=== PATIENT | female | born 1955 | race Caucasian/White ===

== ENCOUNTER 2020-09-10 13:24 | Emergency (ER) | payer OTHER, SELFPAY ==
[2020-09-10 14:57] VITALS: BP 178/81; PULSE 82; RESP 20; TEMP 36.8; O2SAT 99; BMI 76.0
--- NOTE | 2020-09-10 15:06 | ED.GENADULT ---
HPI - General Adult General Chief complaint: General Medical Stated complaint: Blood in stools Time Seen by Provider: 09/10/20 14:51 Source: patient Mode of arrival: ambulatory Limitations: no limitations History of Present Illness HPI narrative: this is a 64 years old female presented to the emergency department ambulatory complaining of rectal bleeding, denies any nausea, vomiting, fever. Onset (ago): hour(s) (6) Location: lower extremity (rectum) Radiation: non-radiation Severity scale (1-10): 5 Relieving factors: none Exacerbating factors: none Related Data Allergies Allergy/AdvReac Type Severity Reaction Status Date / Time No Known Allergies Allergy Unverified 08/12/20 16:29 Review of Systems Review of Systems: Yes all other systems are reviewed and are negative PMFSH Past Medical History Medical History Anxiety GERD (gastroesophageal reflux disease) Hernia High cholesterol Social History Social History Smoking Status: Never smoker Use of substances other than those prescribed or required for medical reasons: No Advance Directives: No Advance Directives Information Provided: Yes Physical Exam Vital Signs: Vital Signs: Vital Signs Temp Pulse Resp BP Pulse Ox 09/10/20 16:00 76 18 135/84 99 09/10/20 15:07 98.2 F 178/81 H 99 09/10/20 14:57 98.2 F 82 20 178/81 H 99 Body Mass Index 76.0 Const: General: cooperative, healthy appearing and comfortable HENMT: Head: Yes normal to inspection Eyes: General: appearance normal, both eyes and all related structures Neck: Neck: Yes normal visual inspection Chest: Chest palpation & inspection: normal inspection of the chest and normal palpation of entire chest wall Resp: Effort & Inspection: normal respiratory effort and able to speak in complete sentences Cardio: Jugular venous distension: no JVD Palpation: normal PMI Rate: regular rate Rhythm: regular rhythm GI: Palpation (GI): Soft to palpation, nontender, no guarding, not rigid, hepatosplenomegaly present and Other GI palpation findings present ( Rectal exam shows brown stool heme-negative) Auscultation: Hyperactive bowel sounds present Medical Decision Making [facility] Narrative Medical decision making narrative: labs wnl,rectal exam brown stools heme negative,vitals stable she is not tachycardic nor hypotensive,she can be d/c home with f/u with PCP,she is very confortable with the plan Lab Data Result diagrams: 09/10/20 15:43 09/10/20 15:43 Labs: Lab Results 09/10/20 09/10/20 09/10/20 Range/Units 15:12 15:29 15:43 WBC 7.5 (4.8-10.8) X10*3/uL RBC 3.80 L (4.20-5.50) X10*6/uL Hgb 11.5 L (12.0-16.0) g/dl Hct 34.7 L (37-47) % MCV 91.3 (80-98) fL MCH 30.3 (27.0-33.0) pg MCHC 33.1 (31.0-35.0) g/dl RDW 12.4 (11.0-16.0) % Plt Count 291 (160-400) X10*3/uL MPV 8.9 L (9.4-12.3) fL Immature Gran % (Auto) 0.3 (0.0-0.4) % Neut % (Auto) 79.3 H (45-73) % Lymph % (Auto) 14.9 L (20-40) % [place] % (Auto) 4.4 (2-11) % Eos % (Auto) 0.4 (0-4) % Baso % (Auto) 0.7 (0-2) % Lymph # (Auto) 1.1 L (1.2-4.9) X10*3/uL [place] # (Auto) 0.3 (0.1-1.2) X10*3/uL Eos # (Auto) 0.0 (0.0-0.4) X10*3/uL Baso # (Auto) 0.1 (0.0-0.2) X10*3/uL Abs Immat Gran (auto) 0.02 (0.00-0.03) X10*3/uL Absolute Neuts (auto) 6.0 (2.0-8.3) X10*3/uL Absolute Nucleated RBC 0.000 (0.0-0.012) X10*3/uL Nucleated RBC % (auto) 0.0 (0.0-0.2) /100WBC PT (10.8-13.0) SEC INR (0.9-1.1) APTT (24.1-38.0) SEC Sodium (135-145) mmol/L Potassium (3.3-5.1) mmol/l Chloride (96-108) mmol/L Carbon Dioxide (22-29) mmol/L Anion Gap (12-20) BUN (9-16) mg/dL Creatinine (0.5-1.4) mg/dL Estim Creat Clear Calc Estimated GFR Random Glucose (60-115) mg/dL Calcium (8.4-10.2) mg/dL Total Bilirubin (0.0-1.0) mg/dL AST (5-31) U/L ALT (0-31) U/L Alkaline Phosphatase (39-117) U/L Total Protein (6.5-8.0) g/dL Albumin (3.5-5.0) g/dL Urine Color YELLOW Urine Appearance CLEAR Urine pH 6.5 (5.0-8.0) Ur Specific [place] 1.010 (1.005-1.025) Urine Protein 2+ H (NEG-TRACE) MG/DL Urine Glucose (UA) NEG (NEG) MG/DL Urine Ketones NEG (NEG) MG/DL Urine Blood 3+ H (NEG) Urine Nitrite NEG (NEG) Ur Leukocyte Esterase NEG (NEG) Urine RBC 50-75 H (0) /HPF Urine WBC 0 (0-4) /HPF Ur Squamous Epith Cells 1+ /LPF Urine Bacteria NONE /LPF Stool Occult Blood NEG (NEG) 09/10/20 09/10/20 Range/Units 15:43 15:43 WBC (4.8-10.8) X10*3/uL RBC (4.20-5.50) X10*6/uL Hgb (12.0-16.0) g/dl Hct (37-47) % MCV (80-98) fL MCH (27.0-33.0) pg MCHC (31.0-35.0) g/dl RDW (11.0-16.0) % Plt Count (160-400) X10*3/uL MPV (9.4-12.3) fL Immature Gran % (Auto) (0.0-0.4) % Neut % (Auto) (45-73) % Lymph % (Auto) (20-40) % [place] % (Auto) (2-11) % Eos % (Auto) (0-4) % Baso % (Auto) (0-2) % Lymph # (Auto) (1.2-4.9) X10*3/uL [place] # (Auto) (0.1-1.2) X10*3/uL Eos # (Auto) (0.0-0.4) X10*3/uL Baso # (Auto) (0.0-0.2) X10*3/uL Abs Immat Gran (auto) (0.00-0.03) X10*3/uL Absolute Neuts (auto) (2.0-8.3) X10*3/uL Absolute Nucleated RBC (0.0-0.012) X10*3/uL Nucleated RBC % (auto) (0.0-0.2) /100WBC PT 10.5 L (10.8-13.0) SEC INR 0.9 (0.9-1.1) APTT 33.1 (24.1-38.0) SEC Sodium 141 (135-145) mmol/L Potassium 4.3 (3.3-5.1) mmol/l Chloride 107 (96-108) mmol/L Carbon Dioxide 25 (22-29) mmol/L Anion Gap 13 (12-20) BUN 18 H (9-16) mg/dL Creatinine 0.89 (0.5-1.4) mg/dL Estim Creat Clear Calc 92.4 Estimated GFR > 60 Random Glucose 99 (60-115) mg/dL Calcium 9.8 (8.4-10.2) mg/dL Total Bilirubin 0.3 (0.0-1.0) mg/dL AST 25 (5-31) U/L ALT 17 (0-31) U/L Alkaline Phosphatase 62 (39-117) U/L Total Protein 6.9 (6.5-8.0) g/dL Albumin 4.3 (3.5-5.0) g/dL Urine Color Urine Appearance Urine pH (5.0-8.0) Ur Specific [place] (1.005-1.025) Urine Protein (NEG-TRACE) MG/DL Urine Glucose (UA) (NEG) MG/DL Urine Ketones (NEG) MG/DL Urine Blood (NEG) Urine Nitrite (NEG) Ur Leukocyte Esterase (NEG) Urine RBC (0) /HPF Urine WBC (0-4) /HPF Ur Squamous Epith Cells /LPF Urine Bacteria /LPF Stool Occult Blood (NEG) Discharge Plan Discharge Clinical Impression: Rectal bleeding Patient Disposition: Home, Self-Care Instructions: Rectal Bleeding (ED) Additional Instructions: please follow-up with your primary care physician or return if you are worse Referrals: Quitnon Neff MD [Primary Care Provider] - 2 days Interventions: ED Discharge Assessment Last Done: 09/10/20 16:54 Discharge Date/Time: 09/10/20 17:03
[2020-09-10 15:07] VITALS: BP 178/81; TEMP 36.8; O2SAT 99
[2020-09-10 15:23] LABS: OBS Int Ctl Valid YES; OBS1 NEG (NEG)
[2020-09-10] MEDS: LORazepam 0.5 MG TABLET PO (15:24)
[2020-09-10 15:44] LABS: Glucose Urine UA NEG (NEG); Leukocyte Esterase Urine NEG (NEG); Nitrite Urine NEG (NEG); PH 6.5 (5.0-8.0); Urine Blood 3+ (NEG); Urine Ketones NEG (NEG); Urine Protein 2+ MG/DL (NEG-TRACE)
[2020-09-10 15:45] LABS: Appearance Urine CLEAR; Color Urine YELLOW
[2020-09-10 15:51] LABS: MANUAL DIFF FLAG NO
[2020-09-10 15:52] LABS: Basophils Absolute Auto 0.1 X10*3/uL (0.0-0.2); Basophils Percent Auto 0.7 % (0-2); Eosinophils Percent Auto 0.4 % (0-4); Hematocrit 34.7 % (37-47); Hemoglobin 11.5 g/dl (12.0-16.0); Imm Gran Abs Auto 0.02 X10*3/uL (0.00-0.03); Imm Gran Pct Auto 0.3 % (0.0-0.4); Lymphocytes Absolute Auto 1.1 X10*3/uL (1.2-4.9); Lymphocytes Percent Auto 14.9 % (20-40); Mean Corpuscular HGB Conc 33.1 g/dl (31.0-35.0); Mean Corpuscular Hemoglobin 30.3 pg (27.0-33.0); Mean Corpuscular Volume 91.3 fL (80-98); Mean Platelet Volume 8.9 fL (9.4-12.3); Monocytes Absolute Auto 0.3 X10*3/uL (0.1-1.2); Monocytes Percent Auto 4.4 % (2-11); Neutrophils Percent Auto 79.3 % (45-73); Platelet Count 291 X10*3/uL (160-400); Red Cell Distribution Width 12.4 % (11.0-16.0); White Blood Count 7.5 X10*3/uL (4.8-10.8)
[2020-09-10 15:57] LABS: WBC Urine 0 /HPF (0-4)
[2020-09-10 15:58] LABS: RBC Urine 50-75 /HPF (0); Squamous Epithelial Cell Urine 1+ /LPF
[2020-09-10 16:00] VITALS: BP 135/84; PULSE 76; RESP 18; O2SAT 99
--- NOTE | 2020-09-10 16:00 | PC.NURSE ---
pt resting in the stretcher, reports feeling a little better after the ativan, vs stable at this time
[2020-09-10 16:27] LABS: Alanine Aminotransferase 17 U/L (0-31); Albumin Level 4.3 g/dL (3.5-5.0); Alkaline Phosphatase 62 U/L (39-117); Anion Gap 13 (12-20); Aspartate Amino Transferase 25 U/L (5-31); Bilirubin Total 0.3 mg/dL (0.0-1.0); Blood Urea Nitrogen 18 mg/dL (9-16); Calcium 9.8 mg/dL (8.4-10.2); Carbon Dioxide 25 mmol/L (22-29); Chloride 107 mmol/L (96-108); Creatinine Clr Calc Pharmacy 92.4; Estimated Glomerular Filt Rate > 60; Glucose Random 99 mg/dL (60-115); Potassium 4.3 mmol/l (3.3-5.1); Sodium 141 mmol/L (135-145); Total Protein 6.9 g/dL (6.5-8.0)
[2020-09-10 16:31] LABS: INTERNATIONAL NORM RATIO 0.9 (0.9-1.1); Prothrombin Time 10.5 SEC (10.8-13.0)
[2020-09-10 16:33] LABS: Partial Thromboplastin Time 33.1 SEC (24.1-38.0)
== END 2020-09-10 17:03 | disposition home or self-care (01) ==
PROVIDERS: Emergency Provider Emergency Medicine; PCP Internal Medicine
DX: K62.5 Hemorrhage of anus and rectum (principal); Z79.899 Other long term (current) drug therapy
CPT/HCPCS: 36415; 80053; 81001; 82272; 85025; 85610; 85730; 96374; 99284

== ENCOUNTER 2020-11-24 09:49 | Outpatient (REF) | payer OTHER, SELFPAY ==
[2020-11-24 11:08] LABS: MANUAL DIFF FLAG NO
[2020-11-24 11:19] LABS: Basophils Absolute Auto 0.1 X10*3/uL (0.0-0.2); Basophils Percent Auto 1.1 % (0-2); Eosinophils Absolute Auto 0.3 X10*3/uL (0.0-0.4); Eosinophils Percent Auto 4.9 % (0-4); Hematocrit 36.3 % (37-47); Hemoglobin 11.6 g/dl (12.0-16.0); Imm Gran Abs Auto 0.01 X10*3/uL (0.00-0.03); Imm Gran Pct Auto 0.2 % (0.0-0.4); Lymphocytes Absolute Auto 2.4 X10*3/uL (1.2-4.9); Lymphocytes Percent Auto 38.7 % (20-40); Mean Corpuscular Volume 93.8 fL (80-98); Mean Platelet Volume 9.3 fL (9.4-12.3); Monocytes Absolute Auto 0.5 X10*3/uL (0.1-1.2); Monocytes Percent Auto 8.6 % (2-11); Neutrophils Absolute Auto 2.9 X10*3/uL (2.0-8.3); Neutrophils Percent Auto 46.5 % (45-73); Platelet Count 316 X10*3/uL (160-400); Red Blood Count 3.87 X10*6/uL (4.20-5.50); Red Cell Distribution Width 12.4 % (11.0-16.0); White Blood Count 6.2 X10*3/uL (4.8-10.8)
[2020-11-24 11:52] LABS: Alanine Aminotransferase 15 U/L (0-31); Albumin Level 4.2 g/dL (3.5-5.0); Alkaline Phosphatase 60 U/L (39-117); Anion Gap 10 (12-20); Aspartate Amino Transferase 20 U/L (5-31); Bilirubin Total 0.3 mg/dL (0.0-1.0); Blood Urea Nitrogen 20 mg/dL (9-16); Calcium 9.2 mg/dL (8.4-10.2); Carbon Dioxide 29 mmol/L (22-29); Chloride 106 mmol/L (96-108); Cholesterol 222 mg/dL; Estimated Glomerular Filt Rate 55; Glucose Random 89 mg/dL (60-115); HDL Cholesterol 58 mg/dL; LDL Cholesterol Calculated 123 mg/dl; Potassium 4.1 mmol/l (3.3-5.1); Sodium 141 mmol/L (135-145); Total Protein 6.7 g/dL (6.5-8.0); Triglycerides 206 mg/dL
[2020-11-24 11:54] LABS: Free T4 (Free Thyroxine) 1.01 ng/dL (0.71-1.85); Thyroid Stimulating Hormone 4.04 uIU/mL (0.32-4.0); Vitamin D 25-OH Total 37.2 ng/mL (>30)
[2020-11-24 12:36] LABS: Folate > 20.0 ng/mL (> or = 4.0); Vitamin B12 583 pg/mL (200-900)
== END 2020-11-24 09:50 | disposition home or self-care (01) ==
LOC: HO.LAB 09:49
PROVIDERS: Visit Provider Internal Medicine
DX: E78.00 Pure hypercholesterolemia, unspecified (principal)
CPT/HCPCS: 36415; 80053; 80061; 82306; 82607; 82746; 84439; 84443; 85025

== ENCOUNTER 2021-07-20 12:28 | Outpatient (REF) | payer OTHER, SELFPAY ==
[2021-07-20 13:24] LABS: Retic HGB Equivalent 35.5 pg (30.0-35.0); Reticulocyte Percent 1.4 % (0.5-1.8); Reticulocytes Absolute 0.054 X10*6/uL (0.026-0.095)
[2021-07-20 14:50] LABS: Iron 72 mcg/dL (30-160); Percent Iron Saturation 21 % (15-50); Total Iron Binding Capacity 335 mcg/dL (228-428); Unsaturated Iron Binding 263 ug/dL
[2021-07-20 15:13] LABS: Ferritin 40 ng/mL (10-250); Free T4 (Free Thyroxine) 1.09 ng/dL (0.71-1.85); Thyroid Stimulating Hormone 2.81 uIU/mL (0.32-4.0)
== END 2021-07-20 12:29 | disposition home or self-care (01) ==
LOC: HO.LAB 12:28
PROVIDERS: PCP Internal Medicine; Visit Provider Internal Medicine
DX: D64.9 Anemia, unspecified (principal); R79.89 Other specified abnormal findings of blood chemistry
CPT/HCPCS: 36415; 82728; 83540; 84439; 84443; 85045

== ENCOUNTER 2021-08-19 14:34 | Outpatient (REF) | payer OTHER, SELFPAY ==
--- NOTE | ~2021-08-19 | MM_ITS ---
EXAMINATION: MM SCREENING DIGITAL BREAST TOMOSYNTHESIS, BILATERAL CLINICAL INFORMATION: Screening. Asymptomatic. The lifetime risk of breast cancer based on the Tyrer-Cuzick Model is 17%. COMPARISON: Mammography: 08/04/2020, 07/30/2019, 07/22/2018 TECHNIQUE: Digital breast tomosynthesis is performed in both the craniocaudal and mediolateral oblique views along with computer-aided detection (CAD). Synthesized 2D images are generated from the tomosynthesis. FINDINGS: The breasts are heterogeneously dense, which may obscure small masses (ACR BI-RADS breast composition Category c). There are no significant masses, abnormal calcifications, or other abnormalities. There are scattered predominantly vascular calcifications and some punctate round calcifications. The axilla and skin contours are unremarkable. MM/MM tomosynthesis screening BI IMPRESSION: No mammographic evidence of malignancy. ASSESSMENT: BI-RADS 2: Benign RECOMMENDATION: Routine annual mammography screening. This patient's information was entered into a reminder system with a target due date for their next mammogram.
== END 2021-08-19 14:35 | disposition home or self-care (01) ==
LOC: HO.MAMMO 14:34
PROVIDERS: Visit Provider Internal Medicine
DX: Z12.31 Encounter for screening mammogram for malignant neoplasm of breast (principal)
CPT/HCPCS: 77063; 77067

== ENCOUNTER 2021-11-04 10:44 | Outpatient (REF) | payer MEDICARE, OTHER, SELFPAY ==
[2021-11-04 10:59] LABS: MANUAL DIFF FLAG NO
[2021-11-04 11:48] LABS: Basophils Absolute Auto 0.1 X10*3/uL (0.0-0.2); Eosinophils Absolute Auto 0.3 X10*3/uL (0.0-0.4); Eosinophils Percent Auto 4.4 % (0-4); Hematocrit 35.3 % (37.0-47.0); Hemoglobin 11.4 g/dl (12.0-16.0); Imm Gran Abs Auto 0.01 X10*3/uL (0.00-0.03); Imm Gran Pct Auto 0.2 % (0.0-0.4); Lymphocytes Absolute Auto 1.8 X10*3/uL (1.2-4.9); Lymphocytes Percent Auto 30.5 % (20-40); Mean Corpuscular HGB Conc 32.3 g/dl (31.0-35.0); Mean Corpuscular Hemoglobin 30.1 pg (27.0-33.0); Mean Corpuscular Volume 93.1 fL (80.0-98.0); Monocytes Absolute Auto 0.5 X10*3/uL (0.1-1.2); Monocytes Percent Auto 8.2 % (2-11); Neutrophils Absolute Auto 3.3 x10*3/uL (2.0-8.3); Neutrophils Percent Auto 55.7 % (45-73); Platelet Count 312 X10*3/uL (160-400); Red Blood Count 3.79 X10*6/uL (4.20-5.50); Red Cell Distribution Width 12.4 % (11.0-16.0)
[2021-11-04 12:17] LABS: Alanine Aminotransferase 16 U/L (0-31); Albumin Level 4.2 g/dL (3.5-5.0); Alkaline Phosphatase 66 U/L (39-117); Anion Gap 13 (12-20); Aspartate Amino Transferase 22 U/L (5-31); Bilirubin Total 0.5 mg/dL (0.0-1.0); Blood Urea Nitrogen 21 mg/dL (9-16); Calcium 9.5 mg/dL (8.4-10.2); Carbon Dioxide 26 mmol/L (22-29); Chloride 107 mmol/L (96-108); Cholesterol 237 mg/dL; Estimated Glomerular Filt Rate 53; Glucose Random 92 mg/dL (60-115); HDL Cholesterol 55 mg/dL; LDL Cholesterol Calculated 140 mg/dl; Potassium 4.3 mmol/L (3.3-5.1); Sodium 142 mmol/L (135-145); Total Protein 6.9 g/dL (6.5-8.0); Triglycerides 210 mg/dL
[2021-11-04 12:24] LABS: Thyroid Stimulating Hormone 3.59 uIU/mL (0.32-4.0)
[2021-11-04 13:10] LABS: Folate > 20.0 ng/mL (> or = 4.0); Vitamin B12 576 pg/mL (200-900)
== END 2021-11-04 10:45 | disposition home or self-care (01) ==
LOC: HO.LAB 10:44
PROVIDERS: PCP Internal Medicine; Visit Provider Internal Medicine
DX: E78.00 Pure hypercholesterolemia, unspecified (principal)
CPT/HCPCS: 36415; 80053; 80061; 82607; 82746; 84439; 84443; 85025

== ENCOUNTER 2021-12-13 15:04 | Outpatient (REF) | payer MEDICARE, SELFPAY ==
--- NOTE | ~2021-12-13 | MM_ITS ---
EXAMINATION: BONE DENSITOMETRY CLINICAL INDICATION: Other specified disorders of bone density and structure. COMPARISON: Previous BD dated 12/14/2017 and baseline BD dated 11/12/2015. TECHNIQUE: Using a [employer]o DXA System (software version: 13.1) manufactured by [employer], dual-energy x-ray absorptiometry was performed of the lumbar spine and left hip. The images are of good technical quality. Summary results are attached. FINDINGS: AP SPINE L1-L4: Current: BMD 0.879 g/cm2, Z-score -1.3, T-score -2.5, osteoporosis, 4.0% decrease from previous, 4.0% decrease from baseline (<5% change is not significant). Prior: BMD 0.916 g/cm2. Baseline: BMD 0.916 g/cm2. LEFT FEMUR, NECK: Current: BMD 0.759 g/cm2, Z-score -0.8, T-score -2.0, osteopenia. Prior: BMD 0.770 g/cm2. Baseline: BMD 0.784 g/cm2. LEFT FEMUR, TOTAL: Current: BMD 0.843 g/cm2, Z-score -0.4, T-score -1.3, osteopenia, 4.1% decrease from previous, 5.3% decrease from baseline (<5% change is not significant). Prior: BMD 0.879 g/cm2. Baseline: BMD 0.890 g/cm2. IDENTIFIED RISK FACTORS: Early menopause, secondary osteoporosis, low calcium intake. HISTORY OF FRACTURE: None listed. MEDICATIONS: Calcium. MM/XR DEXA axial skeleton IMPRESSION: 1. DIAGNOSIS: Osteoporosis based on the lowest T-score value of -2.5 in the lumbar spine applying World Health Organization criteria. 2. 10-YEAR FRACTURE RISK PREDICTION, FRAX: According to the guidelines, FRAX calculation should only be performed on patients in the osteopenia bone density category. Therefore, FRAX was not performed on this patient. 3. Treatment Recommendations: NOF guidelines recommend consideration for treatment in postmenopausal women and men age 50 and older presenting with the following: -A hip or vertebral (clinical or morphometric) fracture. -T-score less than or equal to -2.5 at the femoral neck or spine after appropriate evaluation to exclude secondary causes. -Low bone mass at the hip or spine and a 10-year fracture probability by FRAX of greater than or equal to 3% for hip fracture or greater than or equal to 20% for major osteoporotic fracture based on the [place] adapted WHO algorithm. 4. Other Recommendations: All treatment decisions require clinical judgment and consideration of individual patient factors, including patient preferences, comorbidities, previous drug use, risk factors not captured in the FRAX model (e.g. frailty, falls, vitamin D deficiency, increased bone turnover, interval significant decline in bone density) and possible under or overestimation of fracture risk by FRAX. Additional medical evaluation for secondary cause of low bone mineral density may be appropriate. FUTURE SCAN RECOMMENDATION: People with diagnosed cases of osteoporosis or at high risk for fracture should have regular bone mineral density tests. For patients eligible for Medicare, routine testing is allowed once every 2 years. The testing frequency can be increased to one year for patients who have rapidly progressing disease, those who are receiving or discontinuing medical therapy to restore bone mass, or have additional risk factors.
== END 2021-12-13 15:05 | disposition home or self-care (01) ==
LOC: HO.MAMMO 15:04
PROVIDERS: PCP Internal Medicine; Visit Provider Internal Medicine
DX: Z13.820 Encounter for screening for osteoporosis (principal); M85.80 Other specified disorders of bone density and structure, unspecified site; M81.0 Age-related osteoporosis without current pathological fracture; Z78.0 Asymptomatic menopausal state; Z79.899 Other long term (current) drug therapy
CPT/HCPCS: 77080

== ENCOUNTER 2022-03-10 13:30 | Outpatient (REF) | payer MEDICARE, SELFPAY ==
[2022-03-10 13:39] LABS: MANUAL DIFF FLAG NO
[2022-03-10 14:11] LABS: Basophils Absolute Auto 0.1 X10*3/uL (0.0-0.2); Basophils Percent Auto 1.3 % (0-2); Eosinophils Absolute Auto 0.2 X10*3/uL (0.0-0.4); Eosinophils Percent Auto 3.8 % (0-4); Hematocrit 34.7 % (37.0-47.0); Hemoglobin 11.1 g/dl (12.0-16.0); Imm Gran Abs Auto 0.02 X10*3/uL (0.00-0.03); Imm Gran Pct Auto 0.4 % (0.0-0.4); Immature Retic Fraction 8.2 % (3.0-15.9); Lymphocytes Absolute Auto 1.8 X10*3/uL (1.2-4.9); Lymphocytes Percent Auto 33.1 % (20-40); Mean Corpuscular Hemoglobin 29.7 pg (27.0-33.0); Mean Corpuscular Volume 92.8 fL (80.0-98.0); Monocytes Absolute Auto 0.4 X10*3/uL (0.1-1.2); Monocytes Percent Auto 7.9 % (2-11); Neutrophils Absolute Auto 2.9 x10*3/uL (2.0-8.3); Neutrophils Percent Auto 53.5 % (45-73); Platelet Count 284 X10*3/uL (160-400); Red Blood Count 3.74 X10*6/uL (4.20-5.50); Red Cell Distribution Width 12.6 % (11.0-16.0); Retic HGB Equivalent 34.7 pg (30.0-35.0); Reticulocyte Percent 1.3 % (0.5-1.8); Reticulocytes Absolute 0.049 X10*6/uL (0.026-0.095); White Blood Count 5.5 X10*3/uL (4.8-10.8)
[2022-03-10 14:26] LABS: Cholesterol 229 mg/dL; HDL Cholesterol 52 mg/dL; Iron 93 mcg/dL (30-160); LDL Cholesterol Calculated 144 mg/dl; Triglycerides 167 mg/dL
[2022-03-10 14:37] LABS: Percent Iron Saturation 29 % (15-50); Total Iron Binding Capacity 326 mcg/dL (228-428); Unsaturated Iron Binding 233 ug/dL
[2022-03-10 14:42] LABS: Ferritin 57 ng/mL (10-250)
[2022-03-10 15:03] LABS: Folate > 20.0 ng/mL (> or = 4.0); Vitamin B12 734 pg/mL (200-900)
== END 2022-03-10 13:31 | disposition home or self-care (01) ==
LOC: HO.LAB 13:30
PROVIDERS: PCP Internal Medicine; Visit Provider Internal Medicine
DX: K21.9 Gastro-esophageal reflux disease without esophagitis (principal); E78.00 Pure hypercholesterolemia, unspecified
CPT/HCPCS: 36415; 80061; 82607; 82728; 82746; 83540; 85025; 85045

== ENCOUNTER 2022-06-16 14:24 | Outpatient (REF) | payer MEDICARE, SELFPAY ==
[2022-06-16 14:35] LABS: MANUAL DIFF FLAG NO
[2022-06-16 15:13] LABS: Basophils Absolute Auto 0.1 X10*3/uL (0.0-0.2); Basophils Percent Auto 1.2 % (0-2); Eosinophils Absolute Auto 0.3 X10*3/uL (0.0-0.4); Eosinophils Percent Auto 4.2 % (0-4); Hematocrit 34.4 % (37.0-47.0); Hemoglobin 11.2 g/dl (12.0-16.0); Imm Gran Abs Auto 0.01 X10*3/uL (0.00-0.03); Imm Gran Pct Auto 0.2 % (0.0-0.4); Lymphocytes Absolute Auto 1.8 X10*3/uL (1.2-4.9); Lymphocytes Percent Auto 31.1 % (20-40); Mean Corpuscular HGB Conc 32.6 g/dl (31.0-35.0); Mean Corpuscular Hemoglobin 29.8 pg (27.0-33.0); Mean Corpuscular Volume 91.5 fL (80.0-98.0); Mean Platelet Volume 9.1 fL (9.4-12.3); Monocytes Absolute Auto 0.5 X10*3/uL (0.1-1.2); Monocytes Percent Auto 8.1 % (2-11); Neutrophils Absolute Auto 3.3 x10*3/uL (2.0-8.3); Neutrophils Percent Auto 55.2 % (45-73); Platelet Count 280 X10*3/uL (160-400); Red Blood Count 3.76 X10*6/uL (4.20-5.50); Red Cell Distribution Width 12.6 % (11.0-16.0); White Blood Count 5.9 X10*3/uL (4.8-10.8)
[2022-06-16 15:45] LABS: Alanine Aminotransferase 13 U/L (0-31); Albumin Level 4.3 g/dL (3.5-5.0); Alkaline Phosphatase 59 U/L (39-117); Anion Gap 13 (12-20); Aspartate Amino Transferase 18 U/L (5-31); Bilirubin Total 0.3 mg/dL (0.0-1.0); Blood Urea Nitrogen 23 mg/dL (9-16); Calcium 9.3 mg/dL (8.4-10.2); Carbon Dioxide 25 mmol/L (22-29); Chloride 108 mmol/L (96-108); Cholesterol 227 mg/dL; Estimated Glomerular Filt Rate 45; Glucose Random 93 mg/dL (60-115); HDL Cholesterol 52 mg/dL; LDL Cholesterol Calculated 140 mg/dl; Potassium 4.8 mmol/L (3.3-5.1); Sodium 141 mmol/L (135-145); Total Protein 6.8 g/dL (6.5-8.0); Triglycerides 175 mg/dL
== END 2022-06-16 14:25 | disposition home or self-care (01) ==
LOC: HO.LAB 14:24
PROVIDERS: PCP Internal Medicine; Visit Provider Internal Medicine
DX: E78.00 Pure hypercholesterolemia, unspecified (principal)
CPT/HCPCS: 36415; 80053; 80061; 85025

== ENCOUNTER 2022-08-21 15:05 | Outpatient (REF) | payer MEDICARE, SELFPAY ==
--- NOTE | ~2022-08-21 | MM_ITS ---
EXAMINATION: MM SCREENING DIGITAL BREAST TOMOSYNTHESIS, BILATERAL CLINICAL INFORMATION: Screening. Asymptomatic. Family history breast cancer, mother. The lifetime risk of breast cancer based on the Tyrer-Cuzick Model is 6%. COMPARISON: Mammography: 08/19/2021, 08/04/2020, 07/30/2019 TECHNIQUE: Digital breast tomosynthesis is performed in both the craniocaudal and mediolateral oblique views along with computer-aided detection (CAD). Synthesized 2D images are generated from the tomosynthesis. Additional left CC view obtained with dermal marker. FINDINGS: The breasts are heterogeneously dense, which may obscure small masses (ACR BI-RADS breast composition Category c). Parenchymal pattern is similar to prior studies. There is no interval mass or architectural abnormality. There are some scattered round and vascular calcifications again seen. The axilla and skin contours are unremarkable. There are new numerous punctate high attenuation foci overlying the skin posterior inferior left breast. Dermal lesion also noted in this area marked with skin marker. The finding appears to represent artifact from topical ointment/cream, finding related to skin on tomography. Patient called today and confirmed use of Desitin in this area. MM/MM tomosynthesis screening BI IMPRESSION: -No mammographic evidence of malignancy. -Punctate dermal artifact posterior inferior left breast (topical ointment/cream - Desitin). ASSESSMENT: BI-RADS 2: Benign RECOMMENDATION: Routine annual mammography screening. This patient's information was entered into a reminder system with a target due date for their next mammogram.
== END 2022-08-21 15:06 | disposition home or self-care (01) ==
LOC: HO.MAMMO 15:05
PROVIDERS: PCP Internal Medicine; Visit Provider Internal Medicine
DX: Z12.31 Encounter for screening mammogram for malignant neoplasm of breast (principal)
CPT/HCPCS: 77063; 77067

== ENCOUNTER 2022-09-04 13:50 | Outpatient (REF) | payer MEDICARE, SELFPAY ==
[2022-09-04 14:11] LABS: MANUAL DIFF FLAG NO
[2022-09-04 14:23] LABS: Basophils Absolute Auto 0.1 X10*3/uL (0.0-0.2); Basophils Percent Auto 1.2 % (0-2); Eosinophils Absolute Auto 0.2 X10*3/uL (0.0-0.4); Eosinophils Percent Auto 3.1 % (0-4); Hemoglobin 11.4 g/dl (12.0-16.0); Imm Gran Abs Auto 0.01 X10*3/uL (0.00-0.03); Imm Gran Pct Auto 0.2 % (0.0-0.4); Immature Retic Fraction 6.5 % (3.0-15.9); Lymphocytes Absolute Auto 1.8 X10*3/uL (1.2-4.9); Lymphocytes Percent Auto 31.3 % (20-40); Mean Corpuscular HGB Conc 32.6 g/dl (31.0-35.0); Mean Corpuscular Hemoglobin 29.8 pg (27.0-33.0); Mean Corpuscular Volume 91.6 fL (80.0-98.0); Mean Platelet Volume 8.9 fL (9.4-12.3); Monocytes Absolute Auto 0.5 X10*3/uL (0.1-1.2); Monocytes Percent Auto 7.7 % (2-11); Neutrophils Absolute Auto 3.3 x10*3/uL (2.0-8.3); Neutrophils Percent Auto 56.5 % (45-73); Platelet Count 299 X10*3/uL (160-400); Red Blood Count 3.82 X10*6/uL (4.20-5.50); Red Cell Distribution Width 12.8 % (11.0-16.0); Retic HGB Equivalent 35.1 pg (30.0-35.0); Reticulocyte Percent 1.1 % (0.5-1.8); Reticulocytes Absolute 0.042 X10*6/uL (0.026-0.095); White Blood Count 5.8 X10*3/uL (4.8-10.8)
[2022-09-04 14:34] LABS: Alanine Aminotransferase 14 U/L (0-31); Albumin Level 4.1 g/dL (3.5-5.0); Alkaline Phosphatase 62 U/L (39-117); Anion Gap 17 (12-20); Aspartate Amino Transferase 21 U/L (5-31); Bilirubin Total 0.3 mg/dL (0.0-1.0); Blood Urea Nitrogen 27 mg/dL (9-16); Calcium 9.6 mg/dL (8.4-10.2); Carbon Dioxide 23 mmol/L (22-29); Chloride 107 mmol/L (96-108); Cholesterol 295 mg/dL; Estimated Glomerular Filt Rate 47; Glucose Random 102 mg/dL (60-115); HDL Cholesterol 51 mg/dL; Iron 83 mcg/dL (30-160); LDL Cholesterol Calculated 203 mg/dl; Percent Iron Saturation 24 % (15-50); Potassium 4.8 mmol/L (3.3-5.1); Sodium 142 mmol/L (135-145); Total Iron Binding Capacity 340 mcg/dL (228-428); Total Protein 6.8 g/dL (6.5-8.0); Triglycerides 209 mg/dL; Unsaturated Iron Binding 257 ug/dL
[2022-09-04 14:54] LABS: Ferritin 35 ng/mL (10-250); Free T4 (Free Thyroxine) 1.22 ng/dL (0.71-1.85); Thyroid Stimulating Hormone 2.77 uIU/mL (0.32-4.0); Vitamin D 25-OH Total 47.6 ng/mL (>30)
[2022-09-04 15:08] LABS: Folate > 20.0 ng/mL (> or = 4.0); Vitamin B12 531 pg/mL (200-900)
== END 2022-09-04 13:51 | disposition home or self-care (01) ==
LOC: HO.LAB 13:50
PROVIDERS: PCP Internal Medicine; Visit Provider Internal Medicine
DX: I10 Essential (primary) hypertension (principal); E78.00 Pure hypercholesterolemia, unspecified; D64.9 Anemia, unspecified; M81.0 Age-related osteoporosis without current pathological fracture
CPT/HCPCS: 36415; 80053; 80061; 82306; 82607; 82728; 82746; 83540; 84439; 84443; 85025; 85045

== ENCOUNTER 2022-12-06 14:53 | Outpatient (REF) | payer MEDICARE, SELFPAY ==
[2022-12-06 15:55] LABS: Alanine Aminotransferase 11 U/L (0-31); Albumin Level 4.3 g/dL (3.5-5.0); Alkaline Phosphatase 62 U/L (39-117); Anion Gap 12 (12-20); Aspartate Amino Transferase 17 U/L (5-31); Bilirubin Total 0.4 mg/dL (0.0-1.0); Blood Urea Nitrogen 30 mg/dL (9-16); Calcium 9.8 mg/dL (8.4-10.2); Carbon Dioxide 28 mmol/L (22-29); Chloride 105 mmol/L (96-108); Cholesterol 209 mg/dL; Estimated Glomerular Filt Rate 41; Glucose Random 102 mg/dL (60-115); HDL Cholesterol 56 mg/dL; LDL Cholesterol Calculated 123 mg/dl; Potassium 4.3 mmol/L (3.3-5.1); Sodium 141 mmol/L (135-145); Total Protein 6.9 g/dL (6.5-8.0); Triglycerides 154 mg/dL
== END 2022-12-06 14:54 | disposition home or self-care (01) ==
LOC: HO.LAB 14:53
PROVIDERS: PCP Internal Medicine; Visit Provider Internal Medicine
DX: E78.00 Pure hypercholesterolemia, unspecified (principal)
CPT/HCPCS: 36415; 80053; 80061

== ENCOUNTER 2022-12-28 15:11 | Outpatient (REF) | payer MEDICARE, SELFPAY ==
[2022-12-28 15:51] LABS: Appearance Urine Clear; Color Urine Yellow; Glucose Urine UA Negative (Negative); Leukocyte Esterase Urine Small (1+) (Negative); Nitrite Urine Negative (Negative); PH 6.5 (5.0-9.0); UMIC TRIGGER UACC YES; Urine Blood Small (1+) (Negative); Urine Ketones Negative (Negative); Urine Protein Negative (Neg-Trace)
[2022-12-28 15:53] LABS: Alanine Aminotransferase 12 U/L (0-31); Albumin Level 4.1 g/dL (3.5-5.0); Alkaline Phosphatase 60 U/L (39-117); Anion Gap 12 (12-20); Aspartate Amino Transferase 17 U/L (5-31); Bilirubin Total 0.3 mg/dL (0.0-1.0); Blood Urea Nitrogen 37 mg/dL (9-16); Calcium 9.1 mg/dL (8.4-10.2); Carbon Dioxide 26 mmol/L (22-29); Chloride 106 mmol/L (96-108); Estimated Glomerular Filt Rate 37; Glucose Random 100 mg/dL (60-115); Potassium 4.6 mmol/L (3.3-5.1); Sodium 139 mmol/L (135-145); Total Protein 6.5 g/dL (6.5-8.0)
[2022-12-28 16:04] LABS: Bacteria Urine None Seen (None Seen); Hyaline Casts Urine 0-2 /LPF (0-2); Squamous Epithelial Cell Urine 0-2 /HPF (0-2); UACC Culture Trigger YES; WBC Urine 0-5 /HPF (0-5)
== END 2022-12-28 15:12 | disposition home or self-care (01) ==
LOC: HO.LAB 15:11
PROVIDERS: PCP Internal Medicine; Visit Provider Internal Medicine
DX: I10 Essential (primary) hypertension (principal)
CPT/HCPCS: 36415; 80053; 81001; 87086

== ENCOUNTER 2023-01-04 15:29 | Outpatient (REF) | payer MEDICARE, SELFPAY ==
[2023-01-04 17:40] LABS: Appearance Urine Clear; Color Urine Yellow; Glucose Urine UA Negative (Negative); Leukocyte Esterase Urine Trace (Negative); Nitrite Urine Negative (Negative); PH 5.5 (5.0-9.0); Specific Gravity - Urine 1.015 (1.005-1.025); UMIC TRIGGER UACC YES; Urine Blood Moderate (2+) (Negative); Urine Ketones Negative (Negative); Urine Protein Trace mg/dL (Neg-Trace)
[2023-01-04 17:46] LABS: Bacteria Urine None Seen (None Seen); Hyaline Casts Urine 0-2 /LPF (0-2); Squamous Epithelial Cell Urine 0-2 /HPF (0-2); WBC Urine 0-5 /HPF (0-5)
[2023-01-04 18:08] LABS: Anion Gap 16 (12-20); Blood Urea Nitrogen 23 mg/dL (9-16); Calcium 9.4 mg/dL (8.4-10.2); Carbon Dioxide 21 mmol/L (22-29); Chloride 109 mmol/L (96-108); Estimated Glomerular Filt Rate 50; Glucose Random 93 mg/dL (60-115); Potassium 4.6 mmol/L (3.3-5.1); Sodium 141 mmol/L (135-145)
== END 2023-01-04 15:30 | disposition home or self-care (01) ==
LOC: HO.LAB 15:29
PROVIDERS: PCP Internal Medicine; Visit Provider Internal Medicine
DX: R30.0 Dysuria (principal); I10 Essential (primary) hypertension
CPT/HCPCS: 36415; 80048; 81001

== ENCOUNTER 2023-02-16 15:37 | Emergency (ER) | payer MEDICARE, SELFPAY ==
--- NOTE | 2023-02-16 16:19 | ED.ANIMALBIT ---
HPI - Animal Bite General Chief Complaint: Animal Bite Stated Complaint: Seen at , needs to start rabies shot, an bite Time Seen by Provider: 02/16/23 18:39 Source: patient Mode of arrival: ambulatory History of Present Illness HPI narrative: 67-year-old female with past medical history of hypertension, GERD, HLD, obesity, presenting to ED sent in from Urgent Care for Rabies vaccine/immune globulin. Patient states she was scratched and potentially bit by neighborhood cat to right upper extremity [employer]. Unknown if cat is vaccinated. Patient received a Tdap at Urgent Care [employer], Augmentin was also sent to pharmacy. Denies injury to other area, numbness/tingling fever MD complaint: animal bite Onset (ago): hour(s) Related Data Home Medications Medication Instructions Recorded Confirmed cranberry 400 mg capsule 400 mg PO DAILY 11/25/20 09/04/22 multivitamin 1 tab PO DAILY 11/25/20 09/04/22 omega-3 fatty acids 1,000 mg 1,000 mg PO DAILY 11/25/20 09/04/22 capsule (Fish Oil Concentrate) Previous Rx's Medication Instructions Recorded cholecalciferol (vitamin D3) 50 50 mcg PO DAILY 90 days #90 caps 06/19/22 mcg (2,000 unit) capsule antiarthritic combination no.2 900 900 mg PO .QD 90 days #90 tabs 12/11/22 mg tablet (glucosamine-chondroitin) lorazepam 0.5 mg tablet (Ativan) 0.5 mg PO BID PRN anxiety 90 days 12/11/22 #90 tabs omeprazole 20 mg capsule,delayed 20 mg PO DAILY 90 days #90 caps 12/11/22 release simvastatin 10 mg tablet 10 mg PO BEDTIME 90 days #90 tabs 12/11/22 amlodipine 5 mg tablet 5 mg PO DAILY #30 tabs 12/28/22 amoxicillin 875 mg-potassium 1 tab PO BID 10 days #20 tabs 02/16/23 clavulanate 125 mg tablet Allergies Allergy/AdvReac Type Severity Reaction Status Date / Time No Known Allergies Allergy Verified 02/16/23 14:37 Review of Systems Review of Systems: Constitutional: No Fever, No Chills ENT/Mouth: No Ear Pain, No Nasal Congestion, No sore throat, No Rhinorrhea, No Swallowing Difficulty Cardiovascular: No Chest Pain, No SOB Respiratory: No Cough, No Sputum, No Wheezing Gastrointestinal: No Nausea, No Vomiting, No Diarrhea, No Constipation, No Abdominal pain Musculoskeletal: No joint pain, No Myalgias, No Joint Swelling Skin: +Skin Lesions, No rash Neuro: No Weakness, No Numbness, No Paresthesias Yes all other systems are reviewed and are negative Constitutional: Constitutional: Reports as per [facility] Past Medical History Attestation statement: The following information was validated with the patient. Medical History Abnormal blood pressure Blood pressure elevated without history of HTN Cholelithiasis GERD (gastroesophageal reflux disease) Hernia High cholesterol Obesity (BMI 30-39.9) Vitamin D deficiency Surgical History No pertinent past surgical history Family History Family History Father CVD (cardiovascular disease) Stroke Hypertension Mother Breast cancer Social History Social History Housing: Apartment Patient Tobacco Use Status: Never used Tobacco e-Cigarette/Vaping Use: Never Used Second Hand Smoke Exposure: No service: No Current occupational status: employed Cognitive needs: No Hearing needs: No Vision needs: Yes Physical Exam ED Vital Signs: Vital Signs - 24 hr 02/16/23 16:21 02/16/23 18:31 Temperature 97.5 F 98.5 F Pulse Rate 80 95 Respiratory Rate 16 14 Blood Pressure 148/65 H 181/83 H Pulse Oximetry 96 100 Oxygen Delivery Method Room Air Room Air BMI result Body Mass Index 29.0 Const General: cooperative, healthy appearing and no acute distress Orientation/consciousness: patient oriented x3 Limitations: no limitations HENMT Head: Yes normal to inspection and Yes atraumatic Ears: hearing grossly normal bilaterally General nose exam: Normal external nose present Face and sinus: Yes normal facial exam Eyes General: appearance normal, both eyes and all related structures EOM: EOMs intact bilaterally Neck Neck: Yes normal visual inspection and Yes no meningeal signs Resp Effort & Inspection: normal respiratory effort and no respiratory distress Cardio Rate: regular rate Heart sounds: S1 normal heart sound present and S2 normal heart sound present Skin Other: + multiple abrasions and puncture wounds noted to right upper extremity with some ecchymosis. No active bleeding. Neurovascularly intact distally. Full range of motion intact. No crepitus/erythema/warmth or cellulitis Rashes: no rashes Neuro General: patient oriented x3, tone normal and no meningeal signs Gait exam (Neuro): Normal gait present Extrem General: Yes normal to inspection Course Course Course Narrative: RME--67yo F with a past medical history of GERD, HLD, obesity, HTN c/o cat bites and scratches to right arm [employer] from neighborhood cat. Unknown if cat is vaccinations. Was seen at [employer] received TDap and Augmentin sent to pharmacy Multiple scratches/punctures to right arm with ecchymosis Patient will need rabies vaccine/immune globulin Medications Administered Discontinued Medications Generic Name Dose Route Start Last Admin Trade Name Freq PRN Reason Stop Dose Admin Rabies Immune Globulin 1,632.94 unit 02/16/23 16:26 02/16/23 18:34 Rabies Immune Globulin/Pf 900 Unit/3 Ml Vial 20 unit/kg (1632.94 unit) 02/16/23 16:27 1,632.94 unit IM Administration ONCE ONE Rabies Vaccine 1 ml 02/16/23 16:25 02/16/23 18:33 Rabies Vaccine (Pcec)/Pf 1 Ml Vial IM 02/16/23 16:26 1 ml .ONCE ONE Administration Medical Decision Making Medical Decision Making [facility] Narrative: 67-year-old female with past medical history of hypertension, GERD, HLD, obesity, presenting to ED sent in from Urgent Care for Rabies vaccine/immune globulin. Patient states she was scratched and potentially bit by neighborhood cat to right upper extremity [employer]. On exam vital signs stable, NAD, nontoxic appearing, physical exam as noted above. Patient received Tdap [employer] as well as prescription for Augmentin, needs rabies immunoglobulin and vaccine Please refer to course for remaining clinical decision making, interpretation of labs/imaging results, and discussions with consultants and/or family members. Differential Diagnosis Differential Diagnoses: The differential diagnosis associated with the presentation includes As above Lab Data MDM Lab Attestation statement: I reviewed the patient's lab results. Radiology Impression Discussion of test interpretation with radiology: I have reviewed the radiologist's reading. External Record Review External record reviewed: Inpatient record, Office record, Outpatient record, Prior outpatient labs, Prior outpatient radiology, Primary care record and Outside ED record Discharge Plan Discharge Clinical Impression: Cat scratch, Cat bite Patient Disposition: Home, Self-Care Instructions: Animal Bite (ED), Rabies (ED) Additional Instructions: Your received the rabies vaccine and immunoglobulin today. You need to return to short-stay surgery for the remaining doses of your vaccine on February 19, February 23, & March 02 Please roll picker prescription that was sent earlier today. Keep wounds clean Animal bites have high likelihood of getting infected, watch closely, if they develop increasing redness, drainage, fever return to the ED Prescriptions: No Action amlodipine 5 mg tablet 5 mg PO DAILY Qty: 30 2RF omega-3 fatty acids [Fish Oil Concentrate] 1,000 mg capsule 1,000 mg PO DAILY multivitamin Tablet 1 tab PO DAILY cranberry 400 mg capsule 400 mg PO DAILY Rx Instructions: administer with a meal amoxicillin-pot clavulanate 875-125 mg tablet 1 tab PO BID 10 Days Qty: 20 0RF cholecalciferol (vitamin D3) 50 mcg (2,000 unit) capsule 50 mcg PO DAILY 90 Days Qty: 90 3RF lorazepam [Ativan] 0.5 mg tablet 0.5 mg PO BID PRN (Reason: anxiety) 90 Days Qty: 90 2RF simvastatin 10 mg tablet 10 mg PO BEDTIME 90 Days Qty: 90 3RF glucosamine-chondroitin 900 mg tablet 900 mg PO .QD 90 Days Qty: 90 3RF omeprazole 20 mg capsule,delayed release(DR/EC) 20 mg PO DAILY 90 Days Qty: 90 2RF Referrals: Taawnda,Quinton Bragg MD [Primary Care Provider] - Interventions: ED Discharge Assessment Last Done: 02/16/23 19:27 Discharge Date/Time: 02/16/23 19:28
[2023-02-16 16:21] VITALS: BP 148/65; PULSE 80; RESP 16; TEMP 36.4; O2SAT 96; BMI 29.0
[2023-02-16 18:31] VITALS: BP 181/83; PULSE 95; RESP 14; TEMP 36.9; O2SAT 100
[2023-02-16] MEDS: Rabies Vaccine (PCEC)/PF 1 ML VIAL IM (18:33)
[2023-02-16] MEDS: Rabies Immune Globulin/PF 900 UNIT/3 ML VIAL 1632.94 UNIT IM (18:34)
== END 2023-02-16 19:28 | disposition home or self-care (01) ==
PROVIDERS: Emergency Provider Student in an Organized Health Care Education/Training Program; PCP Internal Medicine
DX: S41.151A Open bite of right upper arm, initial encounter (principal); S41.131A Puncture wound without foreign body of right upper arm, initial encounter; S40.021A Contusion of right upper arm, initial encounter; S40.811A Abrasion of right upper arm, initial encounter; W55.01XA Bitten by cat, initial encounter; I10 Essential (primary) hypertension; Y93.9 Activity, unspecified; Y92.9 Unspecified place or not applicable; Y99.9 Unspecified external cause status; Z79.899 Other long term (current) drug therapy; Z23 Encounter for immunization
CPT/HCPCS: 90375; 90471; 90675; 96372; 99283; 99284

== ENCOUNTER 2023-02-19 10:56 | Outpatient (REF) | payer MEDICARE, SELFPAY | END 2023-02-19 10:57 | disposition home or self-care (01) | LOC: HO.MDS 10:56 | PROVIDERS: Visit Provider Physician Assistant | DX: Z29.14 Encounter for prophylactic rabies immune globulin (principal); S41.151D Open bite of right upper arm, subsequent encounter; W55.01XD Bitten by cat, subsequent encounter; W55.03XD Scratched by cat, subsequent encounter; Z20.3 Contact with and (suspected) exposure to rabies | CPT/HCPCS: 90471; 90675 ==

== ENCOUNTER 2023-02-23 10:57 | Outpatient (REF) | payer MEDICARE, SELFPAY | END 2023-02-23 10:58 | disposition home or self-care (01) | LOC: HO.MDS 10:57 | PROVIDERS: Visit Provider Physician Assistant | DX: Z29.14 Encounter for prophylactic rabies immune globulin (principal); T14.8XXD Other injury of unspecified body region, subsequent encounter; W55.01XD Bitten by cat, subsequent encounter; W55.03XD Scratched by cat, subsequent encounter; Z20.3 Contact with and (suspected) exposure to rabies | CPT/HCPCS: 90471; 90675 ==

== ENCOUNTER 2023-03-02 11:28 | Outpatient (REF) | payer MEDICARE, SELFPAY | END 2023-03-02 11:29 | disposition home or self-care (01) | LOC: HO.MDS 11:28 | PROVIDERS: Visit Provider Physician Assistant | DX: Z20.3 Contact with and (suspected) exposure to rabies (principal); W55.01XD Bitten by cat, subsequent encounter; S30.870D Other superficial bite of lower back and pelvis, subsequent encounter | CPT/HCPCS: 90471; 90675 ==

== ENCOUNTER 2023-03-19 12:50 | Outpatient (REF) | payer MEDICARE, SELFPAY ==
[2023-03-19 13:14] LABS: MANUAL DIFF FLAG NO
[2023-03-19 14:29] LABS: Basophils Absolute Auto 0.1 X10*3/uL (0.0-0.2); Basophils Percent Auto 1.3 % (0-2); Eosinophils Absolute Auto 0.2 X10*3/uL (0.0-0.4); Eosinophils Percent Auto 4.5 % (0-4); Hematocrit 34.4 % (37.0-47.0); Hemoglobin 11.3 g/dl (12.0-16.0); Imm Gran Abs Auto 0.01 X10*3/uL (0.00-0.03); Imm Gran Pct Auto 0.2 % (0.0-0.4); Immature Retic Fraction 10.4 % (3.0-15.9); Lymphocytes Absolute Auto 1.8 X10*3/uL (1.2-4.9); Lymphocytes Percent Auto 32.6 % (20-40); Mean Corpuscular HGB Conc 32.8 g/dl (31.0-35.0); Mean Corpuscular Hemoglobin 30.4 pg (27.0-33.0); Mean Corpuscular Volume 92.5 fL (80.0-98.0); Mean Platelet Volume 9.7 fL (9.4-12.3); Monocytes Absolute Auto 0.4 X10*3/uL (0.1-1.2); Monocytes Percent Auto 7.1 % (2-11); Neutrophils Absolute Auto 2.9 x10*3/uL (2.0-8.3); Neutrophils Percent Auto 54.3 % (45-73); Platelet Count 288 X10*3/uL (160-400); Red Blood Count 3.72 X10*6/uL (4.20-5.50); Red Cell Distribution Width 12.7 % (11.0-16.0); Retic HGB Equivalent 34.1 pg (30.0-35.0); Reticulocyte Percent 1.1 % (0.5-1.8); White Blood Count 5.4 X10*3/uL (4.8-10.8)
[2023-03-19 14:40] LABS: Alanine Aminotransferase 13 U/L (0-31); Alkaline Phosphatase 64 U/L (39-117); Anion Gap 13 (12-20); Aspartate Amino Transferase 17 U/L (5-31); Bilirubin Total 0.4 mg/dL (0.0-1.0); Blood Urea Nitrogen 21 mg/dL (9-16); Calcium 9.6 mg/dL (8.4-10.2); Carbon Dioxide 28 mmol/L (22-29); Chloride 107 mmol/L (96-108); Cholesterol 226 mg/dL; Estimated Glomerular Filt Rate 42; Glucose Random 99 mg/dL (60-115); HDL Cholesterol 56 mg/dL; Iron 92 mcg/dL (30-160); LDL Cholesterol Calculated 139 mg/dl; Percent Iron Saturation 31 % (15-50); Potassium 4.7 mmol/L (3.3-5.1); Sodium 143 mmol/L (135-145); Total Iron Binding Capacity 297 mcg/dL (228-428); Total Protein 6.4 g/dL (6.5-8.0); Triglycerides 159 mg/dL; Unsaturated Iron Binding 205 ug/dL
[2023-03-19 15:09] LABS: Ferritin 39 ng/mL (10-250); Folate 17.5 ng/mL (> or = 4.0); Free T4 (Free Thyroxine) 0.93 ng/dL (0.71-1.85); Thyroid Stimulating Hormone 3.43 uIU/mL (0.32-4.0); Vitamin B12 677 pg/mL (200-900); Vitamin D 25-OH Total 53.4 ng/mL (>30)
== END 2023-03-19 12:51 | disposition home or self-care (01) ==
LOC: HO.LAB 12:50
PROVIDERS: PCP Internal Medicine; Visit Provider Internal Medicine
DX: I10 Essential (primary) hypertension (principal); E78.00 Pure hypercholesterolemia, unspecified; D64.9 Anemia, unspecified; E55.9 Vitamin D deficiency, unspecified; M81.0 Age-related osteoporosis without current pathological fracture
CPT/HCPCS: 36415; 80053; 80061; 82306; 82607; 82728; 82746; 83540; 84439; 84443; 85025; 85045

== ENCOUNTER 2023-03-23 13:36 | Outpatient (REF) | payer MEDICARE, SELFPAY ==
--- NOTE | ~2023-03-23 | XR_ITS ---
EXAMINATION: XR KNEE, RIGHT CLINICAL INFORMATION: Pain right knee COMPARISON: None available. TECHNIQUE: Four views of the right knee. FINDINGS: There is mild loss of medial and lateral compartment joint space without periarticular spurring or loose bodies. No bony erosive changes or joint effusion seen. The soft tissues are normal. XR/XR knee RT 2V IMPRESSION: Mild degenerative changes medial and lateral compartment. No visible acute fracture or dislocation seen.
== END 2023-03-23 13:37 | disposition home or self-care (01) ==
LOC: HO.XRAY 13:36
PROVIDERS: PCP Internal Medicine; Visit Provider Internal Medicine
DX: M25.561 Pain in right knee (principal)
CPT/HCPCS: 73560

== ENCOUNTER 2023-06-29 12:40 | Outpatient (REF) | payer MEDICARE, SELFPAY ==
[2023-06-29 14:52] LABS: Alanine Aminotransferase 16 U/L (0-31); Albumin Level 4.2 g/dL (3.5-5.0); Alkaline Phosphatase 66 U/L (39-117); Anion Gap 17 (12-20); Aspartate Amino Transferase 20 U/L (5-31); Bilirubin Total 0.3 mg/dL (0.0-1.0); Blood Urea Nitrogen 23 mg/dL (9-16); Calcium 9.9 mg/dL (8.4-10.2); Carbon Dioxide 23 mmol/L (22-29); Chloride 108 mmol/L (96-108); Cholesterol 194 mg/dL; Estimated Glomerular Filt Rate 41; Glucose Random 105 mg/dL (60-115); HDL Cholesterol 50 mg/dL; LDL Cholesterol Calculated 108 mg/dl; Potassium 4.5 mmol/L (3.3-5.1); Sodium 143 mmol/L (135-145); Total Protein 7.1 g/dL (6.5-8.0); Triglycerides 183 mg/dL
== END 2023-06-29 12:41 | disposition home or self-care (01) ==
LOC: HO.LAB 12:40
PROVIDERS: PCP Internal Medicine; Visit Provider Internal Medicine
DX: E78.00 Pure hypercholesterolemia, unspecified (principal)
CPT/HCPCS: 36415; 80053; 80061

== ENCOUNTER 2023-07-02 17:14 | Outpatient (AMB) | payer MEDICARE, SELFPAY ==
[2023-07-02 17:21] VITALS: BP 138/72; PULSE 77; O2SAT 99; BMI 32.2
--- NOTE | 2023-07-02 17:21 | MHC.PC.OV ---
Vital Signs 07/02/23 17:21 Height 4 ft 10 in Weight 154 lb BMI 32.2 BP 138/72 Blood Pressure Location Lt brachial Position Sitting Pulse 77 Pulse Source Pulse Oximeter Pulse Oximetry (%) 99 Oxygen Delivery Method Room Air Intake Visit Reasons: cholesterol, HTN Allergies No Known Allergies Allergy (Verified 07/02/23 17:22) Medication List - Last Reconciled 07/02/23 by Quinton Neff MD amlodipine 5 mg PO DAILY antiarthritic combination no.2 (glucosamine-chondroitin) 900 mg PO .QD 90 days cholecalciferol (vitamin D3) 50 mcg PO DAILY 90 days cranberry 400 mg PO DAILY lorazepam (Ativan) 0.5 mg PO BID PRN 90 days multivitamin 1 tab PO DAILY omega-3 fatty acids (Fish Oil Concentrate) 1,000 mg PO DAILY omeprazole 20 mg PO DAILY 90 days simvastatin 10 mg PO BEDTIME 90 days Tobacco use date assessed: 03/19/23 Fall risk assessment: No Falls in past year Last assessed Fall Risk: 07/02/23 Dental Screening Dental Screen Date: 07/02/23 Did you have a dental visit in the last 12 months?: Yes Did you have a dental problem in the last 6 months where you did not have access to dental care?: No Was dental information given to patient?: Patient has dentist HPI cholesterol, HTN HPI Details 67-year-old female with GERD hypercholesterolemia anemia chronic Rebecca anxiety disorder hypertension last seen in February 2023. Patient had knee pain and x-ray was requested patient is here for follow-up bone density is up-to-date has osteoporosis mammogram up-to-date colonoscopy is due this year. Knee x-ray showing degenerative changes. Patient is anxious due to stray cat- and now with 2 chilo . Told of a lot of other stories that has made her anxious. FORMERLY [facility] Medical History (Updated 07/02/23 @ 17:23 by Quinton Neff MD) Abnormal blood pressure Blood pressure elevated without history of HTN Cholelithiasis GERD (gastroesophageal reflux disease) Hernia High cholesterol Knee pain, right Obesity (BMI 30-39.9) Vitamin D deficiency Surgical History No pertinent past surgical history Family History Father CVD (cardiovascular disease) Stroke Hypertension Mother Breast cancer Social History Housing: Apartment Patient Tobacco Use Status: Never used Tobacco e-Cigarette/Vaping Use: Never Used Second Hand Smoke Exposure: No service: No Current occupational status: employed Cognitive needs: No Hearing needs: No Vision needs: Yes Questionnaire PHQ-9 Over the last 2 weeks, how often have you been bothered by any of the following problems? 1. Little interest or pleasure in doing things: more than half the days 2. Feeling down, depressed, or hopeless: nearly every day 3. Trouble falling or staying asleep, or sleeping too much: not at all 4. Feeling tired or having little energy: not at all 5. Poor appetite or overeating: not at all 6. Feeling bad about yourself - or that you are a failure or have let yourself or your family down: not at all 7. Trouble concentrating on things, such as reading the newspaper or watching television: not at all 8. Moving or speaking so slowly that other people could have noticed. Or the opposite - being so fidgety or restless that you have been moving around a lot more than usual: not at all 9. Thoughts that you would be better off or of hurting yourself in some way: not at all Total score: 5 Depression Screening Interpretation: Positive Source: Developed by Drs. Juliocesar Hennessy, Shelli Stevens, Russell López and colleagues, with an educational leslie from [employer]. Thrive Questionnaire Date Thrive assessed: 12/11/22 AUDIT C Alcohol Use Questionnaire (AUDIT-C) 1. How often do you have a drink containing alcohol?: Monthly or less 2. How many drinks containing alcohol do you have on a typical day when you are drinking?: 1 or 2 3. How often do you have six or more drinks on one occasion?: Never Total Score: 1 TYESHA-7 AMB Questionnaire TYESHA-7 Date TYESHA - 7 assessed: 12/11/22 Source: Developed by Drs. Juliocesar Hennessy, Shelli Stevens, Russell López and colleagues, with an educational leslie from [employer]. Physical exam (Primary Care) Vital Signs: Last Vital Signs Pulse 77 07/02/23 17:21 BP 138/72 07/02/23 17:21 Pulse Ox 99 07/02/23 17:21 Oxygen Delivery Method Room Air 07/02/23 17:21 BMI result Body Mass Index 32.2 Tobacco/Smoking Status: Tobacco use Status Tobacco use date assessed 03/19/23 07/02/23 17:24 Patient Tobacco Use Status Never used Tobacco 07/02/23 17:24 e-Cigarette/Vaping Use Never Used 07/02/23 17:24 PHQ-9: PHQ-9 Score PHQ-9: Total score 5 07/02/23 17:24 Depression Screening Interpretation: Positive Thrive Assessment: Date of Thrive Assessment Date Thrive assessed 12/11/22 07/02/23 17:24 Const General: alert; No acute distress Eyes Conjunctivae: conjunctivae normal Resp Auscultation: clear to auscultation bilaterally Cardio Rate: regular rate Rhythm: regular rhythm GI Inspection: Yes normal to inspection Extrem General: Yes normal to inspection and No edema Assessment and Plan Assessment & Plan (1) Osteoarthritis of right knee: Code(s): M17.11 - Unilateral primary osteoarthritis, right knee Plan: Keep active and lose the weight (2) Colon cancer screening: Code(s): Z12.11 - Encounter for screening for malignant neoplasm of colon Plan: Reminded about colonoscopy for this year (3) Hypertension: Code(s): I10 - Essential (primary) hypertension Plan: Continue with blood pressure medication. Decrease salt intake and exercise patient takes amlodipine 5 mg once a day (4) Generalized anxiety disorder: Comment: Decline any referral for counseling Code(s): F41.1 - Generalized anxiety disorder Plan: Continue with lorazepam as needed (5) Anemia: Code(s): D64.9 - Anemia, unspecified Plan: Chronic and stable (6) Obesity (BMI 30-39.9): Code(s): E66.9 - Obesity, unspecified Plan: Diet and exercise (7) High cholesterol: Code(s): E78.00 - Pure hypercholesterolemia, unspecified Plan: Avoid fried foods, chicken skin, eggs, butter margarine, pastries and meat. Be it pork or beef they have a lot of cholesterol LDL goal of less than 130 and triglyceride of less than 150 continue with simvastatin 10 mg once a day (8) GERD (gastroesophageal reflux disease): Code(s): K21.9 - Gastro-esophageal reflux disease without esophagitis Qualifiers: Esophagitis presence: without esophagitis Qualified Code(s): K21.9 - Gastro-esophageal reflux disease without esophagitis Plan: Avoid the foods that causes that usually spicy foods, tomato products, juices, coffee, soda and foods that your sensitive to. After eating do not lie down, allow 3-4 hours before in lie down. And keep the head of bed above 30 degrees to avoid the acid from going up. Orders: Referrals Gastroenterology Referral Z12.11 - Encounter for screening for malignant neoplasm of colon Coding Level of Care Code Est Pt Level 4 (94833) Diagnoses Osteoarthritis of right knee M17.11 Colon cancer screening Z12.11 Hypertension I10 Generalized anxiety disorder F41.1 Anemia D64.9 Obesity (BMI 30-39.9) E66.9 High cholesterol E78.00 GERD (gastroesophageal reflux disease) K21.9 Esophagitis presence: without esophagitis
== END 2023-07-02 17:59 | disposition home or self-care (01) ==
PROVIDERS: Visit Provider Internal Medicine
DX: I10 Essential (primary) hypertension (principal); K21.9 Gastro-esophageal reflux disease without esophagitis; M17.11 Unilateral primary osteoarthritis, right knee; F41.1 Generalized anxiety disorder; D64.9 Anemia, unspecified; E66.9 Obesity, unspecified; E78.00 Pure hypercholesterolemia, unspecified
CPT/HCPCS: 99214

== ENCOUNTER 2023-08-09 14:40 | Emergency (ER) | payer MEDICARE, SELFPAY ==
--- NOTE | ~2023-08-09 | CT_ITS ---
EXAMINATION: CT ABDOMEN AND PELVIS WITHOUT CONTRAST CLINICAL INFORMATION: Epigastric pain. COMPARISON: 02/03/2012 CT scan. TECHNIQUE: Multidetector volumetric imaging was performed from the superior aspect of the liver through the pubic symphysis without contrast per request. Sagittal and coronal reformatted images were obtained on the technologist workstation. This CT examination was performed using dose optimization techniques as appropriate, variously including the following: *Automated exposure control *Adjustment of mA and/or kV according to patient size (this includes techniques or standardized protocols for targeted exams where dose is matched to indication/reason for exam; i.e. extremities or head) *Use of iterative reconstruction technique DLP: 544 mGy-cm. FINDINGS: LUNG BASES: The visualized lung bases are unremarkable. Small hiatal hernia LIVER, GALLBLADDER, BILIARY TREE: Although this is a noncontrast study, there are several low-attenuation lesions seen throughout the liver parenchyma difficult to define further on this noncontrast study. The largest lesion in segment 2 of the liver measures up to 2.4 cm in maximal diameter. I do not appreciate any ductal dilatation. The gallbladder is unremarkable with no evidence of radiopaque gallstones, gallbladder wall thickening, or obvious pericholecystic inflammatory changes. PANCREAS: Unfortunately there is a ill-defined mass lesion in the region the pancreatic head measuring approximately 3.5 cm in maximal diameter. There is relative atrophy of the pancreatic body and tail. This is not able to be defined further on this noncontrast study. No peripancreatic inflammatory change or fluid. SPLEEN: Unremarkable. ADRENAL GLANDS: Unremarkable. KIDNEYS AND URETERS: The kidneys are normal in size, shape, and attenuation. There are several low-attenuation probable cysts within the kidneys bilaterally difficult to define further on this noncontrast study No hydronephrosis, hydroureter, or calculi seen. No perinephric stranding. BLADDER: Unremarkable. GASTROINTESTINAL TRACT: Scattered colonic diverticulosis more so in the sigmoid colon. There is no colonic wall thickening or pericolonic inflammatory change. Normal-appearing appendix in the right lower quadrant. Visualized small bowel unremarkable ABDOMINAL WALL: No significant hernia is appreciated. LYMPHOVASCULAR STRUCTURES: Vascular calcification within the aorta iliac system. No bulky adenopathy. PELVIC VISCERA: Unremarkable. OSSEUS STRUCTURES: Unremarkable. CT/CT abdomen pelvis wo IV con IMPRESSION: Unfortunately there is a ill-defined mass lesion in the region of the pancreatic head measuring up to 3.5 cm in maximal diameter. This is difficult to define further however on this noncontrast CT scan. There is associated atrophy of the pancreatic body and tail. Pancreatic adenocarcinoma cannot be excluded with this appearance and further evaluation of this will be needed. There are multiple low-attenuation lesions seen throughout the liver parenchyma difficult to define further on this noncontrast study. Metastatic disease to the liver is suspected but again difficult to define on this noncontrast study. I do not appreciate any biliary ductal dilatation.
[2023-08-09 15:51] VITALS: BP 164/89; PULSE 78; RESP 20; TEMP 36.4; O2SAT 97; BMI 32.1
--- NOTE | 2023-08-09 15:51 | ED.ABDPAIN ---
HPI - Abdominal Pain General Chief Complaint: Abdominal Pain Stated Complaint: discomfort in L side Time Seen by Provider: 08/09/23 17:50 Source: patient Mode of arrival: ambulatory Limitations: no limitations History of Present Illness HPI narrative: Patient with history of hiatal hernia , last endoscopy was about 10 years ago , complaining of pain starts in the epigastric area radiates to the back for last 4 month, get worse on eating food no nausea no vomiting no diarrhea no history of any gallstones in the past no fever or chills no back pain no weight loss no fever no chills Related Data Home Medications Medication Instructions Recorded Confirmed cranberry 400 mg capsule 400 mg PO DAILY 11/25/20 07/02/23 multivitamin 1 tab PO DAILY 11/25/20 07/02/23 omega-3 fatty acids 1,000 mg 1,000 mg PO DAILY 11/25/20 07/02/23 capsule (Fish Oil Concentrate) Previous Rx's Medication Instructions Recorded cholecalciferol (vitamin D3) 50 50 mcg PO DAILY 90 days #90 caps 06/19/22 mcg (2,000 unit) capsule antiarthritic combination no.2 900 900 mg PO .QD 90 days #90 tabs 12/11/22 mg tablet (glucosamine-chondroitin) omeprazole 20 mg capsule,delayed 20 mg PO DAILY 90 days #90 caps 12/11/22 release simvastatin 10 mg tablet 10 mg PO BEDTIME 90 days #90 tabs 12/11/22 amlodipine 5 mg tablet 5 mg PO DAILY #90 tabs 03/19/23 lorazepam 1 mg tablet 0.5 mg (1/2 x 1 mg) PO BID PRN 07/03/23 anxiety 90 days #90 tabs Allergies Allergy/AdvReac Type Severity Reaction Status Date / Time No Known Allergies Allergy Verified 08/09/23 16:00 Review of Systems Review of Systems Yes all other systems are reviewed and are negative [facility] Past Medical History Medical History Knee pain, right Blood pressure elevated without history of HTN Abnormal blood pressure Cholelithiasis Vitamin D deficiency Obesity (BMI 30-39.9) High cholesterol Hernia GERD (gastroesophageal reflux disease) Surgical History No pertinent past surgical history Family History Family History Father CVD (cardiovascular disease) Stroke Hypertension Mother Breast cancer Social History Social History Housing: Apartment Alcohol intake: current Alcohol intake frequency: a few times a month Alcohol type: wine Patient Tobacco Use Status: Never used Tobacco Smoked in Last 30 Days: No e-Cigarette/Vaping Use: Never Used Second Hand Smoke Exposure: No Use of substances other than those prescribed or required for medical reasons: No Advance Directives: No Advance Directives Information Provided: No service: No Current occupational status: employed Cognitive needs: No Hearing needs: No Vision needs: Yes Physical Exam ED Vital Signs: Vital Signs - 24 hr 08/09/23 15:51 08/09/23 18:55 Temperature 97.6 F Pulse Rate 78 78 Respiratory Rate 20 18 Blood Pressure 164/89 H 159/75 H Pulse Oximetry 97 99 Oxygen Delivery Method Room Air Room Air BMI result Body Mass Index 32.1 Appearance: Alert. Oriented X3. No acute distress. Eyes: PERRLA, No Nystagmus ENT: Pharynx normal. Oral Mucosa moist Neck: Normal inspection. Neck supple. CVS: Normal heart rate and rhythm. Pulses normal. Respiratory: No respiratory distress. Equal air entry bilateral, no wheezing/rales/rhonchi Abdomen: Soft , tender epigastric area no rebound tenderness or guarding, Bowel sounds are present, no mass palpable, no CVA tenderness Skin: Skin warm and dry. Normal skin color. Normal skin turgor. Extremities: No lower extremity edema. No calf tenderness Neuro: Oriented X 3. Course Course Course Narrative: This is an RME: Additional HPI, ROS, PE not included below will be deferred to primary provider. This is a [id number], with a hx of hiatal hernia, GERD, hypercholesterolemia anemia, cholithiasis anxiety disorder, and hypertension presenting to the emergency department with a complaint of chronic abdominal pain x months. Pt has a known hiatal hernia which causes her to have a band like pain around her abdomen. She states that the pain did not worsen significantly over the last several days, but states that she is just tired of being in pain. No fevers, chills, nausea, vomiting. Endorses loose stool, no bloody or black stool. Denies chest pain or shortness of breath. Plan: Labs, UA Medical Decision Making Medical Decision Making [facility] Narrative: Patient with chronic epigastric pain workup showed pancreatic head mass with possible Mets in liver patient advised to follow-up with gastroenterology/PCP Differential Diagnosis Differential Diagnoses: The differential diagnosis associated with the presentation includes Pancreatitis/pancreatic cancer/gastritis/hiatal hernia/gallstones/cholecystitis Admission/Observation Consideration of admission/observation: Escalation of care including admission/observation considered Lab Data [facility] Lab Attestation statement: I reviewed the patient's lab results. 08/09/23 16:22 08/09/23 16:22 Labs: Lab Results 08/09/23 08/09/23 Range/Units 16:22 16:28 WBC 8.0 (4.8-10.8) X10*3/uL RBC 3.78 L (4.20-5.50) X10*6/uL Hgb 11.1 L (12.0-16.0) g/dl Hct 33.5 L (37.0-47.0) % MCV 88.6 (80.0-98.0) fL MCH 29.4 (27.0-33.0) pg MCHC 33.1 (31.0-35.0) g/dl RDW 12.5 (11.0-16.0) % Plt Count 305 (160-400) X10*3/uL MPV 9.0 L (9.4-12.3) fL Immature Gran % (Auto) 0.4 (0.0-0.4) % Neut % (Auto) 67.4 (45-73) % Lymph % (Auto) 21.4 (20-40) % [place] % (Auto) 6.9 (2-11) % Eos % (Auto) 2.8 (0-4) % Baso % (Auto) 1.1 (0-2) % Lymph # (Auto) 1.7 (1.2-4.9) X10*3/uL [place] # (Auto) 0.6 (0.1-1.2) X10*3/uL Eos # (Auto) 0.2 (0.0-0.4) X10*3/uL Baso # (Auto) 0.1 (0.0-0.2) X10*3/uL Abs Immat Gran (auto) 0.03 (0.00-0.03) X10*3/uL Absolute Neuts (auto) 5.4 (2.0-8.3) x10*3/uL Absolute Nucleated RBC 0.000 (0.0-0.012) X10*3/uL Nucleated RBC % (auto) 0.0 (0.0-0.2) /100WBC Sodium 143 (135-145) mmol/L Potassium 3.9 (3.3-5.1) mmol/L Chloride 111 H (96-108) mmol/L Carbon Dioxide 25 (22-29) mmol/L Anion Gap 11 L (12-20) BUN 20 H (9-16) mg/dL Creatinine 1.14 (0.5-1.4) mg/dL Estim Creat Clear Calc 40.1 Estimated GFR 48 Random Glucose 104 (60-115) mg/dL Calcium 9.9 (8.4-10.2) mg/dL Magnesium 2.4 (1.6-2.6) mg/dL Total Bilirubin 0.2 (0.0-1.0) mg/dL Direct Bilirubin < 0.2 (0.0-0.5) mg/dL AST 22 (5-31) U/L ALT 16 (0-31) U/L Alkaline Phosphatase 84 (39-117) U/L Total Protein 7.4 (6.5-8.0) g/dL Albumin 4.2 (3.5-5.0) g/dL Lipase 15 (8-78) U/L Urine Color Yellow Urine Appearance Clear Urine pH 6.0 (5.0-9.0) Ur Specific [place] 1.015 (1.005-1.025) Urine Protein 300 (3+) H (Neg-Trace) mg/dL Urine Glucose (UA) Negative (Negative) mg/dL Urine Ketones Negative (Negative) mg/dL Urine Blood Large (3+) H (Negative) Urine Nitrite Negative (Negative) Ur Leukocyte Esterase Trace H (Negative) Urine RBC >20 H (0-2) /HPF Urine WBC 0-5 (0-5) /HPF Ur Squamous Epith Cells 0-2 (0-2) /HPF Urine Bacteria None Seen (None Seen) Hyaline Casts 0-2 (0-2) /LPF Radiology Impression Discussion of test interpretation with radiology: I have reviewed the radiologist's reading. Radiologist Impression: CT/CT abdomen pelvis wo IV con IMPRESSION: Unfortunately there is a ill-defined mass lesion in the region of the pancreatic head measuring up to 3.5 cm in maximal diameter. This is difficult to define further however on this noncontrast CT scan. There is associated atrophy of the pancreatic body and tail. Pancreatic adenocarcinoma cannot be excluded with this appearance and further evaluation of this will be needed. There are multiple low-attenuation lesions seen throughout the liver parenchyma difficult to define further on this noncontrast study. Metastatic disease to the liver is suspected but again difficult to define on this noncontrast study. I do not appreciate any biliary ductal dilatatio Discharge Plan Discharge Clinical Impression: Mass of head of pancreas Patient Disposition: Home, Self-Care Instructions: Pancreatic Cancer (DC) Additional Instructions: CT scan showed a mass in the head of the pancreas etiology not very clear you need further evaluation including MRI and GI follow-up Prescriptions: No Action lorazepam 1 mg tablet 0.5 mg PO BID PRN (Reason: anxiety) 90 Days Qty: 90 0RF omega-3 fatty acids [Fish Oil Concentrate] 1,000 mg capsule 1,000 mg PO DAILY multivitamin Tablet 1 tab PO DAILY cranberry 400 mg capsule 400 mg PO DAILY Rx Instructions: administer with a meal amlodipine 5 mg tablet 5 mg PO DAILY Qty: 90 2RF cholecalciferol (vitamin D3) 50 mcg (2,000 unit) capsule 50 mcg PO DAILY 90 Days Qty: 90 3RF simvastatin 10 mg tablet 10 mg PO BEDTIME 90 Days Qty: 90 3RF glucosamine-chondroitin 900 mg tablet 900 mg PO .QD 90 Days Qty: 90 3RF omeprazole 20 mg capsule,delayed release(DR/EC) 20 mg PO DAILY 90 Days Qty: 90 2RF Referrals: Torie Quesada MD [Physician] - 1 week Discharge Date/Time: 08/09/23 20:00
[2023-08-09 16:33] LABS: MANUAL DIFF FLAG NO
[2023-08-09 16:35] LABS: Basophils Absolute Auto 0.1 X10*3/uL (0.0-0.2); Basophils Percent Auto 1.1 % (0-2); Eosinophils Absolute Auto 0.2 X10*3/uL (0.0-0.4); Eosinophils Percent Auto 2.8 % (0-4); Hematocrit 33.5 % (37.0-47.0); Hemoglobin 11.1 g/dl (12.0-16.0); Imm Gran Abs Auto 0.03 X10*3/uL (0.00-0.03); Imm Gran Pct Auto 0.4 % (0.0-0.4); Lymphocytes Absolute Auto 1.7 X10*3/uL (1.2-4.9); Lymphocytes Percent Auto 21.4 % (20-40); Mean Corpuscular HGB Conc 33.1 g/dl (31.0-35.0); Mean Corpuscular Hemoglobin 29.4 pg (27.0-33.0); Mean Corpuscular Volume 88.6 fL (80.0-98.0); Monocytes Absolute Auto 0.6 X10*3/uL (0.1-1.2); Monocytes Percent Auto 6.9 % (2-11); Neutrophils Absolute Auto 5.4 x10*3/uL (2.0-8.3); Neutrophils Percent Auto 67.4 % (45-73); Platelet Count 305 X10*3/uL (160-400); Red Blood Count 3.78 X10*6/uL (4.20-5.50); Red Cell Distribution Width 12.5 % (11.0-16.0)
[2023-08-09 16:38] LABS: Appearance Urine Clear; Color Urine Yellow; Glucose Urine UA Negative (Negative); Leukocyte Esterase Urine Trace (Negative); Nitrite Urine Negative (Negative); Specific Gravity - Urine 1.015 (1.005-1.025); UMIC TRIGGER UACC YES; Urine Blood Large (3+) (Negative); Urine Ketones Negative (Negative); Urine Protein 300 (3+) mg/dL (Neg-Trace)
[2023-08-09 16:49] LABS: Alanine Aminotransferase 16 U/L (0-31); Albumin Level 4.2 g/dL (3.5-5.0); Alkaline Phosphatase 84 U/L (39-117); Anion Gap 11 (12-20); Aspartate Amino Transferase 22 U/L (5-31); Bilirubin Direct < 0.2 mg/dL (0.0-0.5); Bilirubin Total 0.2 mg/dL (0.0-1.0); Blood Urea Nitrogen 20 mg/dL (9-16); Calcium 9.9 mg/dL (8.4-10.2); Carbon Dioxide 25 mmol/L (22-29); Chloride 111 mmol/L (96-108); Creatinine Clr Calc Pharmacy 40.1; Estimated Glomerular Filt Rate 48; Glucose Random 104 mg/dL (60-115); Lipase 15 U/L (8-78); Magnesium 2.4 mg/dL (1.6-2.6); Potassium 3.9 mmol/L (3.3-5.1); Sodium 143 mmol/L (135-145); Total Protein 7.4 g/dL (6.5-8.0)
[2023-08-09 16:56] LABS: Bacteria Urine None Seen (None Seen); Hyaline Casts Urine 0-2 /LPF (0-2); RBC Urine >20 /HPF (0-2); Squamous Epithelial Cell Urine 0-2 /HPF (0-2); WBC Urine 0-5 /HPF (0-5)
[2023-08-09 18:55] VITALS: BP 159/75; PULSE 78; RESP 18; O2SAT 99
--- NOTE | 2023-08-09 20:50 | PC.NURSE ---
Pt left prior to discharge. MD states pt given verbal instructions. Pt instructed to stay for paperwork but chose to leave. Pt was distraught about new poissible dx of pancreatic cancer.
== END 2023-08-09 20:00 | disposition home or self-care (01) ==
PROVIDERS: Physician Assistant Medical; Emergency Provider Internal Medicine; PCP Internal Medicine
DX: C25.0 Malignant neoplasm of head of pancreas (principal); I10 Essential (primary) hypertension; E78.00 Pure hypercholesterolemia, unspecified; K21.9 Gastro-esophageal reflux disease without esophagitis; D64.9 Anemia, unspecified
CPT/HCPCS: 36415; 74176; 80048; 80076; 81001; 83690; 83735; 85025; 99284

== ENCOUNTER 2023-08-15 12:21 | Outpatient (AMB) | payer MEDICARE, SELFPAY ==
[2023-08-15 12:33] VITALS: BP 134/74; PULSE 75; O2SAT 99; BMI 31.6
--- NOTE | 2023-08-15 12:33 | MHC.PC.OV ---
Vital Signs 08/15/23 12:33 Height 4 ft 10 in Weight 151 lb BMI 31.6 BP 134/74 Blood Pressure Location Lt brachial Position Sitting Pulse 75 Pulse Source Pulse Oximeter Pulse Oximetry (%) 99 Oxygen Delivery Method Room Air Intake Visit Reasons[place] [facility] [place] Discomfort On Left Side Allergies No Known Allergies Allergy (Verified 08/15/23 12:34) Medication List - Last Reconciled 08/15/23 by Quinton Neff MD amlodipine 5 mg PO DAILY antiarthritic combination no.2 (glucosamine-chondroitin) 900 mg PO .QD 90 days cholecalciferol (vitamin D3) 50 mcg PO DAILY 90 days cranberry 400 mg PO DAILY lorazepam 0.5 mg (1/2 x 1 mg) PO BID PRN 90 days multivitamin 1 tab PO DAILY omega-3 fatty acids (Fish Oil Concentrate) 1,000 mg PO DAILY omeprazole 20 mg PO DAILY 90 days simvastatin 10 mg PO BEDTIME 90 days Tobacco use date assessed: 03/19/23 Fall risk assessment: No Falls in past year Last assessed Fall Risk: 08/15/23 Dental Screening Dental Screen Date: 08/15/23 Did you have a dental visit in the last 12 months?: Yes Did you have a dental problem in the last 6 months where you did not have access to dental care?: No Was dental information given to patient?: Patient has dentist HPI [facility] [place] Discomfort On Left Side HPI Details 67-year-old obese female with generalized anxiety disorder hypertension chronic stable anemia hypercholesterolemia GERD and right knee osteoarthritis last seen in June 2023 patient is here for follow-up. Review of the notes was in the emergency room August 09 complaining of abdominal pain CT scan done revealing a mass lesion in the region of the pancreatic head 3.5 cm concern about metastatic disease of the liver peer [facility] Medical History Knee pain, right Blood pressure elevated without history of HTN Abnormal blood pressure Cholelithiasis Vitamin D deficiency Obesity (BMI 30-39.9) High cholesterol Hernia GERD (gastroesophageal reflux disease) Surgical History No pertinent past surgical history Family History (Updated 08/15/23 @ 12:34 by Juli Graham CMA) Father CVD (cardiovascular disease) Stroke Hypertension Mother Breast cancer Social History Housing: Apartment Alcohol intake: current Alcohol intake frequency: a few times a month Alcohol type: wine Patient Tobacco Use Status: Never used Tobacco e-Cigarette/Vaping Use: Never Used Second Hand Smoke Exposure: No service: No Current occupational status: employed Cognitive needs: No Hearing needs: No Vision needs: Yes Questionnaire PHQ-9 Over the last 2 weeks, how often have you been bothered by any of the following problems? 1. Little interest or pleasure in doing things: more than half the days 2. Feeling down, depressed, or hopeless: nearly every day 3. Trouble falling or staying asleep, or sleeping too much: not at all 4. Feeling tired or having little energy: not at all 5. Poor appetite or overeating: not at all 6. Feeling bad about yourself - or that you are a failure or have let yourself or your family down: not at all 7. Trouble concentrating on things, such as reading the newspaper or watching television: not at all 8. Moving or speaking so slowly that other people could have noticed. Or the opposite - being so fidgety or restless that you have been moving around a lot more than usual: not at all 9. Thoughts that you would be better off or of hurting yourself in some way: not at all Total score: 5 Depression Screening Interpretation: Positive Source: Developed by Drs. Juliocesar Hennessy, Russell Simeon and colleagues, with an educational leslie from [employer]. Thrive Questionnaire Date Thrive assessed: 12/11/22 AUDIT C Alcohol Use Questionnaire (AUDIT-C) 1. How often do you have a drink containing alcohol?: Monthly or less 2. How many drinks containing alcohol do you have on a typical day when you are drinking?: 1 or 2 3. How often do you have six or more drinks on one occasion?: Never Total Score: 1 TYESHA-7 AMB Questionnaire TYESHA-7 Date TYESHA - 7 assessed: 12/11/22 Source: Developed by Drs. Juliocesar Hennessy, Shelli Stevens, Russell López and colleagues, with an educational leslie from [employer]. Physical exam (Primary Care) Vital Signs: Last Vital Signs Pulse 75 08/15/23 12:33 BP 134/74 08/15/23 12:33 Pulse Ox 99 08/15/23 12:33 Oxygen Delivery Method Room Air 08/15/23 12:33 BMI result Body Mass Index 31.6 Tobacco/Smoking Status: Tobacco use Status Tobacco use date assessed 03/19/23 08/15/23 12:38 Patient Tobacco Use Status Never used Tobacco 08/15/23 12:38 e-Cigarette/Vaping Use Never Used 08/15/23 12:38 PHQ-9: PHQ-9 Score PHQ-9: Total score 5 08/15/23 13:02 Depression Screening Interpretation: Positive Thrive Assessment: Date of Thrive Assessment Date Thrive assessed 12/11/22 08/15/23 12:38 Const General: alert; No acute distress Eyes Conjunctivae: conjunctivae normal Resp Auscultation: clear to auscultation bilaterally Cardio Rate: regular rate Rhythm: regular rhythm GI Inspection: Yes normal to inspection Extrem General: Yes normal to inspection and No edema Assessment and Plan Assessment & Plan (1) Pancreatic mass: Comment: 07/2023 Code(s): K86.89 - Other specified diseases of pancreas (2) Hypertension: Code(s): I10 - Essential (primary) hypertension (3) Generalized anxiety disorder: Comment: Decline any referral for counseling Code(s): F41.1 - Generalized anxiety disorder (4) Obesity (BMI 30-39.9): Code(s): E66.9 - Obesity, unspecified (5) GERD (gastroesophageal reflux disease): Code(s): K21.9 - Gastro-esophageal reflux disease without esophagitis Qualifiers: Esophagitis presence: without esophagitis Qualified Code(s): K21.9 - Gastro-esophageal reflux disease without esophagitis Orders: Orders Blood Urea Nitrogen Today K86.89 - Other specified diseases of pancreas Creatinine Today K86.89 - Other specified diseases of pancreas MR abdomen wo/w con Today K86.89 - Other specified diseases of pancreas Referrals Gastroenterology Referral K86.89 - Other specified diseases of pancreas Medications: Changed From lorazepam 0.5 mg (1/2 x 1 mg) PO BID 90 days PRN 90 tabs 0RF anxiety F41.9 - Anxiety disorder, unspecified To lorazepam 0.5 mg PO BID 90 days PRN 180 tabs 0RF anxiety F41.9 - Anxiety disorder, unspecified From omeprazole 20 mg PO DAILY 90 days 90 caps 2RF K21.9 - Gastro-esophageal reflux disease without esophagitis To omeprazole 40 mg PO DAILY 90 days 90 caps 2RF K21.9 - Gastro-esophageal reflux disease without esophagitis Refilled omeprazole 40 mg PO DAILY 90 days 90 caps 2RF K21.9 - Gastro-esophageal reflux disease without esophagitis Coding Level of Care Code Est Pt Level 4 (75596) Diagnoses Pancreatic mass K86.89 Hypertension I10 Generalized anxiety disorder F41.1 Obesity (BMI 30-39.9) E66.9 Gastroesophageal reflux disease without esophagitis K21.9 Esophagitis presence: without esophagitis
== END 2023-08-15 14:50 | disposition home or self-care (01) ==
PROVIDERS: PCP Internal Medicine; Visit Provider Internal Medicine
DX: I10 Essential (primary) hypertension (principal); E66.9 Obesity, unspecified; Z68.31 Body mass index [BMI] 31.0-31.9, adult; K21.9 Gastro-esophageal reflux disease without esophagitis; F41.1 Generalized anxiety disorder; K86.89 Other specified diseases of pancreas
CPT/HCPCS: 99214

== ENCOUNTER → 2023-08-21 15:16 | Outpatient (BNV) | payer MEDICARE, SELFPAY | PROVIDERS: PCP Internal Medicine; Visit Provider Internal Medicine | DX: C25.9 Malignant neoplasm of pancreas, unspecified (principal); C78.7 Secondary malignant neoplasm of liver and intrahepatic bile duct | CPT/HCPCS: 99204; 99212; 99213; 99214 ==

== ENCOUNTER 2023-08-22 15:20 | Outpatient (REF) | payer MEDICARE, SELFPAY ==
--- NOTE | ~2023-08-22 | MM_ITS ---
EXAMINATION: MM SCREENING DIGITAL BREAST TOMOSYNTHESIS, BILATERAL CLINICAL INFORMATION: Screening. Asymptomatic. COMPARISON: Mammography: This study is compared with prior exams dating back to 2019. TECHNIQUE: Digital breast tomosynthesis is performed in both the craniocaudal and mediolateral oblique views along with computer-aided detection (CAD). Synthesized 2D images are generated from the tomosynthesis. FINDINGS: The breasts are heterogeneously dense, which may obscure small masses (ACR BI-RADS breast composition Category c). There are no significant masses, abnormal calcifications, or other abnormalities. There is benign calcification in the medial the located left dermal lesion. This was present on prior examinations. MM/MM tomosynthesis screening BI IMPRESSION: No mammographic evidence of malignancy. ASSESSMENT: BI-RADS BI-RADS 2 - Benign Findings RECOMMENDATION: Routine annual mammography screening. 1 year F/U This examination should not preclude the clinical evaluation of a suspicious palpable abnormality. This patient's information was entered into a reminder system with a target due date for their next mammogram.
== END 2023-08-22 15:21 | disposition home or self-care (01) ==
LOC: HO.MAMMO 15:20
PROVIDERS: PCP Internal Medicine; Visit Provider Internal Medicine
DX: Z12.31 Encounter for screening mammogram for malignant neoplasm of breast (principal)
CPT/HCPCS: 77063; 77067

== ENCOUNTER → 2023-08-22 15:30 | Outpatient (BNV) | payer MEDICARE, SELFPAY | PROVIDERS: PCP Internal Medicine; Visit Provider Radiology Diagnostic Radiology | DX: Z12.31 Encounter for screening mammogram for malignant neoplasm of breast (principal) | CPT/HCPCS: 77063; 77067 ==

== ENCOUNTER 2023-08-27 09:07 | Day surgery (SDC) | payer MEDICARE, SELFPAY ==
[2023-08-27] VITALS (7 sets, daily range): BP systolic 132–156; BP diastolic 61–81; PULSE 71–86; RESP 16–18; TEMP 36.4–37; O2SAT 96–98
--- NOTE | ~2023-08-27 | US_ITS ---
EXAMINATION: Ultrasound-guided liver biopsy CLINICAL INFORMATION: Pancreatic mass in liver lesions COMPARISON: Previous CT of the abdomen and pelvis 08/09/2023 and abdominal ultrasound from the same day TECHNIQUE: Procedure and risks and benefits including bleeding and infection were discussed with the patient and informed consent was obtained. The upper midline abdomen was prepped and draped in the usual sterile fashion. The skin and soft tissues were anesthetized with 1% lidocaine plain. Using ultrasound guidance and a coaxial system, access to a 1.2 cm lesion in the left lobe of the liver was obtained. 4 20-gauge core biopsies were obtained. Conscious sedation was provided by registered nurse under my direct supervision with continuous hemodynamic monitoring. Patient received Versed 1.5 mg and fentanyl 75 mcg intravenously during the procedure. Total [id number] patient contact time was 15 minutes. FINDINGS: There are multiple hypoechoic liver lesions. A 1.2 cm lesion in the left lobe of the liver was targeted for biopsy. US/US biopsy liver IMPRESSION: Ultrasound-guided liver biopsy.
--- NOTE | ~2023-08-27 | US_ITS ---
EXAMINATION: US ABDOMEN COMPLETE CLINICAL INFORMATION: Lesion of liver. COMPARISON: CT abdomen and pelvis without contrast 08/09/2023. TECHNIQUE: Real-time imaging of the abdominal viscera. FINDINGS: PANCREAS: There is a 3.4 x 2.4 x 4 cm hypoechoic mass in the head of the pancreas. The body and tail the pancreas is not well visualized due to bowel gas. ABDOMINAL AORTA: The proximal abdominal aorta is normal in caliber. The mid and distal abdominal aorta are not well visualized due to bowel gas. INFERIOR VENA CAVA: Visualized portions are normal. LIVER: The liver is normal in size. The liver contour is normal. Parenchymal echogenicity is normal. There are multiple hypoechoic liver lesions, largest measuring 2.8 x 2.2 x 2.6 cm in the left lobe of the liver. There is no intrahepatic biliary duct dilatation seen. GALLBLADDER: Normal. The gallbladder is physiologically distended without evidence of stones, sludge, polyps, wall thickening or pericholecystic fluid. COMMON BILE DUCT: Normal in caliber measuring 0.5 cm in diameter. RIGHT KIDNEY: There is a 1.6 x 2.1 x 1.5 cm simple cyst in the upper pole. There is a 1.9 x 1.8 x 1.8 cm complex cyst in the lower pole with several septations. No imaging follow-up recommended. No hydronephrosis or renal calculi. The kidney measures 9.3 cm in maximum dimension. LEFT KIDNEY: Not well visualized. There is a 1.8 x 1.4 x 1.5 cm cyst in the lower pole. No hydronephrosis. The kidney measures 9.1 cm in maximum dimension. SPLEEN: Normal. The spleen measures 8.6 cm in maximum dimension. FREE FLUID: None. US/US abdomen complete IMPRESSION: 3.4 x 2.4 x 4 cm hypoechoic mass in the head of the pancreas. Multiple hypoechoic liver lesions. Appearance is concerning for neoplasm.
[2023-08-27] MEDS: Lidocaine HCl 1 % MPF 5 ML VIAL SUBCUT (12:00)
== END 2023-08-27 13:53 | disposition home or self-care (01) ==
PROVIDERS: Radiology Vascular & Interventional Radiology; PCP Internal Medicine; Visit Provider Internal Medicine
DX: C22.7 Other specified carcinomas of liver (principal); K86.89 Other specified diseases of pancreas; Z80.3 Family history of malignant neoplasm of breast; R03.0 Elevated blood-pressure reading, without diagnosis of hypertension; K21.9 Gastro-esophageal reflux disease without esophagitis; K80.20 Calculus of gallbladder without cholecystitis without obstruction; E78.00 Pure hypercholesterolemia, unspecified; E55.9 Vitamin D deficiency, unspecified; Z79.899 Other long term (current) drug therapy
CPT/HCPCS: 47000; 76700; 76942; 88307; 88313; 88341; 88342; 99152; J2250; J3010

== ENCOUNTER → 2023-08-27 10:03 | Outpatient (BNV) | payer MEDICARE, SELFPAY | PROVIDERS: PCP Internal Medicine; Visit Provider Radiology Diagnostic Radiology | DX: C22.0 Liver cell carcinoma (principal) | CPT/HCPCS: 47000; 76942 ==

== ENCOUNTER 2023-08-29 13:45 | Outpatient (REF) | payer MEDICARE, SELFPAY ==
--- NOTE | ~2023-08-29 | MR_ITS ---
EXAMINATION: MR ABDOMEN WITHOUT AND WITH CONTRAST CLINICAL INFORMATION: Prior abnormal imaging. COMPARISON: Abdominal ultrasound 08/27/2023 TECHNIQUE: MR abdomen was performed without and with use of 7 mL intravenous Gadavist gadolinium contrast. Postcontrast images are performed in multiphase dynamic sequences. Imaging was performed in 3 planes. FINDINGS: LUNG BASES: No pleural or pericardial effusion. LIVER, GALLBLADDER, AND BILIARY TREE: Hepatic steatosis. The liver is normal in size and contour. There are numerous ill-defined rim enhancing masses most likely representing hepatic metastatic disease. No biliary ductal dilatation. The gallbladder is unremarkable. PANCREAS: 2.8 x 3.9 x 2.8 cm hypoenhancing mass in the head of the pancreas. There is distal atrophy of the pancreas and dilatation and tortuosity of the main pancreatic duct up to 5 mm. SPLEEN: Not enlarged. ADRENAL GLANDS: No adrenal mass. KIDNEYS AND URETERS: The kidneys are normal in size, shape, and enhance symmetrically. Bilateral renal cysts. No further imaging follow-up No hydronephrosis. No perinephric stranding. GASTROINTESTINAL TRACT: No bowel obstruction. No abdominal ascites or fluid collection. LYMPH NODES: No bulky abdominal lymphadenopathy. VASCULAR: Normal caliber abdominal aorta. 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 MR/MR abdomen wo/w con IMPRESSION: 2.8 x 3.9 x 2.8 cm mass in the head of the pancreas most likely representing neoplasm. There are numerous ill-defined rim-enhancing hepatic masses most likely representing metastatic disease. 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
[2023-08-29] MEDS: gadobutroL 7.5 ML VIAL IVPUSH (14:40)
== END 2023-08-29 13:46 | disposition home or self-care (01) ==
LOC: HO.MRI 13:45
PROVIDERS: PCP Internal Medicine; Visit Provider Internal Medicine
DX: K86.89 Other specified diseases of pancreas (principal)
CPT/HCPCS: 74183; A9585

== ENCOUNTER 2023-09-09 19:40 | Emergency (ER) | payer MEDICARE, SELFPAY ==
[2023-09-09 19:44] VITALS: BP 156/70; BP 182/98; PULSE 102; PULSE 94; RESP 16; TEMP 37.3; O2SAT 100; O2SAT 98; BMI 31.0
--- NOTE | 2023-09-09 20:01 | ECG_ITS ---
Test Reason : WEAKNESS Blood Pressure : / mmHG Vent. Rate : 083 BPM Atrial Rate : 083 BPM P-R Int : 134 ms QRS Dur : 080 ms QT Int : 378 ms P-R-T Axes : 065 049 032 degrees QTc Int : 444 ms Normal sinus rhythm Normal ECG When compared with ECG of 03-FEB-2012 16:35, No significant change was found Referred By: Kina Sumner Electronically Signed By:MIKE FOX MD
--- NOTE | 2023-09-09 20:14 | ED_ITS ---
HPI - Nausea/Vomiting/Diarrhea General Chief complaint: General Medical Stated complaint: feeling unwell,diagnosed liver & pancreatic cancer Time Seen by Provider: 09/09/23 19:48 Source: patient and old records reviewed Mode of arrival: EMS Limitations: no limitations History of Present Illness HPI Narrative: 67 yo female with PMH of GERD, anxiety, HLD, HTN recent dx of pancreatic mass and adenocarcinoma under the care of Dr. Harris - also on eliquis for SMV thrombosis - has liver mets. She recently had L vision changes and has a number of tests coming up this week including PET scan and port placement. She has nausea medications and pain medications as home. She is overwhelmed and scared and alone. She cannot eat she is so nervous at this time and feels so tired and weak. MD elicited complaint: nausea and abdominal pain Pertinent past history: other Onset (ago): week(s) (on and off for several) Associated nausea: Yes Associated abdominal pain: Yes Location of pain: epigastric Pain consistency: intermittent Severity: mild Quality: aching Exacerbating factors: eating Relieving factors: none Context: other (recent dx of cancer) Associated symptoms: loss of appetite, malaise and nausea/vomiting Treatment prior to arrival: other Related Data Home Medications Medication Instructions Recorded Confirmed cranberry 400 mg capsule 400 mg PO DAILY 11/25/20 09/04/23 multivitamin 1 tab PO DAILY 11/25/20 09/04/23 omega-3 fatty acids 1,000 mg 1,000 mg PO DAILY 11/25/20 09/04/23 capsule (Fish Oil Concentrate) Previous Rx's Medication Instructions Recorded cholecalciferol (vitamin D3) 50 50 mcg PO DAILY 90 days #90 caps 06/19/22 mcg (2,000 unit) capsule antiarthritic combination no.2 900 900 mg PO .QD 90 days #90 tabs 12/11/22 mg tablet (glucosamine-chondroitin) simvastatin 10 mg tablet 10 mg PO BEDTIME 90 days #90 tabs 12/11/22 amlodipine 5 mg tablet 5 mg PO DAILY #90 tabs 03/19/23 lorazepam 0.5 mg tablet 0.5 mg PO BID PRN anxiety 90 days 08/15/23 #180 tabs omeprazole 40 mg capsule,delayed 40 mg PO DAILY 90 days #90 caps 08/15/23 release ondansetron 8 mg disintegrating 8 mg PO Q8H nausea #30 tabs 08/21/23 tablet tramadol 50 mg tablet 50 mg PO Q8H PRN Pain (Scale Score 08/21/23 4-6) #30 tabs apixaban 5 mg tablet (Eliquis) 5 mg PO BID #60 tabs 09/04/23 oxycodone 5 mg capsule 5 mg PO Q6H PRN Pain (Scale Score 09/04/23 4-6) #30 caps lorazepam 0.5 mg tablet (Ativan) 0.5 mg PO BID PRN anxiety #10 tabs 09/09/23 metoclopramide HCl 5 mg tablet 5 mg PO BID PRN nausea and 09/09/23 (Reglan) vomiting #14 tabs Allergies Allergy/AdvReac Type Severity Reaction Status Date / Time No Known Allergies Allergy Verified 08/15/23 12:34 Review of Systems 2 Review of Systems: Constitutional : No Weight loss, No Fever, No Chills, pos fatigue, pos malaise ENT/Mouth : No sore throat, No Rhinorrhea Eyes: No Swelling, No Redness Cardiovascular : No Chest Pain, No SOB, NoEdema Respiratory : No Cough, No Sputum, No Wheezing Gastrointestinal : Positive Nausea, no Vomiting, no Diarrhea, positive abdominal Pain, No Hematochezia, No Melena Genitourinary : No Dysuria, No Urinary Frequency, No Hematuria, No Urgency Musculoskeletal : No joint pain, No Myalgias, No Joint Swelling Skin : No Skin Lesions, No rash Neuro : No Weakness, No Numbness, No Dizziness, No Headache Psych : No Anxiety/Panic, No Depression All other systems reviewed and are negative. Gastrointestinal: Gastrointestinal: Reports nausea PMFSH Past Medical History Attestation statement: The following information was validated with the patient. Source: old records reviewed Medical History Knee pain, right Blood pressure elevated without history of HTN Abnormal blood pressure Cholelithiasis Vitamin D deficiency Obesity (BMI 30-39.9) High cholesterol Hernia GERD (gastroesophageal reflux disease) Surgical History No pertinent past surgical history Family History Family History Father CVD (cardiovascular disease) Stroke Hypertension Mother Breast cancer Social History Social History Household Members: None Housing: House Alcohol intake: current Alcohol intake frequency: a few times a month Alcohol type: wine Patient Tobacco Use Status: Never used Tobacco Smoked in Last 30 Days: No e-Cigarette/Vaping Use: Never Used Second Hand Smoke Exposure: No Use of substances other than those prescribed or required for medical reasons: No Advance Directives: No Advance Directives Information Provided: Yes service: No Current occupational status: employed Cognitive needs: No Hearing needs: No Vision needs: Yes Physical Exam 2 Vital Signs: Vital Signs: Last Vital Signs Temp 99.1 F 09/09/23 19:44 Pulse 94 09/09/23 19:44 Resp 16 09/09/23 19:44 BP 156/70 H 09/09/23 19:44 Pulse Ox 100 09/09/23 19:44 O2 Del Method Room Air 09/09/23 19:44 BMI result Body Mass Index 31.0 Appearance: Alert. Oriented X3. No acute distress. Eyes: Pupils equal, round and reactive to light. ENT: Pharynx normal. Neck: Normal inspection. Neck supple. CVS: Normal heart rate and rhythm. Pulses normal. Respiratory: No respiratory distress. Breath sounds normal. Abdomen: Soft and not distended, mild epigastric ttp Skin: Skin warm and dry. Normal skin color. Normal skin turgor. Extremities: No lower extremity edema. No calf ttp Neuro: Oriented X 3. No motor deficit. No sensory deficit. Course Course Course Narrative: signed out to Dr. Lopez pending urine and further workup Medications Administered Discontinued Medications Generic Name Dose Route Start Last Admin Trade Name Conrad PRN Reason Stop Dose Admin Sodium Chloride 1,000 mls @ 999 mls/hr 09/09/23 20:15 09/09/23 20:30 Ns IVCONT 09/09/23 21:15 999 mls/hr .Q1H1M JIAN Administration Lorazepam 0.5 mg 09/09/23 20:08 09/09/23 20:30 Lorazepam 2 Mg/Ml Vial IVPUSH 09/09/23 20:09 0.5 mg STAT STA Administration Ondansetron HCl 4 mg 09/09/23 20:01 09/09/23 20:30 Ondansetron Hcl 4 Mg/2 Ml Vial IVPUSH 09/09/23 20:02 4 mg ONCE ONE Administration Medical Decision Making Medical Decision Making MDM Narrative: 67 yo female hx of GERD, HLD, anxiety, recent pancreatic adenocarcinoma with liver mets and SMV thrombosis on eliquis who is very anxious and nauseated feels weak - abdomen is benign doubt obstructive pathology or infection. She states she is so anxious she cannot eat or sleep. She did run out of her xanax 0.5mg at home last night. At this time will obtain labs, hydrate, given zofran and IV ativan - reassess. Differential Diagnosis Differential Diagnoses: The differential diagnosis associated with the presentation includes mass, dehydration, anxiety Admission/Observation Consideration of admission/observation: Escalation of care including admission/observation considered Lab Data MDM Lab Attestation statement: I reviewed the patient's lab results. 09/09/23 20:26 09/09/23 20:26 Labs: Lab Results 09/09/23 09/09/23 Range/Units 20:19 20:26 WBC 11.8 H (4.8-10.8) X10*3/uL RBC 3.50 L (4.20-5.50) X10*6/uL Hgb 10.2 L (12.0-16.0) g/dl Hct 30.9 L (37.0-47.0) % MCV 88.3 (80.0-98.0) fL MCH 29.1 (27.0-33.0) pg MCHC 33.0 (31.0-35.0) g/dl RDW 12.5 (11.0-16.0) % Plt Count 361 (160-400) X10*3/uL MPV 8.6 L (9.4-12.3) fL Immature Gran % (Auto) 0.4 (0.0-0.4) % Neut % (Auto) 83.4 H (45-73) % Lymph % (Auto) 7.8 L (20-40) % [place] % (Auto) 6.7 (2-11) % Eos % (Auto) 1.2 (0-4) % Baso % (Auto) 0.5 (0-2) % Lymph # (Auto) 0.9 L (1.2-4.9) X10*3/uL [place] # (Auto) 0.8 (0.1-1.2) X10*3/uL Eos # (Auto) 0.1 (0.0-0.4) X10*3/uL Baso # (Auto) 0.1 (0.0-0.2) X10*3/uL Abs Immat Gran (auto) 0.05 H (0.00-0.03) X10*3/uL Absolute Neuts (auto) 9.8 H (2.0-8.3) x10*3/uL Absolute Nucleated RBC 0.000 (0.0-0.012) X10*3/uL Nucleated RBC % (auto) 0.0 (0.0-0.2) /100WBC Sodium 140 (135-145) mmol/L Potassium 3.9 (3.3-5.1) mmol/L Chloride 105 (96-108) mmol/L Carbon Dioxide 22 (22-29) mmol/L Anion Gap 17 (12-20) BUN 18 H (9-16) mg/dL Creatinine 1.25 (0.5-1.4) mg/dL Estim Creat Clear Calc 36.0 Estimated GFR 43 Random Glucose 113 (60-115) mg/dL Calcium 9.6 (8.4-10.2) mg/dL Magnesium 2.2 (1.6-2.6) mg/dL Total Bilirubin 0.4 (0.0-1.0) mg/dL Direct Bilirubin 0.2 (0.0-0.5) mg/dL AST 68 H (5-31) U/L ALT 54 H (0-31) U/L Alkaline Phosphatase 381 H (39-117) U/L Total Protein 7.4 (6.5-8.0) g/dL Albumin 4.0 (3.5-5.0) g/dL Lipase 9 (8-78) U/L COVID-19 ([facility]) Negative (Negative) COVID-19 Clin Com See Note External Record Review External record reviewed: Inpatient record, Prior outpatient labs and Prior outpatient radiology Prescription Management I considered prescription management with: Other Social Determinants Patient?s care significantly limited by Social Determinants of Health including: Problems related to primary support group Discharge Plan Discharge Clinical Impression: Nausea Patient Disposition: Home, Self-Care Instructions: Acute Nausea and Vomiting (ED) Additional Instructions: return for worsening symptoms such as nausea and vomiting, fevers, inability to eat or drink or any other concerns. i have ordered additional nausea medications but they will make you sleepy. I have also ordered you some additional anxiety medications please follow up with your primary care doctor and Dr. Harris Prescriptions: New metoclopramide HCl [Reglan] 5 mg tablet 5 mg PO BID PRN (Reason: nausea and vomiting) Qty: 14 0RF lorazepam [Ativan] 0.5 mg tablet 0.5 mg PO BID PRN (Reason: anxiety) Qty: 10 0RF No Action tramadol 50 mg Tablet 50 mg PO Q8H PRN (Reason: Pain (Scale Score 4-6)) Qty: 30 3RF ondansetron 8 mg Tablet,Disintegrating 8 mg PO Q8H Qty: 30 3RF Eliquis 5 mg Tablet 5 mg PO BID Qty: 60 3RF Rx Instructions: Take 10 mg b.i.d. for 1 week followed by 5 mg b.i.d. oxycodone 5 mg Capsule 5 mg PO Q6H PRN (Reason: Pain (Scale Score 4-6)) Qty: 30 0RF Rx Instructions: Partial Fill upon patient request. omega-3 fatty acids [Fish Oil Concentrate] 1,000 mg capsule 1,000 mg PO DAILY multivitamin Tablet 1 tab PO DAILY cranberry 400 mg capsule 400 mg PO DAILY Rx Instructions: administer with a meal amlodipine 5 mg tablet 5 mg PO DAILY Qty: 90 2RF cholecalciferol (vitamin D3) 50 mcg (2,000 unit) capsule 50 mcg PO DAILY 90 Days Qty: 90 3RF simvastatin 10 mg tablet 10 mg PO BEDTIME 90 Days Qty: 90 3RF glucosamine-chondroitin 900 mg tablet 900 mg PO .QD 90 Days Qty: 90 3RF lorazepam 0.5 mg tablet 0.5 mg PO BID PRN (Reason: anxiety) 90 Days Qty: 180 0RF omeprazole 40 mg capsule,delayed release(DR/EC) 40 mg PO DAILY 90 Days Qty: 90 2RF
[2023-09-09] MEDS: ondansetron HCL 4 MG/2 ML VIAL IVPUSH (20:30)
[2023-09-09] MEDS: LORazepam 2 MG/ML VIAL 0.5 MG IVPUSH (20:30)
[2023-09-09] MEDS: 0.9 % Sodium Chloride 1,000 ML 999 ML IVCONT (20:30)
[2023-09-09 20:31] LABS: MANUAL DIFF FLAG NO
[2023-09-09 20:33] LABS: Basophils Absolute Auto 0.1 X10*3/uL (0.0-0.2); Basophils Percent Auto 0.5 % (0-2); Eosinophils Absolute Auto 0.1 X10*3/uL (0.0-0.4); Eosinophils Percent Auto 1.2 % (0-4); Hematocrit 30.9 % (37.0-47.0); Hemoglobin 10.2 g/dl (12.0-16.0); Imm Gran Abs Auto 0.05 X10*3/uL (0.00-0.03); Imm Gran Pct Auto 0.4 % (0.0-0.4); Lymphocytes Absolute Auto 0.9 X10*3/uL (1.2-4.9); Lymphocytes Percent Auto 7.8 % (20-40); Mean Corpuscular Hemoglobin 29.1 pg (27.0-33.0); Mean Corpuscular Volume 88.3 fL (80.0-98.0); Mean Platelet Volume 8.6 fL (9.4-12.3); Monocytes Absolute Auto 0.8 X10*3/uL (0.1-1.2); Monocytes Percent Auto 6.7 % (2-11); Neutrophils Absolute Auto 9.8 x10*3/uL (2.0-8.3); Neutrophils Percent Auto 83.4 % (45-73); Platelet Count 361 X10*3/uL (160-400); Red Cell Distribution Width 12.5 % (11.0-16.0); White Blood Count 11.8 X10*3/uL (4.8-10.8)
[2023-09-09 20:46] LABS: Alanine Aminotransferase 54 U/L (0-31); Alkaline Phosphatase 381 U/L (39-117); Anion Gap 17 (12-20); Aspartate Amino Transferase 68 U/L (5-31); Bilirubin Direct 0.2 mg/dL (0.0-0.5); Bilirubin Total 0.4 mg/dL (0.0-1.0); Blood Urea Nitrogen 18 mg/dL (9-16); Calcium 9.6 mg/dL (8.4-10.2); Carbon Dioxide 22 mmol/L (22-29); Chloride 105 mmol/L (96-108); Estimated Glomerular Filt Rate 43; Glucose Random 113 mg/dL (60-115); Lipase 9 U/L (8-78); Magnesium 2.2 mg/dL (1.6-2.6); Potassium 3.9 mmol/L (3.3-5.1); Sodium 140 mmol/L (135-145); Total Protein 7.4 g/dL (6.5-8.0)
[2023-09-09 20:51] LABS: COVID-19 Test Negative (Negative); IDNOW Serial# 6674DD1D
[2023-09-09 21:56] VITALS: BP 152/66; PULSE 83; RESP 16; O2SAT 100
[2023-09-09] MEDS: HYDROmorphone HCl 1 MG/ML SYRINGE IVPUSH (23:26)
[2023-09-09 23:28] LABS: Appearance Urine Clear; Color Urine Yellow; Glucose Urine UA Negative (Negative); Leukocyte Esterase Urine Small (1+) (Negative); Nitrite Urine Negative (Negative); UMIC TRIGGER UACC YES; Urine Blood Large (3+) (Negative); Urine Ketones Negative (Negative); Urine Protein 300 (3+) mg/dL (Neg-Trace)
[2023-09-09 23:33] LABS: Bacteria Urine None Seen (None Seen); Hyaline Casts Urine 0-2 /LPF (0-2); RBC Urine >20 /HPF (0-2); Squamous Epithelial Cell Urine 0-2 /HPF (0-2); UACC Culture Trigger YES
--- NOTE | 2023-09-09 23:39 | PC.NURSE ---
fentanyl patch not available in any pyxis. 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
[2023-09-10 00:11] VITALS: BP 157/67; PULSE 87; RESP 14; TEMP 37.1; O2SAT 97
== END 2023-09-10 00:21 | disposition home or self-care (01) ==
PROVIDERS: Emergency Medicine; Emergency Provider Internal Medicine; PCP Internal Medicine
DX: R11.2 Nausea with vomiting, unspecified (principal); R19.7 Diarrhea, unspecified; R10.13 Epigastric pain; R53.1 Weakness; I10 Essential (primary) hypertension; Z11.52 Encounter for screening for COVID-19; Z20.822 Contact with and (suspected) exposure to COVID-19; Z79.899 Other long term (current) drug therapy
CPT/HCPCS: 36415; 80048; 80076; 81001; 83690; 83735; 85025; 87086; 87635; 93005; 96361; 96374; 96375; 99284; J1170; J2060; J2405

== ENCOUNTER 2023-09-11 10:01 | Outpatient (REF) | payer MEDICARE, SELFPAY ==
--- NOTE | ~2023-09-11 | PE_ITS ---
EXAMINATION: Fluorine-18 FDG PET/CT Scan CLINICAL INDICATION: Initial treatment management. Malignant neoplasm of pancreas. PROCEDURE: 70 minutes following the intravenous administration of 15.7 mCi of fluorine 18 FDG, images from the base of the skull to the mid thighs were obtained using a combined PET/CT scanner with CT scan based attenuation correction. No intravenous contrast was administered. Transverse, coronal, sagittal, and volume reconstruction projections were obtained. The patient's blood glucose as determined by a finger stick, was 95 mg/dl immediately prior to injection. The radiotracer was injected intravenously through the left antecubital superficial vein, without any complications. Total CT exam dose-length product 585.82 mGy-cm * These CT images were obtained using dose optimization techniques as appropriate, variously including the following: Automated exposure control * Adjustment of mA and/or kV according to patient size (this includes techniques or standardized protocols for targeted exams where dose is matched to indication/reason for exam; i.e. extremities or head) * Use of iterative reconstruction technique COMPARISON: MRI of the abdomen done on 08/29/2023, ultrasound-guided liver biopsy done on 08/27/2023, abdominal ultrasound done on 08/27/[address] of the abdomen and pelvis done on 08/09/2023. FINDINGS: SUV max REFERENCE: Blood: 2.8 (70/223). Liver: 4.7 (132/223). NECK AND VISUALIZED HEAD: Asymmetric increased tracer avidity is noted in the region of the left-sided palatine tonsil with SUV max of 5.5 (25/223), may represent physiologic changes. Mild asymmetric increased radiotracer activity is also noted within the left-sided vocal cord with SUV max of 5.3 (38/223), for which direct visualization is usually recommended. There are no tracer avid, pathologically enlarged, morphologically abnormal cervical lymphadenopathy on either side. THORAX: Somewhat linear pleuroparenchymal opacities noted at right lung base at the level of the mid posterior costophrenic sulcus without any tracer avidity, may represent pleural parenchymal scar and/or atelectasis. Otherwise, the remainder of the lung moe appear clear. Specifically no tracer avid lung nodule or mass or mediastinal or hilar or axillary or internal mammary lymphadenopathy or pleural effusion. Trace pericardial effusion/thickening is noted within the base without any radiotracer avidity. ABDOMEN AND PELVIS: Concordant with prior studies, there are numerous ill-defined heterogeneous hypodense tracer avid disease identified within both lobes of the liver, the largest within the left lobe measures approximately 6.4 cm at the subdiaphragmatic surface with SUV max of 14.8 (98/223). Confluent dominant right lobe of the liver lesion measures approximately 5.7 cm at its maximum dimension with SUV max of 15.2 (100/223). The findings are consistent with biopsy proved hepatic metastases. No evidence of any intrahepatic or extremity biliary ductal dilatation seen. The gallbladder appears unremarkable. Hypodense irregular ill-defined pancreatic mass in the region of the head of the pancreas shows central photopenia, consistent with necrosis, measures approximately 4.1 x 2.1 cm with SUV max of 13.1 (118/223), consistent with primary pancreatic malignancy, presumed pancreatic adenocarcinoma. The remainder of the pancreas appears relatively atrophic. There are no definite peripancreatic tracer avid lymphadenopathy present. Both adrenals, the spleen and both kidneys appear unremarkable without evidence of any tracer avid suspicious lesion. Incidental note is made of focal photopenic defect at the inferior pole of the right kidney, consistent with cyst. Focal intense tracer avidity is noted in the region of the cecum and proximal large bowel with SUV max of 11.1 (155/223), for which colonoscopy/direct visualization is usually recommended. Focal tracer avidity is also noted within the distal part of the body, pylorus of the stomach with SUV max of 6.9 (130/223), for which direct visualization/endoscopy is usually recommended. There are no tracer avid retroperitoneal, mesenteric, pelvic and/or groin lymphadenopathy or tracer avid omental or peritoneal disease or free air or free fluid. MUSCULOSKELETAL: Asymmetric intense tracer avidity is noted at the right iliac crest without any underlying CT detectable osseous abnormality with SUV max of 6.2 (169/223). Heterogeneous tracer avidity is noted within the thoracic spine and mid to lower cervical spine without any CT correlate, possibility of disease involvement is suspected. Follow-up MRI of the spine with and without intravenous contrast however may be considered for further clarification. VASCULAR: Calcific atherosclerotic disease of the aorta and coronary arteries. No evidence of aneurysm. THE SITE(S) OF MOST INTENSE FDG AVIDITY AND SUV MAX: Foci of confluent presumed metastatic disease along the subdiaphragmatic surface of left and right lobe of the liver with SUV max of 15.2 on the right, and 14.8 on the left PET/PET CT fusion skull to thigh IMPRESSION: 1. The site of the presumed primary involving the head of the pancreas shows intense tracer avidity with SUV max of 13.1, shows internal photopenia, consistent with areas of central necrosis. 2. There are multifocal tracer avid disease seen involving both lobes of the liver, consistent with metastatic disease. 3. Incidental note is made of focal tracer avidity involving the stomach and the cecum and adjacent part of the proximal ascending colon, for which direct visualization/endoscopy is usually recommended, if not recently performed for further clarification. 4. Heterogeneous bone marrow especially in the region of the lower cervical and the thoracic spine and also at the right anterior iliac crest without any CT correlate. Possibility of osseous involvement is not excluded. Alternative imaging modality such as MRI of the spine and/or pelvis may be considered for further clarification. 5. Mild asymmetric tracer avidity involving the left-sided vocal cord with SUV max of 5.3, for which direct visualization is usually recommended. 6. Asymmetric increased tracer avidity involving the left palatine tonsil, likely physiologic.
== END 2023-09-11 10:02 | disposition home or self-care (01) ==
LOC: HO.PET 10:01
PROVIDERS: PCP Internal Medicine; Visit Provider Internal Medicine
DX: Z13.89 Encounter for screening for other disorder (principal)

== ENCOUNTER 2023-09-12 14:55 | Outpatient (REF) | payer MEDICARE, SELFPAY ==
--- NOTE | ~2023-09-12 | MR_ITS ---
EXAMINATION: MR BRAIN WITHOUT AND WITH CONTRAST CLINICAL INFORMATION: Intermittent left-sided vision loss. COMPARISON: FDG PET/CT scan 09/11/2023. TECHNIQUE: Multiplanar MR imaging of the brain was performed without contrast. A total of 6.5 mL Gadavist was utilized FINDINGS: There are multiple foci of residual effusion involving both cerebral hemispheres and the cerebellum. There is also a tiny focus of restricted diffusion located within the right hippocampus which can be seen in the setting of transient global amnesia. These findings are superimposed upon scattered foci of T2 FLAIR signal hyperintensity within the periventricular white matter.. There is no pathological magnetic susceptibility artifact. Intracranial vascular flow voids are grossly maintained. There are a few punctate foci of enhancement involving the cortical dhaliwal matter of the right frontal lobe for instance best visualized on axial image 19 of 24 series 9. There is no intracranial mass effect or midline shift. No abnormal extra-axial collection. Lateral and third ventricles are normal. No hydrocephalus. Midline structures including the cervicomedullary junction are normal. No acute bone marrow signal changes. There is a trace left mastoid tip effusion. No active paranasal sinus disease. MR/MR head/brain wo/w con IMPRESSION: There are multiple tiny acute infarcts involving both cerebral hemispheres and the cerebellum. There is also a tiny focus of restricted diffusion located within the right hippocampus which can be seen in the setting of transient global amnesia. In addition to these findings there are a few punctate foci of enhancement involving the cortical dhaliwal matter of the right frontal lobe, the etiology of which is uncertain on the basis of this examination. These findings may represent intracranial metastases given the clinical history of pancreatic carcinoma or perhaps tiny subacute enhancing infarcts.
[2023-09-12] MEDS: gadobutroL 7.5 ML VIAL IVPUSH (16:04)
== END 2023-09-12 14:56 | disposition home or self-care (01) ==
LOC: HO.MRI 14:55
PROVIDERS: PCP Internal Medicine; Visit Provider Internal Medicine
DX: C25.9 Malignant neoplasm of pancreas, unspecified (principal); H53.9 Unspecified visual disturbance
CPT/HCPCS: 70553; A9585

== ENCOUNTER 2023-09-13 10:36 | Inpatient (IN) | payer MEDICARE, SELFPAY ==
[2023-09-13] VITALS (8 sets, daily range): BP systolic 133–152; BP diastolic 50–79; PULSE 83–96; RESP 14–20; TEMP 37.2–38.6; O2SAT 95–100; BMI 34.5; BMI 30.5
--- NOTE | ~2023-09-13 | IR_ITS ---
CLINICAL HISTORY: Pancreatic cancer. The patient presents to interventional radiology for placement of a port for chemotherapy. PROCEDURES: 1. Real-time ultrasound-guided access into the right internal jugular vein after documentation of selected vessel patency, and permanent image storing in the patient records. 2. Placement of a 6.6 Malian single-lumen power port. CLINICIAN: Luis Alfredo Orellana PA-C MEDICATIONS: - Versed 1.5 mg, Fentanyl 75 mcg, Lidocaine 1% 10 mL SQ -Antibiotics: Ancef 2g -For additional details, please see nursing flowsheet. Complications: None. Estimated blood loss: <5 ml Specimens: None. Contrast: None. Fluoroscopy time: 0.9 min MODERATE SEDATION TIME: 33 min PROCEDURE NOTE: The procedure, risks, benefits, and alternatives were carefully explained to the patient and written informed consent was obtained. The patient was placed supine on the fluoroscopy table. A timeout was performed. The right neck and chest was prepped and draped in usual sterile fashion. Maximum barrier technique was utilized. Local anesthesia was administered to the access site with 1% lidocaine. Under ultrasound guidance, the right internal jugular vein was accessed with a 5 fr micropuncture set. A 0.035 in wire was advanced into the IVC. A peel-away sheath was advanced over the wire and into the SVC, and the wire was removed. Next, subcutaneous lidocaine was administered to the chest. The port pocket was created after the skin incision, utilizing blunt dissection. Using blunt dissection, a subcutaneous tunnel was created that connects from the port pocket to the venotomy site. Through the peel-away sheath, the 6.6 Malian port catheter was placed. The catheter position was verified with fluoroscopy to be at the superior vena cava/right atrial junction. The port was connected to the catheter and was placed in the pocket. The venotomy site was closed with a 3-0 Vicryl subcutaneous suture. The port incision site was closed with interrupted 3-0 Vicryl subcutaneous sutures and surgical glue. Prior to closing the skin, 1 g of Ancef solution was placed in the pocket. The port was tested, flushed, and packed with heparin per routine protocol. The patient tolerated the procedure well. The patient was stable after the procedure and was transferred to the PACU. The procedure was performed under moderate sedation and with a dedicated nurse with continuous monitoring of vital signs. A permanent image of the ultrasound the neck and fluoroscopic image of the chest was saved and sent to PACS. FINDINGS: 1. Patent right internal jugular vein 2. Placement of a 6.6 Malian single lumen power port. 3. Port flushes and aspirates very well with a 10 mL syringe. No pneumothorax. IR/IR cvc insert tunnel w prt/machine welder IMPRESSION: Placement of a 6.6 Malian single-lumen power port. PLAN: - Port may be used immediately. This procedure was performed by Luis Alfredo Orellana PA-C, and directly supervised by Dr. Bah
--- NOTE | ~2023-09-13 | US_ITS ---
EXAMINATION: US EXTRACRANIAL CAROTID DUPLEX, BILATERAL CLINICAL INFORMATION: Acute CVA COMPARISON: None available. TECHNIQUE: Real-time ultrasound and Doppler techniques (integrating B-mode 2-D vascular images, Doppler spectral analysis and color-flow Doppler imaging) were utilized to interrogate the extracranial carotid arteries, the vertebral arteries and proximal subclavian arteries bilaterally. The degree of stenosis is determined by criteria similar to NASCET. FINDINGS: Right Side: 1. There is no significant atherosclerotic plaque seen in the bifurcation/proximal ICA region. 2. The common carotid artery PSV proximally is 110 cm/s and distally 98 cm/s. 3. The proximal internal carotid artery velocities are 86 cm/s systolic and 24 cm/s diastolic. 4. The proximal external carotid artery PSV is 94 cm/s. 5. The vertebral artery shows antegrade flow. 6. The subclavian artery waveforms are normal. Left Side: 1. There is mild atherosclerotic plaque seen in the bifurcation/proximal ICA region. 2. The common carotid artery PSV proximally is 152 cm/s and distally 101 cm/s. 3. The proximal internal carotid artery velocities are 83 cm/s systolic and 27 cm/s diastolic. 4. The proximal external carotid artery PSV is 92 cm/s. 5. The vertebral artery shows antegrade flow. 6. The subclavian artery waveforms are normal. US/US carotid duplex BI IMPRESSION: 1. RIGHT: Normal right internal carotid artery without atherosclerotic plaque or hemodynamically significant stenosis. 2. LEFT: Minimal, non-hemodynamically significant stenosis of the proximal left internal carotid artery corresponding to a 0-49% stenosis by velocity criteria.
--- NOTE | ~2023-09-13 | CT_ITS ---
EXAMINATION: CT ABDOMEN AND PELVIS WITHOUT CONTRAST CLINICAL INFORMATION: Abdominal pain COMPARISON: 08/29/2023 MRI TECHNIQUE: Multidetector volumetric imaging was performed from the superior aspect of the liver through the pubic symphysis. Sagittal and coronal reformatted images were obtained on the technologist's workstation. This CT examination was performed using dose optimization techniques as appropriate, variously including the following: *Automated exposure control *Adjustment of mA and/or kV according to patient size (this includes techniques or standardized protocols for targeted exams where dose is matched to indication/reason for exam; i.e. extremities or head) *Use of iterative reconstruction technique DLP: 906 mGy-cm FINDINGS: LUNG BASES: Bibasilar left greater than right parenchymal and minor pleural disease noted. Trace pericardial fluid. LIVER, GALLBLADDER, AND BILIARY TREE: Numerous hepatic masses noted consistent metastatic disease. No gross biliary ductal dilatation. The gallbladder is unremarkable with no evidence of radiopaque gallstones, gallbladder wall thickening, or obvious pericholecystic inflammatory changes. PANCREAS: Known pancreatic head mass again noted with peripancreatic lymphadenopathy and pancreatic duct dilatation. Characteristic pancreatic parenchymal tissue loss upstream. SPLEEN: Unremarkable. ADRENAL GLANDS: Unremarkable. KIDNEYS AND URETERS: The kidneys are normal in size, shape, and attenuation. No hydronephrosis, hydroureter, or calculi seen. No perinephric stranding. BLADDER: Unremarkable. GASTROINTESTINAL TRACT: The small and large bowel are notable for severe diverticulosis without definite acute inflammatory changes. No mesenteric or serosal abnormality and no evidence of any obstruction.. ABDOMINAL WALL: No significant hernia is appreciated. LYMPH NODES: Normal. VASCULAR: Unremarkable. PELVIC VISCERA: Unremarkable. OSSEOUS STRUCTURES: Unremarkable. CT/CT abdomen pelvis wo IV con IMPRESSION: Known pancreatic head mass with hepatic metastatic disease. Bibasilar airspace disease as above. Severe diverticulosis without acute inflammatory changes. Fleischner guidelines were followed.
--- NOTE | 2023-09-13 11:26 | ED_ITS ---
HPI - Neuro Symptoms/Deficit General Chief Complaint: Abdominal Pain Stated Complaint: pt st blood clot sent in by md Time Seen by Provider: 09/13/23 10:52 Source: patient Mode of arrival: ambulatory Limitations: no limitations History of Present Illness HPI Narrative: 67-year-old female with a history of Cholelithiasis, GERD, high cholesterol, metastatic pancreatic cancer diagnosed July 2023 who was referred to the emergency department by her Heme/ Onc providers Dr. Harris and Dr. Dumont for evaluation of abnormal MRI. 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 Dr. Harris started the patient on Eliquis at that time. patient was also experiencing intermittent change in her vision and an MRI of the brain was done on 09/12/2023 which revealed multiple tiny acute infarcts involving both cerebral hemispheres and cerebellum. There is also a few punctate foci of an hands min involving the cortical dhaliwal matter of the right frontal lobe the etiology of which was unclear -the finding might represent intracranial metastases verses tiny subacute enhancing infarcts. The patient's Eliquis was stopped for a Port-A-Cath that was supposed to be done today. given the recent abnormal MRI, Dr. Harris felt that the patient needed to be admitted for further evaluation for possible source of brain emboli. The patient told me that she has been having significant abdominal pain and currently her abdominal pain is 8/10. She did take an oxycodone prior to coming to the emergency depart without any relief of her pain. The patient is NPO since she was scheduled to have a Port-A-Cath done this afternoon. Related Data Home Medications Medication Instructions Recorded Confirmed cranberry 400 mg capsule 400 mg PO DAILY 11/25/20 09/13/23 multivitamin 1 tab PO DAILY 11/25/20 09/13/23 omeprazole 20 mg capsule,delayed 20 mg PO DAILY 09/13/23 09/13/23 release Previous Rx's Medication Instructions Recorded amlodipine 5 mg tablet 5 mg PO DAILY #90 tabs 03/19/23 lorazepam 0.5 mg tablet 0.5 mg PO BID PRN anxiety 90 days 08/15/23 #180 tabs oxycodone 5 mg capsule 5 mg PO Q6H PRN Pain (Scale Score 09/04/23 4-6) #30 caps enoxaparin 80 mg/0.8 mL 70 mg (0.7 mL) subcut Q12H #6 mL 09/18/23 subcutaneous syringe polyethylene glycol 3350 17 gram 17 g PO DAILY #30 ea 09/18/23 oral powder packet enoxaparin 80 mg/0.8 mL 70 mg (0.7 mL) subcut Q12H #60 mL 09/20/23 subcutaneous syringe (Lovenox) metoclopramide HCl 5 mg tablet 5 mg PO BID-TID PRN Nausea #30 tabs 09/21/23 ondansetron HCl 8 mg tablet 8 mg PO Q8H PRN Nausea And 09/21/23 Vomiting #30 tabs Allergies Allergy/AdvReac Type Severity Reaction Status Date / Time No Known Allergies Allergy Verified 08/15/23 12:34 Review of Systems 2 Review of Systems: Yes all other systems are reviewed and are negative [facility] Past Medical History Medical History Knee pain, right Blood pressure elevated without history of HTN Abnormal blood pressure Cholelithiasis Vitamin D deficiency Obesity (BMI 30-39.9) High cholesterol Hernia GERD (gastroesophageal reflux disease) Surgical History No pertinent past surgical history Family History Family History Father CVD (cardiovascular disease) Stroke Hypertension Mother Breast cancer Social History Social History Household Members: None Housing: House Alcohol intake: current Alcohol intake frequency: a few times a month Alcohol type: wine Patient Tobacco Use Status: Never used Tobacco e-Cigarette/Vaping Use: Never Used Second Hand Smoke Exposure: No Use of substances other than those prescribed or required for medical reasons: No Have you been hit, kicked, punched, or otherwise hurt by someone within the past year? If so, by whom?: No Do you feel safe in your current relationship?: No Current Relationship Do you have thoughts of harming others: None Do you have a plan to hurt others: No Plan Do you have the means to hurt others: No Recently lost weight without trying: No service: No Current occupational status: employed Cognitive needs: No Hearing needs: No Vision needs: Yes Physical Exam 2 Vital Signs: Vital Signs: Last Vital Signs Temp 97.6 F 09/18/23 11:53 Pulse 81 09/18/23 13:02 Resp 20 09/18/23 11:53 BP 154/74 H 09/18/23 13:02 Pulse Ox 95 09/18/23 13:02 O2 Del Method Room Air 09/18/23 11:53 BMI result Body Mass Index 34.5 vital signs were normal exam: General: Awake, alert in no distress . Patient is anxious and frustrated secondary to her recent MRI of the brain Head: Normocephalic, atraumatic EENT: PERRL, Lids normal, sclera normal, conjunctiva normal, nose normal , ears normal, throat without erythema or exudates Neck: Supple, no adenopathy, trachea midline and nontender Lung: breath sounds symmetric, no wheezing, rales or rhonchi Chest: symmetric movement, nontender Heart: regular rate and rhythm, normal S1, S2 no murmurs or rubs Abdomen: soft, moderate diffuse tenderness, nondistended, normal bowel sounds Back: no vertebral tenderness, no CVAT Extremities: no deformities, moves all extremities symmetrically Skin: no rashes, no lesion, normal color and warmth Neuro: Awake, alert, oriented, normal speech, cranial nerves intact, moves all extremities symmetrically Psych: Pleasant, anxious but otherwise in no distress Medications Administered Discontinued Medications Generic Name Dose Route Start Last Admin Trade Name Freq PRN Reason Stop Dose Admin Acetaminophen 650 mg 09/13/23 13:45 09/14/23 01:13 Acetaminophen 325 Mg Tablet PO 650 mg Q6H PRN Administration Pain, Mild (Pain Scale 1-3) Acetaminophen 650 mg 09/14/23 01:25 09/18/23 10:43 Acetaminophen 325 Mg Tablet PO 650 mg Q4H PRN Administration Fever >100.4 Amlodipine Besylate 5 mg 09/14/23 09:00 09/18/23 10:44 Amlodipine Besylate 5 Mg Tablet PO 5 mg DAILY JIAN Administration Protocol Apixaban 5 mg 09/13/23 21:00 09/14/23 09:28 Apixaban 5 Mg Tablet PO Not Given BID [facility] Docusate Sodium 100 mg 09/13/23 13:45 09/15/23 19:57 Docusate Sodium 100 Mg Capsule PO 100 mg DAILY PRN Administration Constipation Docusate Sodium 100 mg 09/17/23 09:00 09/18/23 10:44 Docusate Sodium 100 Mg Capsule PO 100 mg DAILY JIAN Administration Enoxaparin Sodium 70 mg 09/15/23 13:30 09/18/23 14:26 Enoxaparin Sodium 80 Mg/0.8 Ml Syringe 1 mg/kg (70 mg) 70 mg SUBCUT Administration Q12H JIAN Sodium Chloride 1,000 mls @ 125 mls/hr 09/13/23 11:43 09/13/23 20:33 Ns IV 09/13/23 19:42 Infused .Q8H STA Infusion Vancomycin HCl 1,000 mg/ 270 mls @ 270 mls/hr 09/13/23 23:43 09/13/23 23:55 Sodium Chloride IV 09/14/23 00:42 Not Given ONCE ONE Sodium Chloride 500 mls @ 500 mls/hr 09/13/23 23:44 09/14/23 01:08 Ns IV 09/14/23 00:43 Infused .Q1H ONE Infusion Vancomycin HCl 1,000 mg/ 535 mls @ 267.5 mls/hr 09/13/23 23:45 09/14/23 02:58 Vancomycin HCl 750 mg/ Sodium IV 09/14/23 01:44 Infused Chloride ONCE ONE Infusion Acetaminophen 1,000 mg in 100 mls @ 400 mls/hr 09/14/23 01:25 09/14/23 05:04 Ofirmev IV 09/14/23 01:39 Infused ONCE ONE Infusion Vancomycin HCl 1,250 mg/ 250 mls @ 166.667 mls/hr 09/14/23 23:00 09/15/23 00:14 Sodium Chloride IV Infused Q24H JIAN Infusion Heparin Sodium/Sodium Chloride 25,000 unit in 250 mls @ 0 mls/hr 09/14/23 09:15 09/15/23 13:48 Heparin Sodium,Porcine/1/2ns IVCONT Infused .Q0M JIAN Titration Protocol Per Protocol Vancomycin HCl 1,000 mg/ 270 mls @ 270 mls/hr 09/15/23 23:00 09/16/23 03:12 Sodium Chloride IV Infused Q24H JIAN Infusion Sodium Chloride 100 mls @ 100 mls/hr 09/17/23 08:12 09/17/23 11:22 Ns IV 09/17/23 09:11 Infused ONCE ONE Infusion Sodium Chloride 100 mls @ 100 mls/hr 09/17/23 08:12 09/17/23 15:23 Ns IV 09/17/23 09:11 Infused ONCE ONE Infusion Lorazepam 0.5 mg 09/13/23 13:56 09/13/23 20:58 Lorazepam 2 Mg/Ml Vial IM 0.5 mg Q6H PRN Administration Anxiety Lorazepam 0.5 mg 09/13/23 21:27 09/14/23 16:42 Lorazepam 2 Mg/Ml Vial IVPUSH 0.5 mg Q6H PRN Administration Anxiety Lorazepam 0.5 mg 09/16/23 10:19 09/18/23 11:18 Lorazepam 0.5 Mg Tablet PO 0.5 mg Q8H PRN Administration Anxiety Melatonin 6 mg 09/13/23 13:45 09/14/23 22:31 Melatonin 3 Mg Tablet PO 6 mg BEDTIME PRN Administration Insomnia Morphine Sulfate 4 mg 09/13/23 11:43 09/13/23 12:14 Morphine Sulfate 4 Mg/Ml Cartridge IVPUSH 09/13/23 11:44 4 mg ONCE STA Administration Protocol Morphine Sulfate 4 mg 09/13/23 13:45 09/17/23 03:31 Morphine Sulfate 4 Mg/Ml Cartridge IVPUSH 4 mg Q4H PRN Administration Pain, Severe (Pain Scale 7-10) Protocol Morphine Sulfate 3 mg 09/17/23 18:22 09/18/23 10:42 Morphine Sulfate 4 Mg/Ml Cartridge IVPUSH 3 mg Q4H PRN Administration Pain, Severe (Pain Scale 7-10) Protocol Multivitamins/Vitamin C 1 tab 09/14/23 09:00 09/18/23 10:44 Multivitamin Tablet PO 1 tab DAILY JIAN Administration Omeprazole 20 mg 09/14/23 06:30 09/18/23 05:45 Omeprazole 20 Mg Capsule.Dr PO 20 mg DAILY@0630 JIAN Administration Ondansetron HCl 4 mg 09/13/23 11:43 09/13/23 12:14 Ondansetron Hcl 4 Mg/2 Ml Vial IVPUSH 09/13/23 11:44 4 mg ONCE ONE Administration Oxycodone HCl 5 mg 09/17/23 08:07 09/18/23 14:25 Oxycodone Hcl Immed Release 5 Mg Tablet PO 5 mg Q6H PRN Administration Pain, Moderate(Pain Scale 4-6) Polyethylene Glycol 17 gm 09/17/23 09:00 09/18/23 10:43 Polyethylene Glycol 3350 17 Gm Powd.Pack PO 17 gm DAILY JIAN Administration Senna 15 ml 09/16/23 06:25 09/16/23 11:12 Senna Petros Extract Oral Syrup 15 Ml Syrup PO 09/16/23 06:26 15 ml ONCE ONE Administration Sodium Chloride 3 ml 09/13/23 16:00 09/18/23 10:43 0.9 % Sodium Chloride Flush 3 Ml Syringe IVFLUSH 3 ml QSHIFT JIAN Administration Sodium Chloride 1 spray 09/16/23 06:25 09/16/23 11:12 Sodium Chloride 0.65 % Nasal 44 Ml Sprbtl NOSTRIL-B 09/16/23 06:26 1 spray ONCE ONE Administration Medical Decision Making Medical Decision Making MDM Narrative: 67-year-old female with a history of Cholelithiasis, GERD, high cholesterol, metastatic pancreatic cancer diagnosed July 2023 who was referred to the emergency department by her Heme/ Onc providers Dr. Harris and Dr. Dumont for evaluation of abnormal MRI. 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 Dr. Harris started the patient on Eliquis at that time. patient was also experiencing intermittent change in her vision and an MRI of the brain was done on 09/12/2023 which revealed multiple tiny acute infarcts involving both cerebral hemispheres and cerebellum. There is also a few punctate foci of an hands min involving the cortical dhaliwal matter of the right frontal lobe the etiology of which was unclear -the finding might represent intracranial metastases verses tiny subacute enhancing infarcts. The patient's Eliquis was stopped for a Port-A-Cath that was supposed to be done today. given the recent abnormal MRI, Dr. Harris felt that the patient needed to be admitted for further evaluation for possible source of brain emboli. 13:24 patient's laboratory evaluation was unremarkable. I did discuss Port-A-Cath placement with the interventional radiologist, Dr. Chapito Cárdenas and he felt that there was no contraindication to proceed with Port-A-Cath today, therefore the patient will be kept NPO for the Port-A-Cath procedure at 14:00 hours. I did discuss patient's presentation with the covering hospitalist over tiger text and the patient will be admitted for further evaluation of her cerebral emboli. Differential Diagnosis Differential Diagnoses: The differential diagnosis associated with the presentation includes Differential diagnosis includes was not limited to venous emboli, arterial emboli, right to left shunt, septic emboli, metastatic disease Admission/Observation Consideration of admission/observation: Escalation of care including admission/observation considered Consult Healthcare Provider Management of the patient was discussed with: Hospitalist ( Dr. Goncalves) and Cushion Former ( Dr. Dumont and Dr. Harris) Lab Data MDM Lab Attestation statement: I reviewed the patient's lab results. my interpretation patient's laboratory evaluation as follows: WBC was normal 10,000. normocytic anemia with an H&H of 9.2 and 27.9- most likely related to her pancreatic cancer.. Elevated AST, ALT and alk-phos 248, 122 and 512 that secondary to pancreatic cancer . Lipase was normal. Urinalysis was negative. 09/18/23 05:54 09/17/23 07:28 Labs: Lab Results 09/13/23 09/13/23 Range/Units 12:03 12:07 WBC 10.0 (4.8-10.8) X10*3/uL RBC 3.26 L (4.20-5.50) X10*6/uL Hgb 9.2 L (12.0-16.0) g/dl Hct 27.9 L (37.0-47.0) % MCV 85.6 (80.0-98.0) fL MCH 28.2 (27.0-33.0) pg MCHC 33.0 (31.0-35.0) g/dl RDW 12.4 (11.0-16.0) % Plt Count 263 D (160-400) X10*3/uL MPV 8.9 L (9.4-12.3) fL Immature Gran % (Auto) 0.6 H (0.0-0.4) % Neut % (Auto) 77.8 H (45-73) % Lymph % (Auto) 8.9 L (20-40) % [place] % (Auto) 10.1 (2-11) % Eos % (Auto) 1.8 (0-4) % Baso % (Auto) 0.8 (0-2) % Lymph # (Auto) 0.9 L (1.2-4.9) X10*3/uL [place] # (Auto) 1.0 (0.1-1.2) X10*3/uL Eos # (Auto) 0.2 (0.0-0.4) X10*3/uL Baso # (Auto) 0.1 (0.0-0.2) X10*3/uL Abs Immat Gran (auto) 0.06 H (0.00-0.03) X10*3/uL Absolute Neuts (auto) 7.8 (2.0-8.3) x10*3/uL Absolute Nucleated RBC 0.000 (0.0-0.012) X10*3/uL Nucleated RBC % (auto) 0.0 (0.0-0.2) /100WBC PT 14.3 H D (11.1-13.3) SEC INR 1.2 H (0.9-1.1) APTT 28.9 (26.0-36.4) SEC Sodium 136 (135-145) mmol/L Potassium 4.0 (3.3-5.1) mmol/L Chloride 101 (96-108) mmol/L Carbon Dioxide 22 (22-29) mmol/L Anion Gap 17 (12-20) BUN 19 H (9-16) mg/dL Creatinine 1.27 (0.5-1.4) mg/dL Estim Creat Clear Calc 37.4 Estimated GFR 42 Random Glucose 100 (60-115) mg/dL Lactic Acid 1.0 (0.5-2.0) mmol/L Calcium 9.5 (8.4-10.2) mg/dL Total Bilirubin 0.5 (0.0-1.0) mg/dL AST 248 H (5-31) U/L ALT 122 H (0-31) U/L Alkaline Phosphatase 512 H (39-117) U/L Total Protein 7.0 (6.5-8.0) g/dL Albumin 3.5 (3.5-5.0) g/dL Lipase 6 L (8-78) U/L COVID-19 ([facility]) Negative (Negative) COVID-19 Clin Com See Note Influenza Type A ([facility]) Negative (Negative) Influenza Type B ([facility]) Negative (Negative) Influenza A & B Note See Note Independent Interpretation I performed an independent interpretation of an: EKG Interpretation: My independent interpretation patient's 12 EKG is as follows: Normal sinus rhythm rate of 82, normal MT interval, QRS duration QTC interval, no ST segment elevation, no ST segment depression, Q-wave in lead 3, no significant T-wave abnormalities, no PACs, no PVCs. This is a normal EKG. Chronic Conditions Patient?s care impacted by: Other ( pancreatic cancer) Discharge Plan Discharge Clinical Impression: Mass of pancreas Patient Disposition: Admitted As Inpatient Interventions: Admission Worksheet (ED) Last Done: 09/13/23 18:35 Discharge Date/Time: 09/13/23 18:37
--- NOTE | 2023-09-13 11:43 | ECG_ITS ---
Test Reason : ABD PAIN Blood Pressure : / mmHG Vent. Rate : 082 BPM Atrial Rate : 082 BPM P-R Int : 142 ms QRS Dur : 074 ms QT Int : 360 ms P-R-T Axes : 022 039 021 degrees QTc Int : 420 ms Normal sinus rhythm Normal ECG When compared with ECG of 09-SEP-2023 20:18, No significant change was found Referred By: Chon Avendano Electronically Signed By:MIKE FOX MD
[2023-09-13 12:14] LABS: MANUAL DIFF FLAG NO
[2023-09-13] MEDS: Morphine Sulfate 4 MG/ML CARTRIDGE IVPUSH ×2 (12:14→20:42)
[2023-09-13] MEDS: ondansetron HCL 4 MG/2 ML VIAL IVPUSH (12:14)
[2023-09-13 12:17] LABS: Basophils Absolute Auto 0.1 X10*3/uL (0.0-0.2); Basophils Percent Auto 0.8 % (0-2); Eosinophils Absolute Auto 0.2 X10*3/uL (0.0-0.4); Eosinophils Percent Auto 1.8 % (0-4); Hematocrit 27.9 % (37.0-47.0); Hemoglobin 9.2 g/dl (12.0-16.0); Imm Gran Abs Auto 0.06 X10*3/uL (0.00-0.03); Imm Gran Pct Auto 0.6 % (0.0-0.4); Lymphocytes Absolute Auto 0.9 X10*3/uL (1.2-4.9); Lymphocytes Percent Auto 8.9 % (20-40); Mean Corpuscular Hemoglobin 28.2 pg (27.0-33.0); Mean Corpuscular Volume 85.6 fL (80.0-98.0); Mean Platelet Volume 8.9 fL (9.4-12.3); Monocytes Percent Auto 10.1 % (2-11); Neutrophils Absolute Auto 7.8 x10*3/uL (2.0-8.3); Neutrophils Percent Auto 77.8 % (45-73); Platelet Count 263 X10*3/uL (160-400); Red Blood Count 3.26 X10*6/uL (4.20-5.50); Red Cell Distribution Width 12.4 % (11.0-16.0)
[2023-09-13] MEDS: 0.9 % Sodium Chloride 1,000 ML 125 ML IV (12:23)
[2023-09-13 12:30] LABS: Alanine Aminotransferase 122 U/L (0-31); Albumin Level 3.5 g/dL (3.5-5.0); Alkaline Phosphatase 512 U/L (39-117); Anion Gap 17 (12-20); Aspartate Amino Transferase 248 U/L (5-31); Bilirubin Total 0.5 mg/dL (0.0-1.0); Blood Urea Nitrogen 19 mg/dL (9-16); Calcium 9.5 mg/dL (8.4-10.2); Carbon Dioxide 22 mmol/L (22-29); Chloride 101 mmol/L (96-108); Creatinine Clr Calc Pharmacy 37.4; Estimated Glomerular Filt Rate 42; Glucose Random 100 mg/dL (60-115); Lipase 6 U/L (8-78); Sodium 136 mmol/L (135-145)
[2023-09-13 12:33] LABS: INTERNATIONAL NORM RATIO 1.2 (0.9-1.1); Prothrombin Time 14.3 SEC (11.1-13.3)
--- NOTE | 2023-09-13 12:34 | P.HPHOSP_ITS ---
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 Patient initially denied to the ED on 08/09/2023 for evaluation of epigastric discomfort with weight loss for the past few months. CT of abdomen and pelvis found suspicious 3.4 cm mass in the head of the pancreas with indeterminate liver lesions suspicious for metastasis. Ultrasound-guided needle biopsy of liver mass was performed on 08/27/2023 which revealed adenocarcinoma likely with pancreatic origin. 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 Patient was started on Eliquis for anticoagulation. Patient began experiencing acute vision changes where her vision would become ?dhaliwal?, usually while watching TV. Often occurred in left eye, but occasionally in right. Pt underwent an MRI of the brain yesterday on 09/12/2023 which found multiple tiny acute infarcts involving both cerebral hemispheres and the cerebrum. Also found a tiny focus of restricted diffusion located within the right hippocampus which can be seen in the setting of transient global amnesia. Also found a few punctate foci of enhancement involving the cortical dhaliwal matter of the right frontal lobe of unclear etiology, intracranial metastasis cannot be ruled out. Source of brain emboli uncertain, and patient was sent to the ED by Oncology for further workup for possible [id number] shunt or other cardiogenic source. Patient will also have a Port-A-Cath placed while at the hospital today, has had her Eliquis stopped and has been NPO since midnight. Patient currently complains of central abdominal pain that wraps around to her, no well controlled with morphine. Patient also experienced some nausea, but no vomiting. Denies headache, no acute vision changes either today or yesterday. Denies chest pain/pressure, palpitations. Patient is anxious, unsettled, feels overwhelmed. In the ED with left patient a temperature 99 degrees, pulse 94, slightly soft BP of 135/50, satting at 100% on RA. Labs were significant for H&H 9.2/27.9, AST 248, ALT 122, alk-phos 512. Pt was treated with morphine, ondansetron, and IVF. Pt will be admitted to the hospital for further workup and treatment of acute cerebral and cerebellar infarcts. Review of Systems 2 Review of Systems: Central abdominal pain wrapping around to the back Nausea, no vomiting Increased anxiety Denies current headache, acute vision changes No chest pain/pressure, palpitations Denies shortness of breath PMFSH Medical History Knee pain, right Blood pressure elevated without history of HTN Abnormal blood pressure Cholelithiasis Vitamin D deficiency Obesity (BMI 30-39.9) High cholesterol Hernia GERD (gastroesophageal reflux disease) Family History Father CVD (cardiovascular disease) Stroke Hypertension Mother Breast cancer Surgical History No pertinent past surgical history Social History Household Members: None Housing: House Alcohol intake: current Alcohol intake frequency: a few times a month Alcohol type: wine Patient Tobacco Use Status: Never used Tobacco Smoked in Last 30 Days: No e-Cigarette/Vaping Use: Never Used Second Hand Smoke Exposure: No Use of substances other than those prescribed or required for medical reasons: No Advance Directives: No Advance Directives Information Provided: Yes service: No Current occupational status: employed Cognitive needs: No Hearing needs: No Vision needs: Yes Meds Allergies Allergy/AdvReac Type Severity Reaction Status Date / Time No Known Allergies Allergy Verified 08/15/23 12:34 Active Medications: Current Medications Sodium Chloride (Ns) 1,000 mls @ 125 mls/hr IV .Q8H STA Stop: 09/13/23 19:42 Last Admin: 09/13/23 12:23 Dose: 125 mls/hr Home Medications Medication Instructions Recorded Confirmed Last Taken Type cranberry 400 mg capsule 400 mg PO DAILY 11/25/20 09/04/23 Unknown History multivitamin 1 tab PO DAILY 11/25/20 09/04/23 Unknown History omega-3 fatty acids 1,000 mg 1,000 mg PO DAILY 11/25/20 09/04/23 Unknown History capsule (Fish Oil Concentrate) Physical Exam 2 Vital Signs and Narrative: Vital Signs: Last Vital Signs Temp 99 F 09/13/23 11:00 Pulse 94 09/13/23 11:00 Resp 16 09/13/23 11:00 BP 135/50 L 09/13/23 11:00 Pulse Ox 100 09/13/23 11:00 O2 Del Method Room Air 09/13/23 11:00 BMI result Body Mass Index 34.5 General: AOx3, anxious, in no acute distress Resp: CTA bilaterally CVS: S1, S2, RRR GI: +BS, no distention, with epigastric and left-sided tenderness Skin: No rash Neuro: Cranial nerves II-XII grossly intact bilaterally. Motor grossly intact bilaterally Extremities: No edema Psych: Pt anxious, crying, feeling overwhelmed Results Labs 09/13/23 12:07 09/13/23 12:07 Labs: Laboratory Results - last 24 hr 09/13/23 09/13/23 12:03 12:07 MCV 85.6 MCH 28.2 MCHC 33.0 RDW 12.4 Plt Count 263 D MPV 8.9 L Immature Gran % (Auto) 0.6 H Neut % (Auto) 77.8 H Lymph % (Auto) 8.9 L Trimble % (Auto) 10.1 Eos % (Auto) 1.8 Baso % (Auto) 0.8 Lymph # (Auto) 0.9 L Trimble # (Auto) 1.0 Eos # (Auto) 0.2 Baso # (Auto) 0.1 Abs Immat Gran (auto) 0.06 H Absolute Neuts (auto) 7.8 Absolute Nucleated RBC 0.000 Nucleated RBC % (auto) 0.0 Anion Gap 17 Estim Creat Clear Calc 37.4 Estimated GFR 42 Random Glucose 100 Lactic Acid 1.0 Calcium 9.5 Total Bilirubin 0.5 AST 248 H ALT 122 H Alkaline Phosphatase 512 H Total Protein 7.0 Albumin 3.5 Lipase 6 L Assessment and Plan (1) Pancreatic adenocarcinoma: Status: Acute (2) Cerebral infarct: Status: Acute Plan Pt is a 67-year-old female with a PMH significant for?HTN, HLD, GERD, pancreatic adenocarcinoma diagnosed in July 2023 with known metastasis to liver, and 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 Pt will be admitted to the hospital for further workup and treatment of acute cerebral and cerebellar infarcts. Acute cerebral and cerebellar infarcts Patient with acute transient vision loss, MRI showing multiple acute infarcts Patient was already on Eliquis Embolic source unclear: Mesenteric and splenic thrombosis unlikely unless [id number] shunt Will get echocardiogram with bubble study Cardiology consult Neurology consult Port-A-Cath placement By IR will place Port-A-Cath later today Patient has been NPO since midnight, Eliquis has been stopped Resume diet and anticoagulation as warranted after procedure Pancreatic adenocarcinoma Patient diagnosed with pancreatic adenocarcinoma with metastasis to liver on 08/27/2023 Analgesics for pain management Oncology consult Mesenteric and splenic thrombosis Eliquis on hold for Port-A-Cath placement Resume anticoagulation as warranted after procedure Transaminitis Likely secondary to metastisis to liver Anemia Patient's H&H 9.2 or 27.9, down from 10 0.2/30.9 on 09/09/2023 Likely secondary to metastatic pancreatic cancer Patient denies any active bleeding: No hemoptysis, hematemesis, melena, hematochezia Follow CBC Anxiety Ativan p.r.n. GERD Continue omeprazole HTN Continue amlodipine HLD Continue statin Full Code Attending:?Dr. Palacio DVT Prophylaxis: Pneumatic boots d/t planned Port-A-Cath placement Pt will require a hospitalization of at least two nights for treatment of acute cerebral and cerebellar infarcts in the setting of metastatic pancreatic cancer.. Time Spent With Patient Time: Total time managing care of this patient today ____ minutes. Quality Stroke Does the patient have a stroke diagnosis?: Yes Reason for No Anti-thrombotic by Day Two: Contraindicated (Pt already on Eliquis, and outside of tPA therapeutic window) VTE Prior VTE?: No VTE Risk Level:: Medical - moderate - high VTE Device Contraindication: N/A - Device Ordered VTE Drug Contraindication: Treatment Not Tolerated
[2023-09-13 12:35] LABS: Partial Thromboplastin Time 28.9 SEC (26.0-36.4)
--- NOTE | 2023-09-13 12:39 | PC.NURSE ---
spoke wtih Kay from [facility] ([id number]) r/t insertion of pts aleksandra-cath today, will discuss with MD Avendano and report back
[2023-09-13 12:58] LABS: COVID-19 Test Negative (Negative); IDNOW Serial# BCCEAD1C
[2023-09-13 13:14] LABS: IDNOW Serial# BCCEAD1C
[2023-09-13 13:15] LABS: Influenza A Negative (Negative); Influenza B2 Negative (Negative)
--- NOTE | 2023-09-13 16:09 | PC.NURSE ---
pt brought back from IR. VS HR 87, 16RR, O2 99%, BP 136/72
--- NOTE | 2023-09-13 16:24 | PHA.MEDREC ---
Pharmacy Consult ? Medication Reconciliation Pharmacy has completed the medication reconciliation. Patient confirmed medications. Reports Eliquis will be stopped and she last took it sunday. Report simvastatin was recently stopped. Faustina Hogue, PharmD
[2023-09-13] MEDS: Apixaban 5 MG TABLET PO (20:42)
[2023-09-13] MEDS: Acetaminophen 325 MG TABLET 650 MG PO (20:42)
[2023-09-13] MEDS: LORazepam 2 MG/ML VIAL 0.5 MG IM (20:58)
[2023-09-13] MEDS: 0.9 % Sodium Chloride Flush 3 ML SYRINGE IVFLUSH (21:00)
--- NOTE | 2023-09-13 23:42 | PM.EVENT ---
Event Note Date of Service: 09/13/23 Event Note: Nurse reported that patient was febrile. Meets sepsis criteria with fever and HR>90. Will obtain lactic acid. Blood cultures obtained. Empiric IV antibiotics. Also resuscitating with IV crystalloids. Patient with generalized pain and fatigue Time Spent With Patient Time: Total time managing care of this patient today ____ minutes.
[2023-09-14] VITALS (10 sets, daily range): BP systolic 123–178; BP diastolic 63–81; PULSE 80–98; RESP 18–20; TEMP 36.2–38.4; O2SAT 93–96
[2023-09-14] MEDS: 0.9 % Sodium Chloride 500 ML IV (00:04)
[2023-09-14 00:13] LABS: Lactic Acid 0.6 mmol/L (0.5-2.0)
[2023-09-14] MEDS: vancomycin HCL 1,000 MG, vancomycin HCL 750 MG in 0.9 % Sodium Chloride 500 ML 267.5 MG IV (00:47)
[2023-09-14] MEDS: Acetaminophen 325 MG TABLET 650 MG PO (01:13)
[2023-09-14] MEDS: Morphine Sulfate 4 MG/ML CARTRIDGE IVPUSH ×5 (02:20→22:30)
--- NOTE | 2023-09-14 02:23 | PC.NURSE ---
Pt noted to have TMax 101.4. HR >90. MD Rivas notified. Blood cultures and Lactic Acid ordered. 500mls NS and IV Vanco ordered and given. Fever continues despite oral tylenol. 1X dose IV Tylenol ordered. Post NS bolus, HR down to the 80s. IV Morphine given PRN generalized pain.
[2023-09-14] MEDS: Acetaminophen 1,000 MG/100 ML PIGGYBACK 400 MG IV (04:37)
[2023-09-14 05:45] LABS: Hematocrit 24.1 % (37.0-47.0); Hemoglobin 7.8 g/dl (12.0-16.0); Mean Corpuscular HGB Conc 32.4 g/dl (31.0-35.0); Mean Corpuscular Hemoglobin 28.8 pg (27.0-33.0); Mean Corpuscular Volume 88.9 fL (80.0-98.0); Mean Platelet Volume 9.5 fL (9.4-12.3); Platelet Count 219 X10*3/uL (160-400); Red Blood Count 2.71 X10*6/uL (4.20-5.50); Red Cell Distribution Width 12.6 % (11.0-16.0); White Blood Count 11.9 X10*3/uL (4.8-10.8)
[2023-09-14 06:12] LABS: Anion Gap 16 (12-20); Blood Urea Nitrogen 14 mg/dL (9-16); Calcium 8.3 mg/dL (8.4-10.2); Carbon Dioxide 16 mmol/L (22-29); Chloride 107 mmol/L (96-108); Estimated Glomerular Filt Rate 56; Glucose Random 97 mg/dL (60-115); Potassium 4.1 mmol/L (3.3-5.1); Sodium 135 mmol/L (135-145)
[2023-09-14] MEDS: Omeprazole 20 MG CAPSULE.DR PO (06:12)
[2023-09-14 06:30] LABS: Alanine Aminotransferase 78 U/L (0-31); Albumin Level 2.7 g/dL (3.5-5.0); Alkaline Phosphatase 392 U/L (39-117); Aspartate Amino Transferase 152 U/L (5-31); Bilirubin Direct 0.2 mg/dL (0.0-0.5); Bilirubin Total 0.4 mg/dL (0.0-1.0); Lactate Dehydrogenase 445 U/L (122-220); Total Protein 5.6 g/dL (6.5-8.0)
--- NOTE | 2023-09-14 07:00 | CA_ITS ---
Transthoracic Echocardiogram Patient (Last, First, Middle): Alee Rowan, Gender: Female Date of : 1955 Age: 67 Procedure Date: 09/14/2023 Procedure Type: Transthoracic Echocardiogram [place] [facility] [place] Height: 147.32 cm Weight: 65.77 kg BSA: 1.59 m2 Heart Rate: bpm BP: 137 / 63 mmHg Veterinary Technician Instructor: Referring MD: Daryl WILHELM Symptoms: stroke ?Right to left shunt, done w bubble Study Quality: Good ECG Rhythm: Sinus Conclusions: - The left ventricular systolic function is normal. The calculated ejection fraction is 67% by biplane method. - There is no evidence of interatrial shunt by agitated saline. - There is mild mitral valve regurgitation. Findings Left Ventricle Normal left ventricular cavity size. There is mildly increased left ventricular wall thickness. The left ventricular systolic function is normal. The calculated ejection fraction is 67% by biplane method. There is no evidence of regional wall motion abnormalities. Diastolic function is normal for age. Right Ventricle Normal right ventricular cavity size and systolic function. Atria Both atria are normal in size. There is no evidence of interatrial shunt by agitated saline. Aortic Valve There is a normal trileaflet aortic valve. There is no aortic valve stenosis. There is no aortic valve regurgitation. Mitral Valve The mitral valve appears normal. There is mild mitral valve regurgitation. There is no mitral valve stenosis. Pulmonic Valve The pulmonic valve is likely normal. Tricuspid Valve Normal tricuspid valve structure. There is mild tricuspid valve regurgitation. Mild pulmonary hypertension is present. Great Vessels The asc aorta is normal in size. Venous The inferior vena cava is normal in size and collapses greater than 50% with inspiration. Pericardium/Pleural There is no evidence of pericardial effusion. Prior Study Comparison No prior study available for comparison. Measurements 2D Linear Measurements IVSd: 1.11 0.6-0.9/0.6-1.0 cm LVIDd: 3.72 3.9-5.3/4.2-5.9 cm LVIDd Index: 2.34 2.4-3.2/2.2-3.1 cm/m2 LVIDs: 2.02 2.0-3.6 cm LVPWd: 1.14 0.7-1.1 cm Ao Root: 2.70 2.1-3.5 cm LA Diam: 3.40 2.7-3.8/3.0-4.0 cm LAIDs Index: 2.14 1.5-2.3 cm/m2 LV Mass: 167.75 67-162/88-224 g LV Mass Index: 105.50 43-95/49-115 g/m2 LVOT Diam: 1.90 3.0+(-)1.3 cm 2D Systolic Function EF 4C: 67.30 >55% EF 2C: 63.30 >55% EF BiP: 66.50 >55% Mitral Valve MV Pk E: 1.09 MV PK A: 1.20 MV Decel Time: 226.00 E/A: 0.90 E'Lateral: 8.59 E'Medial: 5.33 E/E' Med: 20.50 E/E' Lat: 12.70 PHT: 66.00 MVA PHT: 3.33 Decel Woods: 4.81 Aortic Valve AoV Pk Lalo: 1.75 AoV Mn Lalo: 1.18 AoV VTI: 0.33 AoV Pk Grad: 12.00 Aov Mn Grad: 7.00 CHARY Cont.VTI: 2.07 LVOT LVOT Pk Lalo: 1.25 LVOT Mn Lalo: 0.74 LVOT VTI: 0.24 LVOT Pk Grad: 6.00 LVOT Mn Grad: 3.00 LVOT Diam: 1.90 LVOT Area: 2.84 Diastolic Function MV Pk E: 1.09 MV Pk A: 1.20 E/A: 0.90 E'Medial: 5.33 E/E' Med: 20.50 E' Laterial: 8.59 E/E' Lat: 12.70 Right Ventricle TAPSE (mm): 28.00 TVS' Lalo: 15.00 Tricuspid Valve TR Pk Lalo: 3.00 TR Pk Grad: 36.00 RA Press: 3.00 RVSP: 39.00 Great Vessels Aorta Ao Root-2D: 2.70 2.0-3.7 cm Ao Asc: 2.80 2.1-3.4 cm Pulmonary Valve PV Pk Lalo: 0.95 Peak PV Grad: 4.00 Updated in Other Vendor System with Status of Final Ashwin Jerez MD electronically signed on 09/14/2023 3:22:13 PM with status of Final
--- NOTE | 2023-09-14 08:10 | PHA.PROG ---
Admission Date/Time: September 13, 2023 13:46 Indication: Weight in k.1 kg Adjusted body weight in Kg: Leon body weight in Kg: Obesity Dosing Indication % IBW: Serum Creatinine - Last 168 Hours 09/13/23 09/14/23 12:07 05:33 Creatinine 1.27 0.99 Estimated CrCl and GFR - Last 168 Hours 09/13/23 09/14/23 12:07 05:33 Estim Creat Clear Calc 37.4 45.0 Estimated GFR 42 56 Vancomycin Loading Dose: 1750mg Current Vancomycin Dosing Regimen: 1250mg q24h Vancomycin Monitoring using AUC goal of 400 - 600 range with trough as surrogate marker: 493, trough 14.2 Date and Time for next Vancomycin Level to be drawn: 09/15/23@2100 Pharmacist Comments on Vancomycin Plan: Base on serum creatinine and indication of empiric treatment of sepsis, patient is started on 1250mg q24h. Labs were ordered (creatinine QD and random @2100 on 09/15/23). Vancomycin dosing will take advantage of [employer] as a clinical decision support tool that uses Bayesian modeling to calculate individual patient's pharmacokinetic parameters and forecast the patient's drug concentration time course with the target goal AUC 24 range of 400 - 600 mg/L/hr.
--- NOTE | 2023-09-14 08:21 | MHC.CM.PN ---
CM met with Patient at bedside and addressed IMM with her, providing Patient with the original and placing a copy on the chart. Patient lives alone in a house but she is presently staying next door with her Aunt.Patient has a new port r/t Pancreatic CA;she does not want VNA. Home/self care is the goal and CM has initiated and will follow for dc planning. PCP is Dr. Quinton POTTER.
--- NOTE | 2023-09-14 08:33 | PM.HEMONCCN ---
Subjective - Subjective Chief complaint: Left upper quadrant pain Patient: known to practice within the last 3 years Consult date: 09/14/23 Primary Care Provider: Quinton Neff MD Medical Summary: Diagnosis: Metastatic pancreatic adenocarcinoma July 2023 She presented with a few months of epigastric discomfort and weight loss which she attributed to stress at work and hiatal hernia/GERD symptoms. She was asked to increase dose of PPI but presented to emergency department on 08/09/2023 with worsening symptoms. A CT abdomen/pelvis without contrast was performed which revealed a suspicious 3.4 cm mass in head of pancreas as well as few indeterminate liver lesions suspicious for metastasis. Ultrasound-guided core needle biopsy of liver mass in left lobe performed 08/27/2023 revealed adenocarcinoma, moderate to poorly differentiated favor pancreatic or biliary origin. MRI abdomen with contrast revealed 2.8 x 3.9 x 2.8 cm hypoenhancing mass in the head of pancreas. Distal atrophy of pancreas and dilatation and tortuosity of the main pancreatic duct up to 5 mm. Hepatic steatosis and numerous ill-defined rim enhancing lesions representing hepatic metastatic disease. No biliary ductal dilatation. Bulky abdominal lymphadenopathy. 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 CA 19 9 elevated, 519 U/mL. LDH elevated, 308 U/L, LFTs normal. HPI - Consult Narrative Reason for consult: Metastatic pancreatic cancer, multiple brain infarcts Narrative: Alee Rowan is a 67 year old female who was diagnosed with metastatic pancreatic cancer in August 2023. She underwent brain MRI because of symptoms of blurry vision as well as transient vision loss in the left eye. A brain MRI revealed multiple brain infarcts, she was therefore called and advised to come to the emergency department. 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 Since coming to the hospital patient reports fevers and abdominal pain. She was able to eat today. She says he has not had a bowel movement in several days. She has had right Port-A-Cath inserted yesterday. She has been started on empiric antibiotics, blood cultures are negative thus far. Review of Systems - Constitutional Reports as per HPI, Reports fatigue, Reports malaise, Reports poor appetite, Reports weight loss PMFSH Medical History: Medical History (Last Reviewed 09/14/23 @ 00:55 by Kb De Paz RN) Abnormal blood pressure Blood pressure elevated without history of HTN Cholelithiasis GERD (gastroesophageal reflux disease) Hernia High cholesterol Knee pain, right Obesity (BMI 30-39.9) Vitamin D deficiency Family History: Family History (Last Reviewed 09/14/23 @ 00:55 by Kb De Paz RN) Father CVD (cardiovascular disease) Stroke Hypertension Mother Breast cancer Surgical History: Surgical History (Last Reviewed 09/13/23 @ 14:27 by CHOCO Conrad) No pertinent past surgical history Social History: Social History (Last Reviewed 09/14/23 @ 00:55 by Kb De Paz RN) Living Situation History: Household Members: None Housing: House Tobacco History: Patient Tobacco Use Status: Never used Tobacco e-Cigarette/Vaping Use: Never Used Second Hand Smoke Exposure: No Occupation Assessmet: service: No Current occupational status: employed Home Medications and Allergies Current Medications: Current Medications Acetaminophen (Acetaminophen 325 Mg Tablet) 650 mg PO Q4H PRN PRN Reason: Fever >100.4 Amlodipine Besylate (Amlodipine Besylate 5 Mg Tablet) 5 mg PO DAILY [facility]; Protocol Apixaban (Apixaban 5 Mg Tablet) 5 mg PO BID [facility] Last Admin: 09/13/23 20:42 Dose: 5 mg Benzonatate (Benzonatate 100 Mg Capsule) 100 mg PO TID PRN PRN Reason: Cough Docusate Sodium (Docusate Sodium 100 Mg Capsule) 100 mg PO DAILY PRN PRN Reason: Constipation Vancomycin HCl 1,250 mg/ (Sodium Chloride) 250 mls @ 166.667 mls/hr IV Q24H [facility] Lorazepam (Lorazepam 2 Mg/Ml Vial) 0.5 mg IVPUSH Q6H PRN PRN Reason: Anxiety Melatonin (Melatonin 3 Mg Tablet) 6 mg PO BEDTIME PRN PRN Reason: Insomnia Morphine Sulfate (Morphine Sulfate 4 Mg/Ml Cartridge) 4 mg IVPUSH Q4H PRN; Protocol PRN Reason: Pain, Severe (Pain Scale 7-10) Last Admin: 09/14/23 02:20 Dose: 4 mg Multivitamins/Vitamin C (Multivitamin Tablet) 1 tab PO DAILY [facility] Omeprazole (Omeprazole 20 Mg Capsule.Dr) 20 mg PO DAILY@0630 [facility] Last Admin: 09/14/23 06:12 Dose: 20 mg Ondansetron HCl (Ondansetron Hcl 4 Mg/2 Ml Vial) 4 mg IVPUSH Q8H PRN PRN Reason: Nausea and Vomiting Pharmacy Consult (Consult Rx Vancomycin Dosing) 1 each MISCELLANE DAILY PRN PRN Reason: Consult order Sodium Chloride (0.9 % Sodium Chloride Flush 3 Ml Syringe) 3 ml IVFLUSH QSHIFT [facility] Last Admin: 09/13/23 21:00 Dose: 3 ml Home Medications Medication Instructions Recorded Confirmed Type cranberry 400 mg capsule 400 mg PO DAILY 11/25/20 09/13/23 History multivitamin 1 tab PO DAILY 11/25/20 09/13/23 History omeprazole 20 mg capsule,delayed 20 mg PO DAILY 09/13/23 09/13/23 History release Allergies Allergy/AdvReac Type Severity Reaction Status Date / Time No Known Allergies Allergy Verified 08/15/23 12:34 Physical Exam Vital signs: Vital Signs Temp 98.0 F 09/14/23 07:57 Pulse 80 09/14/23 07:57 Resp 18 09/14/23 07:57 BP 123/68 09/14/23 07:57 Pulse Ox 94 09/14/23 07:57 O2 Del Method Room Air 09/14/23 07:57 Intake & Output 09/13/23 09/14/23 09/14/23 18:59 06:59 18:59 Intake Total 2134 / 2134 Balance 2134 / 2134 Intake: Intake, IV Amount 2134 / 2134 0.9 % Sodium Chloride 1,000 ml 1000 / 1000 @ 125 mls/hr IV .Q8H ST[facility] Rx#: [id number] 0.9 % Sodium Chloride 500 ml @ 500 / 500 500 mls/hr IV .Q1H ONE Rx#: [id number] Acetaminophen 1,000 mg In 100 100 / 100 ml @ 400 mls/hr IV ONCE ONE Rx# :[id number] vancomycin HCL 1,000 mg 535 / 535 vancomycin HCL 750 mg In 0.9 % Sodium Chloride 500 ml @ 267.5 mls/hr IV ONCE ONE Rx#: [id number] Other: Number of Unmeasured Voids 2 Urine Bedside Commode Weight 66.1 kg [place] Weight in Grams 84544 Weight 66.1 kg - Constitutional Present: mild distress, chronically ill appearing - Routine HEENT Exam Eye: Present: conjunctivae pale, PERRL - Routine Neck Exam Present: supple. Absent: lymphadenopathy - Routine Respiratory Exam Present: CTAB. Absent: accessory muscle use - Routine Cardiovascular Exam Cardiovascular: Present: S1, S2 - Routine Abdominal Exam Present: tenderness. Absent: rebound Hem/Onc Consult Result - Labs CBC & Chem 7: 09/14/23 09:57 09/14/23 05:33 Labs: Short CBC 09/13/23 09/14/23 Range/Units 12:07 05:33 WBC 10.0 11.9 H (4.8-10.8) X10*3/uL Hgb 9.2 L 7.8 L (12.0-16.0) g/dl Hct 27.9 L 24.1 L (37.0-47.0) % Plt Count 263 D 219 (160-400) X10*3/uL BMP 09/13/23 09/14/23 12:07 05:33 Sodium 136 135 Potassium 4.0 4.1 Chloride 101 107 Carbon Dioxide 22 16 L BUN 19 H 14 Creatinine 1.27 0.99 Calcium 9.5 8.3 L D Liver Function 09/13/23 09/14/23 Range/Units 12:07 05:33 Total Bilirubin 0.5 0.4 (0.0-1.0) mg/dL Direct Bilirubin 0.2 (0.0-0.5) mg/dL AST 248 H 152 H (5-31) U/L ALT 122 H 78 H (0-31) U/L Alkaline Phosphatase 512 H 392 H (39-117) U/L Albumin 3.5 2.7 L (3.5-5.0) g/dL Assessment and Plan Patient Active problem list reviewed?: Yes (1) Pancreatic adenocarcinoma Status: Acute Assessment and plan: 1. This is a 67-year-old woman who has been diagnosed with metastatic pancreatic adenocarcinoma in August 2023. Ultrasound-guided core needle biopsy of liver mass in left lobe performed 08/27/2023 revealed adenocarcinoma, moderate to poorly differentiated favor pancreatic or biliary origin. MRI abdomen with contrast revealed 2.8 x 3.9 x 2.8 cm hypoenhancing mass in the head of pancreas. Distal atrophy of pancreas and dilatation and tortuosity of the main pancreatic duct up to 5 mm. Hepatic steatosis and numerous ill-defined rim enhancing lesions representing hepatic metastatic disease. No biliary ductal dilatation. Bulky abdominal lymphadenopathy. 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 She is not in atrial fibrillation. Echocardiogram with bubble study is negative for interatrial shunt. 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 She has been switched to intravenous unfractionated heparin today. Cerebral ischemic event could be related to underlying hypercoagulopathy secondary to pancreatic cancer. She has developed new onset left upper quadrant pain as well as fevers. Her liver enzymes have risen significantly, unclear if it is from rapidly progressing metastasis or worsening thrombosis. Recommend repeat imaging of the abdomen CT abdomen/pelvis with contrast. She is on broad-spectrum antibiotics, blood cultures so far negative. Overall prognosis is very poor given all of the above findings. She has not yet started palliative chemotherapy for stage IV pancreatic cancer. Monitor with daily CBC, CMP, LDH, coagulation tests. Thank you for the consult. - Time Spent With Patient Time Spent with Patient (in minutes): 25
[2023-09-14] MEDS: Multivitamin TABLET 1 TAB PO (08:39)
[2023-09-14] MEDS: amLODIPine Besylate 5 MG TABLET PO (08:39)
[2023-09-14] MEDS: LORazepam 2 MG/ML VIAL 0.5 MG IVPUSH ×2 (08:42→16:42)
[2023-09-14] MEDS: 0.9 % Sodium Chloride Flush 3 ML SYRINGE IVFLUSH ×3 (08:50→22:30)
--- NOTE | 2023-09-14 09:26 | PM.CNCAR ---
History of Present Illness History of Present Illness Date of Service: 09/14/23 Chief complaint: Multiple acute cerebral infarcts Narrative: This is a cardiology consultation regarding question of cardiac source of emboli. Patient has pancreatic adenocarcinoma with known Mets to liver. 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 This week, she started experiencing vision changes where she thought her vision would become agreeable watching television. Over the left eye but sometimes the right eye. Then she had an MRI yesterday that showed multiple tiny acute infarcts. Following this, she has been admitted for further care. She denies any prior history of cardiac issues including coronary disease, myocardial infarction or cardiomyopathy or any other cardiac concerns. At this time, no specific cardiac symptoms to. Vague sensation of left-sided weakness. Review of Systems Review of Systems: Yes all other systems are reviewed and are negative Constitutional: Constitutional: Reports as per HPI and Reports no additional constitutional complaints Eyes: Eyes: Reports as per HPI and Denies no additional eye complaints ENT: Denies system reviewed and no additional complaints, except as documented and Reports as per HPI Cardiovascular: Cardiovascular: Reports as per HPI, Reports no additional cardiovascular complaints, Denies acrocyanosis, Denies cool extremities, Denies chest pain, Denies leg edema, Denies lightheadedness, Denies palpitations and Denies dyspnea Respiratory: Respiratory: Reports as per HPI, Denies no additional respiratory complaints and Denies dyspnea Gastrointestinal: Gastrointestinal: Reports as per HPI and Denies no additional gastrointestinal complaints Genitourinary: Genitourinary: Reports as per HPI Musculoskeletal: Musculoskeletal: Reports no additional musculoskeletal complaints and Reports as per HPI Integumentary/Breasts: Skin/Breast: Reports system reviewed and no additional complaints, except as docu Neurologic: Reports system reviewed and no additional complaints, except as documented and Reports as per HPI Psychiatric: Psychiatric: Reports no additional psychiatric complaints and Reports as per HPI Endocrine: Endocrine: Reports no additional endocrine complaints, Reports as per HPI and Denies palpitations Hematologic/Lymphatic: Hematologic/Lymphatic: Reports no additional hematologic/lymphatic complaints and Reports as per HPI Allergic/Immunologic: Allergic/Immunologic: Reports no additional allergic/immunologic complaints and Reports as per HPI [facility] Past Medical History Medical History Knee pain, right Blood pressure elevated without history of HTN Abnormal blood pressure Cholelithiasis Vitamin D deficiency Obesity (BMI 30-39.9) High cholesterol Hernia GERD (gastroesophageal reflux disease) Family History Family History Father CVD (cardiovascular disease) Stroke Hypertension Mother Breast cancer Surgical History Surgical History No pertinent past surgical history Social History Social History Household Members: None Housing: House Alcohol intake: current Alcohol intake frequency: a few times a month Alcohol type: wine Patient Tobacco Use Status: Never used Tobacco e-Cigarette/Vaping Use: Never Used Second Hand Smoke Exposure: No service: No Current occupational status: employed Cognitive needs: No Hearing needs: No Vision needs: Yes Meds Allergies Allergy/AdvReac Type Severity Reaction Status Date / Time No Known Allergies Allergy Verified 08/15/23 12:34 Active Medications: Current Medications Acetaminophen (Acetaminophen 325 Mg Tablet) 650 mg PO Q4H PRN PRN Reason: Fever >100.4 Amlodipine Besylate (Amlodipine Besylate 5 Mg Tablet) 5 mg PO DAILY [facility]; Protocol Last Admin: 09/14/23 08:39 Dose: 5 mg Benzonatate (Benzonatate 100 Mg Capsule) 100 mg PO TID PRN PRN Reason: Cough Docusate Sodium (Docusate Sodium 100 Mg Capsule) 100 mg PO DAILY PRN PRN Reason: Constipation Heparin Sodium (Porcine) (Heparin Sodium,Porcine 5,000 Unit/Ml Vial) 2,600 unit 40 unit/kg (2600 unit) IVPUSH PROTOCOL BOLUS PRN; Protocol PRN Reason: 40 unit/kg - Heparin Protocol Heparin Sodium (Porcine) (Heparin Sodium,Porcine 5,000 Unit/Ml Vial) 5,300 unit 80 unit/kg (5300 unit) IVPUSH PROTOCOL BOLUS PRN; Protocol PRN Reason: 80 unit/kg - Heparin Protocol Vancomycin HCl 1,250 mg/ (Sodium Chloride) 250 mls @ 166.667 mls/hr IV Q24H [facility] Heparin Sodium/Sodium Chloride (Heparin Sodium,Porcine/1/2ns) 25,000 unit in 250 mls @ 0 mls/hr IVCONT .Q0M [facility]; Protocol Lorazepam (Lorazepam 2 Mg/Ml Vial) 0.5 mg IVPUSH Q6H PRN PRN Reason: Anxiety Last Admin: 09/14/23 08:42 Dose: 0.5 mg Melatonin (Melatonin 3 Mg Tablet) 6 mg PO BEDTIME PRN PRN Reason: Insomnia Morphine Sulfate (Morphine Sulfate 4 Mg/Ml Cartridge) 4 mg IVPUSH Q4H PRN; Protocol PRN Reason: Pain, Severe (Pain Scale 7-10) Last Admin: 09/14/23 08:40 Dose: 4 mg Multivitamins/Vitamin C (Multivitamin Tablet) 1 tab PO DAILY [facility] Last Admin: 09/14/23 08:39 Dose: 1 tab Omeprazole (Omeprazole 20 Mg Capsule.Dr) 20 mg PO DAILY@0630 [facility] Last Admin: 09/14/23 06:12 Dose: 20 mg Ondansetron HCl (Ondansetron Hcl 4 Mg/2 Ml Vial) 4 mg IVPUSH Q8H PRN PRN Reason: Nausea and Vomiting Pharmacy Consult (Consult Rx Vancomycin Dosing) 1 each MISCELLANE DAILY PRN PRN Reason: Consult order Sodium Chloride (0.9 % Sodium Chloride Flush 3 Ml Syringe) 3 ml IVFLUSH QSHIFT [facility] Last Admin: 09/14/23 08:50 Dose: 3 ml Home Medications Medication Instructions Recorded Confirmed Last Taken Type cranberry 400 mg capsule 400 mg PO DAILY 11/25/20 09/13/23 Unknown History multivitamin 1 tab PO DAILY 11/25/20 09/13/23 Unknown History omeprazole 20 mg capsule,delayed 20 mg PO DAILY 09/13/23 09/13/23 09/13/23 History release Physical Exam Vital Signs: Vital Signs: Last Vital Signs Temp 98.0 F 09/14/23 07:57 Pulse 80 09/14/23 07:57 Resp 18 09/14/23 07:57 BP 123/68 09/14/23 07:57 Pulse Ox 94 09/14/23 07:57 O2 Del Method Room Air 09/14/23 07:57 BMI result Body Mass Index 30.5 Const: General: comfortable and no acute distress Orientation/consciousness: patient oriented x3 HEENT: Other: Unremarkable Head: Yes normal to inspection Neck: Neck: Yes normal visual inspection Chest: Chest palpation & inspection: normal inspection of the chest Resp: Auscultation: clear to auscultation bilaterally Cardio: Palpation: normal PMI Heart sounds: S1 normal heart sound present, S2 normal heart sound present, no gallops, no murmurs and no rubs GI: Palpation (GI): Soft to palpation Back/Spine/Pelvis: Other: unremarkable Skin: General skin exam: no rashes or lesions noted Neuro: General: patient oriented x3 Extrem: General: Yes normal to inspection Psych: Mental Status: mental status grossly normal Objective Labs and Meds 09/14/23 05:33 09/14/23 05:33 Lab results: Laboratory Results - last 24 hr 09/13/23 09/13/23 09/13/23 12:03 12:07 23:51 WBC 10.0 RBC 3.26 L Hgb 9.2 L Hct 27.9 L MCV 85.6 MCH 28.2 MCHC 33.0 RDW 12.4 Plt Count 263 D MPV 8.9 L Immature Gran % (Auto) 0.6 H Neut % (Auto) 77.8 H Lymph % (Auto) 8.9 L Granite % (Auto) 10.1 Eos % (Auto) 1.8 Baso % (Auto) 0.8 Lymph # (Auto) 0.9 L [place]ite # (Auto) 1.0 Eos # (Auto) 0.2 Baso # (Auto) 0.1 Abs Immat Gran (auto) 0.06 H Absolute Neuts (auto) 7.8 Absolute Nucleated RBC 0.000 Nucleated RBC % (auto) 0.0 PT 14.3 H D INR 1.2 H APTT 28.9 Sodium 136 Potassium 4.0 Chloride 101 Carbon Dioxide 22 Anion Gap 17 BUN 19 H Creatinine 1.27 Estim Creat Clear Calc 37.4 Estimated GFR 42 Random Glucose 100 Lactic Acid 1.0 0.6 Calcium 9.5 Total Bilirubin 0.5 Direct Bilirubin AST 248 H ALT 122 H Alkaline Phosphatase 512 H Lactate Dehydrogenase Total Protein 7.0 Albumin 3.5 Lipase 6 L COVID-19 ([facility]) Negative COVID-19 Clin Com See Note Influenza Type A ([facility]) Negative Influenza Type B ([facility]) Negative Influenza A & B Note See Note 09/14/23 05:33 WBC 11.9 H RBC 2.71 L Hgb 7.8 L Hct 24.1 L MCV 88.9 MCH 28.8 MCHC 32.4 RDW 12.6 Plt Count 219 MPV 9.5 Immature Gran % (Auto) Neut % (Auto) Lymph % (Auto) Granite % (Auto) Eos % (Auto) Baso % (Auto) Lymph # (Auto) Granite # (Auto) Eos # (Auto) Baso # (Auto) Abs Immat Gran (auto) Absolute Neuts (auto) Absolute Nucleated RBC 0.000 Nucleated RBC % (auto) 0.0 PT INR APTT Sodium 135 Potassium 4.1 Chloride 107 Carbon Dioxide 16 L Anion Gap 16 BUN 14 Creatinine 0.99 Estim Creat Clear Calc 45.0 Estimated GFR 56 Random Glucose 97 Lactic Acid Calcium 8.3 L D Total Bilirubin 0.4 Direct Bilirubin 0.2 AST 152 H ALT 78 H Alkaline Phosphatase 392 H Lactate Dehydrogenase 445 H Total Protein 5.6 L Albumin 2.7 L Lipase COVID-19 ([facility]) COVID-19 Clin Com Influenza Type A ([facility]) Influenza Type B ([facility]) Influenza A & B Note ECG Interpretation: EKG shows sinus rhythm at 82/Min; no significant ST-T changes and otherwise unremarkable. Normal MN and corrected QT. Assessment and Plan (1) Cerebral infarct: Status: Acute (2) Pancreatic adenocarcinoma: Status: Acute Plan Brain MRI reported to have multiple tiny acute infarcts involving both cerebral hemispheres/cerebellum. Additional punctate foci of enhancement right frontal lobe. Possible intracranial metastasis versus subacute infarcts. Echocardiogram is pending at this time. Overall, low likelihood of this being cardiac source of emboli. Even if atrial fibrillation were to be detected, still management just be Eliquis and it seems she is already on the same. Intracardiac shunting is again not a common mechanism for embolic strokes at her age but possible. However, even if it were detected management would still be anticoagulation. Either way, we will check an echocardiogram and also include a bubble study to assess for shunting. Discussed with Dr. Palacio. Time Spent With Patient Time: Total time managing care of this patient today ____ minutes. Procedures Date of Service Date of Service: 09/14/23
[2023-09-14] MEDS: Heparin Sodium,Porcine/1/2NS 25,000 UNIT/250 ML IV.SOLN 9.25 UNIT IVCONT (09:37)
[2023-09-14 10:14] LABS: Hematocrit 25.6 % (37.0-47.0); Hemoglobin 8.4 g/dl (12.0-16.0); Mean Corpuscular HGB Conc 32.8 g/dl (31.0-35.0); Mean Corpuscular Hemoglobin 28.9 pg (27.0-33.0); Mean Platelet Volume 9.1 fL (9.4-12.3); Platelet Count 244 X10*3/uL (160-400); Red Blood Count 2.91 X10*6/uL (4.20-5.50); Red Cell Distribution Width 12.5 % (11.0-16.0)
[2023-09-14 10:20] LABS: INTERNATIONAL NORM RATIO 1.5 (0.9-1.1); Prothrombin Time 18.3 SEC (11.1-13.3)
[2023-09-14 10:22] LABS: PTT Heparin Drip 33.5 SEC (53-77.9)
--- NOTE | 2023-09-14 10:33 | MHC.CM.PN ---
CM provided Patient with a blank HCP form but she declined completing a HCP today, stating that she wants it done through her [employer]. CM left blank HCP form in case Patient changes her mind. CM will follow.
--- NOTE | 2023-09-14 13:05 | HO.PM.IMPN ---
Subjective Subjective Date of Service: 09/14/23 Interval History: Events of overnight noted. Cultures taken and pending. Speech slow but distinct. No focal neuro deficits Review of Systems Denies chest pain Denies shortness of breath Denies nausea vomiting diarrhea Denies fever chills Physical Exam Vital Signs: Vital Signs: Last Vital Signs Temp 97.2 F 09/14/23 11:40 Pulse 85 09/14/23 11:40 Resp 18 09/14/23 11:40 BP 139/69 09/14/23 11:40 Pulse Ox 96 09/14/23 11:40 O2 Del Method Room Air 09/14/23 11:40 BMI result Body Mass Index 30.5 Const: Other: Awake alert oriented x3 Resp: Other: Clear to auscultation bilaterally no rales rhonchi or wheezes Cardio: Other: No S4; positive S1-S2; OS 3 murmurs rubs or gallops GI: Other: Soft minimal tender across the epigastrium no rebound Neuro: Other: Cranial nerves 2-12 grossly intact as tested. Motor is 5/5 all extremities. Sensory is intact Extrem: Other: No edema bilaterally Objective Data Active Medications Acetaminophen (Acetaminophen 325 Mg Tablet) 650 mg PO Q4H PRN PRN Reason: Fever >100.4 Amlodipine Besylate (Amlodipine Besylate 5 Mg Tablet) 5 mg PO DAILY [facility]; Protocol Last Admin: 09/14/23 08:39 Dose: 5 mg Documented By: ENRIQUE Benzonatate (Benzonatate 100 Mg Capsule) 100 mg PO TID PRN PRN Reason: Cough Docusate Sodium (Docusate Sodium 100 Mg Capsule) 100 mg PO DAILY PRN PRN Reason: Constipation Heparin Sodium (Porcine) (Heparin Sodium,Porcine 5,000 Unit/Ml Vial) 2,600 unit 40 unit/kg (2600 unit) IVPUSH PROTOCOL BOLUS PRN; Protocol PRN Reason: 40 unit/kg - Heparin Protocol Heparin Sodium (Porcine) (Heparin Sodium,Porcine 5,000 Unit/Ml Vial) 5,300 unit 80 unit/kg (5300 unit) IVPUSH PROTOCOL BOLUS PRN; Protocol PRN Reason: 80 unit/kg - Heparin Protocol Vancomycin HCl 1,250 mg/ (Sodium Chloride) 250 mls @ 166.667 mls/hr IV Q24H [facility] Heparin Sodium/Sodium Chloride (Heparin Sodium,Porcine/1/2ns) 25,000 unit in 250 mls @ 0 mls/hr IVCONT .Q0M [facility]; Protocol Last Admin: 09/14/23 09:37 Dose: 14 units/kg/hr, 9.25 mls/hr Documented By: ENRIQUE Co-signed By: SAMM Lorazepam (Lorazepam 2 Mg/Ml Vial) 0.5 mg IVPUSH Q6H PRN PRN Reason: Anxiety Last Admin: 09/14/23 08:42 Dose: 0.5 mg Documented By: ENRIQUE Melatonin (Melatonin 3 Mg Tablet) 6 mg PO BEDTIME PRN PRN Reason: Insomnia Morphine Sulfate (Morphine Sulfate 4 Mg/Ml Cartridge) 4 mg IVPUSH Q4H PRN; Protocol PRN Reason: Pain, Severe (Pain Scale 7-10) Last Admin: 09/14/23 12:59 Dose: 4 mg Documented By: ENRIQUE Multivitamins/Vitamin C (Multivitamin Tablet) 1 tab PO DAILY [facility] Last Admin: 09/14/23 08:39 Dose: 1 tab Documented By: ENRIQUE Omeprazole (Omeprazole 20 Mg Capsule.Dr) 20 mg PO DAILY@0630 [facility] Last Admin: 09/14/23 06:12 Dose: 20 mg Documented By: ELAINE Ondansetron HCl (Ondansetron Hcl 4 Mg/2 Ml Vial) 4 mg IVPUSH Q8H PRN PRN Reason: Nausea and Vomiting Pharmacy Consult (Consult Rx Vancomycin Dosing) 1 each MISCELLANE DAILY PRN PRN Reason: Consult order Sodium Chloride (0.9 % Sodium Chloride Flush 3 Ml Syringe) [facility] Last Admin: 09/14/23 08:50 Dose: 3 ml Documented By: ENRIQUE Labs 09/14/23 09:57 09/14/23 05:33 Labs: Laboratory Results - last 24 hr 09/13/23 09/13/23 09/14/23 12:07 23:51 05:33 MCV 88.9 MCH 28.8 MCHC 32.4 RDW 12.6 Plt Count 219 MPV 9.5 Absolute Nucleated RBC 0.000 Nucleated RBC % (auto) 0.0 PT INR aPTT Heparin Protocol Anion Gap 16 Estim Creat Clear Calc 45.0 Estimated GFR 56 Random Glucose 97 Lactic Acid 0.6 Calcium 8.3 L D Total Bilirubin 0.4 Direct Bilirubin 0.2 AST 152 H ALT 78 H Alkaline Phosphatase 392 H Lactate Dehydrogenase 445 H Total Protein 5.6 L Albumin 2.7 L Influenza Type A (EUGENE) Negative Influenza Type B (EUGENE) Negative Influenza A & B Note See Note 09/14/23 09:57 MCV 88.0 MCH 28.9 MCHC 32.8 RDW 12.5 Plt Count 244 MPV 9.1 L Absolute Nucleated RBC 0.000 Nucleated RBC % (auto) 0.0 PT 18.3 H D INR 1.5 H aPTT Heparin Protocol 33.5 L Anion Gap Estim Creat Clear Calc Estimated GFR Random Glucose Lactic Acid Calcium Total Bilirubin Direct Bilirubin AST ALT Alkaline Phosphatase Lactate Dehydrogenase Total Protein Albumin Influenza Type A (EUGENE) Influenza Type B (EUGENE) Influenza A & B Note Assessment and Plan (1) Cerebral infarct: Status: Acute (2) Pancreatic adenocarcinoma: Status: Acute (3) Hypertension: Status: Acute Plan Pt is a 67-year-old female with a PMH significant for?HTN, HLD, GERD, pancreatic adenocarcinoma diagnosed in July 2023 with known metastasis to liver, and 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 Pt will be admitted to the hospital for further workup and treatment of acute cerebral and cerebellar infarcts. 1.Acute cerebral and cerebellar infarcts -started on heparin drip without a front loading bolus -echocardiogram pending to rule out right to left shunt -Neuro input pending 2.Pancreatic adenocarcinoma -pain control adequate -further plans as per Oncology 3.Mesenteric and splenic thrombosis -heparin drip 4.Anemia -hemoglobin stable -follow clinically 5.Anxiety -Ativan p.r.n. 6.HTN -acceptable control on therapies -adjust as indicated HLD Continue statin Full Code Heparin drip Requires ongoing hospitalization for evaluation of extensive clot burden and IV heparin Time Spent With Patient Time: Total time managing care of this patient today ____ minutes. Quality Stroke Does the patient have a stroke diagnosis?: Yes Reason for No Anti-thrombotic by Day Two: Contraindicated (Pt already on Eliquis, and outside of tPA therapeutic window) VTE Prior VTE?: No VTE Risk Level:: Medical - moderate - high VTE Device Contraindication: N/A - Device Ordered VTE Drug Contraindication: Treatment Not Tolerated
[2023-09-14] MEDS: vancomycin HCL 1,250 MG in 0.9 % Sodium Chloride 250 ML 166.67 MG IV (22:29)
[2023-09-14] MEDS: Melatonin 3 MG TABLET 6 MG PO (22:31)
[2023-09-15] VITALS (7 sets, daily range): BP systolic 138–168; BP diastolic 61–79; PULSE 85–104; RESP 17–18; TEMP 36.7–37; O2SAT 91–98
[2023-09-15] MEDS: Morphine Sulfate 4 MG/ML CARTRIDGE IVPUSH ×4 (02:53→19:45)
[2023-09-15 04:30] LABS: MANUAL DIFF FLAG NO
[2023-09-15 04:31] LABS: PTT Heparin Drip 109.1 SEC (53-77.9)
[2023-09-15 04:38] LABS: Basophils Absolute Auto 0.1 X10*3/uL (0.0-0.2); Basophils Percent Auto 0.7 % (0-2); Eosinophils Absolute Auto 0.4 X10*3/uL (0.0-0.4); Eosinophils Percent Auto 3.4 % (0-4); Hematocrit 25.4 % (37.0-47.0); Hemoglobin 8.2 g/dl (12.0-16.0); Imm Gran Abs Auto 0.06 X10*3/uL (0.00-0.03); Imm Gran Pct Auto 0.6 % (0.0-0.4); Lymphocytes Absolute Auto 1.3 X10*3/uL (1.2-4.9); Lymphocytes Percent Auto 12.2 % (20-40); Mean Corpuscular HGB Conc 32.3 g/dl (31.0-35.0); Mean Corpuscular Hemoglobin 28.3 pg (27.0-33.0); Mean Corpuscular Volume 87.6 fL (80.0-98.0); Mean Platelet Volume 8.9 fL (9.4-12.3); Monocytes Absolute Auto 1.1 X10*3/uL (0.1-1.2); Monocytes Percent Auto 10.1 % (2-11); Neutrophils Absolute Auto 7.9 x10*3/uL (2.0-8.3); Platelet Count 246 X10*3/uL (160-400); Red Cell Distribution Width 12.6 % (11.0-16.0); White Blood Count 10.7 X10*3/uL (4.8-10.8)
[2023-09-15 04:46] LABS: INTERNATIONAL NORM RATIO 1.7 (0.9-1.1); Prothrombin Time 20.7 SEC (11.1-13.3)
[2023-09-15 04:51] LABS: Alanine Aminotransferase 75 U/L (0-31); Albumin Level 2.9 g/dL (3.5-5.0); Alkaline Phosphatase 445 U/L (39-117); Anion Gap 17 (12-20); Aspartate Amino Transferase 138 U/L (5-31); Bilirubin Total 0.3 mg/dL (0.0-1.0); Blood Urea Nitrogen 16 mg/dL (9-16); Calcium 8.7 mg/dL (8.4-10.2); Carbon Dioxide 18 mmol/L (22-29); Chloride 105 mmol/L (96-108); Creatinine Clr Calc Pharmacy 42.4; Estimated Glomerular Filt Rate 52; Glucose Random 105 mg/dL (60-115); Potassium 4.1 mmol/L (3.3-5.1); Sodium 136 mmol/L (135-145)
[2023-09-15 06:44] LABS: PTT Heparin Drip 49.4 SEC (53-77.9)
[2023-09-15] MEDS: Omeprazole 20 MG CAPSULE.DR PO (06:47)
[2023-09-15] MEDS: Multivitamin TABLET 1 TAB PO (08:43)
[2023-09-15] MEDS: amLODIPine Besylate 5 MG TABLET PO (08:43)
[2023-09-15] MEDS: 0.9 % Sodium Chloride Flush 3 ML SYRINGE IVFLUSH ×3 (08:46→19:51)
[2023-09-15 13:32] LABS: PTT Heparin Drip 59.2 SEC (53-77.9)
--- NOTE | 2023-09-15 13:35 | HO.PM.IMPN ---
Subjective Subjective Date of Service: 09/16/23 Interval History: Very anxious complaining of persistent difficulty in speech, denies headache, no dizziness, no upper extremity or lower extremity weakness, no numbness, no nausea ,no vomiting ,tolerating diet, no other acute issues overnight. Review of Systems No urinary symptoms of urgency or frequency No cough, no sputum production No chest pain, no palpitation Physical Exam Vital Signs: Vital Signs: Last Vital Signs Temp 98.1 F 09/15/23 11:38 Pulse 89 09/15/23 11:38 Resp 18 09/15/23 11:38 BP 146/69 H 09/15/23 11:38 Pulse Ox 94 09/15/23 11:38 O2 Del Method Room Air 09/15/23 11:38 BMI result Body Mass Index 30.5 Const: Other: General awake alert x3, in no acute distress. Neck no JVD. CVS regular rate rhythm, Respiratory lungs clear to auscultation, no respiratory distress, no wheeze, no rhonchi. Gastrointestinal abdomen soft, non tender, bowel sounds audible, no guarding , no rigidity. Extremities no edema. Neuro mild left facial droop ,speech clear . Skin no rash Objective Data Active Medications Acetaminophen (Acetaminophen 325 Mg Tablet) 650 mg PO Q4H PRN PRN Reason: Fever >100.4 Amlodipine Besylate (Amlodipine Besylate 5 Mg Tablet) 5 mg PO DAILY [facility]; Protocol Last Admin: 09/15/23 08:43 Dose: 5 mg Documented By: ADIEL Benzonatate (Benzonatate 100 Mg Capsule) 100 mg PO TID PRN PRN Reason: Cough Docusate Sodium (Docusate Sodium 100 Mg Capsule) 100 mg PO DAILY PRN PRN Reason: Constipation Enoxaparin Sodium (Enoxaparin Sodium 80 Mg/0.8 Ml Syringe) 70 mg 1 mg/kg (70 mg) SUBCUT Q12H [facility] Vancomycin HCl 1,250 mg/ (Sodium Chloride) 250 mls @ 166.667 mls/hr IV Q24H [facility] Last Infusion: 09/15/23 00:14 Dose: Infused Documented By: JAMIN Lorazepam (Lorazepam 2 Mg/Ml Vial) 0.5 mg IVPUSH Q6H PRN PRN Reason: Anxiety Last Admin: 09/14/23 16:42 Dose: 0.5 mg Documented By: ENRIQUE Melatonin (Melatonin 3 Mg Tablet) 6 mg PO BEDTIME PRN PRN Reason: Insomnia Last Admin: 09/14/23 22:31 Dose: 6 mg Documented By: JAMIN Morphine Sulfate (Morphine Sulfate 4 Mg/Ml Cartridge) 4 mg IVPUSH Q4H PRN; Protocol PRN Reason: Pain, Severe (Pain Scale 7-10) Last Admin: 09/15/23 11:55 Dose: 4 mg Documented By: ADIEL Multivitamins/Vitamin C (Multivitamin Tablet) 1 tab PO DAILY [facility] Last Admin: 09/15/23 08:43 Dose: 1 tab Documented By: ADIEL Omeprazole (Omeprazole 20 Mg Capsule.Dr) 20 mg PO DAILY@0630 [facility] Last Admin: 09/15/23 06:47 Dose: 20 mg Documented By: JAMIN Ondansetron HCl (Ondansetron Hcl 4 Mg/2 Ml Vial) 4 mg IVPUSH Q8H PRN PRN Reason: Nausea and Vomiting Pharmacy Consult (Consult Rx Vancomycin Dosing) 1 each MISCELLANE DAILY PRN PRN Reason: Consult order Sodium Chloride (0.9 % Sodium Chloride Flush 3 Ml Syringe) 3 ml IVFLUSH QSHIFT [facility] Last Admin: 09/15/23 08:46 Dose: 3 ml Documented By: ADIEL Labs 09/16/23 05:46 09/16/23 05:46 Labs: Laboratory Results - last 24 hr 09/14/23 09/15/23 09/15/23 21:12 03:43 04:24 MCV 87.6 MCH 28.3 MCHC 32.3 RDW 12.6 Plt Count 246 MPV 8.9 L Immature Gran % (Auto) 0.6 H Neut % (Auto) 73.0 Lymph % (Auto) 12.2 L [place] % (Auto) 10.1 Eos % (Auto) 3.4 Baso % (Auto) 0.7 Lymph # (Auto) 1.3 [place] # (Auto) 1.1 Eos # (Auto) 0.4 Baso # (Auto) 0.1 Abs Immat Gran (auto) 0.06 H Absolute Neuts (auto) 7.9 Absolute Nucleated RBC 0.000 Nucleated RBC % (auto) 0.0 Hold Purple Top PT 20.7 H INR 1.7 H aPTT Heparin Protocol 65.0 D 109.1 H* D Cancelled Anion Gap 17 Estim Creat Clear Calc 42.4 Estimated GFR 52 Random Glucose 105 Calcium 8.7 Total Bilirubin 0.3 AST 138 H ALT 75 H Alkaline Phosphatase 445 H Total Protein 6.0 L Albumin 2.9 L 09/15/23 09/15/23 06:09 12:54 MCV MCH MCHC RDW Plt Count MPV Immature Gran % (Auto) Neut % (Auto) Lymph % (Auto) [place] % (Auto) Eos % (Auto) Baso % (Auto) Lymph # (Auto) [place] # (Auto) Eos # (Auto) Baso # (Auto) Abs Immat Gran (auto) Absolute Neuts (auto) Absolute Nucleated RBC Nucleated RBC % (auto) Hold Purple Top SEE NOTE PT INR aPTT Heparin Protocol 49.4 L D 59.2 Anion Gap Estim Creat Clear Calc Estimated GFR Random Glucose Calcium Total Bilirubin AST ALT Alkaline Phosphatase Total Protein Albumin Microbiology Microbiology Results: Microbiology 09/13/23 23:57 Blood Culture - Preliminary Blood - Venous Prelim: GPC Gram Stain only 09/13/23 23:51 Blood Culture - Preliminary Blood - Venous No growth after 24 hours. 09/13/23 12:07 Blood Culture - Preliminary Blood - Venous No growth after 24 hours. 09/13/23 12:03 Blood Culture - Preliminary Blood - Venous No growth after 24 hours. 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 Pt will be admitted to the hospital for further workup and treatment of acute cerebral and cerebellar infarcts. 1.Acute cerebral and cerebellar infarcts -on iv heparin drip day 2 , no change in neuro status since admission complaining of persistent speech impairment (feels funny while conversing likely due to weakness with left facial droop) -echocardiogram showed no shunt, EF 67%, normal diastolic function, no wall motion abnormality Will transition to subQ Lovenox, check carotid ultrasound, check lipid profile -Neuro input pending. 2.Pancreatic adenocarcinoma -pain control adequate, CT abdomen and pelvis showed pancreatic mass with liver Mets, stable LFTs., question brain Mets. -further plans as per Oncology. 3.Mesenteric and splenic vein thrombosis -on Lovenox subq 4.Anemia -hemoglobin stable -follow clinically 5.Anxiety -Ativan p.r.n. 6.HTN -acceptable control on amlodipine, few high blood pressure readings likely due to anxiety will follow. 7. HLD Continue statin 8.SIRS Fever/tachycardia on IV vancomycin day 2 blood cultures 1/2 positive for Gram-positive cocci will follow final sensitivities, continue iv vanco, WBC normalized CT abdomen and pelvis showed no acute infection no respiratory or urinary symptoms. Full Code Requires ongoing hospitalization for evaluation of extensive clot burden and neuro evaluation. Time Spent With Patient Time: Total time managing care of this patient today ____ minutes. Quality Stroke Does the patient have a stroke diagnosis?: Yes Reason for No Anti-thrombotic by Day Two: Contraindicated (Pt already on Eliquis, and outside of tPA therapeutic window) VTE Prior VTE?: No VTE Risk Level:: Medical - moderate - high VTE Device Contraindication: N/A - Device Ordered VTE Drug Contraindication: Treatment Not Tolerated
[2023-09-15] MEDS: Enoxaparin Sodium 80 MG/0.8 ML SYRINGE 70 MG SUBCUT (14:29)
[2023-09-15] MEDS: Docusate Sodium 100 MG CAPSULE PO (19:57)
[2023-09-15 21:42] LABS: Vancomycin Random 16.2 mcg/mL (15-20)
[2023-09-16] MEDS: Enoxaparin Sodium 80 MG/0.8 ML SYRINGE 70 MG SUBCUT ×2 (00:29→13:16)
[2023-09-16] MEDS: Morphine Sulfate 4 MG/ML CARTRIDGE IVPUSH ×5 (00:30→19:44)
[2023-09-16] MEDS: vancomycin HCL 1,000 MG in 0.9 % Sodium Chloride 250 ML 270 MG IV (00:30)
[2023-09-16 03:36] VITALS: BP 155/73; PULSE 92; RESP 18; TEMP 36.7; O2SAT 93
[2023-09-16] MEDS: Omeprazole 20 MG CAPSULE.DR PO (06:00)
[2023-09-16 06:34] LABS: Hematocrit 25.1 % (37.0-47.0); Mean Corpuscular HGB Conc 31.9 g/dl (31.0-35.0); Mean Corpuscular Hemoglobin 28.1 pg (27.0-33.0); Mean Corpuscular Volume 88.1 fL (80.0-98.0); Mean Platelet Volume 9.6 fL (9.4-12.3); Platelet Count 323 X10*3/uL (160-400); Red Blood Count 2.85 X10*6/uL (4.20-5.50); Red Cell Distribution Width 12.5 % (11.0-16.0)
[2023-09-16 06:49] LABS: Cholesterol 146 mg/dL (<200); Creatinine Clr Calc Pharmacy 42.4; Estimated Glomerular Filt Rate 52; HDL Cholesterol 30 mg/dL (>40); LDL Cholesterol Calculated 91 mg/dL (<100); Triglycerides 126 mg/dL (<150)
[2023-09-16 07:19] VITALS: BP 151/72; PULSE 88; RESP 20; TEMP 36.6; O2SAT 95
[2023-09-16] MEDS: amLODIPine Besylate 5 MG TABLET PO (08:38)
[2023-09-16] MEDS: Multivitamin TABLET 1 TAB PO (08:38)
[2023-09-16] MEDS: 0.9 % Sodium Chloride Flush 3 ML SYRINGE IVFLUSH ×2 (08:40→15:29)
--- NOTE | 2023-09-16 10:22 | HO.PM.IMPN ---
Subjective Subjective Date of Service: 09/16/23 Interval History: Feels funny when she is talking, less anxious, complaining of gas pain no bowel movement since admission, took Colace , denies nausea, no vomiting tolerating diet, no headache no dizziness, no leg pain, no shortness of breath. Review of Systems For preop or all other system reviewed and negative Physical Exam Vital Signs: Vital Signs: Last Vital Signs Temp 97.8 F 09/16/23 07:19 Pulse 88 09/16/23 07:19 Resp 20 09/16/23 07:19 BP 151/72 H 09/16/23 07:19 Pulse Ox 95 09/16/23 07:19 O2 Del Method Room Air 09/16/23 07:19 BMI result Body Mass Index 30.5 Const: Other: General awake alert x3, in no acute distress. Neck no JVD. CVS regular rate rhythm, Respiratory lungs clear to auscultation, no respiratory distress, no wheeze, no rhonchi. Gastrointestinal abdomen soft, non tender, bowel sounds audible, no guarding , no rigidity. Extremities no edema. Neuro mild left facial droop ,speech clear . Skin no rash Objective Data Active Medications Acetaminophen (Acetaminophen 325 Mg Tablet) 650 mg PO Q4H PRN PRN Reason: Fever >100.4 Amlodipine Besylate (Amlodipine Besylate 5 Mg Tablet) 5 mg PO DAILY [facility]; Protocol Last Admin: 09/16/23 08:38 Dose: 5 mg Documented By: MOISE Benzonatate (Benzonatate 100 Mg Capsule) 100 mg PO TID PRN PRN Reason: Cough Docusate Sodium (Docusate Sodium 100 Mg Capsule) 100 mg PO DAILY PRN PRN Reason: Constipation Last Admin: 09/15/23 19:57 Dose: 100 mg Documented By: JAMIN Enoxaparin Sodium (Enoxaparin Sodium 80 Mg/0.8 Ml Syringe) 70 mg 1 mg/kg (70 mg) SUBCUT Q12H [facility] Last Admin: 09/16/23 00:29 Dose: 70 mg Documented By: JAMIN Lorazepam (Lorazepam 0.5 Mg Tablet) 0.5 mg PO Q8H PRN PRN Reason: Anxiety Melatonin (Melatonin 3 Mg Tablet) 6 mg PO BEDTIME PRN PRN Reason: Insomnia Last Admin: 09/14/23 22:31 Dose: 6 mg Morphine Sulfate (Morphine Sulfate 4 Mg/Ml Cartridge) 4 mg IVPUSH Q4H PRN; Protocol PRN Reason: Pain, Severe (Pain Scale 7-10) Last Admin: 09/16/23 05:26 Dose: 4 mg Documented By: JAMIN Multivitamins/Vitamin C (Multivitamin Tablet) 1 tab PO DAILY [facility] Last Admin: 09/16/23 08:38 Dose: 1 tab Documented By: MOISE Omeprazole (Omeprazole 20 Mg Capsule.Dr) 20 mg PO DAILY@0630 [facility] Last Admin: 09/16/23 06:00 Dose: 20 mg Documented By: JAMIN Ondansetron HCl (Ondansetron Hcl 4 Mg/2 Ml Vial) 4 mg IVPUSH Q8H PRN PRN Reason: Nausea and Vomiting Pharmacy Consult (Consult Rx Vancomycin Dosing) 1 each MISCELLANE DAILY PRN PRN Reason: Consult order Sodium Chloride (0.9 % Sodium Chloride Flush 3 Ml Syringe) 3 ml IVFLUSH QSHIFT [facility] Last Admin: 09/16/23 08:40 Dose: 3 ml Documented By: MOISE Labs 09/16/23 05:46 09/16/23 05:46 Labs: Laboratory Results - last 24 hr 09/15/23 09/15/23 09/16/23 12:54 20:59 05:46 MCV 88.1 MCH 28.1 MCHC 31.9 RDW 12.5 Plt Count 323 D MPV 9.6 Absolute Nucleated RBC 0.000 Nucleated RBC % (auto) 0.0 aPTT Heparin Protocol 59.2 Estim Creat Clear Calc 42.4 Estimated GFR 52 Triglycerides 126 Cholesterol 146 LDL Cholesterol, Calc 91 HDL Cholesterol 30 L Random Vancomycin 16.2 Microbiology Microbiology Results: Microbiology 09/13/23 23:57 Blood Culture - Preliminary Blood - Venous Coag negative Staphylococcus 09/13/23 23:51 Blood Culture - Preliminary Blood - Venous No growth after 48 hours. 09/13/23 12:07 Blood Culture - Preliminary Blood - Venous No growth after 48 hours. 09/13/23 12:03 Blood Culture - Preliminary Blood - Venous No growth after 48 hours. 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 Pt will be admitted to the hospital for further workup and treatment of acute cerebral and cerebellar infarcts. 1.Acute cerebral and cerebellar infarcts -s/p iv heparin drip x 48h,now on lovenox, persistent speech impairment (feels funny while conversing likely due to weakness with left facial droop) -echocardiogram showed no shunt, EF 67%, normal diastolic function, no wall motion abnormality, LDL 91, total cholesterol 146 rule give Diflucan attending Check carotid ultrasound, -Neuro input pending. -will obtain speech therapy and PT eval, will provide teaching to patient and family for Lovenox administration 2.Pancreatic adenocarcinoma -pain control adequate, CT abdomen and pelvis showed pancreatic mass with liver Mets, stable LFTs., question brain Mets. -further plans as per Oncology. 3.Mesenteric and splenic vein thrombosis -on Lovenox subq 4. Chronic normocytic Anemia -hemoglobin stable 5.Anxiety -Ativan p.r.n. 6.HTN -acceptable control on amlodipine, few high blood pressure readings likely due to anxiety will follow. 7. HLD Continue statin 8.SIRS Fever/tachycardia on IV vancomycin day 3 blood cultures 1/2 positive for coagulase negative Staph, will DC IV vancomycin , WBC normalized CT abdomen and pelvis showed no acute infection no respiratory or urinary symptoms.fever likely due to cva/splenic thrombosis/cancer Full Code Requires ongoing hospitalization for evaluation of extensive clot burden and neuro evaluation. Time Spent With Patient Time: Total time managing care of this patient today ____ minutes. Quality Stroke Does the patient have a stroke diagnosis?: Yes Reason for No Anti-thrombotic by Day Two: Contraindicated (Pt already on Eliquis, and outside of tPA therapeutic window) VTE Prior VTE?: No VTE Risk Level:: Medical - moderate - high VTE Device Contraindication: N/A - Device Ordered VTE Drug Contraindication: Treatment Not Tolerated
--- NOTE | 2023-09-16 10:58 | PM.NEUROCN ---
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 He said that she did not have any headache and at some point she had some left-sided blurred vision. There was no nausea or vomiting or seizure-like episode. Review of Systems Review of Systems: No recent cold or flu-like illness. [facility] Past Medical History Medical History Knee pain, right Blood pressure elevated without history of HTN Abnormal blood pressure Cholelithiasis Vitamin D deficiency Obesity (BMI 30-39.9) High cholesterol Hernia GERD (gastroesophageal reflux disease) Family History Family History Father CVD (cardiovascular disease) Stroke Hypertension Mother Breast cancer Surgical History Surgical History No pertinent past surgical history Social History Social History Household Members: None Housing: House Alcohol intake: current Alcohol intake frequency: a few times a month Alcohol type: wine Patient Tobacco Use Status: Never used Tobacco e-Cigarette/Vaping Use: Never Used Second Hand Smoke Exposure: No service: No Current occupational status: employed Cognitive needs: No Hearing needs: No Vision needs: Yes Meds Allergies Allergy/AdvReac Type Severity Reaction Status Date / Time No Known Allergies Allergy Verified 08/15/23 12:34 Active Medications: Current Medications Acetaminophen (Acetaminophen 325 Mg Tablet) 650 mg PO Q4H PRN PRN Reason: Fever >100.4 Amlodipine Besylate (Amlodipine Besylate 5 Mg Tablet) 5 mg PO DAILY [facility]; Protocol Last Admin: 09/16/23 08:38 Dose: 5 mg Benzonatate (Benzonatate 100 Mg Capsule) 100 mg PO TID PRN PRN Reason: Cough Docusate Sodium (Docusate Sodium 100 Mg Capsule) 100 mg PO DAILY PRN PRN Reason: Constipation Last Admin: 09/15/23 19:57 Dose: 100 mg Enoxaparin Sodium (Enoxaparin Sodium 80 Mg/0.8 Ml Syringe) 70 mg 1 mg/kg (70 mg) SUBCUT Q12H [facility] Last Admin: 09/16/23 00:29 Dose: 70 mg Lorazepam (Lorazepam 0.5 Mg Tablet) 0.5 mg PO Q8H PRN PRN Reason: Anxiety Melatonin (Melatonin 3 Mg Tablet) 6 mg PO BEDTIME PRN PRN Reason: Insomnia Last Admin: 09/14/23 22:31 Dose: 6 mg Morphine Sulfate (Morphine Sulfate 4 Mg/Ml Cartridge) 4 mg IVPUSH Q4H PRN; Protocol PRN Reason: Pain, Severe (Pain Scale 7-10) Last Admin: 09/16/23 05:26 Dose: 4 mg Multivitamins/Vitamin C (Multivitamin Tablet) 1 tab PO DAILY [facility] Last Admin: 09/16/23 08:38 Dose: 1 tab Omeprazole (Omeprazole 20 Mg Capsule.Dr) 20 mg PO DAILY@0630 [facility] Last Admin: 09/16/23 06:00 Dose: 20 mg Ondansetron HCl (Ondansetron Hcl 4 Mg/2 Ml Vial) 4 mg IVPUSH Q8H PRN PRN Reason: Nausea and Vomiting Pharmacy Consult (Consult Rx Vancomycin Dosing) 1 each MISCELLANE DAILY PRN PRN Reason: Consult order Sodium Chloride (0.9 % Sodium Chloride Flush 3 Ml Syringe) 3 ml IVFLUSH QSHIFT [facility] Last Admin: 09/16/23 08:40 Dose: 3 ml Home Medications Medication Instructions Recorded Confirmed Last Taken Type cranberry 400 mg capsule 400 mg PO DAILY 11/25/20 09/13/23 Unknown History multivitamin 1 tab PO DAILY 11/25/20 09/13/23 Unknown History omeprazole 20 mg capsule,delayed 20 mg PO DAILY 09/13/23 09/13/23 09/13/23 History release Physical Exam Vital Signs: Vital Signs: Last Vital Signs Temp 97.8 F 09/16/23 07:19 Pulse 88 09/16/23 07:19 Resp 20 09/16/23 07:19 BP 151/72 H 09/16/23 07:19 Pulse Ox 95 09/16/23 07:19 O2 Del Method Room Air 09/16/23 07:19 BMI result Body Mass Index 30.5 Neuro: Other: She is alert and awake with normal spontaneity of speech fluency comprehension and affect. Visual moe are full. Face is symmetrical. There is no obvious arm or leg weakness. Plantars are flexor. Speech is normal. Results Labs 09/16/23 05:46 09/16/23 05:46 Labs: Short CBC 09/16/23 Range/Units 05:46 WBC 10.0 (4.8-10.8) X10*3/uL Hgb 8.0 L (12.0-16.0) g/dl Hct 25.1 L (37.0-47.0) % Plt Count 323 D (160-400) X10*3/uL BMP 09/16/23 05:46 Creatinine 1.05 MRI of brain revealed multiple punctate area of restricted diffusion bilaterally in both anterior posterior circulation with few tiny areas of enhancement and right frontal lobe. Microbiology Microbiology Results: Microbiology 09/13/23 23:57 Blood - Venous Blood Culture - Preliminary Coag negative Staphylococcus 09/13/23 23:51 Blood - Venous Blood Culture - Preliminary No growth after 48 hours. 09/13/23 12:07 Blood - Venous Blood Culture - Preliminary No growth after 48 hours. 09/13/23 12:03 Blood - Venous Blood Culture - Preliminary No growth after 48 hours. Assessment and Plan (1) Cerebral infarct: Status: Acute 67 years old woman with metastatic pancreatic cancer has multiple bilateral small lesions in brain MRI with little bit of enhancement. Overall clinical picture is more suggestive of cerebral infarcts, either from cardiac source of embolism or hyperviscosity related to cancer. Carcinomatosis meningitis and encephalitis is another possibility, but her overall clinical exam is not that abnormal. If any treatment decision needed to be made, lumbar puncture can be perform to analyze spinal fluid. Otherwise, I recommend continuing anticoagulation and appropriate hydration. These lesions are relatively small and would likely not result in significant disability. Time Spent With Patient Time: Total time managing care of this patient today ____ minutes. Procedures Date of Service Date of Service: 09/16/23
[2023-09-16] MEDS: Sodium Chloride 0.65 % Nasal 44 ML SPRBTL 1 SPRAY NOSTRIL-B (11:12)
[2023-09-16] MEDS: LORazepam 0.5 MG TABLET PO (11:12)
[2023-09-16 12:00] VITALS: BP 121/58; PULSE 79; RESP 20; TEMP 36.7; O2SAT 94
[2023-09-16 15:18] VITALS: BP 140/78; PULSE 81; RESP 12; TEMP 36.8; O2SAT 95
[2023-09-16 19:11] VITALS: BP 148/75; PULSE 85; RESP 20; TEMP 36.3; O2SAT 94
[2023-09-16 21:08] LABS: Vancomycin Random 17.3 mcg/mL (15-20)
[2023-09-17] VITALS (14 sets, daily range): BP systolic 129–156; BP diastolic 60–87; PULSE 75–91; RESP 15–20; TEMP 36.2–37.3; O2SAT 93–96
[2023-09-17] MEDS: Enoxaparin Sodium 80 MG/0.8 ML SYRINGE 70 MG SUBCUT ×2 (00:35→13:19)
[2023-09-17] MEDS: 0.9 % Sodium Chloride Flush 3 ML SYRINGE IVFLUSH ×3 (00:36→23:20)
[2023-09-17] MEDS: Morphine Sulfate 4 MG/ML CARTRIDGE IVPUSH (03:31)
[2023-09-17] MEDS: Omeprazole 20 MG CAPSULE.DR PO (06:30)
[2023-09-17] MEDS: amLODIPine Besylate 5 MG TABLET PO (08:14)
[2023-09-17] MEDS: oxyCODONE HCl Immed Release 5 MG TABLET PO (08:14)
[2023-09-17] MEDS: Multivitamin TABLET 1 TAB PO (08:14)
--- NOTE | 2023-09-17 08:18 | PM.HEMONCPN ---
Medical Summary - Medical Summary Date of Service: 09/17/23 Chief complaint: Abdominal discomfort Primary Care Provider: Quinton Neff MD Medical Summary: Diagnosis: Metastatic pancreatic adenocarcinoma July 2023 She presented with a few months of epigastric discomfort and weight loss which she attributed to stress at work and hiatal hernia/GERD symptoms. She was asked to increase dose of PPI but presented to emergency department on 08/09/2023 with worsening symptoms. A CT abdomen/pelvis without contrast was performed which revealed a suspicious 3.4 cm mass in head of pancreas as well as few indeterminate liver lesions suspicious for metastasis. Ultrasound-guided core needle biopsy of liver mass in left lobe performed 08/27/2023 revealed adenocarcinoma, moderate to poorly differentiated favor pancreatic or biliary origin. MRI abdomen with contrast revealed 2.8 x 3.9 x 2.8 cm hypoenhancing mass in the head of pancreas. Distal atrophy of pancreas and dilatation and tortuosity of the main pancreatic duct up to 5 mm. Hepatic steatosis and numerous ill-defined rim enhancing lesions representing hepatic metastatic disease. No biliary ductal dilatation. Bulky abdominal lymphadenopathy. 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 CA 19 9 elevated, 519 U/mL. LDH elevated, 308 U/L, LFTs normal. Interval History Interval history: She feels about the same. Continues to have intermittent abdominal pain. She says she has not had a bowel movement yet. She wants to go, she has refused meeting with community mental health social worker and she does not want palliative services. I discuss meeting with a counselor as she seems rather overwhelmed with her diagnosis. She has refused this as well. She feels very tired and weak. Review of Systems - Constitutional Reports as per HPI, Reports lack of energy, Reports malaise - Neurologic Reports no additional neurologic complaints, Reports as per HPI [facility] Medical History: Medical History (Last Reviewed 09/14/23 @ 00:55 by Kb De Paz RN) Abnormal blood pressure Blood pressure elevated without history of HTN Cholelithiasis GERD (gastroesophageal reflux disease) Hernia High cholesterol Knee pain, right Obesity (BMI 30-39.9) Vitamin D deficiency Family History: Family History (Last Reviewed 09/14/23 @ 00:55 by Kb De Paz RN) Father CVD (cardiovascular disease) Stroke Hypertension Mother Breast cancer Surgical History: Surgical History (Last Reviewed 09/13/23 @ 14:27 by CHOCO Conrad) No pertinent past surgical history Social History: Social History (Last Reviewed 09/14/23 @ 00:55 by Kb De Paz RN) Living Situation History: Household Members: None Housing: House Tobacco History: Patient Tobacco Use Status: Never used Tobacco e-Cigarette/Vaping Use: Never Used Second Hand Smoke Exposure: No Occupation Assessmet: service: No Current occupational status: employed Home Medications and Allergies Current Medications: Current Medications Acetaminophen (Acetaminophen 325 Mg Tablet) 650 mg PO Q4H PRN PRN Reason: Fever >100.4 Amlodipine Besylate (Amlodipine Besylate 5 Mg Tablet) 5 mg PO DAILY [facility]; Protocol Last Admin: 09/17/23 08:14 Dose: 5 mg Benzonatate (Benzonatate 100 Mg Capsule) 100 mg PO TID PRN PRN Reason: Cough Docusate Sodium (Docusate Sodium 100 Mg Capsule) 100 mg PO DAILY [facility] Enoxaparin Sodium (Enoxaparin Sodium 80 Mg/0.8 Ml Syringe) 70 mg 1 mg/kg (70 mg) SUBCUT Q12H [facility] Last Admin: 09/17/23 00:35 Dose: 70 mg Sodium Chloride (Ns) 100 mls @ 100 mls/hr IV ONCE ONE Stop: 09/17/23 09:11 Sodium Chloride (Ns) 100 mls @ 100 mls/hr IV ONCE ONE Stop: 09/17/23 09:11 Lorazepam (Lorazepam 0.5 Mg Tablet) 0.5 mg PO Q8H PRN PRN Reason: Anxiety Last Admin: 09/16/23 11:12 Dose: 0.5 mg Melatonin (Melatonin 3 Mg Tablet) 6 mg PO BEDTIME PRN PRN Reason: Insomnia Last Admin: 09/14/23 22:31 Dose: 6 mg Morphine Sulfate (Morphine Sulfate 4 Mg/Ml Cartridge) 4 mg IVPUSH Q4H PRN; Protocol PRN Reason: Pain, Severe (Pain Scale 7-10) Last Admin: 09/17/23 03:31 Dose: 4 mg Multivitamins/Vitamin C (Multivitamin Tablet) 1 tab PO DAILY [facility] Last Admin: 09/17/23 08:14 Dose: 1 tab Omeprazole (Omeprazole 20 Mg Capsule.Dr) 20 mg PO DAILY@0630 [facility] Last Admin: 09/17/23 06:30 Dose: 20 mg Ondansetron HCl (Ondansetron Hcl 4 Mg/2 Ml Vial) 4 mg IVPUSH Q8H PRN PRN Reason: Nausea and Vomiting Oxycodone HCl (Oxycodone Hcl Immed Release 5 Mg Tablet) 5 mg PO Q6H PRN PRN Reason: Pain, Moderate(Pain Scale 4-6) Last Admin: 09/17/23 08:14 Dose: 5 mg Polyethylene Glycol (Polyethylene Glycol 3350 17 Gm Powd.Pack) 17 gm PO DAILY [facility] Sodium Chloride (0.9 % Sodium Chloride Flush 3 Ml Syringe) 3 ml IVFLUSH QSHIFT [facility] Last Admin: 09/17/23 08:14 Dose: 3 ml Home Medications Medication Instructions Recorded Confirmed Type cranberry 400 mg capsule 400 mg PO DAILY 11/25/20 09/13/23 History multivitamin 1 tab PO DAILY 11/25/20 09/13/23 History omeprazole 20 mg capsule,delayed 20 mg PO DAILY 09/13/23 09/13/23 History release Allergies Allergy/AdvReac Type Severity Reaction Status Date / Time No Known Allergies Allergy Verified 08/15/23 12:34 Exam Vital signs: Vital Signs Temp 98.1 F 09/17/23 07:42 Pulse 83 09/17/23 07:42 Resp 20 09/17/23 07:42 BP 143/68 H 09/17/23 07:42 Pulse Ox 95 09/17/23 07:42 O2 Del Method Room Air 09/17/23 07:42 Intake & Output 09/16/23 09/17/23 09/17/23 18:59 06:59 18:59 Intake Total 360 / 1570 1210 / 1570 Output Total 1050 / 1050 Balance 360 / 520 160 / 520 Urine Output (Average ml/kg/hr) 1.32 1.32 Intake: Intake, Oral Amount 360 / 1570 1210 / 1570 Output: Output, Urine Amount 1050 / 1050 Other: Meal Refused No NPO No Breakfast % Eaten 75% Lunch % Eaten 75% Dinner % Eaten 100% Number of Unmeasured Voids 3 1 Number of Bowel Movements 0 Urine Bedside Commode Bedside Commode Urine Color Yellow Yellow Last Bowel Movement 09/13/23 Weight 66.1 kg BMI result Body Mass Index 30.5 - Constitutional Present: mild distress, chronically ill appearing - Routine Respiratory Exam Present: CTAB. Absent: accessory muscle use - Routine Cardiovascular Exam Cardiovascular: Present: S1, S2 - Routine Abdominal Exam Present: tenderness. Absent: rebound Data - Labs CBC & Chem 7: 09/16/23 05:46 09/17/23 07:28 Labs: 09/13/23 11:43 ECG 12 lead EKG Stat EKG Documentation DIRECTED 0.9 % Sodium Chloride [Ns] 1,000 ml IV 125 mls/hr Morphine Sulfate 4 mg IVPUSH ONCE STA ondansetron HCL [Zofran] 4 mg IVPUSH ONCE ONE 09/13/23 11:44 IV insert/maintain .Now Pulse Oximetry CONT 09/13/23 12:03 Lactic Acid Stat Partial Thromboplastin Time Stat Prothrombin Time INR Stat 09/13/23 12:07 COVID-19 ID NOW ([facility]) Stat Complete Blood Count Auto Diff Stat Comprehensive Met. Panel Stat Influenza A B2 ID NOW ([facility]) Stat Lipase Stat 09/13/23 13:45 Acetaminophen [Tylenol] 650 mg PO Q6H PRN Docusate Sodium [Colace] 100 mg PO DAILY PRN 09/13/23 13:46 Admission Assessment - Modified NOW 09/13/23 13:48 NPO Diet 09/13/23 13:56 LORazepam [Ativan] 0.5 mg IM Q6H PRN 09/13/23 14:28 ceFAZolin Sodium [Ancef] 1 gm .ROUTE .STK-MED ONE 09/13/23 14:29 Heparin Sodium (Porcine)/NS/PF 1,000 unit in 500 ml IV As directed Heparin Sodium,Porcine Flush 500 unit IVFLUSH .STK-MED ONE Lidocaine HCl 1 % MPF [Xylocaine 1 % MPF] 30 ml .ROUTE .STK-MED ONE Lidocaine HCl 1%/Epi 1:100,000 [Xylocaine 1 %-EPI 1:100,000] 10 ml .ROUTE .STK-MED ONE Midazolam HCl/PF [Versed] 2 mg .ROUTE .STK-MED ONE Naloxone HCl [Narcan] 0.4 mg .ROUTE .STK-MED ONE ceFAZolin Sodium/Dextrose,Iso [Ancef] 2 gm in 50 ml .ROUTE As directed fentaNYL citrate/PF [Sublimaze] 100 mcg .ROUTE .STK-MED ONE flumazeniL [Romazicon] 0.5 mg .ROUTE .STK-MED ONE 09/13/23 21:00 Apixaban [Eliquis] 5 mg PO BID 09/13/23 21:27 LORazepam [Ativan] 0.5 mg IVPUSH Q6H PRN 09/13/23 23:43 Vancomycin Consult Rx Dosing [Consult Rx Vancomycin Dosing] 1 each MISCELLANE DAILY PRN vancomycin HCL 1,000 mg 0.9 % Sodium Chloride [Ns] 250 ml IV ONCE 09/13/23 23:44 0.9 % Sodium Chloride [Ns] 500 ml IV 500 mls/hr 09/13/23 23:45 vancomycin HCL 1,000 mg vancomycin HCL 750 mg 0.9 % Sodium Chloride [Ns] 500 ml IV ONCE 09/13/23 23:51 Lactic Acid Stat 09/14/23 CT abdomen pelvis wo IV con Stat 09/14/23 00:28 vancomycin HCL 1,000 mg .ROUTE .STK-MED ONE vancomycin HCL 750 mg IV .STK-MED ONE 09/14/23 01:25 Acetaminophen [Ofirmev] 1,000 mg in 100 ml IV ONCE 09/14/23 05:33 Basic Metabolic Panel DAILY@0600 Complete Blood Count no Diff DAILY@0600 Lactate Dehydrogenase Routine Liver Panel Routine 09/14/23 06:13 Add Laboratory Test Urgent 09/14/23 07:00 CA echo transthoracic complete Routine 09/14/23 09:04 Communication Order Q4H 09/14/23 09:15 Heparin Sodium,Porcine/1/2NS 25,000 unit in 250 ml IVCONT Per Protocol units/kg/hr 09/14/23 09:57 Complete Blood Count no Diff Stat PTT Heparin Drip Stat Prothrombin Time INR Stat 09/14/23 21:12 PTT Heparin Drip Stat 09/14/23 22:21 vancomycin HCL 1,250 mg IV .STK-MED ONE 09/14/23 23:00 vancomycin HCL 1,250 mg 0.9 % Sodium Chloride [Ns] 250 ml IV Q24H 09/15/23 03:43 PTT Heparin Drip Stat 09/15/23 04:24 CBC W/AUTO DIFF [Complete Blood Count Auto Diff] DAILY@0600 Comprehensive Met. Panel DAILY@0600 Prothrombin Time INR Routine 09/15/23 06:09 Hold Green Gel Stat Hold Lav - Possible Hematology Stat PTT Heparin Drip Stat 09/15/23 12:54 PTT Heparin Drip Stat 09/15/23 20:59 Vancomycin Random Stat 09/15/23 23:00 vancomycin HCL 1,000 mg 0.9 % Sodium Chloride [Ns] 250 ml IV Q24H 09/16/23 US carotid duplex BI Routine 09/16/23 00:24 vancomycin HCL 1,000 mg .ROUTE .STK-MED ONE 09/16/23 05:46 Complete Blood Count no Diff Routine Creatinine DAILY@0600 Lipid Panel Routine 09/16/23 06:25 Senna [place] Extract Oral Syrup [Senokot Oral Syrup] 15 ml PO ONCE ONE Sodium Chloride 0.65 % Nasal [[place] 0.65% Nasal] 1 spray NOSTRIL-B ONCE ONE 09/16/23 20:44 Vancomycin Random Stat 09/17/23 07:53 Hold Lav - Possible Hematology Routine Laboratory Last Values WBC 10.0 X10*3/uL (4.8-10.8) 09/16/23 05:46 RBC 2.85 X10*6/uL (4.20-5.50) L 09/16/23 05:46 Hgb 8.0 g/dl (12.0-16.0) L 09/16/23 05:46 Hct 25.1 % (37.0-47.0) L 09/16/23 05:46 MCV 88.1 fL (80.0-98.0) 09/16/23 05:46 MCH 28.1 pg (27.0-33.0) 09/16/23 05:46 MCHC 31.9 g/dl (31.0-35.0) 09/16/23 05:46 RDW 12.5 % (11.0-16.0) 09/16/23 05:46 Plt Count 323 X10*3/uL (160-400) D 09/16/23 05:46 MPV 9.6 fL (9.4-12.3) 09/16/23 05:46 Immature Gran % (Auto) 0.6 % (0.0-0.4) H 09/15/23 04:24 Neut % (Auto) 73.0 % (45-73) 09/15/23 04:24 Lymph % (Auto) 12.2 % (20-40) L 09/15/23 04:24 [place] % (Auto) 10.1 % (2-11) 09/15/23 04:24 Eos % (Auto) 3.4 % (0-4) 09/15/23 04:24 Baso % (Auto) 0.7 % (0-2) 09/15/23 04:24 Lymph # (Auto) 1.3 X10*3/uL (1.2-4.9) 09/15/23 04:24 [place] # (Auto) 1.1 X10*3/uL (0.1-1.2) 09/15/23 04:24 Eos # (Auto) 0.4 X10*3/uL (0.0-0.4) 09/15/23 04:24 Baso # (Auto) 0.1 X10*3/uL (0.0-0.2) 09/15/23 04:24 Abs Immat Gran (auto) 0.06 X10*3/uL (0.00-0.03) H 09/15/23 04:24 Absolute Neuts (auto) 7.9 x10*3/uL (2.0-8.3) 09/15/23 04:24 Absolute Nucleated RBC 0.000 X10*3/uL (0.0-0.012) 09/16/23 05:46 Nucleated RBC % (auto) 0.0 /100WBC (0.0-0.2) 09/16/23 05:46 Hold Purple Top SEE NOTE 09/17/23 07:53 PT 20.7 SEC (11.1-13.3) H 09/15/23 04:24 INR 1.7 (0.9-1.1) H 09/15/23 04:24 APTT 28.9 SEC (26.0-36.4) 09/13/23 12:03 aPTT Heparin Protocol 59.2 SEC (53-77.9) 09/15/23 12:54 Sodium 136 mmol/L (135-145) 09/15/23 04:24 Potassium 4.1 mmol/L (3.3-5.1) 09/15/23 04:24 Chloride 105 mmol/L (96-108) 09/15/23 04:24 Carbon Dioxide 18 mmol/L (22-29) L 09/15/23 04:24 Anion Gap 17 (12-20) 09/15/23 04:24 BUN 16 mg/dL (9-16) 09/15/23 04:24 Creatinine 1.05 mg/dL (0.5-1.4) 09/16/23 05:46 Estim Creat Clear Calc 42.4 09/16/23 05:46 Estimated GFR 52 09/16/23 05:46 Random Glucose 105 mg/dL (60-115) 09/15/23 04:24 Lactic Acid 0.6 mmol/L (0.5-2.0) 09/13/23 23:51 Calcium 8.7 mg/dL (8.4-10.2) 09/15/23 04:24 Total Bilirubin 0.3 mg/dL (0.0-1.0) 09/15/23 04:24 Direct Bilirubin 0.2 mg/dL (0.0-0.5) 09/14/23 05:33 AST 138 U/L (5-31) H 09/15/23 04:24 ALT 75 U/L (0-31) H 09/15/23 04:24 Alkaline Phosphatase 445 U/L (39-117) H 09/15/23 04:24 Lactate Dehydrogenase 445 U/L (122-220) H 09/14/23 05:33 Total Protein 6.0 g/dL (6.5-8.0) L 09/15/23 04:24 Albumin 2.9 g/dL (3.5-5.0) L 09/15/23 04:24 Triglycerides 126 mg/dL (<150) 09/16/23 05:46 Cholesterol 146 mg/dL (<200) 09/16/23 05:46 LDL Cholesterol, Calc 91 mg/dL (<100) 09/16/23 05:46 HDL Cholesterol 30 mg/dL (>40) L 09/16/23 05:46 Lipase 6 U/L (8-78) L 09/13/23 12:07 Random Vancomycin 17.3 mcg/mL (15-20) 09/16/23 20:44 COVID-19 ([facility]) Negative (Negative) 09/13/23 12:07 COVID-19 Clin Com See Note 09/13/23 12:07 Influenza Type A ([facility]) Negative (Negative) 09/13/23 12:07 Influenza Type B ([facility]) Negative (Negative) 09/13/23 12:07 Influenza A & B Note See Note 09/13/23 12:07 - Imaging Radiologist's impression: ITS Impressions Abdomen/Pelvis CT 09/14/23 16:58 IMPRESSION: Known pancreatic head mass with hepatic metastatic disease. Bibasilar airspace disease as above. Severe diverticulosis without acute inflammatory changes. Fleischner guidelines were followed. Carotid Doppler Study 09/16/23 11:35 IMPRESSION: 1. RIGHT: Normal right internal carotid artery without atherosclerotic plaque or hemodynamically significant stenosis. 2. LEFT: Minimal, non-hemodynamically significant stenosis of the proximal left internal carotid artery corresponding to a 0-49% stenosis by velocity criteria. Assessment and Plan Patient Active problem list reviewed?: Yes (1) Pancreatic adenocarcinoma Status: Acute Assessment and plan: 1. This is a 67-year-old woman who has been diagnosed with metastatic pancreatic adenocarcinoma in August 2023. Ultrasound-guided core needle biopsy of liver mass in left lobe performed 08/27/2023 revealed adenocarcinoma, moderate to poorly differentiated favor pancreatic or biliary origin. MRI abdomen with contrast revealed 2.8 x 3.9 x 2.8 cm hypoenhancing mass in the head of pancreas. Distal atrophy of pancreas and dilatation and tortuosity of the main pancreatic duct up to 5 mm. Hepatic steatosis and numerous ill-defined rim enhancing lesions representing hepatic metastatic disease. No biliary ductal dilatation. Bulky abdominal lymphadenopathy. 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 She is not in atrial fibrillation. Echocardiogram with bubble study is negative for interatrial shunt. 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 Cerebral ischemic event could be related to underlying hypercoagulopathy secondary to pancreatic cancer. Appreciate cardiology and neurology input. She is now on Lovenox 1 mg/kg b.i.d.. She will be continued on this. Her fevers have resolved, probably tumor fever. She has had MediPort inserted. Blood cultures are negative, She has worsening normocytic anemia related to underlying malignancy. She is scheduled to start chemotherapy this week. Transfuse 2 units PRBC She has refused palliative care services. She can be discharged either today or tomorrow. Thank you. - Time Spent With Patient Time Spent with Patient (in minutes): 15
[2023-09-17] MEDS: Docusate Sodium 100 MG CAPSULE PO (08:21)
[2023-09-17 08:31] LABS: Creatinine Clr Calc Pharmacy 45.4; Estimated Glomerular Filt Rate 57
[2023-09-17] MEDS: LORazepam 0.5 MG TABLET PO ×2 (09:26→22:48)
[2023-09-17] MEDS: polyethylene glycoL 3350 17 GM POWD.PACK PO (09:26)
--- NOTE | 2023-09-17 10:49 | MHC.STROKE ---
Addendum entered by Marlena Clark RN 09/18/23 14:54: STATIN CONTRAINDICATED DUE TO LIVER METS. Addendum entered by Marlena Clark RN 09/17/23 12:22: I DISCUSSED HER CASE WITH THE ONCOLOGIST DR. ESTRADA AND ONCOLOGY NURSE NAVIGATOR [place] THIS MORNING PRIOR TO SEEING THE PATIENT. I THEN MET WITH THE PATIENT TO GAIN HER TRUST AND PROVIDE SUPPORT. SHE LIVES ALONE WITH HER 6 CATS IN THE HOUSE HER FATHER BUILT. HER AUNT LIVES IN THE HOUSE NEXT DOOR. THEY ARE TOGETHER DAILY. 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 SHE IS VEGAN AND SHARED SEVERAL RECIPES WITH ME. A YOUNG ADULT SHE TRAVELED AND WON [employer] IN [place]. I'VE DONE ENOUGH TRAVEL AND NOW I LOVE TO STAY HOME'. WE DISCUSSED SEVERAL THINGS WE HAVE IN COMMON INCLUDING OUR YEAR AND MONTH. SHE HAS A NEIGHBOR WHO IS A TELEVISION SCRIPT WRITER AND THE NEIGHBOR HAS A FRIEND THAT IS A NURSE. SHE SAID SHE HAS SEVERAL PEOPLE SHE CAN CALL UPON FOR HELP. SHE IS CONSIDERING GOING TO [facility] FOR A SECOND OPINION. HER FRIENDS ARE HELPING HER WITH THAT. SHE IS RELUCTANT TO HAVE HELP IN THE HOME AT THIS TIME DUE TO HER CATS BUT SHE IS WELL AWARE THAT IF SHE NEEDS OUTSIDE HELP SHE CAN ASK. WE REVIEWED HER STROKE DIAGNOSIS, I PROVIDED AND REVIEWED THE STROKE EDUCATION BOOKLET AND HER MRI SCAN IDENTIFYING THE LOCATION OF THE EMBOLIC STROKES. I ANSWERED HER QUESTIONS. SHE IS WILLING TO GIVE HERSELF THE LOVENOX INJECTIONS WITH HELP OF HER AUNT, NEIGHBOR (BAKING ASSISTANT) AND NEIGHBORS FRIEND A NURSE. SHE WANTS TO GET HOME BY TOMORROW AND SHE HOW SHE DOES. SHE IS WELL AWARE OF HER DIAGNOSIS AND PROGNOSIS AND SHE IS TRYING TO PROCESS EVERYTHING. SHE VERY MUCH APPRECIATED OUR CONVERSATION AND THE INFORMATION I PROVIDED HER. I DID PROVIDE HER WITH MY OFFICE NUMBER IN CASE SHE HAS ADDITIONAL QUESTIONS. I WILL CONTINUE TO FOLLOW. Original Note: LATE ENTRY FOR 09/14/2023 0630 CONFIRMED THAT PATIENT PASSED SWALLOW SCREEN PRIOR TO PO MEDICATION. UNKNOWN ONSET, DISCOVERY 09/12/23 1545, ON ELIQUIS, NEW CANCER DX.
--- NOTE | 2023-09-17 12:02 | MHC.CM.PN ---
Per ROUNDS discussion, Patient is receiving 2 units of blood and is not yet medically cleared for dc. Home is the goal and CM will follow.
--- NOTE | 2023-09-17 14:08 | MHC.SL.SWA ---
Speech Pathologist Impression: Risk of aspiration d/t acute stroke Risk of Aspiration Due to: Medically Fragile Neurological Condition Dysphasia Diet Status: No changes at this time Liquid Consistency and Strategies for Safe Swallow: Liquid Intake Recommendation: Thin Liquid Intake Strategies: Small Sips Solid Food Consistency: Dietary Recommendations: Regular Additional Modifications to Solid Foods: Pt w/ mildly prolonged and slowed chewing, otherwise all other aspects of swallow WFL. Pt recommended to continue with REGULAR texture diet and THIN liquids, pills WHOLE in LIQUID. Recommend intermittent supervision to ensure tolerance. Pt w/ mildly dysarthric, garbled speech- COURT OF [place] JUDGE to f/u at bedside for tx and further assessment. Oral Medication Intake: Whole with Liquid Please contact the pharmacy regarding appropriate crushable or liquid drug formulations that are available whenever modified delivery is recommended. Compensatory Strategies and Precautions to be Taken for Safe Swallow: Sitting Upright (90 deg) Small Bites and Sips Alternate Liquids/Solids Rate of Ingestion Change Supervision While Eating and Drinking for Safe Swallow: Intermittent Supervision Recommendation for Speech: Inpatient Speech Therapy Comment: COURT OF APPEALS JUDGE to F/U for tx and further eval of mild dysarthria, garbled speech. Frequency/Duration: M-F PRN Date Range for Service Req: Timeline to reassess: Team Driver Clinican/Clinical Fellow: No Supervisory Statement: I have reviewed and agree with the student/clinical fellow's documentation: N/A Speech Language Pathologist: Bethany White M.A., [facility]
--- NOTE | 2023-09-17 16:20 | P.PNIM_ITS ---
Subjective Subjective Date of Service: 09/17/23 Interval History: Feels very frustrated regarding her medical conditions, no bowel movement in last several days, tolerating diet, no nausea, no vomiting, no headache, complaining of abdominal pain, noted to have drop in hematocrit, no active bleeding noted, no urinary symptoms. Review of Systems All other system reviewed and negative. Physical Exam 2 Vital Signs: Vital Signs: Last Vital Signs Temp 98 F 09/17/23 15: Pulse 81 09/17/23 15:23 Resp 17 09/17/23 15:23 BP 149/72 H 09/17/23 15:23 Pulse Ox 96 09/17/23 15:23 O2 Del Method Room Air 09/17/23 15:23 BMI result Body Mass Index 30.5 Const: Other: General awake alert x3, in no acute distress. Neck no JVD. CVS regular rate rhythm, Respiratory lungs clear to auscultation, no respiratory distress, no wheeze, no rhonchi. Gastrointestinal abdomen soft, non tender, bowel sounds audible, no guarding , no rigidity. Extremities no edema. Neuro mild left facial droop ,speech clear . Skin no rash Objective Data Active Medications Acetaminophen (Acetaminophen 325 Mg Tablet) 650 mg PO Q4H PRN PRN Reason: Fever >100.4 Amlodipine Besylate (Amlodipine Besylate 5 Mg Tablet) 5 mg PO DAILY [facility]; Protocol Last Admin: 09/17/23 08:14 Dose: 5 mg Documented By: PAT Benzonatate (Benzonatate 100 Mg Capsule) 100 mg PO TID PRN PRN Reason: Cough Docusate Sodium (Docusate Sodium 100 Mg Capsule) 100 mg PO DAILY [facility] Last Admin: 09/17/23 08:21 Dose: 100 mg Documented By: PAT Enoxaparin Sodium (Enoxaparin Sodium 80 Mg/0.8 Ml Syringe) 70 mg 1 mg/kg (70 mg) SUBCUT Q12H [facility] Last Admin: 09/17/23 13:19 Dose: 70 mg Documented By: PAT Lorazepam (Lorazepam 0.5 Mg Tablet) 0.5 mg PO Q8H PRN PRN Reason: Anxiety Last Admin: 09/17/23 09:26 Dose: 0.5 mg Documented By: PAT Melatonin (Melatonin 3 Mg Tablet) 6 mg PO BEDTIME PRN PRN Reason: Insomnia Last Admin: 09/14/23 22:31 Dose: 6 mg Multivitamins/Vitamin C (Multivitamin Tablet) 1 tab PO DAILY [facility] Last Admin: 09/17/23 08:14 Dose: 1 tab Documented By: PAT Omeprazole (Omeprazole 20 Mg Capsule.) 20 mg PO DAILY@0630 [facility] Last Admin: 09/17/23 06:30 Dose: 20 mg Documented By: WISAM Ondansetron HCl (Ondansetron Hcl 4 Mg/2 Ml Vial) 4 mg IVPUSH Q8H PRN PRN Reason: Nausea and Vomiting Oxycodone HCl (Oxycodone Hcl Immed Release 5 Mg Tablet) 5 mg PO Q6H PRN PRN Reason: Pain, Moderate(Pain Scale 4-6) Last Admin: 09/17/23 08:14 Dose: 5 mg Documented By: PAT Polyethylene Glycol (Polyethylene Glycol 3350 17 Gm Powd.Pack) 17 gm PO DAILY [facility] Last Admin: 09/17/23 09:26 Dose: 17 gm Documented By: PAT Sodium Chloride (0.9 % Sodium Chloride Flush 3 Ml Syringe) 3 ml IVFLUSH QSHIFT [facility] Last Admin: 09/17/23 14:11 Dose: Not Given Documented By: PAT Non-Admin Reason: IV Running Labs 09/16/23 05:46 09/17/23 07:28 Labs: Laboratory Results - last 24 hr 09/16/23 09/17/23 09/17/23 20:44 07:28 07:53 Hold Purple Top SEE NOTE Estim Creat Clear Calc 45.4 Estimated GFR 57 Random Vancomycin 17.3 Blood Type Antibody Screen Crossmatch 09/17/23 08:27 Hold Purple Top Estim Creat Clear Calc Estimated GFR Random Vancomycin Blood Type A Positive Antibody Screen NEGATIVE Crossmatch See Detail Microbiology Microbiology Results: Microbiology 09/13/23 23:57 Blood Culture - Final Blood - Venous Coag negative Staphylococcus Assessment and Plan (1) Cerebral infarct: Status: Acute (2) Pancreatic adenocarcinoma: Status: Acute (3) Hypertension: Status: Acute Plan 67-year-old female with a PMH significant for?HTN, HLD, GERD, pancreatic adenocarcinoma diagnosed in July 2023 with known metastasis to liver, and 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 Pt will be admitted to the hospital for further workup and treatment of acute cerebral and cerebellar infarcts. 1.Acute cerebral and cerebellar infarcts -s/p iv heparin drip x 48h,now on lovenox, persistent speech impairment (feels funny while conversing likely due to weakness with left facial droop) -echocardiogram showed no shunt, EF 67%, normal diastolic function, no wall motion abnormality, LDL 91, total cholesterol 146 rule give Diflucan attending carotid ultrasound, showed no significant stenosis -Neuro agrees that clinical picture most suggestive of cerebral infarction, he recommend to continue anticoagulation -speech therapy recommend regular diet and thin liquids, speech will follow-up for mild dysarthric and garbled speech and PT recommend home with family support 2.Pancreatic adenocarcinoma -pain control adequate, CT abdomen and pelvis showed pancreatic mass with liver Mets, stable LFTs., question brain Mets. -seen by Dr. Harris she recommend outpatient chemotherapy. 3.Mesenteric and splenic vein thrombosis -on Lovenox subq, will provide teaching stool administer Lovenox patient declines VNA services 4. Chronic normocytic Anemia -hemoglobin dropped due to cancer no acute blood loss will transfuse 2 units of packed RBC 5.Anxiety -Ativan p.r.n. 6.HTN -acceptable control on amlodipine, few high blood pressure readings likely due to anxiety will follow. 7. HLD Continue statin 8.SIRS Fever/tachycardia on IV vancomycin day 3 blood cultures 1/2 positive for coagulase negative Staph, IV vancomycin discontinued, WBC normalized CT abdomen and pelvis showed no acute infection no respiratory or urinary symptoms.fever likely due to cva/splenic thrombosis/cancer Full Code Requires ongoing hospitalization for evaluation of extensive clot burden and a nemia requiring blood transfusion.. Time Spent With Patient Time: Total time managing care of this patient today ____ minutes. Quality Stroke Does the patient have a stroke diagnosis?: Yes Reason for No Anti-thrombotic by Day Two: Contraindicated (Pt already on Eliquis, and outside of tPA therapeutic window) VTE Prior VTE?: No VTE Risk Level:: Medical - moderate - high VTE Device Contraindication: N/A - Device Ordered VTE Drug Contraindication: Treatment Not Tolerated
[2023-09-17] MEDS: Morphine Sulfate 4 MG/ML CARTRIDGE 3 MG IVPUSH ×2 (18:29→23:19)
[2023-09-18] MEDS: Enoxaparin Sodium 80 MG/0.8 ML SYRINGE 70 MG SUBCUT ×2 (00:04→14:26)
[2023-09-18 03:18] VITALS: BP 178/79; PULSE 80; RESP 20; TEMP 36.1; O2SAT 94
[2023-09-18] MEDS: Omeprazole 20 MG CAPSULE.DR PO (05:45)
[2023-09-18] MEDS: Morphine Sulfate 4 MG/ML CARTRIDGE 3 MG IVPUSH ×2 (05:45→10:42)
[2023-09-18 06:45] LABS: Hemoglobin 10.9 g/dl (12.0-16.0); Mean Corpuscular Hemoglobin 29.2 pg (27.0-33.0); Mean Corpuscular Volume 88.5 fL (80.0-98.0); Mean Platelet Volume 9.3 fL (9.4-12.3); Platelet Count 331 X10*3/uL (160-400); Red Blood Count 3.73 X10*6/uL (4.20-5.50); Red Cell Distribution Width 13.6 % (11.0-16.0); White Blood Count 9.6 X10*3/uL (4.8-10.8)
[2023-09-18 07:52] VITALS: BP 159/72; PULSE 81; RESP 20; TEMP 36.8; O2SAT 94
--- NOTE | 2023-09-18 10:17 | MHC.CM.PN ---
Per ROUNDS discussion, Patient will be dc to home today, self care at 2PM. CM met with Patient at bedside and addressed IMM with her, providing Patient with the original and a copy has been placed on the chart.
[2023-09-18] MEDS: Acetaminophen 325 MG TABLET 650 MG PO (10:43)
[2023-09-18] MEDS: polyethylene glycoL 3350 17 GM POWD.PACK PO (10:43)
[2023-09-18] MEDS: 0.9 % Sodium Chloride Flush 3 ML SYRINGE IVFLUSH (10:43)
[2023-09-18] MEDS: Multivitamin TABLET 1 TAB PO (10:44)
[2023-09-18] MEDS: Docusate Sodium 100 MG CAPSULE PO (10:44)
[2023-09-18] MEDS: amLODIPine Besylate 5 MG TABLET PO (10:44)
--- NOTE | 2023-09-18 10:59 | PM.DS ---
DS: Providers Provider Date of Service: 09/18/23 Date of admission: 09/13/23 13:46 Primary care physician: Quinton Neff MD Consults: 09/13/23 13:51 Consult to Cardiology Routine Consulting Provider: [facility] [place] [facility] Reason for consultation: Multiple brain infarcts, mesenteric/splenic vein thrombosis Consult to Neurology Routine Consulting Provider: [facility] Reason for consultation: MRI with multiple infarcts in brain 09/13/23 14:01 Consult to Hematology / Oncology Routine Consulting Provider: Laura Harris Reason for consultation: Pt w/metastatic pancreatic cancer DS: Diagnosis Discharge Diagnosis (1) Cerebral infarct: Status: Acute (2) Pancreatic adenocarcinoma: Status: Acute (3) Hypertension: Status: Acute DS: Summary Hospital Course Hospital Course: History of presenting illness: Date of Service: 09/13/23 Attending physician on admission: Mike Palacio Chief Complaint: Multiple brain infarcts on MRI Pt is a 67-year-old female with a PMH significant for?HTN, HLD, GERD, pancreatic adenocarcinoma diagnosed in July 2023 with known metastasis to liver, and 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 Patient initially denied to the ED on 08/09/2023 for evaluation of epigastric discomfort with weight loss for the past few months. CT of abdomen and pelvis found suspicious 3.4 cm mass in the head of the pancreas with indeterminate liver lesions suspicious for metastasis. Ultrasound-guided needle biopsy of liver mass was performed on 08/27/2023 which revealed adenocarcinoma likely with pancreatic origin. 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 Patient was started on Eliquis for anticoagulation. Patient began experiencing acute vision changes where her vision would become ?dhaliwal?, usually while watching TV. Often occurred in left eye, but occasionally in right. Pt underwent an MRI of the brain yesterday on 09/12/2023 which found multiple tiny acute infarcts involving both cerebral hemispheres and the cerebrum. Also found a tiny focus of restricted diffusion located within the right hippocampus which can be seen in the setting of transient global amnesia. Also found a few punctate foci of enhancement involving the cortical dhaliwal matter of the right frontal lobe of unclear etiology, intracranial metastasis cannot be ruled out. Source of brain emboli uncertain, and patient was sent to the ED by Oncology for further workup for possible [id number] shunt or other cardiogenic source. Patient will also have a Port-A-Cath placed while at the hospital today, has had her Eliquis stopped and has been NPO since midnight. Patient currently complains of central abdominal pain that wraps around to her, no well controlled with morphine. Patient also experienced some nausea, but no vomiting. Denies headache, no acute vision changes either today or yesterday. Denies chest pain/pressure, palpitations. Patient is anxious, unsettled, feels overwhelmed. In the ED with left patient a temperature 99 degrees, pulse 94, slightly soft BP of 135/50, satting at 100% on RA. Labs were significant for H&H 9.2/27.9, AST 248, ALT 122, alk-phos 512. Pt was treated with morphine, ondansetron, and IVF. Pt will be admitted to the hospital for further workup and treatment of acute cerebral and cerebellar infarcts. 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 1.Acute cerebral and cerebellar infarcts noted on MRI of brain patient treated with IV heparin x 48 hours and subsequently transition to Lovenox, patient noted to have mild speech impairment and left facial droop, otherwise no acute weakness, an echocardiogram showed no shunt EF 67%, normal diastolic function no wall motion abnormality LDL 91 with a total cholesterol of 146, carotid ultrasound showed no significant stenosis, patient seen by Neurology they agree that clinical picture most suggestive of cerebral infarction likely related to hyperviscosity from cancer patient seen by speech therapy and physical therapy no further therapy recommended. 2. In regard to Pancreatic adenocarcinoma patient seen by Dr. Harris she recommend outpatient chemotherapy, CT abdomen and pelvis showed pancreatic mass with liver Mets, stable LFTs. 3.Mesenteric and splenic vein thrombosis -on Lovenox subq, patient has received teaching to administer subQ Lovenox she declined VNA services. 4. Acute on Chronic normocytic Anemia due to underlying cancer received 2 units of packed RBC hematocrit improved 5.Anxiety recommend to continue Ativan p.r.n. 6.HTN acceptable control on amlodipine, few high blood pressure readings likely due to anxiety. 7. Patient met SIRS criteria with Fever/tachycardia initially treated with vancomycin blood culture grew coagulase-negative Staph therefore antibiotic discontinued there was no source of infection found. Time Spent with Patient Time attestation: Total time managing care of this patient today ____ minutes. Discharge coordination time: Greater than 30 minutes Quality: Safe Use of Opioids Does Pt have an Active Cancer Diagnosis on the Problem List?: No Quality: Stroke Does the patient have a stroke diagnosis?: No Physical Exam Vital Signs: Vital Signs: Last Vital Signs Temp 98.3 F 09/18/23 07:52 Pulse 81 09/18/23 07:52 Resp 20 09/18/23 07:52 BP 159/72 H 09/18/23 07:52 Pulse Ox 94 09/18/23 07:52 O2 Del Method Room Air 09/18/23 07:52 BMI result Body Mass Index 30.5 Const: Other: General awake alert x3, in no acute distress. Neck no JVD. CVS regular rate rhythm, Respiratory lungs clear to auscultation, no respiratory distress, no wheeze, no rhonchi. Gastrointestinal abdomen soft, mild mid abdominal tenderness, bowel sounds audible, no guarding , no rigidity. Extremities no edema. Neuro mild left facial droop ,speech clear . Skin no rash DS: Data Data Completed and Pending Labs on day of discharge: Laboratory Results - last 24 hr 09/17/23 09/18/23 08:27 05:54 WBC 9.6 RBC 3.73 L D Hgb 10.9 L D Hct 33.0 L D MCV 88.5 MCH 29.2 MCHC 33.0 RDW 13.6 Plt Count 331 MPV 9.3 L Absolute Nucleated RBC 0.000 Nucleated RBC % (auto) 0.0 Blood Type A Positive Antibody Screen NEGATIVE Crossmatch See Detail Preliminary micro results at discharge 09/13/23 23:51 Blood Culture - Preliminary Blood - Venous No growth after 48 hours. 09/13/23 12:07 Blood Culture - Preliminary Blood - Venous No growth after 48 hours. 09/13/23 12:03 Blood Culture - Preliminary Blood - Venous No growth after 48 hours. Discharge Plan Discharge Anticipated Discharge Date/Time: 09/18/23 10:55 Patient Disposition: Home, Self-Care Discharge Diagnosis: Acute cerebral and cerebellar infarction Mesenteric and splenic vein thrombosis Acute on chronic normocytic anemia Referrals: Po,Quinton Bragg MD [Primary Care Provider] - 1 Week Discharge Medications: New polyethylene glycol 3350 17 gram Powder In Packet 17 g PO DAILY Qty: 30 0RF enoxaparin 80 mg/0.8 mL Syringe 70 mg subcut Q12H Qty: 6 0RF Continued omeprazole 20 mg capsule,delayed release(DR/EC) 20 mg PO DAILY oxycodone 5 mg Capsule 5 mg PO Q6H PRN (Reason: Pain (Scale Score 4-6)) Qty: 30 0RF Rx Instructions: Partial Fill upon patient request. multivitamin Tablet 1 tab PO DAILY cranberry 400 mg capsule 400 mg PO DAILY Rx Instructions: administer with a meal amlodipine 5 mg tablet 5 mg PO DAILY Qty: 90 2RF lorazepam 0.5 mg tablet 0.5 mg PO BID PRN (Reason: anxiety) 90 Days Qty: 180 0RF Discontinued Eliquis 5 mg Tablet 5 mg PO BID Qty: 60 3RF Rx Instructions: Take 10 mg b.i.d. for 1 week followed by 5 mg b.i.d. Discharge Orders: Discharge Order (Routine); Ordered 09/18/23 Ordered By: Erik Gonzalez Diet: Advance to usual diet Activity on Discharge: As tolerated Stand Alone Forms: Patient Portal Discharge page Care Plan Goals: Take Lovenox subQ 70 mg twice daily Take MiraLax daily for constipation Health Concerns: Take all home medications as before Plan of Treatment: Follow-up with Dr. Harris for chemotherapy call for appointment Assessment: As above
[2023-09-18] MEDS: LORazepam 0.5 MG TABLET PO (11:18)
[2023-09-18 11:53] VITALS: BP 154/74; PULSE 81; RESP 20; TEMP 36.4; O2SAT 95
[2023-09-18 13:02] VITALS: BP 154/74; PULSE 81; O2SAT 95
[2023-09-18] MEDS: oxyCODONE HCl Immed Release 5 MG TABLET PO (14:25)
== END 2023-09-18 17:29 | disposition home or self-care (01) | DRG 65 ==
LOC: HO.ED 14:50 → HO.EDOVER 16:59 → HO.IMC 17:03
PROVIDERS: Hospitalist; Internal Medicine; Internal Medicine Cardiovascular Disease; Radiology Vascular & Interventional Radiology; Student in an Organized Health Care Education/Training Program; Admitting Provider Student in an Organized Health Care Education/Training Program; Emergency Provider Emergency Medicine Emergency Medical Services; PCP Internal Medicine; Visit Provider Hospitalist
PROC: 0JH63WZ Insertion of Totally Implantable Vascular Access Device into Chest Subcutaneous Tissue and Fascia, Percutaneous Approach (ICD-10-PCS; principal; 2023-09-13 14:30)
DX: I63.49 Cerebral infarction due to embolism of other cerebral artery (principal); C25.9 Malignant neoplasm of pancreas, unspecified; C78.7 Secondary malignant neoplasm of liver and intrahepatic bile duct; R65.10 Systemic inflammatory response syndrome (SIRS) of non-infectious origin without acute organ dysfunction; H54.7 Unspecified visual loss; D73.5 Infarction of spleen; E78.5 Hyperlipidemia, unspecified; D63.0 Anemia in neoplastic disease; R29.810 Facial weakness; K21.9 Gastro-esophageal reflux disease without esophagitis; F41.9 Anxiety disorder, unspecified; G89.3 Neoplasm related pain (acute) (chronic); I10 Essential (primary) hypertension; E78.00 Pure hypercholesterolemia, unspecified; Z20.822 Contact with and (suspected) exposure to COVID-19; Z79.01 Long term (current) use of anticoagulants; Z79.899 Other long term (current) drug therapy
CPT/HCPCS: 36415; 36561; 74176; 76937; 80048; 80053; 80061; 80076; 80202; 82565; 83605; 83615; 83690; 85025; 85027; 85610; 85730; 86850; 86900; 86901; 86923; 87040; 87147; 87205; 87502; 87635; 92610; 92950; 93005; 93306; 93880; 97116; 97161; 99152; 99153; 99285; C1769; C1788; J0131; J0690; J1642; J1643; J1650; J2060; J2250; J2270; J2405; J3010; J3370; J3371; P9016

== ENCOUNTER → 2023-09-13 12:04 | Outpatient (BNV) | payer MEDICARE, SELFPAY | PROVIDERS: Emergency Provider Emergency Medicine Emergency Medical Services; PCP Internal Medicine; Visit Provider Student in an Organized Health Care Education/Training Program | DX: I63.9 Cerebral infarction, unspecified (principal); C25.9 Malignant neoplasm of pancreas, unspecified; I10 Essential (primary) hypertension | CPT/HCPCS: 99223; 99233; 99239 ==

== ENCOUNTER 2023-09-13 13:46 | Outpatient (BNV) | payer MEDICARE, SELFPAY | END 2023-09-13 14:32 | PROVIDERS: Admitting Provider Student in an Organized Health Care Education/Training Program; Emergency Provider Emergency Medicine Emergency Medical Services; PCP Internal Medicine; Visit Provider Radiology Vascular & Interventional Radiology | DX: C25.9 Malignant neoplasm of pancreas, unspecified (principal) | CPT/HCPCS: 36561; 76937; 77001; 99152 ==

== ENCOUNTER 2023-09-13 13:46 | Outpatient (BNV) | payer MEDICARE, SELFPAY | END 2023-09-14 07:00 | PROVIDERS: Admitting Provider Student in an Organized Health Care Education/Training Program; Emergency Provider Emergency Medicine Emergency Medical Services; PCP Internal Medicine; Visit Provider Internal Medicine | DX: I34.0 Nonrheumatic mitral (valve) insufficiency (principal); I36.1 Nonrheumatic tricuspid (valve) insufficiency | CPT/HCPCS: 93306 ==

== ENCOUNTER → 2023-09-13 13:46 | Outpatient (BNV) | payer MEDICARE, SELFPAY | PROVIDERS: Admitting Provider Student in an Organized Health Care Education/Training Program; Emergency Provider Emergency Medicine Emergency Medical Services; PCP Internal Medicine; Visit Provider Internal Medicine | DX: I63.9 Cerebral infarction, unspecified (principal); C25.9 Malignant neoplasm of pancreas, unspecified | CPT/HCPCS: 99223 ==

== ENCOUNTER → 2023-09-13 13:46 | Outpatient (BNV) | payer MEDICARE, SELFPAY | PROVIDERS: Admitting Provider Student in an Organized Health Care Education/Training Program; Emergency Provider Emergency Medicine Emergency Medical Services; PCP Internal Medicine; Visit Provider Internal Medicine | DX: C25.9 Malignant neoplasm of pancreas, unspecified (principal); I63.9 Cerebral infarction, unspecified | CPT/HCPCS: 99222; 99232 ==

== ENCOUNTER 2023-09-22 09:02 | Emergency (ER) | payer MEDICARE, SELFPAY ==
[2023-09-22 09:13] VITALS: BP 152/64; BP 172/90; PULSE 106; PULSE 94; RESP 18; TEMP 37.3; O2SAT 99; BMI 25.7
--- NOTE | 2023-09-22 09:20 | ECG_ITS ---
Test Reason : MEDICATION Blood Pressure : / mmHG Vent. Rate : 090 BPM Atrial Rate : 090 BPM P-R Int : 134 ms QRS Dur : 062 ms QT Int : 346 ms P-R-T Axes : 041 059 037 degrees QTc Int : 423 ms Normal sinus rhythm Normal ECG When compared with ECG of 13-SEP-2023 12:09, No significant change was found Referred By: Tamika Kearns Electronically Signed By:MIKE FOX MD
--- NOTE | 2023-09-22 09:33 | ED_ITS ---
HPI - Nausea/Vomiting/Diarrhea General Chief complaint: Nausea/Vomiting/Diarrhea Stated complaint: NAUSEA STARTED CHEMO RECENTLY Time Seen by Provider: 09/22/23 09:06 Source: patient Mode of arrival: ambulatory History of Present Illness HPI Narrative: 67-year-old female with history of pancreatic mass/adenocarcinoma and underwent her 1st chemotherapy session on and then began developing nausea and vomiting ever since. Patient is unable to keep any food or water down and has complaints of abdominal pain that is radiating into her back. She denies any fevers or chills. Related Data Home Medications Medication Instructions Recorded Confirmed cranberry 400 mg capsule 400 mg PO DAILY 11/25/20 09/13/23 multivitamin 1 tab PO DAILY 11/25/20 09/13/23 omeprazole 20 mg capsule,delayed 20 mg PO DAILY 09/13/23 09/13/23 release Previous Rx's Medication Instructions Recorded amlodipine 5 mg tablet 5 mg PO DAILY #90 tabs 03/19/23 lorazepam 0.5 mg tablet 0.5 mg PO BID PRN anxiety 90 days 08/15/23 #180 tabs oxycodone 5 mg capsule 5 mg PO Q6H PRN Pain (Scale Score 09/04/23 4-6) #30 caps enoxaparin 80 mg/0.8 mL 70 mg (0.7 mL) subcut Q12H #6 mL 09/18/23 subcutaneous syringe polyethylene glycol 3350 17 gram 17 g PO DAILY #30 ea 09/18/23 oral powder packet enoxaparin 80 mg/0.8 mL 70 mg (0.7 mL) subcut Q12H #60 mL 09/20/23 subcutaneous syringe (Lovenox) metoclopramide HCl 5 mg tablet 5 mg PO BID-TID PRN Nausea #30 tabs 09/21/23 ondansetron HCl 8 mg tablet 8 mg PO Q8H PRN Nausea And 09/21/23 Vomiting #30 tabs Allergies Allergy/AdvReac Type Severity Reaction Status Date / Time No Known Allergies Allergy Verified 08/15/23 12:34 Review of Systems Review of Systems: Pertinent positives and negatives as stated in HPI PMFSH Past Medical History Source: nursing notes reviewed Medical History Pancreatic adenocarcinoma Pancreatic mass Hypertension Knee pain, right Blood pressure elevated without history of HTN Abnormal blood pressure Cholelithiasis Vitamin D deficiency Obesity (BMI 30-39.9) High cholesterol Hernia GERD (gastroesophageal reflux disease) Surgical History No pertinent past surgical history Family History Family History Father CVD (cardiovascular disease) Stroke Hypertension Mother Breast cancer Social History Social History Household Members: None Housing: House Alcohol intake: current Alcohol intake frequency: a few times a month Alcohol type: wine Patient Tobacco Use Status: Never used Tobacco e-Cigarette/Vaping Use: Never Used Second Hand Smoke Exposure: No Advance Directives: Yes Advance Directives Information Provided: No Advance Directives on File: No service: No Current occupational status: employed Cognitive needs: No Hearing needs: No Vision needs: Yes Physical Exam Vital Signs: Vital Signs: Last Vital Signs Temp 99.0 F 09/22/23 11:10 Pulse 87 09/22/23 11:10 Resp 16 09/22/23 11:10 BP 153/72 H 09/22/23 11:10 Pulse Ox 98 09/22/23 11:10 O2 Del Method Room Air 09/22/23 11:10 BMI result Body Mass Index 25.7 VITAL SIGNS: Reviewed. GENERAL: Well developed, well nourished, in no acute distress. HEAD: Normocephalic/atraumatic EYES: PERRLA, EOMI EARS: Ext canals without abnormality NOSE: Nares patent bilateral OROPHARYNX: no oral lesions noted, posterior pharynx clear, dry mucosa NECK: Supple, no adenopathy LUNGS: Normal breath sounds. No adventitious sounds or accessory muscle use. SpO2<99> CARDIOVASCULAR: Regular rate and rhythm without noted murmurs ABDOMEN: Soft, upper abdominal pain primarily over the epigastrium, non- distended with bowel sounds. MUSCULOSKELETAL: No tenderness, deformities, or effusions noted on gross inspection. EXTREMITIES: No cyanosis, clubbing or edema. SKIN: Inspection of the skin reveals no rashes NEUROLOGIC: Alert and oriented x 4. Strength and sensation to light touch were grossly intact x 4. Medications Administered Discontinued Medications Generic Name Dose Route Start Last Admin Trade Name Freq PRN Reason Stop Dose Admin Hydromorphone HCl 0.25 mg 10/28/23 09:20 09/22/23 09:46 Hydromorphone Hcl 0.5 Mg/0.5 Ml Syringe IVPUSH 09/22/23 09:21 0.25 mg ONCE ONE Administration Protocol Sodium Chloride 1,000 mls @ 999 mls/hr 09/22/23 09:30 09/22/23 09:46 Ns IV 09/22/23 10:30 999 mls/hr .Q1H1M JIAN Administration Ondansetron HCl 4 mg 09/22/23 09:20 09/22/23 09:46 Ondansetron Hcl 4 Mg/2 Ml Vial IVPUSH 09/22/23 09:21 4 mg ONCE ONE Administration Medical Decision Making Medical Decision Making MDM Narrative: 67-year-old female with history and clinical presentation consistent with chemotherapy-induced nausea and vomiting and subsequent development of dehydration and inability to take any medications. On re-evaluation patient is feeling much better, she is able to tolerate oral intake and has been reassured that if she takes the antinausea medications that have been prescribed that this will help to alleviate the nausea associated with current chemotherapy. She is otherwise discharged home in stable condition. Differential Diagnosis Differential Diagnoses: The differential diagnosis associated with the presentation includes Please see the discussion above Admission/Observation Consideration of admission/observation: Escalation of care including admission/observation considered Please see the discussion above Independent Interpretation I performed an independent interpretation of an: EKG Interpretation: Normal sinus rhythm, HR-90, no STEMI, ID/QRS/QTC is within normal limits, there is no QT prolongation External Record Review External record reviewed: Office record, Outpatient record, Prior outpatient labs and Prior outpatient radiology Discharge Plan Discharge Clinical Impression: Chemotherapy induced nausea and vomiting, Dehydration Patient Disposition: Home, Self-Care Instructions: Dehydration (ED), Eating During Cancer Treatment (DC), Chemo Induced Nausea and Vomiting (ED) Additional Instructions: 1. Please take the antinausea medication to help control your symptoms as well as remaining well hydrated. 2. Please follow-up with primary care as well as your oncologist on Sunday morning. Return to the ER for any worsening symptoms. Prescriptions: No Action omeprazole 20 mg capsule,delayed release(DR/EC) 20 mg PO DAILY polyethylene glycol 3350 17 gram Powder In Packet 17 g PO DAILY Qty: 30 0RF enoxaparin 80 mg/0.8 mL Syringe 70 mg subcut Q12H Qty: 6 0RF oxycodone 5 mg Capsule 5 mg PO Q6H PRN (Reason: Pain (Scale Score 4-6)) Qty: 30 0RF Rx Instructions: Partial Fill upon patient request. enoxaparin [Lovenox] 80 mg/0.8 mL Syringe 70 mg SUBCUT Q12H Qty: 60 4RF ondansetron HCl 8 mg Tablet 8 mg PO Q8H PRN (Reason: Nausea And Vomiting) Qty: 30 3RF metoclopramide HCl 5 mg Tablet 5 mg PO BID-TID PRN (Reason: Nausea) Qty: 30 3RF multivitamin Tablet 1 tab PO DAILY cranberry 400 mg capsule 400 mg PO DAILY Rx Instructions: administer with a meal amlodipine 5 mg tablet 5 mg PO DAILY Qty: 90 2RF lorazepam 0.5 mg tablet 0.5 mg PO BID PRN (Reason: anxiety) 90 Days Qty: 180 0RF Referrals: Laura Harris MD [Physician] - Po,Quinton Bragg MD [Primary Care Provider] -
[2023-09-22] MEDS: ondansetron HCL 4 MG/2 ML VIAL IVPUSH (09:46)
[2023-09-22] MEDS: 0.9 % Sodium Chloride 1,000 ML 999 ML IV (09:46)
[2023-09-22] MEDS: HYDROmorphone HCl 0.5 MG/0.5 ML SYRINGE 0.25 MG IVPUSH (09:46)
--- NOTE | 2023-09-22 10:04 | PC.NURSE ---
alert and oriented, respirations even and unlabored. s/p first chemo on with nausea/vomiting. IV established, fluids infusing, medicated per the JAN. continues to request ice chips/water patient educated on waiting after sharron for this. call grace within reach
[2023-09-22 11:10] VITALS: BP 153/72; PULSE 87; RESP 16; TEMP 37.2; O2SAT 98
--- NOTE | 2023-09-22 11:11 | PC.NURSE ---
reports improvement in pain and nausea but reporting that I still don't feel myself . patient has not vomited since arrival, provided with ice chips in an attempt to PO challenge.
--- NOTE | 2023-09-22 12:10 | PC.NURSE ---
call placed to aunt Deborah to pick patient up with no answer - message left, patient waiting in room until ride arrives.
[2023-09-22] MEDS: oxyCODONE HCl Immed Release 5 MG TABLET PO (12:40)
--- NOTE | 2023-09-22 12:43 | PC.NURSE ---
aunt at bedside to pharmacy picking tech patient to bring her home. educated both aunt and patient on effects of chemotherapy and what to expect. educated on following up with oncologist as soon as possible. medicated with pain medication per the MAR, educated that nausea and vomiting are to be expected and that is why she has the PRN medications for nausea. times of medication administration written on discharge paperwork and encouraged to take medications when they are able to be taken next.
== END 2023-09-22 12:51 | disposition home or self-care (01) ==
PROVIDERS: Emergency Provider Student in an Organized Health Care Education/Training Program; PCP Internal Medicine
DX: R11.2 Nausea with vomiting, unspecified (principal); E86.0 Dehydration; T45.1X5A Adverse effect of antineoplastic and immunosuppressive drugs, initial encounter; Y92.9 Unspecified place or not applicable; C25.9 Malignant neoplasm of pancreas, unspecified; Z92.21 Personal history of antineoplastic chemotherapy; E78.00 Pure hypercholesterolemia, unspecified; Z79.01 Long term (current) use of anticoagulants; Z79.899 Other long term (current) drug therapy
CPT/HCPCS: 93005; 96361; 96374; 96375; 99284; 99285; J1170; J2405

== ENCOUNTER 2023-09-29 01:31 | Emergency (ER) | payer MEDICARE, SELFPAY ==
--- NOTE | 2023-09-29 | ECG_ITS ---
Test Reason : tachy Blood Pressure : / mmHG Vent. Rate : 104 BPM Atrial Rate : 104 BPM P-R Int : 140 ms QRS Dur : 068 ms QT Int : 318 ms P-R-T Axes : 079 021 019 degrees QTc Int : 418 ms Sinus tachycardia Otherwise normal ECG When compared with ECG of 22-SEP-2023 09:25, No significant change was found Referred By: Generic ED Physician Electronically Signed By:MIKE FOX MD
[2023-09-29 01:39] VITALS: BP 160/80; PULSE 125; O2SAT 98; BMI 21.3
[2023-09-29 01:43] VITALS: BP 129/63; PULSE 109; RESP 18; TEMP 37.7; O2SAT 97
--- NOTE | 2023-09-29 02:16 | ED.NAVMDI ---
HPI - Nausea/Vomiting/Diarrhea General Chief complaint: Nausea/Vomiting/Diarrhea Stated complaint: Nausea Vomming Time Seen by Provider: 09/29/23 02:16 Source: patient Mode of arrival: ambulatory Limitations: no limitations History of Present Illness HPI Narrative: Patient is 67 years old with metastatic pancreatic adenocarcinoma diagnosed in 07/20023 started on chemotherapy gemcitabine and Nab paclitaxel 2nd cycle was given on 09/26 complaining of increased nausea and vomiting and abdominal pain noticed to have a temperature of a 100 degrees on arrival no cough no upper respiratory symptoms no significant shortness of breath Related Data Home Medications Medication Instructions Recorded Confirmed cranberry 400 mg capsule 400 mg PO DAILY 11/25/20 09/13/23 multivitamin 1 tab PO DAILY 11/25/20 09/13/23 omeprazole 20 mg capsule,delayed 20 mg PO DAILY 09/13/23 09/13/23 release Previous Rx's Medication Instructions Recorded amlodipine 5 mg tablet 5 mg PO DAILY #90 tabs 03/19/23 lorazepam 0.5 mg tablet 0.5 mg PO BID PRN anxiety 90 days 08/15/23 #180 tabs oxycodone 5 mg capsule 5 mg PO Q6H PRN Pain (Scale Score 09/04/23 4-6) #30 caps enoxaparin 80 mg/0.8 mL 70 mg (0.7 mL) subcut Q12H #6 mL 09/18/23 subcutaneous syringe polyethylene glycol 3350 17 gram 17 g PO DAILY #30 ea 09/18/23 oral powder packet enoxaparin 80 mg/0.8 mL 70 mg (0.7 mL) subcut Q12H #60 mL 09/20/23 subcutaneous syringe (Lovenox) metoclopramide HCl 5 mg tablet 5 mg PO BID-TID PRN Nausea #30 tabs 09/21/23 ondansetron HCl 8 mg tablet 8 mg PO Q8H PRN Nausea And 09/21/23 Vomiting #30 tabs Magic Mouthwash 10 ml PO QID #240 mL 09/27/23 Diphen/Lido/Antacid 1:1:1 240 mL suspension oxycodone 5 mg tablet 5 mg PO Q6H PRN Breakthrough Pain, 09/27/23 Moderate #60 tabs Magic Mouthwash 10 ml PO QID PRN mouth pain #240 mL 09/29/23 Diphen/Nystat/Antacid 1:1:1 240 mL suspension Allergies Allergy/AdvReac Type Severity Reaction Status Date / Time No Known Allergies Allergy Verified 08/15/23 12:34 Review of Systems Review of Systems: Yes all other systems are reviewed and are negative [facility] Past Medical History Medical History Pancreatic adenocarcinoma Pancreatic mass Hypertension Knee pain, right Blood pressure elevated without history of HTN Abnormal blood pressure Cholelithiasis Vitamin D deficiency Obesity (BMI 30-39.9) High cholesterol Hernia GERD (gastroesophageal reflux disease) Surgical History No pertinent past surgical history Family History Family History Father CVD (cardiovascular disease) Stroke Hypertension Mother Breast cancer Social History Social History Household Members: None Housing: House Alcohol intake: current Alcohol intake frequency: a few times a month Alcohol type: wine Patient Tobacco Use Status: Never used Tobacco Smoked in Last 30 Days: No e-Cigarette/Vaping Use: Never Used Second Hand Smoke Exposure: No Advance Directives: No Advance Directives Information Provided: Yes service: No Current occupational status: employed Cognitive needs: No Hearing needs: No Vision needs: Yes Physical Exam Vital Signs: Vital Signs: Last Vital Signs Temp 98.8 F 09/29/23 06:00 Pulse 87 09/29/23 06:00 Resp 20 09/29/23 06:00 BP 106/44 L 09/29/23 06:00 Pulse Ox 93 09/29/23 03:55 O2 Del Method Room Air 09/29/23 03:55 BMI result Body Mass Index 21.3 Appearance: Alert. Oriented X3. No acute distress. Eyes: PERRLA, No Nystagmus ENT: Pharynx normal. Oral Mucosa moist mucositis+ Neck: Normal inspection. Neck supple. CVS: Normal heart rate and rhythm. Pulses normal. Respiratory: No respiratory distress. Equal air entry bilateral, no wheezing/rales/rhonchi Abdomen: Soft and use of apparent tenderness no rebound tenderness Bowel sounds are present, no mass palpable, no CVA tenderness Skin: Skin warm and dry. Normal skin color. Normal skin turgor. Extremities: No lower extremity edema. No calf tenderness Neuro: Oriented X 3. No motor deficit. No sensory deficit.No cerebellar signs , cranial nerves II-XII intact Medications Administered Discontinued Medications Generic Name Dose Route Start Last Admin Trade Name Conrad PRN Reason Stop Dose Admin Fluconazole 150 mg 09/29/23 05:36 09/29/23 05:44 Fluconazole 150 Mg Tablet PO 09/29/23 05:37 150 mg ONCE ONE Administration Sodium Chloride 1,000 mls @ 999 mls/hr 09/29/23 02:29 09/29/23 03:35 Ns IV 09/29/23 03:29 Infused .Q1H1M ONE Infusion Morphine Sulfate 4 mg 09/29/23 02:29 09/29/23 02:39 Morphine Sulfate 4 Mg/Ml Cartridge IVPUSH 09/29/23 02:30 4 mg ONCE ONE Administration Protocol Ondansetron HCl 4 mg 09/29/23 02:29 09/29/23 02:39 Ondansetron Hcl 4 Mg/2 Ml Vial IVPUSH 09/29/23 02:30 4 mg ONCE ONE Administration Medical Decision Making Medical Decision Making [facility] Narrative: Patient post chemotherapy with mucositis with discharge patient home on magic mouthwash. Differential Diagnosis Differential Diagnoses: The differential diagnosis associated with the presentation includes Mucositis/candidiasis Lab Data [facility] Lab Attestation statement: I reviewed the patient's lab results. 09/29/23 02:15 09/29/23 02:15 Labs: Lab Results 09/29/23 09/29/23 Range/Units 02:15 02:50 WBC 9.3 (4.8-10.8) X10*3/uL RBC 2.99 L (4.20-5.50) X10*6/uL Hgb 8.7 L (12.0-16.0) g/dl Hct 26.2 L (37.0-47.0) % MCV 87.6 (80.0-98.0) fL MCH 29.1 (27.0-33.0) pg MCHC 33.2 (31.0-35.0) g/dl RDW 15.7 (11.0-16.0) % Plt Count TNP MPV 12.1 (9.4-12.3) fL Immature Gran % (Auto) 1.4 H (0.0-0.4) % Neut % (Auto) 95.0 H (45-73) % Lymph % (Auto) 2.4 L (20-40) % Cascade % (Auto) 0.1 L (2-11) % Eos % (Auto) 0.2 (0-4) % Baso % (Auto) 0.9 (0-2) % Lymph # (Auto) 0.2 L (1.2-4.9) X10*3/uL Cascade # (Auto) 0.0 L (0.1-1.2) X10*3/uL Eos # (Auto) 0.0 (0.0-0.4) X10*3/uL Baso # (Auto) 0.1 (0.0-0.2) X10*3/uL Abs Immat Gran (auto) 0.13 H (0.00-0.03) X10*3/uL Absolute Neuts (auto) 8.8 H (2.0-8.3) x10*3/uL Absolute Nucleated RBC 0.000 (0.0-0.012) X10*3/uL Nucleated RBC % (auto) 0.0 (0.0-0.2) /100WBC Smear Tech's Comments VERIFIED Sodium 134 L (135-145) mmol/L Potassium 4.7 D (3.3-5.1) mmol/L Chloride 104 (96-108) mmol/L Carbon Dioxide 18 L (22-29) mmol/L Anion Gap 17 (12-20) BUN 26 H (9-16) mg/dL Creatinine 1.27 (0.5-1.4) mg/dL Estim Creat Clear Calc 46.2 Estimated GFR 42 Random Glucose 115 (60-115) mg/dL Lactic Acid 1.6 (0.5-2.0) mmol/L Calcium 8.2 L D (8.4-10.2) mg/dL Total Bilirubin 2.2 H (0.0-1.0) mg/dL AST 213 H (5-31) U/L ALT 205 H (0-31) U/L Alkaline Phosphatase 522 H (39-117) U/L Total Protein 6.1 L (6.5-8.0) g/dL Albumin 2.7 L (3.5-5.0) g/dL Lipase 5 L (8-78) U/L COVID-19 ([facility]) Negative (Negative) COVID-19 Clin Com See Note Discharge Plan Discharge Clinical Impression: Pancreatic cancer, Acute mucositis Patient Disposition: Home, Self-Care Instructions: Pancreatic Cancer (DC), Oral Mucositis (ED) Additional Instructions: Use magic mouthwash Drink plenty of fluids Follow-up with your oncologist Prescriptions: New Magic Mouthwash Diphen/Nystat/Antacid 1:1:1 240 mL suspension 10 ml PO QID PRN (Reason: mouth pain) Qty: 240 0RF Rx Instructions: nystatin 100,000 unit/mL oral suspension 80 mL; diphenhydramine 12.5 mg/5 mL oral liquid 80 mL; aluminum-mag hydroxide-simethicone 400 mg-400 mg-40 mg/5 mL oral susp 80 mL; Per 240 mL No Action omeprazole 20 mg capsule,delayed release(DR/EC) 20 mg PO DAILY polyethylene glycol 3350 17 gram Powder In Packet 17 g PO DAILY Qty: 30 0RF enoxaparin 80 mg/0.8 mL Syringe 70 mg subcut Q12H Qty: 6 0RF oxycodone 5 mg Capsule 5 mg PO Q6H PRN (Reason: Pain (Scale Score 4-6)) Qty: 30 0RF Rx Instructions: Partial Fill upon patient request. enoxaparin [Lovenox] 80 mg/0.8 mL Syringe 70 mg SUBCUT Q12H Qty: 60 4RF ondansetron HCl 8 mg Tablet 8 mg PO Q8H PRN (Reason: Nausea And Vomiting) Qty: 30 3RF metoclopramide HCl 5 mg Tablet 5 mg PO BID-TID PRN (Reason: Nausea) Qty: 30 3RF Magic Mouthwash Diphen/Lido/Antacid 1:1:1 240 mL Suspension 10 ml PO QID Qty: 240 3RF Rx Instructions: Lidocaine Viscous 2 % 80mL; diphenhydramine 12.5 mg/5 mL 80mL; aluminum-mag hydrox-simeth [id number]/5mL 80mL oxycodone 5 mg Tablet 5 mg PO Q6H PRN (Reason: Breakthrough Pain, Moderate) Qty: 60 0RF Rx Instructions: Partial Fill upon patient request. multivitamin Tablet 1 tab PO DAILY cranberry 400 mg capsule 400 mg PO DAILY Rx Instructions: administer with a meal amlodipine 5 mg tablet 5 mg PO DAILY Qty: 90 2RF lorazepam 0.5 mg tablet 0.5 mg PO BID PRN (Reason: anxiety) 90 Days Qty: 180 0RF Interventions: ED Discharge Assessment Last Done: 09/29/23 05:49
[2023-09-29] MEDS: ondansetron HCL 4 MG/2 ML VIAL IVPUSH (02:39)
[2023-09-29] MEDS: Morphine Sulfate 4 MG/ML CARTRIDGE IVPUSH (02:39)
[2023-09-29] MEDS: 0.9 % Sodium Chloride 1,000 ML 999 ML IV (02:39)
[2023-09-29 02:44] LABS: Basophils Absolute Auto 0.1 X10*3/uL (0.0-0.2); Basophils Percent Auto 0.9 % (0-2); Eosinophils Percent Auto 0.2 % (0-4); Hematocrit 26.2 % (37.0-47.0); Hemoglobin 8.7 g/dl (12.0-16.0); Imm Gran Abs Auto 0.13 X10*3/uL (0.00-0.03); Imm Gran Pct Auto 1.4 % (0.0-0.4); Lymphocytes Absolute Auto 0.2 X10*3/uL (1.2-4.9); Lymphocytes Percent Auto 2.4 % (20-40); MANUAL DIFF FLAG SCAN; Mean Corpuscular HGB Conc 33.2 g/dl (31.0-35.0); Mean Corpuscular Hemoglobin 29.1 pg (27.0-33.0); Mean Corpuscular Volume 87.6 fL (80.0-98.0); Mean Platelet Volume 12.1 fL (9.4-12.3); Monocytes Percent Auto 0.1 % (2-11); Neutrophils Absolute Auto 8.8 x10*3/uL (2.0-8.3); PLT CLUMP 1; Red Blood Count 2.99 X10*6/uL (4.20-5.50); Red Cell Distribution Width 15.7 % (11.0-16.0); SCAN SMEAR FLAG 1
[2023-09-29 02:45] LABS: Alanine Aminotransferase 205 U/L (0-31); Albumin Level 2.7 g/dL (3.5-5.0); Alkaline Phosphatase 522 U/L (39-117); Anion Gap 17 (12-20); Aspartate Amino Transferase 213 U/L (5-31); Bilirubin Total 2.2 mg/dL (0.0-1.0); Blood Urea Nitrogen 26 mg/dL (9-16); Calcium 8.2 mg/dL (8.4-10.2); Carbon Dioxide 18 mmol/L (22-29); Chloride 104 mmol/L (96-108); Creatinine Clr Calc Pharmacy 46.2; Estimated Glomerular Filt Rate 42; Glucose Random 115 mg/dL (60-115); Lipase 5 U/L (8-78); Potassium 4.7 mmol/L (3.3-5.1); Sodium 134 mmol/L (135-145); Total Protein 6.1 g/dL (6.5-8.0)
[2023-09-29 02:51] LABS: Lactic Acid 1.6 mmol/L (0.5-2.0)
[2023-09-29 03:04] LABS: White Blood Count 9.3 X10*3/uL (4.8-10.8)
[2023-09-29 03:06] LABS: SLIDE REVIEW VERIFIED
--- NOTE | 2023-09-29 03:16 | PC.NURSE ---
This RN recommended to access port however pt does not want us to access it stating that whenever a nurse does, it hurts the entire time. . Placed a 20 in the R AC per pt request
[2023-09-29 03:18] LABS: COVID-19 Test Negative (Negative); IDNOW Serial# 6674DD1D
[2023-09-29 03:38] VITALS: BP 121/59; PULSE 97; RESP 21; TEMP 37.9; O2SAT 96
[2023-09-29 03:55] VITALS: BP 127/56; PULSE 97; RESP 21; O2SAT 93
[2023-09-29] MEDS: Fluconazole 150 MG TABLET PO (05:44)
[2023-09-29 06:00] VITALS: BP 106/44; PULSE 87; RESP 20; TEMP 37.1
--- NOTE | 2023-09-29 06:08 | PC.NURSE ---
called aunt, she will greens picker
--- NOTE | 2023-09-29 07:46 | PC.NURSE ---
assumed care of this pt at 0700. pt cleared for discharge and was waiting on her aunt to pick her up. pt brought to waiting room in wheelchair by this tech writer. b/p 130/63, hr 90, 95% r/a
== END 2023-09-29 07:38 | disposition home or self-care (01) ==
PROVIDERS: Emergency Provider Internal Medicine
DX: C25.9 Malignant neoplasm of pancreas, unspecified (principal); K12.30 Oral mucositis (ulcerative), unspecified; Z11.52 Encounter for screening for COVID-19; R11.2 Nausea with vomiting, unspecified; I10 Essential (primary) hypertension; E78.00 Pure hypercholesterolemia, unspecified; D64.9 Anemia, unspecified; Z79.01 Long term (current) use of anticoagulants; Z79.899 Other long term (current) drug therapy; Z92.21 Personal history of antineoplastic chemotherapy
CPT/HCPCS: 36415; 80053; 83605; 83690; 85025; 87040; 87635; 93005; 96361; 96374; 96375; 99284; 99285; J2270; J2405

== ENCOUNTER 2023-10-01 17:05 | Inpatient (IN) | payer MEDICARE, SELFPAY ==
[2023-10-01] VITALS (8 sets, daily range): BP systolic 111–136; BP diastolic 44–60; PULSE 80–96; RESP 12–18; TEMP 36.6–37.3; O2SAT 95–98; BMI 29.0; BMI 29.1
--- NOTE | ~2023-10-01 | CT_ITS ---
EXAMINATION: CT ABDOMEN AND PELVIS WITHOUT CONTRAST CLINICAL INFORMATION: Abdominal pain COMPARISON: Previous CT of the abdomen and pelvis most recent August 2023 TECHNIQUE: Multidetector volumetric imaging was performed from the superior aspect of the liver through the pubic symphysis. Sagittal and coronal reformatted images were obtained on the technologist's workstation. This CT examination was performed using dose optimization techniques as appropriate, variously including the following: *Automated exposure control *Adjustment of mA and/or kV according to patient size (this includes techniques or standardized protocols for targeted exams where dose is matched to indication/reason for exam; i.e. extremities or head) *Use of iterative reconstruction technique DLP: 415 mGy-cm FINDINGS: LUNG BASES: Bibasilar atelectasis or small infiltrates, left greater than right. Small left pleural effusion. LIVER, GALLBLADDER, AND BILIARY TREE: Multiple low-attenuation liver lesions suggestive of metastatic disease. This does not appear appreciably changed from exam August 2023. Fluid fluid level in the gallbladder. Gallbladder is normal in size. There is new mild gallbladder wall thickening. PANCREAS: Mass in the head of the pancreas is unchanged. This measures approximately 1 cm. SPLEEN: Low-attenuation in the spleen measuring 2 cm. Differential would include infarcts and metastasis. New from July 2020 exam. ADRENAL GLANDS: Unremarkable. KIDNEYS AND URETERS: The kidneys are normal in size, shape, and attenuation. No hydronephrosis, hydroureter. Small left renal stone. Bilateral low-attenuation renal lesions probably representing cysts. Subcentimeter high attenuation lesions in the left kidney probably representing hyperdense cysts. No imaging follow-up recommended. No perinephric stranding. BLADDER: Not optimally distended GASTROINTESTINAL TRACT: There is new wall thickening of the colon from the cecum/right colon to the mid left colon and wall edema suggestive of colitis. There is diverticulosis of the distal colon. No evidence of diverticulitis. Increasing small amount of ascites in the abdomen and pelvis. Normal appendix. Small esophageal hernia. ABDOMINAL WALL: No significant hernia is appreciated. LYMPH NODES: Difficult to evaluate without oral or IV contrast. VASCULAR: The abdominal aorta is normal in caliber. PELVIC VISCERA: Unremarkable. OSSEOUS STRUCTURES: Unremarkable. CT/CT abdomen pelvis wo IV con IMPRESSION: Pancreatic mass and numerous low-attenuation liver lesions suggestive of metastatic disease. This is similar to previous August 2023 exam. New Wall thickening and edema of the colon suggestive of colitis. Small amount of ascites Fluid fluid level in the gallbladder. Mild gallbladder wall thickening. No gallstones or biliary duct dilatation better evaluated with ultrasound if clinically indicated. 2 cm low-attenuation splenic lesion. Differential would include splenic infarct and metastasis. This is new from July 2023 exam. Fleischner guidelines were followed. Findings will be communicated by the [place] workflow personnel specialist.
--- NOTE | 2023-10-01 17:34 | ED_ITS ---
HPI - General Adult General Chief complaint: General Medical Stated complaint: low h&h Time Seen by Provider: 10/01/23 17:34 Source: patient Mode of arrival: ambulatory Limitations: no limitations History of Present Illness HPI narrative: Patient with metastatic adenocarcinoma of pancreas diagnosis 08/18 chemotherapy complaining of diffuse abdominal pain with nausea and vomiting with poor oral intake seen by oncologist sent her here as hemoglobin dropped to 7.9 creatinine is increased to 1.6 patient was seen here on 09/26 for same at that time patient has severe mucositis with candidiasis discharge after Diflucan and nystatin mouthwash patient unable to take any p.o. fluids getting weaker and weaker Related Data Home Medications Medication Instructions Recorded Confirmed omeprazole 20 mg capsule,delayed 20 mg PO DAILY 09/13/23 10/01/23 release polyethylene glycol 3350 17 gram 17 g PO DAILY PRN Constipation 10/01/23 10/01/23 oral powder packet Previous Rx's Medication Instructions Recorded amlodipine 5 mg tablet 5 mg PO DAILY #90 tabs 03/19/23 lorazepam 0.5 mg tablet 0.5 mg PO BID PRN anxiety 90 days 08/15/23 #180 tabs enoxaparin 80 mg/0.8 mL 70 mg (0.7 mL) subcut Q12H #60 mL 09/20/23 subcutaneous syringe (Lovenox) metoclopramide HCl 5 mg tablet 5 mg PO BID-TID PRN Nausea #30 tabs 09/21/23 ondansetron HCl 8 mg tablet 8 mg PO Q8H PRN Nausea And 09/21/23 Vomiting #30 tabs Magic Mouthwash 10 ml PO QID #240 mL 09/27/23 Diphen/Lido/Antacid 1:1:1 240 mL suspension oxycodone 5 mg tablet 5 mg PO Q6H PRN Breakthrough Pain, 09/27/23 Moderate #60 tabs Allergies Allergy/AdvReac Type Severity Reaction Status Date / Time adhesive tape Allergy Rash Verified 10/01/23 17:09 latex Allergy Rash Verified 10/01/23 17:07 Review of Systems 2 Review of Systems: Yes all other systems are reviewed and are negative PMFSH Past Medical History Medical History Pancreatic adenocarcinoma Pancreatic mass Hypertension Knee pain, right Blood pressure elevated without history of HTN Abnormal blood pressure Cholelithiasis Vitamin D deficiency Obesity (BMI 30-39.9) High cholesterol Hernia GERD (gastroesophageal reflux disease) Surgical History No pertinent past surgical history Family History Family History Father CVD (cardiovascular disease) Stroke Hypertension Mother Breast cancer Social History Social History Household Members: None Housing: House Do you presently have visiting nurse or other home services: No Alcohol intake: current Alcohol intake frequency: does not drink Alcohol type: wine Patient Tobacco Use Status: Never used Tobacco Smoked in Last 30 Days: No e-Cigarette/Vaping Use: Never Used Second Hand Smoke Exposure: No Use of substances other than those prescribed or required for medical reasons: No Currently Displaying Signs/Symptoms of Drug Intoxication Withdrawal: No Have you been hit, kicked, punched, or otherwise hurt by someone within the past year? If so, by whom?: No Do you feel safe in your current relationship?: Yes Is there a partner from a previous relationship who is making you feel unsafe now?: No Are you made to feel afraid or neglected: No Advance Directives: No Advance Directives Information Provided: No Do you have thoughts of harming others: None Do you have a plan to hurt others: No Plan Recently lost weight without trying: Yes How much weight loss: Unsure Eating poorly because of decreased appetite: Yes Nutrition screen score: 5 Nutrition Risks: Poor intake 0-25% >4 days Patient : No service: No Current occupational status: employed Cognitive needs: No Hearing needs: No Vision needs: Yes Physical Exam ED Vital Signs: Vital Signs - 24 hr 10/01/23 17:10 Temperature 98 F Pulse Rate 91 Respiratory Rate 18 Blood Pressure 122/60 Pulse Oximetry 98 Oxygen Delivery Method Room Air BMI result Body Mass Index 29.0 Appearance: Alert. Oriented X3. No acute distress. Eyes: PERRLA, pallor+ ENT: Oral Mucosa dry, oral thrush with mucositis Neck: Normal inspection. Neck supple. CVS: Normal heart rate and rhythm. Pulses normal. Respiratory: No respiratory distress. Equal air entry bilateral, no wheezing/rales/rhonchi Abdomen: Soft, diffuse abdominal tenderness no rebound tenderness or guarding Bowel sounds are present, no mass palpable, no CVA tenderness Skin: Skin warm and dry. Normal skin color. Normal skin turgor. Extremities: No lower extremity edema. No calf tenderness Neuro: Oriented X 3. No motor deficit. No sensory deficit.No cerebellar signs , cranial nerves II-XII intact Medications Administered Generic Name Dose Route Start Last Admin Trade Name Chivoq PRN Reason Stop Dose Admin Diphenhydramine HCl 12.5 mg 10/02/23 09:49 10/02/23 11:23 Diphenhydramine Hcl 50 Mg/Ml Vial IVPUSH 12.5 mg Q4H PRN Administration Itching Hydromorphone HCl 0.5 mg 10/01/23 18:41 10/02/23 19:38 Hydromorphone Hcl 0.5 Mg/0.5 Ml Syringe IVPUSH 0.5 mg Q4H PRN Administration Pain, Severe (Pain Scale 7-10) Protocol Dextrose/Sodium Chloride 1,000 mls @ 100 mls/hr 10/01/23 18:45 10/02/23 19:33 D51/2ns IVCONT 100 mls/hr .Q10H JIAN Administration Fluconazole 100 mg/ IV 50 mls @ 50 mls/hr 10/02/23 15:00 10/02/23 15:12 Miscellaneous Supplies IV Infused Q24H JIAN Infusion Lidocaine/Diphenhydr/Alum/Mg/Simeth 10 ml 10/02/23 07:07 10/02/23 19:38 Mag&Al/Sim/Diphenhyd/Lidocaine 10 Ml Oral.Susp PO 10 ml Q4H PRN Administration sore mouth Protocol Lorazepam 0.5 mg 10/01/23 18:36 10/02/23 01:00 Lorazepam 2 Mg/Ml Vial IVPUSH 0.5 mg Q6H PRN Administration Anxiety Sodium Chloride 3 ml 10/02/23 00:00 10/02/23 19:33 0.9 % Sodium Chloride Flush 3 Ml Syringe IVFLUSH 3 ml QSHIFT JIAN Administration Discontinued Medications Generic Name Dose Route Start Last Admin Trade Name Freq PRN Reason Stop Dose Admin Famotidine 20 mg 10/01/23 17:39 10/01/23 18:14 Famotidine/Pf 20 Mg/2 Ml Vial IVPUSH 10/01/23 17:40 20 mg ONCE ONE Administration Hydromorphone HCl 1 mg 10/01/23 17:39 10/01/23 18:12 Hydromorphone Hcl 1 Mg/Ml Syringe IVPUSH 10/01/23 17:40 1 mg ONCE ONE Administration Protocol Sodium Chloride 1,000 mls @ 999 mls/hr 10/01/23 17:36 10/01/23 19:15 Ns IV 10/01/23 18:36 Infused .Q1H1M ONE Infusion Fluconazole 400 mg in 200 mls @ 100 mls/hr 10/01/23 17:43 10/01/23 20:34 Diflucan IV 10/01/23 19:42 Infused ONCE ONE Infusion Sodium Chloride 100 mls @ 100 mls/hr 10/01/23 17:48 10/01/23 23:02 Ns IV 10/01/23 18:47 Infused ONCE ONE Infusion Ondansetron HCl 4 mg 10/01/23 17:39 10/01/23 18:13 Ondansetron Hcl 4 Mg/2 Ml Vial IVPUSH 10/01/23 17:40 4 mg ONCE ONE Administration Tbo-Filgrastim 300 mcg 10/01/23 17:38 10/01/23 18:31 Tbo-Filgrastim 300 Mcg/0.5 Ml Syringe SUBCUT 10/01/23 17:39 300 mcg ONCE ONE Administration Tbo-Filgrastim 300 mcg 10/02/23 12:00 10/02/23 14:11 Tbo-Filgrastim 300 Mcg/0.5 Ml Syringe SUBCUT 10/02/23 12:01 300 mcg ONCE ONE Administration Medical Decision Making Medical Decision Making [facility] Narrative: Patient with dehydration with SKINNY will admit patient for IV hydration IV Diflucan for oral thrush/esophagitis also give blood for anemia Differential Diagnosis Differential Diagnoses: The differential diagnosis associated with the presentation includes SKINNY/oral thrush/is esophagitis/failure to thrive Admission/Observation Consideration of admission/observation: Escalation of care including admission/observation considered Consult Healthcare Provider Management of the patient was discussed with: Hospitalist Lab Data [facility] Lab Attestation statement: I reviewed the patient's lab results. 10/02/23 05:25 10/02/23 05:25 Labs: Lab Results 10/01/23 Range/Units 18:08 Blood Type A Positive Antibody Screen NEGATIVE Crossmatch See Detail External Record Review External record reviewed: Inpatient record Discharge Plan Discharge Clinical Impression: Adenocarcinoma of pancreas, Mucositis, SKINNY (acute kidney injury) Patient Disposition: Admitted As Inpatient Interventions: Admission Worksheet (ED) Last Done: 10/01/23 23:03 Discharge Date/Time: 10/01/23 23:05
--- NOTE | 2023-10-01 18:11 | PHA.MEDREC ---
Pharmacy Consult ? Medication Reconciliation Pharmacy has completed the medication reconciliation. Patient reports medications. Report she was told to stop lovenox for now therefore I left medication unconfirmed. Faustina Hogue, MarcellD
[2023-10-01] MEDS: HYDROmorphone HCl 1 MG/ML SYRINGE IVPUSH (18:12)
[2023-10-01] MEDS: ondansetron HCL 4 MG/2 ML VIAL IVPUSH (18:13)
[2023-10-01] MEDS: Famotidine/PF 20 MG/2 ML VIAL IVPUSH (18:14)
[2023-10-01] MEDS: 0.9 % Sodium Chloride 1,000 ML 999 ML IV (18:14)
--- NOTE | 2023-10-01 18:23 | P.HPHOSP_ITS ---
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 She is on Lovenox and chemotherapy. She received her last chemotherapy dose on 09/26 and has since been very weak with poor oral intake and mucositis. She was started on diflucan but cannot take medications by mouth. She had lab work done today and was found to have pancytopenia. Dr. Harris recommends inpatient management for dehydration and renal failure. She advises holding Lovenox until platelets are greater than 70 and giving Neupogen for neutropenia. Review of Systems 2 Review of Systems: Gen: no fever, weak Resp: no sob, no cough CV: no chest, no MONT[place]GRO, no leg edema GI: No n/v, sores in mouth Neuro: No confusion [facility] Medical History Pancreatic adenocarcinoma Pancreatic mass Hypertension Knee pain, right Blood pressure elevated without history of HTN Abnormal blood pressure Cholelithiasis Vitamin D deficiency Obesity (BMI 30-39.9) High cholesterol Hernia GERD (gastroesophageal reflux disease) Family History Father CVD (cardiovascular disease) Stroke Hypertension Mother Breast cancer Surgical History No pertinent past surgical history Social History Household Members: None Housing: House Do you presently have visiting nurse or other home services: No Alcohol intake: current Alcohol intake frequency: does not drink Alcohol type: wine Patient Tobacco Use Status: Never used Tobacco Smoked in Last 30 Days: No e-Cigarette/Vaping Use: Never Used Second Hand Smoke Exposure: No Use of substances other than those prescribed or required for medical reasons: No Currently Displaying Signs/Symptoms of Drug Intoxication Withdrawal: No Have you been hit, kicked, punched, or otherwise hurt by someone within the past year? If so, by whom?: No Do you feel safe in your current relationship?: Yes Is there a partner from a previous relationship who is making you feel unsafe now?: No Are you made to feel afraid or neglected: No Advance Directives: No Advance Directives Information Provided: No Do you have thoughts of harming others: None Do you have a plan to hurt others: No Plan Recently lost weight without trying: Yes How much weight loss: Unsure Eating poorly because of decreased appetite: Yes Nutrition screen score: 5 Nutrition Risks: Poor intake 0-25% >4 days Patient : No service: No Current occupational status: employed Cognitive needs: No Hearing needs: No Vision needs: Yes Meds Allergies Allergy/AdvReac Type Severity Reaction Status Date / Time adhesive tape Allergy Rash Verified 10/01/23 17:09 latex Allergy Rash Verified 10/01/23 17:07 Active Medications: Current Medications Sodium Chloride (Ns) 1,000 mls @ 999 mls/hr IV .Q1H1M ONE Stop: 10/01/23 18:36 Last Admin: 10/01/23 18:14 Dose: 999 mls/hr Fluconazole (Diflucan) 400 mg in 200 mls @ 100 mls/hr IV ONCE ONE Stop: 10/01/23 19:42 Sodium Chloride (Ns) 100 mls @ 100 mls/hr IV ONCE ONE Stop: 10/01/23 18:47 Home Medications Medication Instructions Recorded Confirmed Last Taken Type omeprazole 20 mg capsule,delayed 20 mg PO DAILY 09/13/23 10/01/23 09/13/23 History release polyethylene glycol 3350 17 gram 17 g PO DAILY PRN Constipation 10/01/23 10/01/23 Unknown History oral powder packet Physical Exam 2 Vital Signs and Narrative: Vital Signs: Last Vital Signs Temp 98 F 10/01/23 17:10 Pulse 85 10/01/23 18:15 Resp 17 10/01/23 18:15 BP 134/50 L 10/01/23 18:15 Pulse Ox 98 10/01/23 18:15 O2 Del Method Room Air 10/01/23 17:10 BMI result Body Mass Index 29.0 Const: Other: Constitutional: Alert, in no distress, overweight. Mental Status: Oriented to person, place and time. Eyes: Pupils are equal, round and reactive to light. Ear, Nose and Throat: Oropharynx clear, mucous membranes moist. Ears and nose without eformities. Trachea midline. Respiratory: Clear to auscultation. No wheezing, rales or rhonchi. Cardiovascular: S1 S2 regular. No murmurs, rubs or gallops. Gastrointestinal: Abdomen soft, non-tender, non-distended. Normal bowel sounds.? Neurologic: Cranial nerves II-XII grossly intact. No focal neurological deficits. Moves all extremities spontaneously.? Skin: No rashes or lesions.? Musculoskeletal: No cyanosis or clubbing. Psychiatric: Normal mood and affect? 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 She is on chemotherapay and received last dose on 09/26 here with dehydration, SKINNY, Pancytopenia, failure to thrive. 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
[2023-10-01] MEDS: Tbo-Filgrastim 300 MCG/0.5 ML SYRINGE SUBCUT (18:31)
[2023-10-01] MEDS: Fluconazole in NaCl,Iso-Osm 400 MG/200 ML PIGGYBACK 100 MG IV (18:37)
--- NOTE | 2023-10-01 20:20 | PC.NURSE ---
Pt aox4 resting at the bedside. VSS. NSR on monitor with HR 83. Breaths even regular and unlabored with equal chest rises. One unit of RBC started with no complications. Monitoring ongoing.
[2023-10-01] MEDS: Dextrose 5 % and 0.45 % NaCl 1,000 ML 100 ML IVCONT (23:31)
[2023-10-01] MEDS: HYDROmorphone HCl 0.5 MG/0.5 ML SYRINGE IVPUSH (23:44)
[2023-10-02] MEDS: LORazepam 2 MG/ML VIAL 0.5 MG IVPUSH (01:00)
[2023-10-02 03:03] VITALS: BP 148/65; PULSE 105; RESP 18; TEMP 36.8; O2SAT 97
[2023-10-02] MEDS: HYDROmorphone HCl 0.5 MG/0.5 ML SYRINGE IVPUSH ×3 (05:37→19:38)
[2023-10-02 06:06] LABS: Hematocrit 25.2 % (37.0-47.0); Hemoglobin 8.4 g/dl (12.0-16.0); Mean Corpuscular HGB Conc 33.3 g/dl (31.0-35.0); Mean Corpuscular Hemoglobin 28.8 pg (27.0-33.0); Mean Corpuscular Volume 86.3 fL (80.0-98.0); Mean Platelet Volume 11.9 fL (9.4-12.3); Red Blood Count 2.92 X10*6/uL (4.20-5.50); Red Cell Distribution Width 15.7 % (11.0-16.0)
[2023-10-02 06:07] LABS: Platelet Count 34 X10*3/uL (160-400); White Blood Count 1.1 X10*3/uL (4.8-10.8)
[2023-10-02 06:16] LABS: Anion Gap 14 (12-20); Blood Urea Nitrogen 35 mg/dL (9-16); Carbon Dioxide 21 mmol/L (22-29); Chloride 103 mmol/L (96-108); Estimated Glomerular Filt Rate 43; Glucose Random 123 mg/dL (60-115); Potassium 3.9 mmol/L (3.3-5.1); Sodium 134 mmol/L (135-145)
[2023-10-02 07:10] VITALS: BP 129/60; PULSE 92; RESP 18; TEMP 37.3; O2SAT 95
--- NOTE | 2023-10-02 07:24 | P.PNIM_ITS ---
Subjective Subjective Date of Service: 10/02/23 Interval History: f/u on mouth sore, trouble eating, dedhydration and SKINNY Overall is feeling better today, renal function is better Physical Exam 2 Vital Signs: Vital Signs: Last Vital Signs Temp 99.1 F 10/02/23 07:10 Pulse 92 10/02/23 07:10 Resp 18 10/02/23 07:10 BP 129/60 10/02/23 07:10 Pulse Ox 95 10/02/23 07:10 O2 Del Method Room Air 10/02/23 07:10 BMI result Body Mass Index 29.1 Const: Other: General: AO X 3, no acute distress mouth-sores seems better Resp: CTA bilateral CVS: S1,S2,RRR GI: +BS, NT, no distention Skin: No rash Neuro: motor grossly intact Psych: appropriate affect Objective Data Active Medications Acetaminophen (Acetaminophen 325 Mg Tablet) 650 mg PO Q6H PRN PRN Reason: Pain, Mild (Pain Scale 1-3) Al Hydroxide/Mg Hydroxide (Magnesium Hydrox/Alum Hydrox 30 Ml Oral.Susp) 30 ml PO Q4H PRN PRN Reason: Heartburn/Nausea Hydromorphone HCl (Hydromorphone Hcl 0.5 Mg/0.5 Ml Syringe) 0.5 mg IVPUSH Q4H PRN; Protocol PRN Reason: Pain, Severe (Pain Scale 7-10) Last Admin: 10/02/23 05:37 Dose: 0.5 mg Documented By: CALVIN Dextrose/Sodium Chloride (D51/2ns) 1,000 mls @ 100 mls/hr IVCONT .Q10H JIAN Last Admin: 10/01/23 23:31 Dose: 100 mls/hr Documented By: CALVIN Lidocaine/Diphenhydr/Alum/Mg/Simeth (Mag&Al/Sim/Diphenhyd/Lidocaine 10 Ml Oral.Susp) 10 ml PO Q4H PRN; Protocol PRN Reason: sore mouth Lorazepam (Lorazepam 2 Mg/Ml Vial) 0.5 mg IVPUSH Q6H PRN PRN Reason: Anxiety Last Admin: 10/02/23 01:00 Dose: 0.5 mg Documented By: CALVIN Ondansetron HCl (Ondansetron Hcl 4 Mg/2 Ml Vial) 4 mg IVPUSH Q8H PRN PRN Reason: Nausea and Vomiting Sodium Chloride (0.9 % Sodium Chloride Flush 3 Ml Syringe) 3 ml IVFLUSH QSHIFT JIAN Last Admin: 10/02/23 00:07 Dose: Not Given Documented By: CALVIN Non-Admin Reason: IV Running Labs 10/02/23 05:25 10/02/23 05:25 Labs: Laboratory Results - last 24 hr 10/01/23 10/02/23 18:08 05:25 MCV 86.3 MCH 28.8 MCHC 33.3 RDW 15.7 Plt Count 34 L D MPV 11.9 Absolute Nucleated RBC 0.000 Nucleated RBC % (auto) 0.0 Anion Gap 14 Estim Creat Clear Calc 35.0 Estimated GFR 43 Random Glucose 123 H Calcium 8.0 L Blood Type A Positive Antibody Screen NEGATIVE Crossmatch See Detail Assessment and Plan (1) Mucositis: Status: Acute (2) SKINNY (acute kidney injury): Status: Acute (3) Pancreatic adenocarcinoma: Status: Acute Plan 67-year-old female with a PMH significant for?HTN, HLD, GERD, pancreatic adenocarcinoma diagnosed in July 2023 with known metastasis to liver, and 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 She is on chemotherapay and received last dose on 09/26 here with dehydration, SKINNY, Pancytopenia, failure to thrive. 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
--- NOTE | 2023-10-02 09:18 | MHC.CM.PN ---
pt lives alone had no servies ,pt has own ride home dc plan home no servies
[2023-10-02] MEDS: Mag&Al/Sim/Diphenhyd/Lidocaine 10 ML ORAL.SUSP PO ×2 (11:23→19:38)
[2023-10-02] MEDS: diphenhydrAMINE HCL 50 MG/ML VIAL 12.5 MG IVPUSH (11:23)
--- NOTE | 2023-10-02 13:58 | PM.HEMONCCN ---
Subjective - Subjective Chief complaint: Weakness Patient: known to practice within the last 3 years Consult date: 10/02/23 Primary Care Provider: Unknown Physician Medical Summary: Diagnosis: Metastatic pancreatic adenocarcinoma July 2023 She presented with a few months of epigastric discomfort and weight loss which she attributed to stress at work and hiatal hernia/GERD symptoms. She was asked to increase dose of PPI but presented to emergency department on 08/09/[address] with worsening symptoms. A CT abdomen/pelvis without contrast was performed which revealed a suspicious 3.4 cm mass in head of pancreas as well as few indeterminate liver lesions suspicious for metastasis. Ultrasound-guided core needle biopsy of liver mass in left lobe performed 08/27/2023 revealed adenocarcinoma, moderate to poorly differentiated favor pancreatic or biliary origin. MRI abdomen with contrast revealed 2.8 x 3.9 x 2.8 cm hypoenhancing mass in the head of pancreas. Distal atrophy of pancreas and dilatation and tortuosity of the main pancreatic duct up to 5 mm. Hepatic steatosis and numerous ill-defined rim enhancing lesions representing hepatic metastatic disease. No biliary ductal dilatation. Bulky abdominal lymphadenopathy. 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 CA 19 9 elevated, 519 U/mL. LDH elevated, 308 U/L, LFTs normal. HPI - Consult Narrative Reason for consult: Neutropenia, mucositis Narrative: Alee Rowan is a 67 year old female with recently diagnosed metastatic pancreatic cancer. She received 2nd cycle of chemotherapy a week ago and developed significant mucositis and thrush with dysphagia and mouth pain. Her appetite has been poor, she has had decreased oral intake and was feeling quite unwell overall. She was referred from office to emergency department for admission. She has developed pancytopenia and acute renal insufficiency secondary to dehydration. She has no fever or chills. She denies headache or dizziness. Her visual symptoms have resolved. She has abdominal pain but it is now better controlled. No dysuria, frequency or urgency. She was prescribed Magic mouthwash for thrush and oral mucositis but she was unable to tolerated. It made her nauseous. She has been seen in the emergency department a few times these past weeks. She reports diffuse body rash, she is allergic to adhesives and sheets in the hospital. Review of Systems - Constitutional Reports as per [facility] Oncology Screenings - ECOG Performance Status ECOG Performance Status: 1 PMFSH Medical History: Medical History (Last Reviewed 10/01/23 @ 17:51 by Akash Bey MD) Abnormal blood pressure Blood pressure elevated without history of HTN Cholelithiasis GERD (gastroesophageal reflux disease) Hernia High cholesterol Hypertension Knee pain, right Obesity (BMI 30-39.9) Pancreatic adenocarcinoma Pancreatic mass Vitamin D deficiency Family History: Family History (Last Reviewed 10/01/23 @ 17:51 by Akash Bey MD) Father CVD (cardiovascular disease) Stroke Hypertension Mother Breast cancer Surgical History: Surgical History (Last Reviewed 10/01/23 @ 17:51 by Akash Bey MD) No pertinent past surgical history Social History: Social History (Last Reviewed 10/01/23 @ 17:51 by Akash Bey MD) Living Situation History: Household Members: None Housing: House Do you presently have visiting nurse or other home services: No Alcohol History Details: 1. How often do you have a drink containing alcohol?: a. Never AUDIT-C Alcohol total score: 0 Currently Displaying Signs/Symptoms of Alcohol Withdrawal: No Tobacco History: Patient Tobacco Use Status: Never used Tobacco Smoked in Last 30 Days: No e-Cigarette/Vaping Use: Never Used Second Hand Smoke Exposure: No Substance Use History: Use of substances other than those prescribed or required for medical reasons: No Currently Displaying Signs/Symptoms of Drug Intoxication Withdrawal: No Domestic Abuse History: Have you been hit, kicked, punched, or otherwise hurt by someone within the past year? If so, by whom?: No Do you feel safe in your current relationship?: Yes Is there a partner from a previous relationship who is making you feel unsafe now?: No Are you made to feel afraid or neglected: No Advance Directives: Advance Directives: No Advance Directives Information Provided: No Homicidal Assessment: Do you have thoughts of harming others: None Do you have a plan to hurt others: No Plan Nutrition Assessment: Recently lost weight without trying: Yes How much weight loss: Unsure Eating poorly because of decreased appetite: Yes Nutrition screen score: 5 Nutrition Risks: Poor intake 0-25% >4 days Patient : No Occupation Assessmet: service: No Current occupational status: employed Home Medications and Allergies Current Medications: Current Medications Acetaminophen (Acetaminophen 325 Mg Tablet) 650 mg PO Q6H PRN PRN Reason: Pain, Mild (Pain Scale 1-3) Al Hydroxide/Mg Hydroxide (Magnesium Hydrox/Alum Hydrox 30 Ml Oral.Susp) 30 ml PO Q4H PRN PRN Reason: Heartburn/Nausea Diphenhydramine HCl (Diphenhydramine Hcl 50 Mg/Ml Vial) 12.5 mg IVPUSH Q4H PRN PRN Reason: Itching Last Admin: 10/02/23 11:23 Dose: 12.5 mg Hydromorphone HCl (Hydromorphone Hcl 0.5 Mg/0.5 Ml Syringe) 0.5 mg IVPUSH Q4H PRN; Protocol PRN Reason: Pain, Severe (Pain Scale 7-10) Last Admin: 10/02/23 11:44 Dose: 0.5 mg Dextrose/Sodium Chloride (D51/2ns) 1,000 mls @ 100 mls/hr IVCONT .Q10H [facility] Last Infusion: 10/02/23 09:11 Dose: Infused Fluconazole 100 mg/ IV (Miscellaneous Supplies) 50 mls @ 50 mls/hr IV Q24H [facility] Lidocaine/Diphenhydr/Alum/Mg/Simeth (Mag&Al/Sim/Diphenhyd/Lidocaine 10 Ml Oral.Susp) 10 ml PO Q4H PRN; Protocol PRN Reason: sore mouth Last Admin: 10/02/23 11:23 Dose: 10 ml Lorazepam (Lorazepam 2 Mg/Ml Vial) 0.5 mg IVPUSH Q6H PRN PRN Reason: Anxiety Last Admin: 10/02/23 01:00 Dose: 0.5 mg Ondansetron HCl (Ondansetron Hcl 4 Mg/2 Ml Vial) 4 mg IVPUSH Q8H PRN PRN Reason: Nausea and Vomiting Sodium Chloride (0.9 % Sodium Chloride Flush 3 Ml Syringe) 3 ml IVFLUSH QSHIFT [facility] Last Admin: 10/02/23 07:58 Dose: Not Given Home Medications Medication Instructions Recorded Confirmed Type omeprazole 20 mg capsule,delayed 20 mg PO DAILY 09/13/23 10/01/23 History release polyethylene glycol 3350 17 gram 17 g PO DAILY PRN Constipation 10/01/23 10/01/23 History oral powder packet Allergies Allergy/AdvReac Type Severity Reaction Status Date / Time adhesive tape Allergy Rash Verified 10/01/23 17:09 latex Allergy Rash Verified 10/01/23 17:07 Physical Exam Vital signs: Vital Signs Temp 99.1 F 10/02/23 07:10 Pulse 92 10/02/23 07:10 Resp 18 10/02/23 07:10 BP 129/60 10/02/23 07:10 Pulse Ox 95 10/02/23 07:10 O2 Del Method Room Air 10/02/23 07:10 Intake & Output 10/01/23 10/02/23 10/02/23 18:59 06:59 18:59 Intake Total 1650 / 1650 1999 Output Total 100 / 100 Balance 1550 / 1550 1999 Urine Output (Average ml/kg/hr) 0.13 0.13 Intake: Intake, Oral Amount 1000 / 1000 Intake (Blood Product) Amount 350 / 350 Red Blood Cells (E0382) Unit 350 / 350 [id number] Intake, IV Amount 1300 / 1300 1000 / 1000 0.9 % Sodium Chloride 1,000 ml 1000 / 1000 @ 999 mls/hr IV .Q1H1M ONE Rx#: [id number] 0.9 % Sodium Chloride 100 ml @ 100 / 100 100 mls/hr IV ONCE ONE Rx#: [id number] Fluconazole in NaCl,Iso-Osm 400 200 / 200 mg In 200 ml @ 100 mls/hr IV ONCE ONE Rx#:[id number] Dextrose 5 % and 0.45 % NaCl 1, 1000 / 1000 000 ml @ 100 mls/hr IVCONT . Q10H JIAN Rx#:[id number] Output: Output, Urine Amount 100 / 100 Other: Breakfast % Eaten 50% Lunch % Eaten 75% Number of Unmeasured Voids 2 1 Urine Bathroom Urine Color Nubia Last Bowel Movement 10/01/23 Weight 63 kg 63.2 kg Weight in Grams 09173 Weight 63.2 kg - Constitutional Present: mild distress, chronically ill appearing - Routine HEENT Exam Head: Present: normal inspection Eye: Present: normal appearance, conjunctivae pale, PERRL - Routine Neck Exam Present: supple. Absent: lymphadenopathy - Routine Respiratory Exam Present: CTAB - Routine Cardiovascular Exam Cardiovascular: Present: S1, S2 - Routine Extremities Exam Present: normal inspection - Routine Skin Exam Present: erythema Hem/Onc Consult Result - Labs CBC & Chem 7: 10/02/23 05:25 10/02/23 05:25 Labs: Short CBC 10/02/23 Range/Units 05:25 WBC 1.1 L (4.8-10.8) X10*3/uL Hgb 8.4 L (12.0-16.0) g/dl Hct 25.2 L (37.0-47.0) % Plt Count 34 L D (160-400) X10*3/uL BMP 10/02/23 05:25 Sodium 134 L Potassium 3.9 Chloride 103 Carbon Dioxide 21 L BUN 35 H Creatinine 1.24 Calcium 8.0 L Assessment and Plan Patient Active problem list reviewed?: Yes (1) Pancreatic adenocarcinoma Status: Acute Assessment and plan: 1. This is a 67-year-old woman who has been diagnosed with metastatic pancreatic adenocarcinoma in August 2023. Ultrasound-guided core needle biopsy of liver mass in left lobe performed 08/27/2023 revealed adenocarcinoma, moderate to poorly differentiated favor pancreatic or biliary origin. PET-CT performed 09/11/2023 revealed FDG avidity of primary lesion involving head of pancreas, SUV 13.1, multifocal PET avid disease in both lobes of liver. FDG activity incidentally noted in proximal ascending colon, direct visualization with endoscopy was recommended. Possible involvement of thoracic spine, osseous involvement not excluded. 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 She complained of vision problems which prompted brain MRI. 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 She started 1st cycle of chemotherapy with gemcitabine and Nab paclitaxel on 09/20/2023. She is now admitted for severe thrush/mucositis and acute kidney injury secondary to dehydration as well as pancytopenia. She is receiving IV fluids, IV fluconazole and Magic mouthwash. She is doing slightly better. For her neutropenia she has been started on Neupogen, recommend continue this daily until her WBC count is about 2.5 K. Because of thrombocytopenia, Lovenox is on hold. May be resumed when the platelets are at least above 70,000. Continue current management. Thank you. - Time Spent With Patient Time Spent with Patient (in minutes): 15
[2023-10-02] MEDS: Dextrose 5 % and 0.45 % NaCl 1,000 ML 100 ML IVCONT ×2 (14:10→19:33)
[2023-10-02] MEDS: Fluconazole in NaCl,Iso-Osm 100 MG in Container,Empty 0 ML 50 MG IV (14:11)
[2023-10-02] MEDS: Tbo-Filgrastim 300 MCG/0.5 ML SYRINGE SUBCUT (14:11)
[2023-10-02 16:00] VITALS: BP 122/57; PULSE 90; RESP 18; TEMP 37.9; O2SAT 97
[2023-10-02] MEDS: 0.9 % Sodium Chloride Flush 3 ML SYRINGE IVFLUSH (19:33)
[2023-10-02 19:41] VITALS: BP 150/67; PULSE 106; RESP 19; TEMP 37.7; O2SAT 96
[2023-10-03] VITALS (9 sets, daily range): BP systolic 130–152; BP diastolic 61–75; PULSE 75–95; RESP 14–18; TEMP 36.8–37.4; O2SAT 93–98; BMI 29.1
[2023-10-03] MEDS: HYDROmorphone HCl 0.5 MG/0.5 ML SYRINGE IVPUSH ×2 (01:17→14:35)
[2023-10-03] MEDS: ondansetron HCL 4 MG/2 ML VIAL IVPUSH ×3 (01:17→21:50)
[2023-10-03] MEDS: Mag&Al/Sim/Diphenhyd/Lidocaine 10 ML ORAL.SUSP PO ×2 (03:32→11:46)
[2023-10-03] MEDS: Dextrose 5 % and 0.45 % NaCl 1,000 ML 100 ML IVCONT ×2 (08:01→21:08)
[2023-10-03 08:34] LABS: Anion Gap 13 (12-20); Blood Urea Nitrogen 26 mg/dL (9-16); Carbon Dioxide 20 mmol/L (22-29); Chloride 103 mmol/L (96-108); Estimated Glomerular Filt Rate 43; Glucose Random 117 mg/dL (60-115); Potassium 3.9 mmol/L (3.3-5.1); Sodium 132 mmol/L (135-145)
[2023-10-03 08:47] LABS: Hematocrit 29.3 % (37.0-47.0); Hemoglobin 9.8 g/dl (12.0-16.0); Mean Corpuscular HGB Conc 33.4 g/dl (31.0-35.0); Mean Corpuscular Hemoglobin 29.3 pg (27.0-33.0); Mean Corpuscular Volume 87.7 fL (80.0-98.0); NRBC Pct Auto 13.7 /100WBC (0.0-0.2); Red Blood Count 3.34 X10*6/uL (4.20-5.50); Red Cell Distribution Width 15.9 % (11.0-16.0); White Blood Count 1.2 X10*3/uL (4.8-10.8)
[2023-10-03 08:55] LABS: Platelet Count 15 X10*3/uL (160-400)
--- NOTE | 2023-10-03 10:16 | PM.HEMONCPN ---
Medical Summary - Medical Summary Date of Service: 10/03/23 Chief complaint: Weakness, abdominal pain Primary Care Provider: Quinton Neff MD Medical Summary: Diagnosis: Metastatic pancreatic adenocarcinoma July 2023 She presented with a few months of epigastric discomfort and weight loss which she attributed to stress at work and hiatal hernia/GERD symptoms. She was asked to increase dose of PPI but presented to emergency department on 08/09/2023 with worsening symptoms. A CT abdomen/pelvis without contrast was performed which revealed a suspicious 3.4 cm mass in head of pancreas as well as few indeterminate liver lesions suspicious for metastasis. Ultrasound-guided core needle biopsy of liver mass in left lobe performed 08/27/2023 revealed adenocarcinoma, moderate to poorly differentiated favor pancreatic or biliary origin. MRI abdomen with contrast revealed 2.8 x 3.9 x 2.8 cm hypoenhancing mass in the head of pancreas. Distal atrophy of pancreas and dilatation and tortuosity of the main pancreatic duct up to 5 mm. Hepatic steatosis and numerous ill-defined rim enhancing lesions representing hepatic metastatic disease. No biliary ductal dilatation. Bulky abdominal lymphadenopathy. 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 CA 19 9 elevated, 519 U/mL. LDH elevated, 308 U/L, LFTs normal. Interval History Interval history: Alee continues to feel extremely weak, has intermittent abdominal pain as well as nausea. She had diarrhea last night. She does not feel any better. [facility] Medical History: Medical History (Last Reviewed 10/01/23 @ 17:51 by Akash Bey MD) Abnormal blood pressure Blood pressure elevated without history of HTN Cholelithiasis GERD (gastroesophageal reflux disease) Hernia High cholesterol Hypertension Knee pain, right Obesity (BMI 30-39.9) Pancreatic adenocarcinoma Pancreatic mass Vitamin D deficiency Family History: Family History (Last Reviewed 10/01/23 @ 17:51 by Akash Bey MD) Father CVD (cardiovascular disease) Stroke Hypertension Mother Breast cancer Surgical History: Surgical History (Last Reviewed 10/01/23 @ 17:51 by Akash Bey MD) No pertinent past surgical history Social History: Social History (Last Reviewed 10/01/23 @ 17:51 by Akash Bey MD) Living Situation History: Household Members: None Housing: House Do you presently have visiting nurse or other home services: No Alcohol History Details: 1. How often do you have a drink containing alcohol?: a. Never AUDIT-C Alcohol total score: 0 Currently Displaying Signs/Symptoms of Alcohol Withdrawal: No Tobacco History: Patient Tobacco Use Status: Never used Tobacco Smoked in Last 30 Days: No e-Cigarette/Vaping Use: Never Used Second Hand Smoke Exposure: No Substance Use History: Use of substances other than those prescribed or required for medical reasons: No Currently Displaying Signs/Symptoms of Drug Intoxication Withdrawal: No Domestic Abuse History: Have you been hit, kicked, punched, or otherwise hurt by someone within the past year? If so, by whom?: No Do you feel safe in your current relationship?: Yes Is there a partner from a previous relationship who is making you feel unsafe now?: No Are you made to feel afraid or neglected: No Advance Directives: Advance Directives: No Advance Directives Information Provided: No Homicidal Assessment: Do you have thoughts of harming others: None Do you have a plan to hurt others: No Plan Nutrition Assessment: Recently lost weight without trying: Yes How much weight loss: Unsure Eating poorly because of decreased appetite: Yes Nutrition screen score: 5 Nutrition Risks: Poor intake 0-25% >4 days Patient : No Occupation Assessmet: service: No Current occupational status: employed Home Medications and Allergies Current Medications: Current Medications Acetaminophen (Acetaminophen 325 Mg Tablet) 650 mg PO Q6H PRN PRN Reason: Pain, Mild (Pain Scale 1-3) Al Hydroxide/Mg Hydroxide (Magnesium Hydrox/Alum Hydrox 30 Ml Oral.Susp) 30 ml PO Q4H PRN PRN Reason: Heartburn/Nausea Diphenhydramine HCl (Diphenhydramine Hcl 50 Mg/Ml Vial) 12.5 mg IVPUSH Q4H PRN PRN Reason: Itching Last Admin: 10/02/23 11:23 Dose: 12.5 mg Hydromorphone HCl (Hydromorphone Hcl 0.5 Mg/0.5 Ml Syringe) 0.5 mg IVPUSH Q4H PRN; Protocol PRN Reason: Pain, Severe (Pain Scale 7-10) Last Admin: 10/03/23 01:17 Dose: 0.5 mg Dextrose/Sodium Chloride (D51/2ns) 1,000 mls @ 100 mls/hr IVCONT .Q10H [facility] Last Admin: 10/03/23 08:01 Dose: 100 mls/hr Fluconazole 100 mg/ IV (Miscellaneous Supplies) 50 mls @ 50 mls/hr IV Q24H [facility] Last Infusion: 10/02/23 15:12 Dose: Infused Lidocaine/Diphenhydr/Alum/Mg/Simeth (Mag&Al/Sim/Diphenhyd/Lidocaine 10 Ml Oral.Susp) 10 ml PO Q4H PRN; Protocol PRN Reason: sore mouth Last Admin: 10/03/23 03:32 Dose: 10 ml Lorazepam (Lorazepam 2 Mg/Ml Vial) 0.5 mg IVPUSH Q6H PRN PRN Reason: Anxiety Last Admin: 10/02/23 01:00 Dose: 0.5 mg Ondansetron HCl (Ondansetron Hcl 4 Mg/2 Ml Vial) 4 mg IVPUSH Q8H PRN PRN Reason: Nausea and Vomiting Last Admin: 10/03/23 09:17 Dose: 4 mg Sodium Chloride (0.9 % Sodium Chloride Flush 3 Ml Syringe) [facility] Last Admin: 10/03/23 09:10 Dose: Not Given Home Medications Medication Instructions Recorded Confirmed Type omeprazole 20 mg capsule,delayed 20 mg PO DAILY 09/13/23 10/01/23 History release polyethylene glycol 3350 17 gram 17 g PO DAILY PRN Constipation 10/01/23 10/01/23 History oral powder packet Allergies Allergy/AdvReac Type Severity Reaction Status Date / Time adhesive tape Allergy Rash Verified 10/01/23 17:09 latex Allergy Rash Verified 10/01/23 17:07 Exam Vital signs: Vital Signs Temp 99.1 F 10/03/23 07:14 Pulse 87 10/03/23 07:14 Resp 14 10/03/23 07:14 BP 130/61 10/03/23 07:14 Pulse Ox 96 10/03/23 07:14 O2 Del Method Room Air 10/03/23 07:14 Intake & Output 10/02/23 10/03/23 10/03/23 18:59 06:59 18:59 Intake Total 2049 / 3588.333 1538.333 / 3588.333 Output Total 0 / 0 Balance 0 / 3588.333 1538.333 / 3588.333 Urine Output (Average ml/kg/hr) 0.00 Intake: Intake, Oral Amount 1000 / 1000 Intake, IV Amount 1050 / 2588.333 1538.333 / 2588.333 Fluconazole in NaCl,Iso-Osm 100 50 / 50 mg In Container,Empty 0 ml @ 50 mls/hr IV Q24H [facility] Rx#: [id number] Dextrose 5 % and 0.45 % NaCl 1, 1000 / 2538.333 1538.333 / 2538.333 000 ml @ 100 mls/hr IVCONT . Q10H [facility] Rx#:[id number] Output: Output, Urine Amount 0 / 0 Other: NPO Yes Breakfast % Eaten 50% Lunch % Eaten 75% Number of Unmeasured Voids 1 1 Urine Bathroom Weight 63.2 kg BMI result Body Mass Index 29.1 - Constitutional Present: mild distress, chronically ill appearing - Routine HEENT Exam Head: Present: normal inspection - Routine Respiratory Exam Present: CTAB - Routine Cardiovascular Exam Cardiovascular: Present: S1, S2 - Routine Extremities Exam Present: normal inspection - Routine Skin Exam Present: erythema Data - Labs CBC & Chem 7: 10/03/23 07:54 10/03/23 07:54 Labs: 10/01/23 17:36 0.9 % Sodium Chloride [Ns] 1,000 ml IV 999 mls/hr 10/01/23 17:38 Tbo-Filgrastim [Granix] 300 mcg SUBCUT ONCE ONE 10/01/23 17:39 Famotidine/PF [Pepcid/PF] 20 mg IVPUSH ONCE ONE HYDROmorphone HCl [Dilaudid] 1 mg IVPUSH ONCE ONE ondansetron HCL [Zofran] 4 mg IVPUSH ONCE ONE 10/01/23 17:43 Fluconazole in NaCl,Iso-Osm [Diflucan] 400 mg in 200 ml IV ONCE 10/01/23 17:48 0.9 % Sodium Chloride [Ns] 100 ml IV ONCE 10/01/23 18:08 PRBC [Red Blood Cells] Stat Type and Screen Stat 10/01/23 18:37 Admission Assessment - Modified NOW 10/02/23 05:25 Basic Metabolic Panel DAILY@0600 Complete Blood Count no Diff DAILY@0600 10/02/23 12:00 Tbo-Filgrastim [Granix] 300 mcg SUBCUT ONCE ONE 10/03/23 07:54 Basic Metabolic Panel Routine Laboratory Last Values WBC 1.2 X10*3/uL (4.8-10.8) L 10/03/23 07:54 RBC 3.34 X10*6/uL (4.20-5.50) L 10/03/23 07:54 Hgb 9.8 g/dl (12.0-16.0) L 10/03/23 07:54 Hct 29.3 % (37.0-47.0) L 10/03/23 07:54 MCV 87.7 fL (80.0-98.0) 10/03/23 07:54 MCH 29.3 pg (27.0-33.0) 10/03/23 07:54 MCHC 33.4 g/dl (31.0-35.0) 10/03/23 07:54 RDW 15.9 % (11.0-16.0) 10/03/23 07:54 Plt Count 15 X10*3/uL (160-400) L* D 10/03/23 07:54 MPV Not Reportable 10/03/23 07:54 Absolute Nucleated RBC 0.160 X10*3/uL (0.0-0.012) H 10/03/23 07:54 Nucleated RBC % (auto) 13.7 /100WBC (0.0-0.2) H 10/03/23 07:54 Sodium 132 mmol/L (135-145) L 10/03/23 07:54 Potassium 3.9 mmol/L (3.3-5.1) 10/03/23 07:54 Chloride 103 mmol/L (96-108) 10/03/23 07:54 Carbon Dioxide 20 mmol/L (22-29) L 10/03/23 07:54 Anion Gap 13 (12-20) 10/03/23 07:54 BUN 26 mg/dL (9-16) H 10/03/23 07:54 Creatinine 1.24 mg/dL (0.5-1.4) 10/03/23 07:54 Estim Creat Clear Calc 35.0 10/03/23 07:54 Estimated GFR 43 10/03/23 07:54 Random Glucose 117 mg/dL (60-115) H 10/03/23 07:54 Calcium 8.0 mg/dL (8.4-10.2) L 10/03/23 07:54 Blood Type A Positive 10/01/23 18:08 Antibody Screen NEGATIVE 10/01/23 18:08 Crossmatch See Detail 10/01/23 18:08 Assessment and Plan Patient Active problem list reviewed?: Yes (1) Pancreatic adenocarcinoma Status: Acute Assessment and plan: 1. This is a 67-year-old woman who has been diagnosed with metastatic pancreatic adenocarcinoma in August 2023. Ultrasound-guided core needle biopsy of liver mass in left lobe performed 08/27/2023 revealed adenocarcinoma, moderate to poorly differentiated favor pancreatic or biliary origin. PET-CT performed 09/11/2023 revealed FDG avidity of primary lesion involving head of pancreas, SUV 13.1, multifocal PET avid disease in both lobes of liver. FDG activity incidentally noted in proximal ascending colon, direct visualization with endoscopy was recommended. Possible involvement of thoracic spine, osseous involvement not excluded. 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 She complained of vision problems which prompted brain MRI. 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 She started 1st cycle of chemotherapy with gemcitabine and Nab paclitaxel on 09/20/2023. She is now admitted for severe thrush/mucositis and acute kidney injury secondary to dehydration as well as pancytopenia. She is receiving IV fluids, IV fluconazole and Magic mouthwash. She is doing slightly better. For her neutropenia she has been started on Neupogen, recommend continue this daily until her WBC count is about 2.5 K. Because of thrombocytopenia, Lovenox is on hold. May be resumed when the platelets are at least above 70,000. Has worsening thrombocytopenia. Transfuse 1 unit platelets today. Start Prilosec 40 mg daily. Continue Neupogen daily until ANC above 1000. She has low-grade fever and diarrhea. CT abdomen showing changes of colitis. Start IV antibiotics. Rule out stool for C diff. Thank you. - Time Spent With Patient Time Spent with Patient (in minutes): 15
--- NOTE | 2023-10-03 10:54 | P.PNIM_ITS ---
Subjective Subjective Date of Service: 10/03/23 Interval History: f/u on mouth sore, trouble eating, dedhydration and SKINNY Doesn't feel well, blood count still low, plat down further Review of Systems Gen: no fever, weak Resp: no sob, no cough sores in mouth CV: no chest, no MONTENEGRO, no leg edema GI: No n/v, sores in mouth Neuro: No confusion Physical Exam 2 Vital Signs: Vital Signs: Last Vital Signs Temp 99.1 F 10/03/23 07:14 Pulse 87 10/03/23 07:14 Resp 14 10/03/23 07:14 BP 130/61 10/03/23 07:14 Pulse Ox 96 10/03/23 07:14 O2 Del Method Room Air 10/03/23 07:14 BMI result Body Mass Index 29.1 Const: Other: General: AO X 3, no acute distress mouth-sores seems better Resp: CTA bilateral CVS: S1,S2,RRR GI: +BS, NT, no distention Skin: No rash Neuro: motor grossly intact Psych: appropriate affect Objective Data Active Medications Acetaminophen (Acetaminophen 325 Mg Tablet) 650 mg PO Q6H PRN PRN Reason: Pain, Mild (Pain Scale 1-3) Al Hydroxide/Mg Hydroxide (Magnesium Hydrox/Alum Hydrox 30 Ml Oral.Susp) 30 ml PO Q4H PRN PRN Reason: Heartburn/Nausea Diphenhydramine HCl (Diphenhydramine Hcl 50 Mg/Ml Vial) 12.5 mg IVPUSH Q4H PRN PRN Reason: Itching Last Admin: 10/02/23 11:23 Dose: 12.5 mg Documented By: ADRIANNA Hydromorphone HCl (Hydromorphone Hcl 0.5 Mg/0.5 Ml Syringe) 0.5 mg IVPUSH Q4H PRN; Protocol PRN Reason: Pain, Severe (Pain Scale 7-10) Last Admin: 10/03/23 01:17 Dose: 0.5 mg Documented By: CARLOS Dextrose/Sodium Chloride (D51/2ns) 1,000 mls @ 100 mls/hr IVCONT .Q10H [facility] Last Admin: 10/03/23 08:01 Dose: 100 mls/hr Documented By: AALIYAH Fluconazole 100 mg/ IV (Miscellaneous Supplies) 50 mls @ 50 mls/hr IV Q24H [facility] Last Infusion: 10/02/23 15:12 Dose: Infused Documented By: ADRIANNA Sodium Chloride (Ns) 100 mls @ 100 mls/hr IV ONCE ONE Stop: 10/03/23 11:20 Lidocaine/Diphenhydr/Alum/Mg/Simeth (Mag&Al/Sim/Diphenhyd/Lidocaine 10 Ml Oral.Susp) 10 ml PO Q4H PRN; Protocol PRN Reason: sore mouth Last Admin: 10/03/23 03:32 Dose: 10 ml Documented By: JUANI Lorazepam (Lorazepam 2 Mg/Ml Vial) 0.5 mg IVPUSH Q6H PRN PRN Reason: Anxiety Last Admin: 10/02/23 01:00 Dose: 0.5 mg Documented By: CALVIN Ondansetron HCl (Ondansetron Hcl 4 Mg/2 Ml Vial) 4 mg IVPUSH Q8H PRN PRN Reason: Nausea and Vomiting Last Admin: 10/03/23 09:17 Dose: 4 mg Documented By: AALIYAH Sodium Chloride (0.9 % Sodium Chloride Flush 3 Ml Syringe) 3 ml IVFLUSH QSHIFT [facility] Last Admin: 10/03/23 09:10 Dose: Not Given Documented By: AALIYAH Non-Admin Reason: IV Running Labs 10/03/23 07:54 10/03/23 07:54 Labs: Laboratory Results - last 24 hr 10/03/23 07:54 MCV 87.7 MCH 29.3 MCHC 33.4 RDW 15.9 Plt Count 15 L* D MPV Not Reportable Absolute Nucleated RBC 0.160 H Nucleated RBC % (auto) 13.7 H Anion Gap 13 Estim Creat Clear Calc 35.0 Estimated GFR 43 Random Glucose 117 H Calcium 8.0 L Assessment and Plan (1) Mucositis: Status: Acute (2) SKINNY (acute kidney injury): Status: Acute (3) Pancreatic adenocarcinoma: Status: Acute Plan 67-year-old female with a PMH significant for?HTN, HLD, GERD, pancreatic adenocarcinoma diagnosed in July 2023 with known metastasis to liver, and 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 She is on chemotherapay and received last dose on 09/26 here with dehydration, SKINNY, Pancytopenia, failure to thrive. 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
[2023-10-03 10:55] LABS: Alanine Aminotransferase 113 U/L (0-31); Albumin Level 2.4 g/dL (3.5-5.0); Alkaline Phosphatase 384 U/L (39-117); Aspartate Amino Transferase 228 U/L (5-31); Bilirubin Direct 1.6 mg/dL (0.0-0.5); Bilirubin Total 2.3 mg/dL (0.0-1.0); Total Protein 5.3 g/dL (6.5-8.0)
[2023-10-03] MEDS: Tbo-Filgrastim 300 MCG/0.5 ML SYRINGE SUBCUT (11:37)
--- NOTE | 2023-10-03 13:29 | MHC.CLN ---
NUTRITION CONSULT FOR POOR PO. RECEIVING IV FLUIDS. DIET=CLEAR LIQUIDS. BOOST BREEZE BEING PROVIDED ALTERNATIVE TO ENSURE CLEAR. [employer] TID PROVIDES 750 KCALS, 27 G PROTEIN. STATED THAT DISLIKES BUT WILL TRY IF COLD. 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 ACCEPTED ONLY GISELLE GUS FROM [facility]. COMMUNICATED FOOD PREFERENCES WITH PATIENT AID AND DINING SERVICES. OFFERED INFORMATION FOR NUTRITION DURING CANCER TREATMENT; PATIENT DECLINED. FOLLOW FOR INTAKE AND DIET ADVANCEMENT. PROVIDE FOOD PREFERENCES ABLE.
--- NOTE | 2023-10-03 14:30 | MHC.CM.PN ---
EMR REVIEWED AND PER MD ROUNDS, PT NOT MEDICALLY CLEARED FOR DC (NEUTROPENIC,LOW PLT, SKINNY) CM WILL CONTINUE TO FOLLOW FOR CHANGE IN DC PLAN/NEEDS.
[2023-10-03] MEDS: diphenhydrAMINE HCL 50 MG/ML VIAL 12.5 MG IVPUSH ×2 (15:26→22:16)
[2023-10-03] MEDS: Omeprazole 40 MG CAPSULE.DR PO (16:01)
[2023-10-03] MEDS: Fluconazole in NaCl,Iso-Osm 100 MG in Container,Empty 0 ML 50 MG IV (16:06)
[2023-10-03] MEDS: metroNIDAZOLE/NS 500 MG/100 ML PIGGYBACK 100 MG IV (17:59)
[2023-10-03] MEDS: Piperacillin Sodium/Tazobactam 3.375 GM in 0.9 % Sodium Chloride 50 ML IV ×2 (19:29→23:35)
[2023-10-03] MEDS: 0.9 % Sodium Chloride Flush 3 ML SYRINGE IVFLUSH (21:50)
[2023-10-03] MEDS: LORazepam 2 MG/ML VIAL 0.5 MG IVPUSH (22:16)
[2023-10-03 23:33] LABS: CDiff Gene PCR NEGATIVE (Negative)
[2023-10-04] MEDS: metroNIDAZOLE/NS 500 MG/100 ML PIGGYBACK 100 MG IV ×3 (02:27→17:14)
[2023-10-04] MEDS: diphenhydrAMINE HCL 50 MG/ML VIAL 12.5 MG IVPUSH ×4 (02:31→23:30)
[2023-10-04] MEDS: ondansetron HCL 4 MG/2 ML VIAL IVPUSH (02:31)
[2023-10-04] MEDS: HYDROmorphone HCl 0.5 MG/0.5 ML SYRINGE IVPUSH (02:44)
[2023-10-04 03:15] VITALS: BP 126/63; PULSE 90; RESP 16; TEMP 37.2; O2SAT 93
[2023-10-04] MEDS: Omeprazole 40 MG CAPSULE.DR PO (05:31)
[2023-10-04] MEDS: Piperacillin Sodium/Tazobactam 3.375 GM in 0.9 % Sodium Chloride 50 ML IV ×3 (05:44→18:46)
[2023-10-04] MEDS: LORazepam 2 MG/ML VIAL 0.5 MG IVPUSH ×2 (05:49→23:31)
[2023-10-04 06:15] LABS: Hemoglobin 9.3 g/dl (12.0-16.0); Mean Corpuscular HGB Conc 33.2 g/dl (31.0-35.0); Mean Corpuscular Hemoglobin 28.9 pg (27.0-33.0); NRBC Pct Auto 15.9 /100WBC (0.0-0.2); Platelet Count 31 X10*3/uL (160-400); Red Blood Count 3.22 X10*6/uL (4.20-5.50); Red Cell Distribution Width 16.2 % (11.0-16.0); White Blood Count 4.7 X10*3/uL (4.8-10.8)
[2023-10-04 07:09] VITALS: BP 116/63; PULSE 87; RESP 16; TEMP 37.4; O2SAT 95
--- NOTE | 2023-10-04 10:26 | HO.PM.IMPN ---
Subjective Subjective Date of Service: 10/04/23 Interval History: Persistent mouth sore but better, Blood count better, no abdominal pain, Cdif negative Review of Systems Gen: no fever, weak Resp: no sob, no cough sores in mouth CV: no chest, no MONTENEGRO, no leg edema GI: No n/v, sores in mouth Neuro: No confusion Physical Exam Vital Signs: Vital Signs: Last Vital Signs Temp 99.3 F 10/04/23 07:09 Pulse 87 10/04/23 07:09 Resp 16 10/04/23 07:09 BP 116/63 10/04/23 07:09 Pulse Ox 95 10/04/23 07:09 O2 Del Method Room Air 10/04/23 07:09 BMI result Body Mass Index 29.1 Objective Data Active Medications Acetaminophen (Acetaminophen 325 Mg Tablet) 650 mg PO Q6H PRN PRN Reason: Pain, Mild (Pain Scale 1-3) Al Hydroxide/Mg Hydroxide (Magnesium Hydrox/Alum Hydrox 30 Ml Oral.Susp) 30 ml PO Q4H PRN PRN Reason: Heartburn/Nausea Diphenhydramine HCl (Diphenhydramine Hcl 50 Mg/Ml Vial) 12.5 mg IVPUSH Q4H PRN PRN Reason: Itching Last Admin: 10/04/23 02:31 Dose: 12.5 mg Documented By: JUANI Hydromorphone HCl (Hydromorphone Hcl 0.5 Mg/0.5 Ml Syringe) 0.5 mg IVPUSH Q4H PRN; Protocol PRN Reason: Pain, Severe (Pain Scale 7-10) Last Admin: 10/04/23 02:44 Dose: 0.5 mg Documented By: JUANI Dextrose/Sodium Chloride (D51/2ns) 1,000 mls @ 100 mls/hr IVCONT .Q10H [facility] Last Admin: 10/03/23 21:08 Dose: 100 mls/hr Documented By: JUANI Fluconazole 100 mg/ IV (Miscellaneous Supplies) 50 mls @ 50 mls/hr IV Q24H [facility] Last Infusion: 10/03/23 17:15 Dose: Infused Documented By: AALIYAH Metronidazole (Flagyl) 500 mg in 100 mls @ 100 mls/hr IV Q8H [facility] Last Infusion: 10/04/23 09:31 Dose: Infused Documented By: PARK Piperacillin Sod/Tazobactam (Sod 3.375 gm/ Sodium Chloride) 50 mls @ 100 mls/hr IV Q6H [facility] Last Infusion: 10/04/23 06:15 Dose: Infused Documented By: JUANI Lidocaine/Diphenhydr/Alum/Mg/Simeth (Mag&Al/Sim/Diphenhyd/Lidocaine 10 Ml Oral.Susp) 10 ml PO Q4H PRN; Protocol PRN Reason: sore mouth Last Admin: 10/03/23 11:46 Dose: 10 ml Documented By: AALIYAH Lorazepam (Lorazepam 2 Mg/Ml Vial) 0.5 mg IVPUSH Q6H PRN PRN Reason: Anxiety Last Admin: 10/04/23 05:49 Dose: 0.5 mg Documented By: JUANI Omeprazole (Omeprazole 40 Mg Capsule.Dr) 40 mg PO DAILY@0630 [facility] Last Admin: 10/04/23 05:31 Dose: 40 mg Documented By: JUANI Ondansetron HCl (Ondansetron Hcl 4 Mg/2 Ml Vial) 4 mg IVPUSH Q8H PRN PRN Reason: Nausea and Vomiting Last Admin: 10/03/23 21:50 Dose: 4 mg Documented By: JUANI Ondansetron HCl (Ondansetron Hcl 4 Mg/2 Ml Vial) 4 mg IVPUSH Q4H PRN PRN Reason: Nausea Last Admin: 10/04/23 02:31 Dose: 4 mg Documented By: JUANI Prochlorperazine Edisylate (Prochlorperazine Edisylate 10 Mg/2 Ml Vial) 5 mg IV Q4H PRN PRN Reason: Nausea Sodium Chloride (0.9 % Sodium Chloride Flush 3 Ml Syringe) 3 ml IVFLUSH QSHIFT [facility] Last Admin: 10/04/23 08:29 Dose: Not Given Documented By: PARK Non-Admin Reason: IV Running Labs 10/04/23 04:58 10/03/23 07:54 Labs: Laboratory Results - last 24 hr 10/01/23 10/03/23 10/03/23 18:08 07:54 Unknown MCV MCH MCHC RDW Plt Count MPV Absolute Nucleated RBC Nucleated RBC % (auto) Total Bilirubin 2.3 H Direct Bilirubin 1.6 H AST 228 H ALT 113 H Alkaline Phosphatase 384 H Total Protein 5.3 L Albumin 2.4 L C. difficile Tox B Gene NEGATIVE Blood Type A Positive Antibody Screen NEGATIVE Crossmatch See Detail 10/04/23 04:58 MCV 87.0 MCH 28.9 MCHC 33.2 RDW 16.2 H Plt Count 31 L D MPV Not Reportable Absolute Nucleated RBC 0.740 H Nucleated RBC % (auto) 15.9 H Total Bilirubin Direct Bilirubin AST ALT Alkaline Phosphatase Total Protein Albumin C. 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 She is on chemotherapay and received last dose on 09/26 here with dehydration, SKINNY, Pancytopenia, failure to thrive. SKINNY/Dehydration from inability to drink, resolved -continue IV fluid and monitor Cr while PO intake limited Pancytopenia--Transfused 1 unit of RBC 10/01, . H/H is improved. 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
[2023-10-04] MEDS: Dextrose 5 % and 0.45 % NaCl 1,000 ML 100 ML IVCONT ×2 (11:21→23:20)
[2023-10-04] MEDS: Fluconazole in NaCl,Iso-Osm 100 MG in Container,Empty 0 ML 50 MG IV (15:15)
[2023-10-04 15:54] VITALS: BP 126/60; PULSE 92; RESP 16; TEMP 36.9; O2SAT 97
[2023-10-04 19:29] VITALS: BP 125/61; PULSE 86; RESP 18; TEMP 36.5; O2SAT 96
[2023-10-05 00:22] VITALS: BP 129/61; PULSE 89; RESP 18; TEMP 36.8; O2SAT 96
[2023-10-05] MEDS: Piperacillin Sodium/Tazobactam 3.375 GM in 0.9 % Sodium Chloride 50 ML IV ×5 (00:30→23:56)
[2023-10-05] MEDS: 0.9 % Sodium Chloride Flush 3 ML SYRINGE IVFLUSH ×3 (00:30→20:46)
[2023-10-05] MEDS: metroNIDAZOLE/NS 500 MG/100 ML PIGGYBACK 100 MG IV ×3 (01:30→17:34)
--- NOTE | 2023-10-05 05:25 | PC.NURSE ---
pt said feels better than other days, she using the syringe for the moisturize the mouth and some drinks. provided incontinent of loose stool care and use bedside commode. pt c/o extremely itch throughout the body 12.5 mg of Benadryl is not working per pt. notified. new order received topical Benadryl cream. waiting for the pharmacy. will cont to monitor and provide pt's needs.
[2023-10-05] MEDS: Omeprazole 40 MG CAPSULE.DR PO (05:40)
[2023-10-05 06:21] LABS: Hematocrit 27.3 % (37.0-47.0); Hemoglobin 9.2 g/dl (12.0-16.0); Mean Corpuscular HGB Conc 33.7 g/dl (31.0-35.0); Mean Corpuscular Hemoglobin 28.6 pg (27.0-33.0); Mean Corpuscular Volume 84.8 fL (80.0-98.0); PLT CLUMP 1; Red Blood Count 3.22 X10*6/uL (4.20-5.50); Red Cell Distribution Width 16.2 % (11.0-16.0)
[2023-10-05 06:22] LABS: NRBC Pct Auto 5.7 /100WBC (0.0-0.2)
[2023-10-05 06:23] LABS: Platelet Count 46 X10*3/uL (160-400); White Blood Count 14.8 X10*3/uL (4.8-10.8)
[2023-10-05 07:35] LABS: Alanine Aminotransferase 50 U/L (0-31); Albumin Level 1.9 g/dL (3.5-5.0); Alkaline Phosphatase 337 U/L (39-117); Anion Gap 10 (12-20); Aspartate Amino Transferase 61 U/L (5-31); Bilirubin Total 1.1 mg/dL (0.0-1.0); Blood Urea Nitrogen 21 mg/dL (9-16); Calcium 7.4 mg/dL (8.4-10.2); Carbon Dioxide 20 mmol/L (22-29); Chloride 108 mmol/L (96-108); Estimated Glomerular Filt Rate 39; Glucose Random 99 mg/dL (60-115); Potassium 2.9 mmol/L (3.3-5.1); Sodium 135 mmol/L (135-145); Total Protein 4.2 g/dL (6.5-8.0)
[2023-10-05 07:55] VITALS: BP 127/61; PULSE 82; RESP 16; TEMP 37; O2SAT 97
[2023-10-05] MEDS: diphenhydrAMINE HCl 2 % Cream 28 GM TUBE 1 APPL TOPICAL ×2 (07:56→22:06)
--- NOTE | 2023-10-05 08:47 | PM.HEMONCPN ---
Medical Summary - Medical Summary Date of Service: 10/05/23 Chief complaint: Abdominal discomfort Primary Care Provider: Quinton Neff MD Medical Summary: Diagnosis: Metastatic pancreatic adenocarcinoma July 2023 She presented with a few months of epigastric discomfort and weight loss which she attributed to stress at work and hiatal hernia/GERD symptoms. She was asked to increase dose of PPI but presented to emergency department on 08/09/2023 with worsening symptoms. A CT abdomen/pelvis without contrast was performed which revealed a suspicious 3.4 cm mass in head of pancreas as well as few indeterminate liver lesions suspicious for metastasis. Ultrasound-guided core needle biopsy of liver mass in left lobe performed 08/27/2023 revealed adenocarcinoma, moderate to poorly differentiated favor pancreatic or biliary origin. MRI abdomen with contrast revealed 2.8 x 3.9 x 2.8 cm hypoenhancing mass in the head of pancreas. Distal atrophy of pancreas and dilatation and tortuosity of the main pancreatic duct up to 5 mm. Hepatic steatosis and numerous ill-defined rim enhancing lesions representing hepatic metastatic disease. No biliary ductal dilatation. Bulky abdominal lymphadenopathy. 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 CA 19 9 elevated, 519 U/mL. LDH elevated, 308 U/L, LFTs normal. Interval History Interval history: Alee feels a lot better today. Abdominal pain is now well controlled. She has not had any further diarrhea. No fever or chills. Dysphagia has improved. She does have a dry mouth. [facility] [place] Medical History: Medical History (Last Reviewed 10/01/23 @ 17:51 by Akash Bey MD) Abnormal blood pressure Blood pressure elevated without history of HTN Cholelithiasis GERD (gastroesophageal reflux disease) Hernia High cholesterol Hypertension Knee pain, right Obesity (BMI 30-39.9) Pancreatic adenocarcinoma Pancreatic mass Vitamin D deficiency Family History: Family History (Last Reviewed 10/01/23 @ 17:51 by Akash Bey MD) Father CVD (cardiovascular disease) Stroke Hypertension Mother Breast cancer Surgical History: Surgical History (Last Reviewed 10/01/23 @ 17:51 by Akash Bey MD) No pertinent past surgical history Social History: Social History (Last Reviewed 10/01/23 @ 17:51 by Akash Bey MD) Living Situation History: Household Members: None Housing: House Do you presently have visiting nurse or other home services: No Alcohol History Details: 1. How often do you have a drink containing alcohol?: a. Never AUDIT-C Alcohol total score: 0 Currently Displaying Signs/Symptoms of Alcohol Withdrawal: No Tobacco History: Patient Tobacco Use Status: Never used Tobacco Smoked in Last 30 Days: No e-Cigarette/Vaping Use: Never Used Second Hand Smoke Exposure: No Substance Use History: Use of substances other than those prescribed or required for medical reasons: No Currently Displaying Signs/Symptoms of Drug Intoxication Withdrawal: No Domestic Abuse History: Have you been hit, kicked, punched, or otherwise hurt by someone within the past year? If so, by whom?: No Do you feel safe in your current relationship?: Yes Is there a partner from a previous relationship who is making you feel unsafe now?: No Are you made to feel afraid or neglected: No Advance Directives: Advance Directives: No Advance Directives Information Provided: No Homicidal Assessment: Do you have thoughts of harming others: None Do you have a plan to hurt others: No Plan Nutrition Assessment: Recently lost weight without trying: Yes How much weight loss: Unsure Eating poorly because of decreased appetite: Yes Nutrition screen score: 5 Nutrition Risks: Poor intake 0-25% >4 days Patient : No Occupation Assessmet: service: No Current occupational status: employed Home Medications and Allergies Current Medications: Current Medications Acetaminophen (Acetaminophen 325 Mg Tablet) 650 mg PO Q6H PRN PRN Reason: Pain, Mild (Pain Scale 1-3) Al Hydroxide/Mg Hydroxide (Magnesium Hydrox/Alum Hydrox 30 Ml Oral.Susp) 30 ml PO Q4H PRN PRN Reason: Heartburn/Nausea Diphenhydramine HCl (Diphenhydramine Hcl 50 Mg/Ml Vial) 12.5 mg IVPUSH Q4H PRN PRN Reason: Itching Last Admin: 10/04/23 23:30 Dose: 12.5 mg Hydromorphone HCl (Hydromorphone Hcl 0.5 Mg/0.5 Ml Syringe) 0.5 mg IVPUSH Q4H PRN; Protocol PRN Reason: Pain, Severe (Pain Scale 7-10) Last Admin: 10/04/23 02:44 Dose: 0.5 mg Dextrose/Sodium Chloride (D51/2ns) 1,000 mls @ 100 mls/hr IVCONT .Q10H [facility] Last Admin: 10/04/23 23:20 Dose: 100 mls/hr Fluconazole 100 mg/ IV (Miscellaneous Supplies) 50 mls @ 50 mls/hr IV Q24H [facility] Last Infusion: 10/04/23 16:24 Dose: Infused Metronidazole (Flagyl) 500 mg in 100 mls @ 100 mls/hr IV Q8H [facility] Last Infusion: 10/05/23 02:30 Dose: Infused Piperacillin Sod/Tazobactam (Sod 3.375 gm/ Sodium Chloride) 50 mls @ 100 mls/hr IV Q6H [facility] Last Infusion: 10/05/23 07:35 Dose: Infused Lidocaine/Diphenhydr/Alum/Mg/Simeth (Mag&Al/Sim/Diphenhyd/Lidocaine 10 Ml Oral.Susp) 10 ml PO Q4H PRN; Protocol PRN Reason: sore mouth Last Admin: 10/03/23 11:46 Dose: 10 ml Lorazepam (Lorazepam 2 Mg/Ml Vial) 0.5 mg IVPUSH Q6H PRN PRN Reason: Anxiety Last Admin: 10/04/23 23:31 Dose: 0.5 mg Omeprazole (Omeprazole 40 Mg Capsule.Dr) 40 mg PO DAILY@0630 [facility] Last Admin: 10/05/23 05:40 Dose: 40 mg Ondansetron HCl (Ondansetron Hcl 4 Mg/2 Ml Vial) 4 mg IVPUSH Q8H PRN PRN Reason: Nausea and Vomiting Last Admin: 10/03/23 21:50 Dose: 4 mg Ondansetron HCl (Ondansetron Hcl 4 Mg/2 Ml Vial) 4 mg IVPUSH Q4H PRN PRN Reason: Nausea Last Admin: 10/04/23 02:31 Dose: 4 mg Prochlorperazine Edisylate (Prochlorperazine Edisylate 10 Mg/2 Ml Vial) 5 mg IV Q4H PRN PRN Reason: Nausea Sodium Chloride (0.9 % Sodium Chloride Flush 3 Ml Syringe) 3 ml IVFLUSH QSHIFT [facility] Last Admin: 10/05/23 07:34 Dose: Not Given Home Medications Medication Instructions Recorded Confirmed Type omeprazole 20 mg capsule,delayed 20 mg PO DAILY 09/13/23 10/01/23 History release polyethylene glycol 3350 17 gram 17 g PO DAILY PRN Constipation 10/01/23 10/01/23 History oral powder packet Allergies Allergy/AdvReac Type Severity Reaction Status Date / Time adhesive tape Allergy Rash Verified 10/01/23 17:09 latex Allergy Rash Verified 10/01/23 17:07 Exam Vital signs: Vital Signs Temp 98.6 F 10/05/23 07:55 Pulse 82 10/05/23 07:55 Resp 16 10/05/23 07:55 BP 127/61 10/05/23 07:55 Pulse Ox 97 10/05/23 07:55 O2 Del Method Room Air 10/05/23 07:55 Intake & Output 10/04/23 10/05/23 10/05/23 18:59 06:59 18:59 Intake Total 1420 / 3540 2120 / 3540 50 / 50 Balance 1420 / 3540 2120 / 3540 50 / 50 Intake: Intake, Oral Amount 120 / 1040 920 / 1040 Intake, IV Amount 1300 / 2500 1200 / 2500 50 / 50 Fluconazole in NaCl,Iso-Osm 100 50 / 50 mg In Container,Empty 0 ml @ 50 mls/hr IV Q24H [facility] Rx#: [id number] Piperacillin Sodium/Tazobactam 50 / 150 100 / 150 50 / 50 3.375 gm In 0.9 % Sodium Chloride 50 ml @ 100 mls/hr IV Q6H [facility] Rx#:[id number] metroNIDAZOLE/NS 500 mg In 100 200 / 300 100 / 300 ml @ 100 mls/hr IV Q8H [facility] Rx#: [id number] Dextrose 5 % and 0.45 % NaCl 1, 1000 / 2000 1000 / 2000 000 ml @ 100 mls/hr IVCONT . Q10H [facility] Rx#:[id number] Other: Breakfast % Eaten 10 Lunch % Eaten 10 Number of Unmeasured Voids 2 2 Urine Bedside Commode Bedside Commode Last Bowel Movement 10/04/23 Stool Bedside Commode Stool Amount Moderate Stool Color Brown Stool Consistency Liquid Weight 63.2 kg BMI result Body Mass Index 29.1 - Constitutional Present: mild distress, chronically ill appearing - Routine HEENT Exam Head: Present: normal inspection - Routine Respiratory Exam Present: CTAB - Routine Cardiovascular Exam Cardiovascular: Present: S1, S2 - Routine Extremities Exam Present: normal inspection - Routine Skin Exam Present: erythema Data - Labs CBC & Chem 7: 10/05/23 05:49 10/05/23 05:49 - Imaging Radiologist's impression: ITS Impressions Abdomen/Pelvis CT 10/03/23 11:18 IMPRESSION: Pancreatic mass and numerous low-attenuation liver lesions suggestive of metastatic disease. This is similar to previous August 2023 exam. New Wall thickening and edema of the colon suggestive of colitis. Small amount of ascites Fluid fluid level in the gallbladder. Mild gallbladder wall thickening. No gallstones or biliary duct dilatation better evaluated with ultrasound if clinically indicated. 2 cm low-attenuation splenic lesion. Differential would include splenic infarct and metastasis. This is new from July 2023 exam. Fleischner guidelines were followed. 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 Assessment and Plan Patient Active problem list reviewed?: Yes (1) Pancreatic adenocarcinoma Status: Acute Assessment and plan: 1. This is a 67-year-old woman who has been diagnosed with metastatic pancreatic adenocarcinoma in August 2023. Ultrasound-guided core needle biopsy of liver mass in left lobe performed 08/27/2023 revealed adenocarcinoma, moderate to poorly differentiated favor pancreatic or biliary origin. PET-CT performed 09/11/2023 revealed FDG avidity of primary lesion involving head of pancreas, SUV 13.1, multifocal PET avid disease in both lobes of liver. FDG activity incidentally noted in proximal ascending colon, direct visualization with endoscopy was recommended. Possible involvement of thoracic spine, osseous involvement not excluded. 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 She complained of vision problems which prompted brain MRI. 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 She started 1st cycle of chemotherapy with gemcitabine and Nab paclitaxel on 09/20/2023. She is now admitted for severe thrush/mucositis and acute kidney injury secondary to dehydration as well as pancytopenia. She is receiving IV fluids, IV fluconazole and Magic mouthwash. She is doing slightly better. For her neutropenia she has been started on Neupogen, recommend continue this daily until her WBC count is about 2.5 K. Because of thrombocytopenia, Lovenox is on hold. May be resumed when the platelets are at least above 70,000. Start Prilosec 40 mg daily. Neupogen has been discontinued. She is on antibiotics for colitis. C diff is negative. LFTs have improved and her blood counts are improving. Overall she is doing better. IV antibiotics can be discontinued. Thank you. - Time Spent With Patient Time Spent with Patient (in minutes): 15
--- NOTE | 2023-10-05 09:15 | HO.PM.IMPN ---
Subjective Subjective Date of Service: 10/05/23 Interval History: Persistent mouth sore but better, Blood count better, no abdominal pain, Cdif negative and diarrhea is better Physical Exam Vital Signs: Vital Signs: Last Vital Signs Temp 98.6 F 10/05/23 07:55 Pulse 82 10/05/23 07:55 Resp 16 10/05/23 07:55 BP 127/61 10/05/23 07:55 Pulse Ox 97 10/05/23 07:55 O2 Del Method Room Air 10/05/23 07:55 BMI result Body Mass Index 29.1 Const: Other: General: AO X 3, no acute distress mouth-sores seems better Resp: CTA bilateral CVS: S1,S2,RRR GI: +BS, NT, no distention Skin: No rash Neuro: motor grossly intact Psych: appropriate affect Objective Data Active Medications Acetaminophen (Acetaminophen 325 Mg Tablet) 650 mg PO Q6H PRN PRN Reason: Pain, Mild (Pain Scale 1-3) Al Hydroxide/Mg Hydroxide (Magnesium Hydrox/Alum Hydrox 30 Ml Oral.Susp) 30 ml PO Q4H PRN PRN Reason: Heartburn/Nausea Diphenhydramine HCl (Diphenhydramine Hcl 50 Mg/Ml Vial) 12.5 mg IVPUSH Q4H PRN PRN Reason: Itching Last Admin: 10/04/23 23:30 Dose: 12.5 mg Documented By: JUANI Hydromorphone HCl (Hydromorphone Hcl 0.5 Mg/0.5 Ml Syringe) 0.5 mg IVPUSH Q4H PRN; Protocol PRN Reason: Pain, Severe (Pain Scale 7-10) Last Admin: 10/04/23 02:44 Dose: 0.5 mg Documented By: JUANI Dextrose/Sodium Chloride (D51/2ns) 1,000 mls @ 100 mls/hr IVCONT .Q10H [facility] Last Admin: 10/04/23 23:20 Dose: 100 mls/hr Documented By: JUANI Fluconazole 100 mg/ IV (Miscellaneous Supplies) 50 mls @ 50 mls/hr IV Q24H [facility] Last Infusion: 10/04/23 16:24 Dose: Infused Documented By: PARK Metronidazole (Flagyl) 500 mg in 100 mls @ 100 mls/hr IV Q8H [facility] Last Infusion: 10/05/23 02:30 Dose: Infused Documented By: JUANI Piperacillin Sod/Tazobactam (Sod 3.375 gm/ Sodium Chloride) 50 mls @ 100 mls/hr IV Q6H [facility] Last Infusion: 10/05/23 07:35 Dose: Infused Documented By: KRYSTLE Potassium Chloride (Potassium Chloride/H20) 20 meq in 100 mls @ 100 mls/hr IV Q1H [facility] Stop: 10/05/23 10:59 Lidocaine/Diphenhydr/Alum/Mg/Simeth (Mag&Al/Sim/Diphenhyd/Lidocaine 10 Ml Oral.Susp) 10 ml PO Q4H PRN; Protocol PRN Reason: sore mouth Last Admin: 10/03/23 11:46 Dose: 10 ml Documented By: AALIYAH Lorazepam (Lorazepam 2 Mg/Ml Vial) 0.5 mg IVPUSH Q6H PRN PRN Reason: Anxiety Last Admin: 10/04/23 23:31 Dose: 0.5 mg Documented By: JUANI Omeprazole (Omeprazole 40 Mg Capsule.Dr) 40 mg PO DAILY@0630 [facility] Last Admin: 10/05/23 05:40 Dose: 40 mg Documented By: JUANI Ondansetron HCl (Ondansetron Hcl 4 Mg/2 Ml Vial) 4 mg IVPUSH Q8H PRN PRN Reason: Nausea and Vomiting Last Admin: 10/03/23 21:50 Dose: 4 mg Documented By: JUANI Ondansetron HCl (Ondansetron Hcl 4 Mg/2 Ml Vial) 4 mg IVPUSH Q4H PRN PRN Reason: Nausea Last Admin: 10/04/23 02:31 Dose: 4 mg Documented By: JUANI Prochlorperazine Edisylate (Prochlorperazine Edisylate 10 Mg/2 Ml Vial) 5 mg IV Q4H PRN PRN Reason: Nausea Sodium Chloride (0.9 % Sodium Chloride Flush 3 Ml Syringe) 3 ml IVFLUSH QSHIFT [facility] Last Admin: 10/05/23 07:34 Dose: Not Given Documented By: KRYSTLE Non-Admin Reason: IV Running Labs 10/05/23 05:49 10/05/23 05:49 Labs: Laboratory Results - last 24 hr 10/03/23 10/05/23 07:54 05:49 MCV 84.8 MCH 28.6 MCHC 33.7 RDW 16.2 H Plt Count 46 L D MPV Not Reportable Absolute Nucleated RBC 0.840 H Nucleated RBC % (auto) 5.7 H Smear Path Review SEE NOTE Anion Gap 10 L Estim Creat Clear Calc 32.0 Estimated GFR 39 Random Glucose 99 Calcium 7.4 L D Total Bilirubin 1.1 H AST 61 H ALT 50 H Alkaline Phosphatase 337 H Total Protein 4.2 L Albumin 1.9 L Assessment and Plan (1) Mucositis: Status: Acute (2) SKINNY (acute kidney injury): Status: Acute (3) Pancreatic adenocarcinoma: Status: Acute Plan 67-year-old female with a PMH significant for?HTN, HLD, GERD, pancreatic adenocarcinoma diagnosed in July 2023 with known metastasis to liver, and 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 She is on chemotherapay and received last dose on 09/26 here with dehydration, SKINNY, Pancytopenia, failure to thrive. SKINNY/Dehydration from inability to drink, improved, she likely has CKD 3 -continue IV fluid and monitor Cr while PO intake limited Pancytopenia--Transfused 1 unit of RBC 10/01, . H/H is improved. 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
[2023-10-05 09:35] LABS: Magnesium 1.7 mg/dL (1.6-2.6)
[2023-10-05] MEDS: Potassium Chloride/H20 20 MEQ/100 ML PIGGYBACK 100 MEQ IV ×2 (09:45→10:57)
--- NOTE | 2023-10-05 10:42 | MHC.CLN ---
Addendum entered by Ann Presley, DESTINY 10/05/23 11:58: STARTING TPN TODAY. LABS REVIEWED. COMMUNICATED WITH PHARMACY. RECOMMEND START TPN AT 30 ML PER HOUR, 108 G DEXTROSE, 36 G PROTEIN, 511 KCALS. REPLETE LYTES NEEDED. CHECK TRIGLYCERIDES. Original Note: F/U CONTINUES WITH POOR PO INTAKE. RECEIVING IV FLUIDS. DIET=CLEAR LIQUIDS. BOOST BREEZE TID PROVIDED ALTERNATIVE TO ENSURE CLEAR. BOOST BREEZE TID PROVIDES 750 KCALS, 27 G PROTEIN. PATIENT ASLEEP AT TIME OF VISIT. HAD NOT TAKEN ANYTHING FOR BREAKFAST. HAD 3 UNOPENED CARTONS OF BOOST BREEZE ON BEDSIDE TABLE. FOLLOW FOR DIET ADVANCEMENT AND INTAKE. MAY NEED ALTERNATE NUTRITION IF POOR PO CONTINUES.
[2023-10-05 12:02] LABS: Phosphorus 2.6 mg/dL (2.7-4.5)
--- NOTE | 2023-10-05 12:23 | MHC.CLN ---
NUTRITION/TPN PATIENT WITH POOR PO. AT RISK FOR REFEEDING. CONTINUES WITH CLEAR LIQUID DIET. STARTING TPN TODAY. TPN DAY 1, 10/05/23. RECOMMEND TPN AT 30 ML PER HOUR, 108 G DEXTROSE, 36 G PROTEIN, 511 KCALS. REPLETE LYTES NEEDED. TPN DAY 2, 10/06/23. RECOMMEND TPN AT 50 ML PER HOUR, 180 G DEXTROSE, 60 G PROTEIN, 852 KCALS. REPLETE LYTES NEEDED. CHECK TRIGLYCERIDES. TPN DAY 3, 10/07/23. RECOMMEND ADVANCE TO MAX GOAL RATE: TPN AT 70 ML PER HOUR, 252 G DEXTROSE, 84 G PROTEIN (1.8 G/KG CMW), 1193 KCALS. ADD 21 G LIPIDS (.45 G/KG CMW) FOR TOTAL OF 1403 KCALS (30.2 KCALS/KG CMW) REPLETE LYTES NEEDED. FOLLOW FOR TPN TOLERANCE, LABS, AND PO INTAKE.
[2023-10-05] MEDS: Dextrose 5 % and 0.45 % NaCl 1,000 ML 100 ML IVCONT (13:57)
--- NOTE | 2023-10-05 15:04 | MHC.CM.PN ---
per rounds pt not ready for dc pt will need a pt eval prior to dc ?str
[2023-10-05] MEDS: Fluconazole in NaCl,Iso-Osm 100 MG in Container,Empty 0 ML 50 MG IV (15:25)
[2023-10-05 15:40] VITALS: BMI 29.1
[2023-10-05 16:00] VITALS: BP 116/63; PULSE 73; RESP 16; TEMP 36.9; O2SAT 99
[2023-10-05 19:42] VITALS: BP 124/66; PULSE 77; RESP 16; TEMP 36.2; O2SAT 98
[2023-10-05] MEDS: Parenteral Nutrition 720 ML 30 ML IV (20:46)
[2023-10-05] MEDS: Mag&Al/Sim/Diphenhyd/Lidocaine 10 ML ORAL.SUSP PO (23:00)
[2023-10-05] MEDS: ondansetron HCL 4 MG/2 ML VIAL IVPUSH (23:06)
[2023-10-06] MEDS: metroNIDAZOLE/NS 500 MG/100 ML PIGGYBACK 100 MG IV ×3 (01:52→17:15)
[2023-10-06 04:00] VITALS: BP 118/39; PULSE 87; RESP 19; TEMP 36.4; O2SAT 97
[2023-10-06] MEDS: Piperacillin Sodium/Tazobactam 3.375 GM in 0.9 % Sodium Chloride 50 ML IV ×3 (05:48→18:26)
[2023-10-06] MEDS: Omeprazole 40 MG CAPSULE.DR PO (05:48)
[2023-10-06 06:06] LABS: Hemoglobin 9.2 g/dl (12.0-16.0)
[2023-10-06 06:08] LABS: Hematocrit 27.1 % (37.0-47.0); Mean Corpuscular HGB Conc 33.9 g/dl (31.0-35.0); Mean Corpuscular Hemoglobin 28.8 pg (27.0-33.0); Mean Corpuscular Volume 84.7 fL (80.0-98.0); PLT CLUMP 1; Red Cell Distribution Width 16.5 % (11.0-16.0)
[2023-10-06 06:11] LABS: NRBC Pct Auto 2.8 /100WBC (0.0-0.2); PLT ABN DIST 1
[2023-10-06 06:12] LABS: Platelet Count 53 X10*3/uL (160-400)
[2023-10-06 06:20] LABS: Alanine Aminotransferase 37 U/L (0-31); Albumin Level 1.9 g/dL (3.5-5.0); Alkaline Phosphatase 347 U/L (39-117); Anion Gap 12 (12-20); Aspartate Amino Transferase 48 U/L (5-31); Bilirubin Total 0.9 mg/dL (0.0-1.0); Blood Urea Nitrogen 20 mg/dL (9-16); Calcium 7.6 mg/dL (8.4-10.2); Carbon Dioxide 18 mmol/L (22-29); Chloride 109 mmol/L (96-108); Creatinine Clr Calc Pharmacy 32.2; Estimated Glomerular Filt Rate 39; Glucose Random 115 mg/dL (60-115); Magnesium 1.7 mg/dL (1.6-2.6); Phosphorus 3.5 mg/dL (2.7-4.5); Potassium 3.1 mmol/L (3.3-5.1); Sodium 136 mmol/L (135-145); Total Protein 4.1 g/dL (6.5-8.0)
[2023-10-06 07:37] VITALS: BP 129/65; PULSE 86; RESP 20; TEMP 36.8; O2SAT 97
[2023-10-06] MEDS: Mag&Al/Sim/Diphenhyd/Lidocaine 10 ML ORAL.SUSP PO ×3 (07:43→20:05)
[2023-10-06 08:41] LABS: Triglycerides 199 mg/dL (<150)
--- NOTE | 2023-10-06 08:42 | P.PNIM_ITS ---
Subjective Subjective Date of Service: 10/08/23 Interval History: She is feeling much better other than some soreness in the mouth Review of Systems pain in the mouth Physical Exam 2 Vital Signs: Vital Signs: Last Vital Signs Temp 98.2 F 10/06/23 07:37 Pulse 86 10/06/23 07:37 Resp 20 10/06/23 07:37 BP 129/65 10/06/23 07:37 Pulse Ox 97 10/06/23 07:37 O2 Del Method Room Air 10/06/23 07:37 BMI result Body Mass Index 29.1 Const: Other: General: AO X 3, no acute distress mouth-sores seems better Resp: CTA bilateral CVS: S1,S2,RRR GI: +BS, NT, no distention Skin: No rash Neuro: motor grossly intact Psych: appropriate affect Objective Data Active Medications Acetaminophen (Acetaminophen 325 Mg Tablet) 650 mg PO Q6H PRN PRN Reason: Pain, Mild (Pain Scale 1-3) Al Hydroxide/Mg Hydroxide (Magnesium Hydrox/Alum Hydrox 30 Ml Oral.Susp) 30 ml PO Q4H PRN PRN Reason: Heartburn/Nausea Diphenhydramine HCl (Diphenhydramine Hcl 50 Mg/Ml Vial) 12.5 mg IVPUSH Q4H PRN PRN Reason: Itching Last Admin: 10/04/23 23:30 Dose: 12.5 mg Documented By: JUANI Hydromorphone HCl (Hydromorphone Hcl 0.5 Mg/0.5 Ml Syringe) 0.5 mg IVPUSH Q4H PRN; Protocol PRN Reason: Pain, Severe (Pain Scale 7-10) Last Admin: 10/04/23 02:44 Dose: 0.5 mg Documented By: JUANI Fluconazole 100 mg/ IV (Miscellaneous Supplies) 50 mls @ 50 mls/hr IV Q24H [facility] Last Infusion: 10/05/23 16:42 Dose: Infused Documented By: ADIEL Metronidazole (Flagyl) 500 mg in 100 mls @ 100 mls/hr IV Q8H [facility] Last Infusion: 10/06/23 02:56 Dose: Infused Documented By: CHRISTOPHE Piperacillin Sod/Tazobactam (Sod 3.375 gm/ Sodium Chloride) 50 mls @ 100 mls/hr IV Q6H [facility] Last Infusion: 10/06/23 06:20 Dose: Infused Documented By: CHRISTOPHE Nutrition (Parenteral) (Parenteral Nutrition) 720 mls @ 30 mls/hr IV .Q24H [facility]; Protocol Stop: 10/06/23 20:59 Last Admin: 10/05/23 20:46 Dose: 30 mls/hr Documented By: CHRISTOPHE Lidocaine/Diphenhydr/Alum/Mg/Simeth (Mag&Al/Sim/Diphenhyd/Lidocaine 10 Ml Oral.Susp) 10 ml PO Q4H PRN; Protocol PRN Reason: sore mouth Last Admin: 10/06/23 07:43 Dose: 10 ml Documented By: CAMI Lorazepam (Lorazepam 2 Mg/Ml Vial) 0.5 mg IVPUSH Q6H PRN PRN Reason: Anxiety Last Admin: 10/04/23 23:31 Dose: 0.5 mg Documented By: JUANI Omeprazole (Omeprazole 40 Mg Capsule.Dr) 40 mg PO DAILY@0630 [facility] Last Admin: 10/06/23 05:48 Dose: 40 mg Documented By: CHRISTOPHE Ondansetron HCl (Ondansetron Hcl 4 Mg/2 Ml Vial) 4 mg IVPUSH Q8H PRN PRN Reason: Nausea and Vomiting Last Admin: 10/05/23 23:06 Dose: 4 mg Documented By: CHRISTOPHE Ondansetron HCl (Ondansetron Hcl 4 Mg/2 Ml Vial) 4 mg IVPUSH Q4H PRN PRN Reason: Nausea Last Admin: 10/04/23 02:31 Dose: 4 mg Documented By: JUANI Pharmacy Consult (Consult Rx Parenteral Nutrition Ordering) 1 each MISCELLANE DAILY PRN PRN Reason: Consult order Prochlorperazine Edisylate (Prochlorperazine Edisylate 10 Mg/2 Ml Vial) 5 mg IV Q4H PRN PRN Reason: Nausea Sodium Chloride (0.9 % Sodium Chloride Flush 3 Ml Syringe) 3 ml IVFLUSH QSHIFT [facility] Last Admin: 10/06/23 07:46 Dose: Not Given Documented By: CAMI Non-Admin Reason: IV Running Zinc Acetate/Diphenhydramine (Diphenhydramine Hcl 2 % Cream 28 Gm Tube) 1 appl TOPICAL BID PRN; Protocol PRN Reason: Itching Last Admin: 10/05/23 22:06 Dose: 1 appl Documented By: CHRISTOPHE Labs 10/08/23 06:05 10/08/23 06:05 Labs: Laboratory Results - last 24 hr 10/05/23 10/06/23 05:49 05:11 MCV 84.7 MCH 28.8 MCHC 33.9 RDW 16.5 H Plt Count 53 L MPV Not Reportable Absolute Nucleated RBC 0.620 H Nucleated RBC % (auto) 2.8 H Anion Gap 12 Estim Creat Clear Calc 32.2 Estimated GFR 39 Random Glucose 115 Calcium 7.6 L Phosphorus 2.6 L 3.5 Magnesium 1.7 1.7 Total Bilirubin 0.9 AST 48 H ALT 37 H Alkaline Phosphatase 347 H Total Protein 4.1 L Albumin 1.9 L Triglycerides 199 H Assessment and Plan (1) Mucositis: Status: Acute (2) SKINNY (acute kidney injury): Status: Acute (3) Pancreatic adenocarcinoma: Status: Acute Plan 67-year-old female with a PMH significant for?HTN, HLD, GERD, pancreatic adenocarcinoma diagnosed in July 2023 with known metastasis to liver, and 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 She is on chemotherapay and received last dose on 09/26 here with dehydration, SKINNY, Pancytopenia, failure to thrive. SKINNY/Dehydration from inability to drink, improved, she likely has CKD 3 Cr is worse today, so will reinstate IVF Hypokalemia--repalce, mag is normal Pancytopenia--Transfused 1 unit of RBC 10/01, No longer Pancytopenic as WBC above normal, yet H/H remains low but stable. 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--hold Lovenox until platelet > 70K, Plat is 46 today HTN--BP normal, hold meds Protein calory malnutrition, started on TPN 10/05, encourage oral intake DVT prophylaxis: compression device given, very low platlets full code Need for inpatient: management of KSINNY, dehydration not able to eat, needs IVF and management of neurtropenia and low platllets and need for transfusion encourage ambulation and out bed Quality Stroke Does the patient have a stroke diagnosis?: No VTE Prior VTE?: Yes VTE Risk Level:: Medical - moderate - high VTE Device Contraindication: Treatment Not Indicated VTE Drug Contraindication: N/A - Med Ordered
[2023-10-06] MEDS: Fluconazole in NaCl,Iso-Osm 100 MG in Container,Empty 0 ML 50 MG IV (14:36)
[2023-10-06 15:34] VITALS: BP 134/69; PULSE 80; RESP 20; TEMP 36.2; O2SAT 98
[2023-10-06 19:25] VITALS: BP 128/61; PULSE 85; RESP 18; TEMP 36.3; O2SAT 99
[2023-10-06] MEDS: 0.9 % Sodium Chloride Flush 3 ML SYRINGE IVFLUSH (19:49)
[2023-10-06] MEDS: diphenhydrAMINE HCl 2 % Cream 28 GM TUBE 1 APPL TOPICAL (20:13)
[2023-10-06] MEDS: Parenteral Nutrition 1,200 ML 50 ML IV (22:24)
[2023-10-06 23:25] VITALS: BP 145/64; PULSE 87; RESP 18; TEMP 36.1; O2SAT 99
[2023-10-07] MEDS: Piperacillin Sodium/Tazobactam 3.375 GM in 0.9 % Sodium Chloride 50 ML IV ×4 (00:15→18:37)
[2023-10-07] MEDS: metroNIDAZOLE/NS 500 MG/100 ML PIGGYBACK 100 MG IV ×3 (01:58→17:25)
[2023-10-07] MEDS: Omeprazole 40 MG CAPSULE.DR PO (05:45)
[2023-10-07 06:12] LABS: Alanine Aminotransferase 34 U/L (0-31); Albumin Level 1.9 g/dL (3.5-5.0); Alkaline Phosphatase 381 U/L (39-117); Anion Gap 11 (12-20); Aspartate Amino Transferase 53 U/L (5-31); Bilirubin Total 0.8 mg/dL (0.0-1.0); Blood Urea Nitrogen 22 mg/dL (9-16); Calcium 7.7 mg/dL (8.4-10.2); Carbon Dioxide 18 mmol/L (22-29); Chloride 110 mmol/L (96-108); Creatinine Clr Calc Pharmacy 29.8; Estimated Glomerular Filt Rate 36; Glucose Random 133 mg/dL (60-115); Magnesium 1.7 mg/dL (1.6-2.6); Phosphorus 3.8 mg/dL (2.7-4.5); Potassium 3.2 mmol/L (3.3-5.1); Sodium 136 mmol/L (135-145); Total Protein 4.1 g/dL (6.5-8.0); Triglycerides 207 mg/dL (<150)
[2023-10-07 08:00] VITALS: BP 130/68; PULSE 88; RESP 16; TEMP 36.7; O2SAT 99
[2023-10-07] MEDS: Mag&Al/Sim/Diphenhyd/Lidocaine 10 ML ORAL.SUSP PO (09:18)
[2023-10-07] MEDS: diphenhydrAMINE HCl 2 % Cream 28 GM TUBE 1 APPL TOPICAL ×2 (09:21→18:38)
[2023-10-07] MEDS: KCl 20 mEq in 5% Dex/0.45% Sod 20 MEQ/1,000 ML IV.SOLN 100 MEQ IVCONT ×2 (10:38→19:41)
[2023-10-07 12:34] LABS: White Blood Count 24.7 X10*3/uL (4.8-10.8)
[2023-10-07] MEDS: Fluconazole in NaCl,Iso-Osm 100 MG in Container,Empty 0 ML 50 MG IV (15:28)
[2023-10-07] MEDS: 0.9 % Sodium Chloride Flush 3 ML SYRINGE IVFLUSH (15:36)
[2023-10-07 16:00] VITALS: BP 130/68; PULSE 88; RESP 16; TEMP 36.7; O2SAT 99
[2023-10-07 19:22] VITALS: BP 138/69; PULSE 84; RESP 14; TEMP 36.4; O2SAT 99
[2023-10-07] MEDS: Parenteral Nutrition 1,680 ML 70 ML IV (21:07)
[2023-10-08] MEDS: Piperacillin Sodium/Tazobactam 3.375 GM in 0.9 % Sodium Chloride 50 ML IV ×4 (00:25→19:13)
[2023-10-08] MEDS: Mag&Al/Sim/Diphenhyd/Lidocaine 10 ML ORAL.SUSP PO ×3 (00:35→20:50)
[2023-10-08] MEDS: diphenhydrAMINE HCL 50 MG/ML VIAL 12.5 MG IVPUSH (00:35)
[2023-10-08] MEDS: metroNIDAZOLE/NS 500 MG/100 ML PIGGYBACK 100 MG IV ×3 (01:59→17:35)
[2023-10-08 03:18] VITALS: BP 144/73; PULSE 89; RESP 14; TEMP 37; O2SAT 97
[2023-10-08] MEDS: LORazepam 2 MG/ML VIAL 1 MG IVPUSH (04:15)
[2023-10-08] MEDS: Omeprazole 40 MG CAPSULE.DR PO (05:58)
[2023-10-08] MEDS: KCl 20 mEq in 5% Dex/0.45% Sod 20 MEQ/1,000 ML IV.SOLN 100 MEQ IVCONT ×3 (06:00→19:50)
--- NOTE | 2023-10-08 06:27 | PC.NURSE ---
pt was asking for the Ativan but it dropped to discontinue. dr Rivas notified and received once dose per JAN. given by this nurse. will cont. to monitor anxiety level and any other s/s.
[2023-10-08 06:30] LABS: Hematocrit 27.4 % (37.0-47.0); Hemoglobin 9.4 g/dl (12.0-16.0); Mean Corpuscular HGB Conc 34.3 g/dl (31.0-35.0); Mean Corpuscular Hemoglobin 29.8 pg (27.0-33.0); Mean Platelet Volume 11.9 fL (9.4-12.3); Platelet Count 113 X10*3/uL (160-400); Red Blood Count 3.15 X10*6/uL (4.20-5.50); Red Cell Distribution Width 17.2 % (11.0-16.0); White Blood Count 24.9 X10*3/uL (4.8-10.8)
[2023-10-08 06:32] LABS: NRBC Pct Auto 2.9 /100WBC (0.0-0.2)
[2023-10-08 06:52] LABS: Alanine Aminotransferase 32 U/L (0-31); Albumin Level 2.1 g/dL (3.5-5.0); Alkaline Phosphatase 345 U/L (39-117); Anion Gap 12 (12-20); Aspartate Amino Transferase 54 U/L (5-31); Bilirubin Total 0.8 mg/dL (0.0-1.0); Blood Urea Nitrogen 22 mg/dL (9-16); Calcium 8.1 mg/dL (8.4-10.2); Carbon Dioxide 16 mmol/L (22-29); Chloride 111 mmol/L (96-108); Creatinine Clr Calc Pharmacy 35.4; Estimated Glomerular Filt Rate 44; Glucose Random 128 mg/dL (60-115); Magnesium 1.9 mg/dL (1.6-2.6); Phosphorus 3.5 mg/dL (2.7-4.5); Potassium 4.4 mmol/L (3.3-5.1); Sodium 135 mmol/L (135-145); Total Protein 4.7 g/dL (6.5-8.0); Triglycerides 238 mg/dL (<150)
[2023-10-08 07:49] VITALS: BP 137/65; PULSE 88; RESP 18; TEMP 36.8; O2SAT 98
--- NOTE | 2023-10-08 09:03 | HO.PM.IMPN ---
Subjective Subjective Date of Service: 10/08/23 Interval History: Overall feeling better, still with some soreness in the mouth but able t eat Physical Exam Vital Signs: Vital Signs: Last Vital Signs Temp 98.3 F 10/08/23 07:49 Pulse 88 10/08/23 07:49 Resp 18 10/08/23 07:49 BP 137/65 10/08/23 07:49 Pulse Ox 98 10/08/23 07:49 O2 Del Method Room Air 10/08/23 07:49 BMI result Body Mass Index 29.1 Const: Other: General: AO X 3, no acute distress mouth-minimal to no soreness on the lips Resp: CTA bilateral CVS: S1,S2,RRR GI: +BS, NT, no distention Skin: No rash Neuro: motor grossly intact Psych: appropriate affect Objective Data Active Medications Acetaminophen (Acetaminophen 325 Mg Tablet) 650 mg PO Q6H PRN PRN Reason: Pain, Mild (Pain Scale 1-3) Al Hydroxide/Mg Hydroxide (Magnesium Hydrox/Alum Hydrox 30 Ml Oral.Susp) 30 ml PO Q4H PRN PRN Reason: Heartburn/Nausea Diphenhydramine HCl (Diphenhydramine Hcl 50 Mg/Ml Vial) 12.5 mg IVPUSH Q4H PRN PRN Reason: Itching Last Admin: 10/08/23 00:35 Dose: 12.5 mg Documented By: JUANI Hydromorphone HCl (Hydromorphone Hcl 0.5 Mg/0.5 Ml Syringe) 0.5 mg IVPUSH Q4H PRN; Protocol PRN Reason: Pain, Severe (Pain Scale 7-10) Last Admin: 10/04/23 02:44 Dose: 0.5 mg Documented By: JUANI Fluconazole 100 mg/ IV (Miscellaneous Supplies) 50 mls @ 50 mls/hr IV Q24H [facility] Last Infusion: 10/07/23 17:04 Dose: Infused Documented By: PARK Metronidazole (Flagyl) 500 mg in 100 mls @ 100 mls/hr IV Q8H [facility] Last Infusion: 10/08/23 02:59 Dose: Infused Documented By: JUANI Piperacillin Sod/Tazobactam (Sod 3.375 gm/ Sodium Chloride) 50 mls @ 100 mls/hr IV Q6H [facility] Last Infusion: 10/08/23 06:11 Dose: Infused Documented By: JUANI Potassium Chloride/Dextrose/Sod Cl (Kcl 20 Meq In 5% Dex/0.45% Sod) 20 meq in 1,000 mls @ 100 mls/hr IVCONT .Q10H [facility] Last Admin: 10/08/23 06:00 Dose: 100 mls/hr Documented By: JUANI Nutrition (Parenteral) (Parenteral Nutrition) 1,680 mls @ 70 mls/hr IV .Q24H [facility]; Protocol Stop: 10/08/23 20:59 Last Admin: 10/07/23 21:07 Dose: 70 mls/hr Documented By: JUANI Lidocaine/Diphenhydr/Alum/Mg/Simeth (Mag&Al/Sim/Diphenhyd/Lidocaine 10 Ml Oral.Susp) 10 ml PO Q4H PRN; Protocol PRN Reason: sore mouth Last Admin: 10/08/23 00:35 Dose: 10 ml Documented By: JUANI Omeprazole (Omeprazole 40 Mg Capsule.Dr) 40 mg PO DAILY@0630 [facility] Last Admin: 10/08/23 05:58 Dose: 40 mg Documented By: JUANI Ondansetron HCl (Ondansetron Hcl 4 Mg/2 Ml Vial) 4 mg IVPUSH Q8H PRN PRN Reason: Nausea and Vomiting Last Admin: 10/05/23 23:06 Dose: 4 mg Documented By: CHRISTOPHE Ondansetron HCl (Ondansetron Hcl 4 Mg/2 Ml Vial) 4 mg IVPUSH Q4H PRN PRN Reason: Nausea Last Admin: 10/04/23 02:31 Dose: 4 mg Documented By: JUANI Prochlorperazine Edisylate (Prochlorperazine Edisylate 10 Mg/2 Ml Vial) 5 mg IV Q4H PRN PRN Reason: Nausea Sodium Chloride (0.9 % Sodium Chloride Flush 3 Ml Syringe) 3 ml IVFLUSH QSHIFT [facility] Last Admin: 10/08/23 00:18 Dose: Not Given Documented By: JUANI Non-Admin Reason: IV Running Zinc Acetate/Diphenhydramine (Diphenhydramine Hcl 2 % Cream 28 Gm Tube) 1 appl TOPICAL BID PRN; Protocol PRN Reason: Itching Last Admin: 10/07/23 18:38 Dose: 1 appl Documented By: PARK Labs 10/08/23 06:05 10/08/23 06:05 Labs: Laboratory Results - last 24 hr 10/08/23 06:05 MCV 87.0 MCH 29.8 MCHC 34.3 RDW 17.2 H Plt Count 113 L D MPV 11.9 Absolute Nucleated RBC 0.730 H Nucleated RBC % (auto) 2.9 H Anion Gap 12 Estim Creat Clear Calc 35.4 Estimated GFR 44 Random Glucose 128 H Calcium 8.1 L Phosphorus 3.5 Magnesium 1.9 Total Bilirubin 0.8 AST 54 H ALT 32 H Alkaline Phosphatase 345 H Total Protein 4.7 L Albumin 2.1 L Triglycerides 238 H Assessment and Plan (1) Mucositis: Status: Acute (2) SKINNY (acute kidney injury): Status: Acute (3) Colitis: Status: Acute Plan 67-year-old female with a PMH significant for?HTN, HLD, GERD, pancreatic adenocarcinoma diagnosed in July 2023 with known metastasis to liver, and 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 She is on chemotherapay and received last dose on 09/26 here with dehydration, SKINNY, Pancytopenia, failure to thrive and mucosititis, diarrhea and found to have colitis SKINNY/CKD from Dehydration from inability to drink, improved. SKINNY has resolved with IVF Hypokalemia--replaced and corrected, mag has been normall Pancytopenia d/t chemo-Transfused 1 unit of RBC 10/01, transfused 2 units of Plts on 10/03, Hgb is now 9, platlet 113 as of 10/08. Neutropenia/Leukopenia was treated with 3 doses of Neupogen, WBC is now 24K Mucositis--treated withIV Diflucan, magic mouth wash--improving, stop diflucan after 10 days on 11/[address] a of 10/03--Started on Flagyl and Zosyn, dif is negative, clinically improving. 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--hold Lovenox until platelet > 70K, Plat is 113, restart Lovenox today HTN--BP normal, hold meds Protein calory malnutrition, started on TPN 10/05, she is eating by mouth and therefore sop TPN today Generalized deconditioning, PT eval DVT prophylaxis: compression device given, very low platlets full code Need for inpatient: management of SKINNY, dehydration not able to eat, needs IVF and management of neurtropenia and low platllets and need for transfusion encourage ambulation and out bed Quality Stroke Does the patient have a stroke diagnosis?: No VTE Prior VTE?: Yes VTE Risk Level:: Medical - moderate - high VTE Device Contraindication: Treatment Not Indicated VTE Drug Contraindication: N/A - Med Ordered
[2023-10-08] MEDS: Enoxaparin Sodium 60 MG/0.6 ML SYRINGE SUBCUT ×2 (10:18→20:49)
--- NOTE | 2023-10-08 11:12 | MHC.CLN ---
F/U TPN TO BE DISCONTINUED AFTER COMPLETING CURRENT BAG. TPN AT MAX GOAL RATE 70 ML PER HOUR, 252 G DEXTROSE, 84 G PROTEIN (1.8 G/KG CMW), 1193 KCALS. ADD 21 G LIPIDS (.45 G/KG CMW) FOR TOTAL OF 1403 KCALS (30.2 KCALS/KG CMW) REPLETE LYTES NEEDED. DIET ADVANCED TO REGULAR (VEGETARIAN) ON 10/06. INTAKE MOST MEALS X 2 DAYS IS 75-100%. NO ORAL NUTRITIONAL SUPPLEMENT AT THIS TIME DUE TO PATIENT USUALLY DISLIKES. FOLLOW FOR PO INTAKE AND DIET TOLERANCE.
--- NOTE | 2023-10-08 13:22 | MHC.CM.PN ---
per rounds pt will need pt eval prior to dc
[2023-10-08 15:05] VITALS: BP 151/88; PULSE 96; RESP 20; TEMP 36.2; O2SAT 98
[2023-10-08] MEDS: Fluconazole in NaCl,Iso-Osm 100 MG in Container,Empty 0 ML 50 MG IV (15:15)
[2023-10-08] MEDS: LORazepam 0.5 MG TABLET PO (16:16)
[2023-10-08] MEDS: Acetaminophen 325 MG TABLET 650 MG PO (18:03)
[2023-10-08] MEDS: 0.9 % Sodium Chloride Flush 3 ML SYRINGE IVFLUSH (19:13)
[2023-10-08 19:30] VITALS: BP 147/91; PULSE 87; RESP 18; TEMP 37.1; O2SAT 96
[2023-10-09] MEDS: Piperacillin Sodium/Tazobactam 3.375 GM in 0.9 % Sodium Chloride 50 ML IV ×2 (00:01→06:07)
[2023-10-09] MEDS: metroNIDAZOLE/NS 500 MG/100 ML PIGGYBACK 100 MG IV ×2 (01:43→10:10)
[2023-10-09] MEDS: diphenhydrAMINE HCL 50 MG/ML VIAL 12.5 MG IVPUSH ×2 (01:45→23:38)
[2023-10-09 03:28] VITALS: BP 146/84; PULSE 74; RESP 18; TEMP 36.5; O2SAT 98
[2023-10-09] MEDS: KCl 20 mEq in 5% Dex/0.45% Sod 20 MEQ/1,000 ML IV.SOLN 100 MEQ IVCONT (05:57)
[2023-10-09] MEDS: Omeprazole 40 MG CAPSULE.DR PO (05:58)
[2023-10-09] MEDS: oxyCODONE HCl Immed Release 5 MG TABLET PO (06:35)
[2023-10-09 06:50] LABS: Hematocrit 25.8 % (37.0-47.0); Hemoglobin 8.8 g/dl (12.0-16.0); Mean Corpuscular HGB Conc 34.1 g/dl (31.0-35.0); Mean Corpuscular Hemoglobin 29.1 pg (27.0-33.0); Mean Corpuscular Volume 85.4 fL (80.0-98.0); Mean Platelet Volume 12.4 fL (9.4-12.3); NRBC Pct Auto 2.5 /100WBC (0.0-0.2); Platelet Count 153 X10*3/uL (160-400); Red Blood Count 3.02 X10*6/uL (4.20-5.50); Red Cell Distribution Width 17.5 % (11.0-16.0); White Blood Count 24.5 X10*3/uL (4.8-10.8)
[2023-10-09 07:05] LABS: Alanine Aminotransferase 24 U/L (0-31); Albumin Level 1.9 g/dL (3.5-5.0); Alkaline Phosphatase 352 U/L (39-117); Anion Gap 10 (12-20); Aspartate Amino Transferase 59 U/L (5-31); Bilirubin Total 0.7 mg/dL (0.0-1.0); Blood Urea Nitrogen 21 mg/dL (9-16); Calcium 7.9 mg/dL (8.4-10.2); Carbon Dioxide 17 mmol/L (22-29); Chloride 112 mmol/L (96-108); Creatinine Clr Calc Pharmacy 49.4; Estimated Glomerular Filt Rate > 60; Glucose Random 92 mg/dL (60-115); Magnesium 1.7 mg/dL (1.6-2.6); Potassium 5.1 mmol/L (3.3-5.1); Sodium 134 mmol/L (135-145); Total Protein 4.3 g/dL (6.5-8.0); Triglycerides 160 mg/dL (<150)
[2023-10-09 08:00] VITALS: BP 133/61; PULSE 86; RESP 16; TEMP 36.7; O2SAT 94
[2023-10-09] MEDS: 0.9 % Sodium Chloride Flush 3 ML SYRINGE IVFLUSH ×3 (08:19→23:38)
[2023-10-09] MEDS: Enoxaparin Sodium 60 MG/0.6 ML SYRINGE SUBCUT ×2 (08:19→21:54)
[2023-10-09] MEDS: amLODIPine Besylate 5 MG TABLET PO (08:19)
--- NOTE | 2023-10-09 08:57 | MHC.HEMONC ---
Chemo appt canceled for 10/10/23 as pt is still INPATIENT here. Dr Harris is following her and will keep us advised as to plan.
[2023-10-09] MEDS: ondansetron HCL 4 MG/2 ML VIAL IVPUSH (11:35)
[2023-10-09] MEDS: LORazepam 0.5 MG TABLET PO ×2 (12:37→21:55)
[2023-10-09 13:20] VITALS: BP 133/61; PULSE 86; O2SAT 94
--- NOTE | 2023-10-09 13:33 | HO.PM.IMPN ---
Subjective Subjective Date of Service: 10/09/23 Interval History: mouth pain seems improving vomiting Review of Systems c/o vomitin denies any abdominal pain or fever or chills Physical Exam Vital Signs: Vital Signs: Last Vital Signs Temp 98.0 F 10/09/23 08:00 Pulse 86 10/09/23 13:20 Resp 16 10/09/23 08:00 BP 133/61 10/09/23 13:20 Pulse Ox 94 10/09/23 13:20 O2 Del Method Room Air 10/09/23 08:00 BMI result Body Mass Index 29.1 General: AO X 3, no acute distress mouth-minimal to no soreness on the lips Resp: CTA bilateral CVS: S1,S2,RRR GI: +BS, NT, no distention Skin: No rash Neuro: motor grossly intact Psych: appropriate affect Objective Data Active Medications Acetaminophen (Acetaminophen 325 Mg Tablet) 650 mg PO Q6H PRN PRN Reason: Pain, Mild (Pain Scale 1-3) Last Admin: 10/08/23 18:03 Dose: 650 mg Documented By: CHARLES Al Hydroxide/Mg Hydroxide (Magnesium Hydrox/Alum Hydrox 30 Ml Oral.Susp) 30 ml PO Q4H PRN PRN Reason: Heartburn/Nausea Amlodipine Besylate (Amlodipine Besylate 5 Mg Tablet) 5 mg PO DAILY [facility]; Protocol Last Admin: 10/09/23 08:19 Dose: 5 mg Documented By: CHARLES Diphenhydramine HCl (Diphenhydramine Hcl 50 Mg/Ml Vial) 12.5 mg IVPUSH Q4H PRN PRN Reason: Itching Last Admin: 10/09/23 01:45 Dose: 12.5 mg Documented By: JUANI Enoxaparin Sodium (Enoxaparin Sodium 60 Mg/0.6 Ml Syringe) 60 mg 1 mg/kg (60 mg) SUBCUT Q12H JIAN Last Admin: 10/09/23 08:19 Dose: 60 mg Documented By: CHARLES Hydromorphone HCl (Hydromorphone Hcl 0.5 Mg/0.5 Ml Syringe) 0.5 mg IVPUSH Q4H PRN; Protocol PRN Reason: Pain, Severe (Pain Scale 7-10) Last Admin: 10/04/23 02:44 Dose: 0.5 mg Documented By: JUANI Fluconazole 100 mg/ IV (Miscellaneous Supplies) 50 mls @ 50 mls/hr IV Q24H [facility] Last Infusion: 10/08/23 16:17 Dose: Infused Documented By: CHARLES Metronidazole (Flagyl) 500 mg in 100 mls @ 100 mls/hr IV Q8H [facility] Last Infusion: 10/09/23 11:13 Dose: Infused Documented By: CHARLES Piperacillin Sod/Tazobactam (Sod 3.375 gm/ Sodium Chloride) 50 mls @ 100 mls/hr IV Q6H [facility] Last Infusion: 10/09/23 06:37 Dose: Infused Documented By: JUANI Lidocaine/Diphenhydr/Alum/Mg/Simeth (Mag&Al/Sim/Diphenhyd/Lidocaine 10 Ml Oral.Susp) 10 ml PO Q4H PRN; Protocol PRN Reason: sore mouth Last Admin: 10/08/23 00:35 Dose: 10 ml Documented By: JUANI Lidocaine/Diphenhydr/Alum/Mg/Simeth (Mag&Al/Sim/Diphenhyd/Lidocaine 10 Ml Oral.Susp) 10 ml PO QID [facility] Last Admin: 10/09/23 12:39 Dose: Not Given Documented By: CHARLES Non-Admin Reason: Patient Refused Lorazepam (Lorazepam 0.5 Mg Tablet) 0.5 mg PO BID PRN PRN Reason: anxiety Last Admin: 10/09/23 12:37 Dose: 0.5 mg Documented By: CHARLES Omeprazole (Omeprazole 40 Mg Capsule.Dr) 40 mg PO DAILY@0630 [facility] Last Admin: 10/09/23 05:58 Dose: 40 mg Documented By: JUANI Ondansetron HCl (Ondansetron Hcl 4 Mg/2 Ml Vial) 4 mg IVPUSH Q8H PRN PRN Reason: Nausea and Vomiting Last Admin: 10/09/23 11:35 Dose: 4 mg Documented By: CHARLES Ondansetron HCl (Ondansetron Hcl 4 Mg/2 Ml Vial) 4 mg IVPUSH Q4H PRN PRN Reason: Nausea Last Admin: 10/04/23 02:31 Dose: 4 mg Documented By: JUANI Oxycodone HCl (Oxycodone Hcl Immed Release 5 Mg Tablet) 5 mg PO Q6H PRN PRN Reason: pain 7-10 Last Admin: 10/09/23 06:35 Dose: 5 mg Documented By: JUANI Prochlorperazine Edisylate (Prochlorperazine Edisylate 10 Mg/2 Ml Vial) 5 mg IV Q4H PRN PRN Reason: Nausea Sodium Chloride (0.9 % Sodium Chloride Flush 3 Ml Syringe) 3 ml IVFLUSH QSORFT [facility] Last Admin: 10/09/23 08:19 Dose: 3 ml Documented By: CHARLES Zinc Acetate/Diphenhydramine (Diphenhydramine Hcl 2 % Cream 28 Gm Tube) 1 appl TOPICAL BID PRN; Protocol PRN Reason: Itching Last Admin: 10/07/23 18:38 Dose: 1 appl Documented By: KODOSOB Labs 10/09/23 05:48 10/09/23 05:48 Labs: Laboratory Results - last 24 hr 10/09/23 05:48 MCV 85.4 MCH 29.1 MCHC 34.1 RDW 17.5 H Plt Count 153 L D MPV 12.4 H Absolute Nucleated RBC 0.620 H Nucleated RBC % (auto) 2.5 H Anion Gap 10 L Estim Creat Clear Calc 49.4 Estimated GFR > 60 Random Glucose 92 Calcium 7.9 L Phosphorus 3.0 Magnesium 1.7 Total Bilirubin 0.7 AST 59 H ALT 24 Alkaline Phosphatase 352 H Total Protein 4.3 L Albumin 1.9 L Triglycerides 160 H Assessment and Plan (1) Colitis: Status: Acute (2) Mucositis: Status: Acute Plan 67-year-old female with a PMH significant for?HTN, HLD, GERD, pancreatic adenocarcinoma diagnosed in July 2023 with known metastasis to liver, and 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 She is on chemotherapay and received last dose on 09/26 here with dehydration, SKINNY, Pancytopenia, failure to thrive and mucosititis, diarrhea and found to have colitis SKINNY/CKD from Dehydration from inability to drink, po intake improving Hypokalemia--replaced and corrected, mag has been normal. Pancytopenia d/t chemo-Transfused 1 unit of RBC 10/01, transfused 2 units of Plts on 10/03, Hgb is now 9, platlet 113 as of 10/08. Neutropenia/Leukopenia was treated with 3 doses of Neupogen, WBC is now 24K( similar range from 10/07-10/09) Mucositis--treated with IV Diflucan, magic mouth wash--improving, stop diflucan after 10 days on 10/[address] a of 10/03--completed antibiotics . still has nausea ,vomited x1 continue antiemtics encouraged for po hydration. 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 Quality Stroke Does the patient have a stroke diagnosis?: No VTE Prior VTE?: Yes VTE Risk Level:: Medical - moderate - high VTE Device Contraindication: Treatment Not Indicated VTE Drug Contraindication: N/A - Med Ordered
[2023-10-09] MEDS: Amoxicillin/Potassium Clav 875 MG TABLET PO (14:23)
[2023-10-09] MEDS: Fluconazole in NaCl,Iso-Osm 100 MG in Container,Empty 0 ML 50 MG IV (14:23)
[2023-10-09 16:00] VITALS: BP 119/66; PULSE 92; RESP 16; TEMP 36.6; O2SAT 96
[2023-10-09 19:49] VITALS: BP 139/76; PULSE 89; RESP 16; TEMP 36.6; O2SAT 99
[2023-10-10] MEDS: Amoxicillin/Potassium Clav 875 MG TABLET PO (02:29)
[2023-10-10 04:00] VITALS: BP 166/77; PULSE 92; RESP 16; TEMP 36.6; O2SAT 97
--- NOTE | 2023-10-10 05:52 | PC.NURSE ---
throughout the night, pt slept most of times. not much drinks. pt still uncomfortable to drink or eat. this nurse highly encourage to drink water 250 mL q6. however, she refused to drink. pt takes meds with chocolate ice cream twice and sips of water afew times. per hourly round, pt was comfortably lying in bed closed her eyes and resting. some times wakes up itcy the extremities. provided lotion and face cloth and assist to use bedside commode. will cont. to monitor any changes.
[2023-10-10] MEDS: Omeprazole 40 MG CAPSULE.DR PO (06:11)
[2023-10-10 06:56] LABS: Phosphorus 3.5 mg/dL (2.7-4.5)
[2023-10-10 06:58] LABS: Alanine Aminotransferase 24 U/L (0-31); Albumin Level 2.2 g/dL (3.5-5.0); Alkaline Phosphatase 346 U/L (39-117); Anion Gap 12 (12-20); Aspartate Amino Transferase 59 U/L (5-31); Bilirubin Total 0.7 mg/dL (0.0-1.0); Blood Urea Nitrogen 15 mg/dL (9-16); Carbon Dioxide 15 mmol/L (22-29); Chloride 114 mmol/L (96-108); Estimated Glomerular Filt Rate > 60; Glucose Random 74 mg/dL (60-115); Magnesium 1.7 mg/dL (1.6-2.6); Potassium 5.3 mmol/L (3.3-5.1); Sodium 136 mmol/L (135-145); Total Protein 4.9 g/dL (6.5-8.0); Triglycerides 254 mg/dL (<150)
[2023-10-10 07:58] VITALS: BP 146/75; PULSE 92; RESP 17; TEMP 36.8; O2SAT 98
[2023-10-10] MEDS: Sodium Zirconium Cyclosilicate 10 GM POWD.PACK PO (08:31)
[2023-10-10] MEDS: 0.9 % Sodium Chloride Flush 3 ML SYRINGE IVFLUSH ×3 (08:32→20:41)
[2023-10-10] MEDS: Sodium Bicarbonate 650 MG TABLET PO ×4 (08:33→20:38)
[2023-10-10] MEDS: amLODIPine Besylate 5 MG TABLET PO (08:33)
[2023-10-10] MEDS: Enoxaparin Sodium 60 MG/0.6 ML SYRINGE SUBCUT ×2 (08:34→20:39)
[2023-10-10] MEDS: Mag&Al/Sim/Diphenhyd/Lidocaine 10 ML ORAL.SUSP PO ×2 (08:36→20:36)
[2023-10-10] MEDS: ondansetron HCL 4 MG/2 ML VIAL IVPUSH ×2 (11:26→17:33)
--- NOTE | 2023-10-10 12:47 | MHC.CLN ---
Addendum entered by Ann Presley, RD 10/10/23 13:00: WILL NOT TRIAL GELATEIN SINCE PATIENT FOLLOWS VEGETARIAN DIET. Original Note: F/U DIET=REGULAR, VEGETARIAN, LOW POTASSIUM. INTAKE CONTINUES VARIABLE. VISITED PATIENT AT LUNCH. ACCEPTING BRIANA LU. ONLY VEGGIE BURGER AND DESSERT ON MEAL TRAY PER PATIENT REQUEST. C/O VERY DRY MOUTH. DOES NOT WANT ENSURE SUPPLEMENT OR ICE CREAM, OR FORTIFIED ICE CREAM. STATED THAT REGULAR ICE CREAM IS TOO THICK. START TRIAL OF GELATEIN PLUS, MORATAYA FLAVOR BID. PROVIDES 320 KCALS, 40 G PROTEIN. FOLLOW FOR PO INTAKE AND DIET TOLERANCE.
[2023-10-10] MEDS: oxyCODONE HCl Immed Release 5 MG TABLET PO (12:56)
--- NOTE | 2023-10-10 14:55 | P.PNIM_ITS ---
Subjective Subjective Date of Service: 10/10/23 Interval History: mouth pain seems improving vomiting Review of Systems still feels nauseated and generalized weak No fever No abdominal pain. Physical Exam 2 Vital Signs: Vital Signs: Last Vital Signs Temp 98.2 F 10/10/23 07:58 Pulse 92 10/10/23 07:58 Resp 17 10/10/23 07:58 BP 146/75 H 10/10/23 07:58 Pulse Ox 98 10/10/23 07:58 O2 Del Method Room Air 10/10/23 07:58 BMI result Body Mass Index 29.1 General: AO X 3, no acute distress mouth-minimal to no soreness on the lips Resp: CTA bilateral CVS: S1,S2,RRR GI: +BS, NT, no distention Skin: No rash Neuro: motor grossly intact Psych: appropriate affect Objective Data Active Medications Acetaminophen (Acetaminophen 325 Mg Tablet) 650 mg PO Q6H PRN PRN Reason: Pain, Mild (Pain Scale 1-3) Last Admin: 10/08/23 18:03 Dose: 650 mg Documented By: CHARLES Al Hydroxide/Mg Hydroxide (Magnesium Hydrox/Alum Hydrox 30 Ml Oral.Susp) 30 ml PO Q4H PRN PRN Reason: Heartburn/Nausea Amlodipine Besylate (Amlodipine Besylate 5 Mg Tablet) 5 mg PO DAILY [facility]; Protocol Last Admin: 10/10/23 08:33 Dose: 5 mg Documented By: ROXANN Diphenhydramine HCl (Diphenhydramine Hcl 50 Mg/Ml Vial) 12.5 mg IVPUSH Q4H PRN PRN Reason: Itching Last Admin: 10/09/23 23:38 Dose: 12.5 mg Documented By: JUANI Enoxaparin Sodium (Enoxaparin Sodium 60 Mg/0.6 Ml Syringe) 60 mg 1 mg/kg (60 mg) SUBCUT Q12H JIAN Last Admin: 10/10/23 08:34 Dose: 60 mg Documented By: ROXANN Hydromorphone HCl (Hydromorphone Hcl 0.5 Mg/0.5 Ml Syringe) 0.5 mg IVPUSH Q4H PRN; Protocol PRN Reason: Pain, Severe (Pain Scale 7-10) Last Admin: 10/04/23 02:44 Dose: 0.5 mg Documented By: JUANI Fluconazole 100 mg/ IV (Miscellaneous Supplies) 50 mls @ 50 mls/hr IV Q24H [facility] Last Infusion: 10/09/23 15:23 Dose: Infused Documented By: CHARLES Lidocaine/Diphenhydr/Alum/Mg/Simeth (Mag&Al/Sim/Diphenhyd/Lidocaine 10 Ml Oral.Susp) 10 ml PO Q4H PRN; Protocol PRN Reason: sore mouth Last Admin: 10/08/23 00:35 Dose: 10 ml Documented By: JUANI Lidocaine/Diphenhydr/Alum/Mg/Simeth (Mag&Al/Sim/Diphenhyd/Lidocaine 10 Ml Oral.Susp) 10 ml PO QID [facility] Last Admin: 10/10/23 12:13 Dose: Not Given Documented By: ROXANN Non-Admin Reason: Patient Refused Lorazepam (Lorazepam 0.5 Mg Tablet) 0.5 mg PO BID PRN PRN Reason: anxiety Last Admin: 10/09/23 21:55 Dose: 0.5 mg Documented By: JUANI Omeprazole (Omeprazole 40 Mg Capsule.Dr) 40 mg PO DAILY@0630 [facility] Last Admin: 10/10/23 06:11 Dose: 40 mg Documented By: JUANI Ondansetron HCl (Ondansetron Hcl 4 Mg/2 Ml Vial) 4 mg IVPUSH Q8H PRN PRN Reason: Nausea and Vomiting Last Admin: 10/10/23 11:26 Dose: 4 mg Documented By: ROXANN Ondansetron HCl (Ondansetron Hcl 4 Mg/2 Ml Vial) 4 mg IVPUSH Q4H PRN PRN Reason: Nausea Last Admin: 10/04/23 02:31 Dose: 4 mg Documented By: JUANI Oxycodone HCl (Oxycodone Hcl Immed Release 5 Mg Tablet) 5 mg PO Q6H PRN PRN Reason: pain 7-10 Last Admin: 10/10/23 12:56 Dose: 5 mg Documented By: ROXANN Prochlorperazine Edisylate (Prochlorperazine Edisylate 10 Mg/2 Ml Vial) 5 mg IV Q4H PRN PRN Reason: Nausea Sodium Bicarbonate (Sodium Bicarbonate 650 Mg Tablet) 650 mg PO QID [facility] Last Admin: 10/10/23 12:56 Dose: 650 mg Documented By: ROXANN Sodium Chloride (0.9 % Sodium Chloride Flush 3 Ml Syringe) 3 ml IVFLUSH QSHIFT [facility] Last Admin: 10/10/23 08:32 Dose: 3 ml Documented By: ROXANN Zinc Acetate/Diphenhydramine (Diphenhydramine Hcl 2 % Cream 28 Gm Tube) 1 appl TOPICAL BID PRN; Protocol PRN Reason: Itching Last Admin: 10/07/23 18:38 Dose: 1 appl Documented By: KODOSOB Labs 10/09/23 05:48 10/10/23 06:34 Labs: Laboratory Results - last 24 hr 10/10/23 06:34 Anion Gap 12 Estim Creat Clear Calc 53.0 Estimated GFR > 60 Random Glucose 74 Calcium 8.0 L Phosphorus 3.5 Magnesium 1.7 Total Bilirubin 0.7 AST 59 H ALT 24 Alkaline Phosphatase 346 H Total Protein 4.9 L Albumin 2.2 L Triglycerides 254 H Assessment and Plan (1) Colitis: Status: Acute (2) Mucositis: Status: Acute Plan 67-year-old female with a PMH significant for?HTN, HLD, GERD, pancreatic adenocarcinoma diagnosed in July 2023 with known metastasis to liver, and 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 She is on chemotherapay and received last dose on 09/26 here with dehydration, SKINNY, Pancytopenia, failure to thrive and mucosititis, diarrhea and found to have colitis SKINNY/CKD from Dehydration from inability to drink, po intake improving low bicarb -likley due to low po inatke.added bicarb supplements. Hyperkalemia--slightly elevated ,given lokalma x1 dose will recheck bmp in am. Pancytopenia d/t chemo-Transfused 1 unit of RBC 10/01, transfused 2 units of Plts on 10/03, Hgb is now 9, platlet 113 as of 10/08. Neutropenia/Leukopenia was treated with 3 doses of Neupogen, WBC is now 24K( similar range from 10/07-10/09) Mucositis--treated with IV Diflucan, magic mouth wash--improving, completed diflucan. Colitis on CT a of 10/03--completed antibiotics . still has nausea ,vomited x1 continue antiemtics encouraged for po hydration. 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 Quality Stroke Does the patient have a stroke diagnosis?: No VTE Prior VTE?: Yes VTE Risk Level:: Medical - moderate - high VTE Device Contraindication: Treatment Not Indicated VTE Drug Contraindication: N/A - Med Ordered
[2023-10-10] MEDS: Fluconazole in NaCl,Iso-Osm 100 MG in Container,Empty 0 ML 50 MG IV (15:33)
[2023-10-10 16:00] VITALS: BP 167/69; PULSE 98; RESP 18; TEMP 37.1; O2SAT 98
--- NOTE | 2023-10-10 17:41 | PC.NURSE ---
Pt often states she has episodes of gagging. Medicated twice this shift with IV zofran with effect. Pt able to eat some of meals.
[2023-10-10 19:29] VITALS: BP 165/65; PULSE 95; RESP 18; TEMP 36.4; O2SAT 99
[2023-10-10] MEDS: LORazepam 0.5 MG TABLET PO (22:42)
[2023-10-11 03:57] VITALS: BP 139/76; PULSE 97; RESP 16; TEMP 36.4; O2SAT 96
[2023-10-11] MEDS: Omeprazole 40 MG CAPSULE.DR PO (05:52)
[2023-10-11 06:16] LABS: Hematocrit 26.5 % (37.0-47.0); Hemoglobin 8.8 g/dl (12.0-16.0)
[2023-10-11 06:26] LABS: Alanine Aminotransferase 21 U/L (0-31); Albumin Level 2.1 g/dL (3.5-5.0); Alkaline Phosphatase 309 U/L (39-117); Anion Gap 9 (12-20); Aspartate Amino Transferase 52 U/L (5-31); Bilirubin Total 0.6 mg/dL (0.0-1.0); Blood Urea Nitrogen 14 mg/dL (9-16); Calcium 7.8 mg/dL (8.4-10.2); Carbon Dioxide 19 mmol/L (22-29); Chloride 113 mmol/L (96-108); Creatinine Clr Calc Pharmacy 55.1; Estimated Glomerular Filt Rate > 60; Glucose Random 74 mg/dL (60-115); Potassium 4.5 mmol/L (3.3-5.1); Sodium 136 mmol/L (135-145); Total Protein 4.6 g/dL (6.5-8.0)
[2023-10-11 08:00] VITALS: BP 143/79; PULSE 95; RESP 18; TEMP 36.4; O2SAT 97
[2023-10-11] MEDS: Sodium Bicarbonate 650 MG TABLET PO (08:54)
[2023-10-11] MEDS: amLODIPine Besylate 5 MG TABLET PO (08:54)
[2023-10-11] MEDS: Enoxaparin Sodium 60 MG/0.6 ML SYRINGE SUBCUT (08:55)
[2023-10-11] MEDS: 0.9 % Sodium Chloride Flush 3 ML SYRINGE IVFLUSH (08:55)
--- NOTE | 2023-10-11 10:40 | PM.DS ---
DS: Providers Provider Date of Service: 10/11/23 Date of admission: 10/01/23 18:37 Date of discharge: 10/11/23 Primary care physician: Quinton Neff MD Consults: 10/02/23 07:22 Consult to Hematology / Oncology Routine Consulting Provider: Laura Harris Reason for consultation: Pancytopenia, pancreatic cancer Attending physician on discharge: Gabby Shipman Discharging clinician: Gabby Shipman DS: Diagnosis Discharge Diagnosis (1) Colitis: Status: Acute (2) Mucositis: Status: Acute (3) Pancytopenia: Status: Acute DS: Summary Hospital Course Hospital Course: 67-year -old female with hypertension, hyperlipidemia, GERD, pancreatic adenocarcinoma with liver metastases, and 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 She is on Lovenox and chemotherapy. She received her last chemotherapy dose on 09/26 and has since been very weak with poor oral intake and mucositis. She was started on diflucan but cannot take medications by mouth. She had lab work done today and was found to have pancytopenia. Dr. Harris recommends inpatient management for dehydration and renal failure. She advises holding Lovenox until platelets are greater than 70 and giving Neupogen for neutropenia. Hospital course: Patient was admitted to the hospital because of Gwendolyn on CKD and dehydration, hyperkalemia, pancytopenia: Further workup revealed colitis: Patient was started on IV antibiotics, blood cultures sent, also patient was found to have mucositis patient was started on IV Diflucan: Patient completed course of IV antibiotic, blood culture negative, also completed Diflucan from mucositis, patient is tolerating diet well. Pancytopenia: Patient received 1 PRBC and 2 units of platelets: H/h in range 8.8/6.5 ,platlets 153. Also received Neupogen: Subsequently her white count is in 20 for care range. H&H is stable in 8.8 range as above. And platelets also improved. Follow CBC outpatient Hyperkalemia: Improved with Lokelma. Advise low-potassium diet. Monitor BMP outpatient. 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 follow up cbc and bmp and oncology followup outpatient. Above management discussed with the patient in detail length she understand and in agreement with above plan. Time Attestation Discharge coordination time: Greater than 30 minutes Quality: Safe Use of Opioids Does Pt have an Active Cancer Diagnosis on the Problem List?: Yes Opioid Measure Date for [facility] Report: 09/11/23 Opioid Measure Time for [facility] Report: 10:45 Quality: Stroke Does the patient have a stroke diagnosis?: No Physical Exam Vital Signs: Vital Signs: Last Vital Signs Temp 97.5 F 10/11/23 08:00 Pulse 95 10/11/23 08:00 Resp 18 10/11/23 08:00 BP 143/79 H 10/11/23 08:00 Pulse Ox 97 10/11/23 08:00 O2 Del Method Room Air 10/11/23 08:00 BMI result Body Mass Index 29.1 General: AO X 3, no acute distress mouth-minimal to no soreness on the lips Resp: CTA bilateral CVS: S1,S2,RRR GI: +BS, NT, no distention Skin: No rash Neuro: motor grossly intact Psych: appropriate affect DS: Data Data Completed and Pending Completed studies during hospitalization [Text1]: Procedures Insertion of Infusion Device into Superior Vena Cava, Percutaneous Approach (09/13/23) Insertion of Totally Implantable Vascular Access Device into Chest Subcutaneous Tissue and Fascia, Percutaneous Approach (09/13/23) Transfusion of Nonautologous Red Blood Cells into Peripheral Vein, Percutaneous Approach (09/13/23) Ultrasonography of Superior Vena Cava, Guidance (09/13/23) Labs on day of discharge: Laboratory Results - last 24 hr 10/11/23 10/11/23 10/11/23 05:30 05:30 05:30 Hgb 8.8 L Hct 26.5 L Sodium Cancelled 136 Potassium Cancelled 4.5 Chloride Cancelled Carbon Dioxide Anion Gap BUN Creatinine Estim Creat Clear Calc Estimated GFR Random Glucose Calcium Total Bilirubin AST ALT Alkaline Phosphatase Total Protein Albumin 10/11/23 10/11/23 10/11/23 05:30 05:30 05:30 Hgb Hct Sodium Potassium Chloride 113 H Carbon Dioxide Cancelled 19 L Anion Gap Cancelled 9 L BUN Cancelled Creatinine Estim Creat Clear Calc Estimated GFR Random Glucose Calcium Total Bilirubin AST ALT Alkaline Phosphatase Total Protein Albumin 10/11/23 10/11/23 10/11/23 05:30 05:30 05:30 Hgb Hct Sodium Potassium Chloride Carbon Dioxide Anion Gap BUN 14 Creatinine Cancelled 0.79 Estim Creat Clear Calc Cancelled 55.1 Estimated GFR Cancelled Random Glucose Calcium Total Bilirubin AST ALT Alkaline Phosphatase Total Protein Albumin 10/11/23 10/11/23 10/11/23 05:30 05:30 05:30 Hgb Hct Sodium Potassium Chloride Carbon Dioxide Anion Gap BUN Creatinine Estim Creat Clear Calc Estimated GFR > 60 Random Glucose Cancelled 74 Calcium Cancelled 7.8 L Total Bilirubin 0.6 AST 52 H ALT 21 Alkaline Phosphatase 309 H Total Protein 4.6 L Albumin 2.1 L Imaging Chest x-ray: Radiologist's impression: ITS Impressions Abdomen/Pelvis CT 10/03/23 11:18 IMPRESSION: Pancreatic mass and numerous low-attenuation liver lesions suggestive of metastatic disease. This is similar to previous August 2023 exam. New Wall thickening and edema of the colon suggestive of colitis. Small amount of ascites Fluid fluid level in the gallbladder. Mild gallbladder wall thickening. No gallstones or biliary duct dilatation better evaluated with ultrasound if clinically indicated. 2 cm low-attenuation splenic lesion. Differential would include splenic infarct and metastasis. This is new from July 2023 exam. Fleischner guidelines were followed. Findings will be communicated by the [place] workflow commercial diver. Discharge Plan Discharge Anticipated Discharge Date/Time: 10/11/23 10:14 Patient Disposition: Home, Self-Care Discharge Diagnosis: colitis ,mucositis ,pancytopenia Referrals: Laura Harris MD [Physician] - 1 Week Po,Quinton Bragg MD [Primary Care Provider] - 1 Week Discharge Medications: New sodium bicarbonate 650 mg Tablet 650 mg PO BID Qty: 10 0RF Continued omeprazole 20 mg capsule,delayed release(DR/EC) 20 mg PO DAILY enoxaparin [Lovenox] 80 mg/0.8 mL Syringe 70 mg SUBCUT Q12H Qty: 60 4RF ondansetron HCl 8 mg Tablet 8 mg PO Q8H PRN (Reason: Nausea And Vomiting) Qty: 30 3RF metoclopramide HCl 5 mg Tablet 5 mg PO BID-TID PRN (Reason: Nausea) Qty: 30 3RF Magic Mouthwash Diphen/Lido/Antacid 1:1:1 240 mL Suspension 10 ml PO QID Qty: 240 3RF Rx Instructions: Lidocaine Viscous 2 % 80mL; diphenhydramine 12.5 mg/5 mL 80mL; aluminum-mag hydrox-simeth [id number]/5mL 80mL oxycodone 5 mg Tablet 5 mg PO Q6H PRN (Reason: Breakthrough Pain, Moderate) Qty: 60 0RF Rx Instructions: Partial Fill upon patient request. polyethylene glycol 3350 17 gram powder in packet 17 g PO DAILY PRN (Reason: Constipation) amlodipine 5 mg tablet 5 mg PO DAILY Qty: 90 2RF lorazepam 0.5 mg tablet 0.5 mg PO BID PRN (Reason: anxiety) 90 Days Qty: 180 0RF Discharge Orders: Discharge Order (Routine); Ordered 10/11/23 Ordered By: Gabby Shipman Diet: low poatssium diet Activity on Discharge: As tolerated Stand Alone Forms: Patient Portal Discharge page Care Plan Goals: Patient was admitted to the hospital because of Gwendolyn on CKD and dehydration, hyperkalemia, pancytopenia: Further workup revealed colitis: Patient was started on IV antibiotics, blood cultures sent, also patient was found to have mucositis patient was started on IV Diflucan: Patient completed course of IV antibiotic, blood culture negative, also completed Diflucan from mucositis, patient is tolerating diet well. Pancytopenia: Patient received 1 PRBC and 2 units of platelets: H/h in range 8.8/6.5 ,platlets 153. Also received Neupogen: Subsequently her white count is in 20 for care range. H&H is stable in 8.8 range as above. And platelets also improved. Follow CBC outpatient Hyperkalemia: Improved with Lokelma. Advise low-potassium diet. Monitor BMP outpatient. 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 follow up cbc and bmp and oncology followup outpatient. Above management discussed with the patient in detail length she understand and in agreement with above plan. Health Concerns: As above. Plan of Treatment: As above. Assessment: As above.
--- NOTE | 2023-10-11 11:00 | MHC.CM.PN ---
DP: PT HAS BEEN MEDICALLY CLEARED FOR DC HOME, NO SERVICES. PT HAS OWN RIDE HOME.
[2023-10-11] MEDS: Heparin Sodium,Porcine Flush 100 UNITS, 0.9 % Sodium Chloride Flush 5 ML IVFLUSH (12:15)
--- NOTE | 2023-10-17 10:09 | P.CDIM_ITS ---
PROVIDER RESPONSE TEXT: To clarify, the appropriate diagnosis supported by the clinical indicators: Moderate QUERY TEXT: PHYSICIAN'S DOCUMENTATION REQUEST Date of Query: 10/08/2023 10:17 AM EST Patient Name: Alee Rowan Admit Date: 10/01/2023 Dear Zane Goncalves, A review of the medical record indicates additional documentation may be needed. Please review below and update the documentation accordingly. Documentation includes the diagnosis of malnutrition. Additional clinical indicators from the record include: Per Hospitalist Progress Note 10/07/23: Protein calorie malnutrition, started on TPN 10/05, she is eating by mouth and therefore stop TPN tod ay If possible, please provide additional specificity regarding the severity of the malnutrition using t he above information: Mild Moderate Severe Other (explain) Clinically unable to determine (explain) Thank you, Eri Beebe RN Use of terms such as suspected, likely, concern for, or probable (associated with a specific diagnosi s that is being evaluated, monitored, or treated as if it exists) are acceptable and can be coded in the inpatient se tting, when documented at the time of discharge. Please use your independent medical judgment in providing your response. THIS QUERY IS PART OF THE PERMANENT MEDICAL RECORD
== END 2023-10-11 14:44 | disposition home or self-care (01) | DRG 808 ==
LOC: HO.ED 17:34 → HO.EDOVER 18:56 → HO.S3 19:17
PROVIDERS: Internal Medicine; Admitting Provider Internal Medicine; Emergency Provider Internal Medicine; PCP Internal Medicine; Visit Provider Internal Medicine
DX: D61.810 Antineoplastic chemotherapy induced pancytopenia (principal); K55.059 Acute (reversible) ischemia of intestine, part and extent unspecified; B37.0 Candidal stomatitis; C25.0 Malignant neoplasm of head of pancreas; N17.9 Acute kidney failure, unspecified; C78.7 Secondary malignant neoplasm of liver and intrahepatic bile duct; E44.0 Moderate protein-calorie malnutrition; I82.890 Acute embolism and thrombosis of other specified veins; E78.00 Pure hypercholesterolemia, unspecified; D70.9 Neutropenia, unspecified; K52.9 Noninfective gastroenteritis and colitis, unspecified; E86.0 Dehydration; I12.9 Hypertensive chronic kidney disease with stage 1 through stage 4 chronic kidney disease, or unspecified chronic kidney disease; N18.30 Chronic kidney disease, stage 3 unspecified; T45.1X5A Adverse effect of antineoplastic and immunosuppressive drugs, initial encounter; K12.31 Oral mucositis (ulcerative) due to antineoplastic therapy; E87.6 Hypokalemia; Z68.29 Body mass index [BMI] 29.0-29.9, adult; Z91.040 Latex allergy status; Z79.01 Long term (current) use of anticoagulants; Z79.899 Other long term (current) drug therapy
CPT/HCPCS: 36415; 74176; 80048; 80053; 80076; 83735; 84100; 84478; 85014; 85018; 85027; 86850; 86900; 86901; 86923; 87493; 97162; 97165; 99285; J1170; J1200; J1447; J1450; J1642; J1650; J1836; J2060; J2405; J2543; J3480; P9016; P9073

== ENCOUNTER → 2023-10-01 18:37 | Outpatient (BNV) | payer MEDICARE, SELFPAY | PROVIDERS: Admitting Provider Internal Medicine; Emergency Provider Internal Medicine; Visit Provider Internal Medicine | DX: K52.9 Noninfective gastroenteritis and colitis, unspecified (principal); K12.30 Oral mucositis (ulcerative), unspecified; D61.818 Other pancytopenia | CPT/HCPCS: 99223; 99231; 99232; 99233; 99239 ==

== ENCOUNTER → 2023-10-01 18:37 | Outpatient (BNV) | payer MEDICARE, SELFPAY | PROVIDERS: Admitting Provider Internal Medicine; Emergency Provider Internal Medicine; Visit Provider Internal Medicine | DX: C25.9 Malignant neoplasm of pancreas, unspecified (principal); N17.9 Acute kidney failure, unspecified | CPT/HCPCS: 99222; 99232 ==

== ENCOUNTER 2023-11-22 13:00 | Outpatient (RCR) | payer MEDICARE, SELFPAY ==
[2023-08-21 15:23] VITALS: BP 142/77; PULSE 99; RESP 14; TEMP 36.6; O2SAT 98; BMI 31.7
--- NOTE | 2023-08-21 15:42 | PM.HEMONCCN ---
Subjective - Subjective Chief complaint: Epigastric pain/mass in pancreas Patient: new to practice Consult date: 08/21/23 Primary Care Provider: Quinton Neff MD HPI - Consult Narrative Reason for consult: Probable pancreatic cancer Narrative: Alee Rowan is a 67 year old woman was recently diagnosed with a pancreatic mass suspicious for cancer. She presented with a few months of epigastric discomfort and weight loss which she attributed to stress at work and hiatal hernia/GERD symptoms. She was asked to increase dose of PPI but presented to emergency department on 08/09/2023 with worsening symptoms. A CT abdomen/pelvis without contrast was performed which revealed a suspicious 3.4 cm mass in head of pancreas as well as few indeterminate liver lesions suspicious for metastasis. She is here for oncology recommendations. She has been referred to Gastroenterology as well. She is accompanied by her 80+ year old paternal aunt who is her only relative. She never , she has no children. 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 Does not smoke or consume any alcohol. No personal history of any cancer. Her mother was diagnosed with breast cancer at an older age. There is no family history of pancreatic or prostate cancer. She denies fever, chills or jaundice. She reports recent loss of appetite and weight loss. She reports a lot of anxiety symptoms the last week since her diagnosis. She has been taking Tylenol for pain and is willing to try something stronger. She is also requesting antiemetic. She takes lorazepam for anxiety symptoms. Review of Systems - Constitutional Reports as per HPI, Denies fatigue, Denies malaise, Denies poor appetite - Cardiovascular Reports no additional cardiovascular complaints - Respiratory Reports no additional respiratory complaints - Gastrointestinal Reports no additional gastrointestinal complaints Oncology Screenings - ECOG Performance Status ECOG Performance Status: [facility] Medical History: Medical History (Last Reviewed 08/21/23 @ 15:25 by Yaz Turcios) Abnormal blood pressure Blood pressure elevated without history of HTN Cholelithiasis GERD (gastroesophageal reflux disease) Hernia High cholesterol Knee pain, right Obesity (BMI 30-39.9) Vitamin D deficiency Family History: Family History (Last Reviewed 08/21/23 @ 15:25 by Yaz Turcios) Father CVD (cardiovascular disease) Stroke Hypertension Mother Breast cancer Surgical History: Surgical History (Last Reviewed 08/21/23 @ 15:25 by Yaz Turcios) No pertinent past surgical history Social History: Social History (Last Updated 08/21/23 @ 15:26 by Yaz Turcios) Living Situation History: Household Members: None Housing: House Alcohol History Details: 1. How often do you have a drink containing alcohol?: b. Monthly or less 2. How many drinks containing alcohol do you have on a typical day when you are drinking?: a. 1 or 2 Tobacco History: Patient Tobacco Use Status: Never used Tobacco e-Cigarette/Vaping Use: Never Used Second Hand Smoke Exposure: No Substance Use History: Use of substances other than those prescribed or required for medical reasons: No Domestic Abuse History: Have you been hit, kicked, punched, or otherwise hurt by someone within the past year? If so, by whom?: No Do you feel safe in your current relationship?: No Current Relationship Homicidal Assessment: Do you have thoughts of harming others: None Do you have a plan to hurt others: No Plan Do you have the means to hurt others: No Nutrition Assessment: Recently lost weight without trying: No Occupation Assessmet: service: No Current occupational status: employed Home Medications and Allergies Home Medications Medication Instructions Recorded Confirmed Type cranberry 400 mg capsule 400 mg PO DAILY 11/25/20 08/21/23 History multivitamin 1 tab PO DAILY 11/25/20 08/21/23 History omega-3 fatty acids 1,000 mg 1,000 mg PO DAILY 11/25/20 08/21/23 History capsule (Fish Oil Concentrate) Allergies Allergy/AdvReac Type Severity Reaction Status Date / Time No Known Allergies Allergy Verified 08/15/23 12:34 Physical Exam Vital signs: Vital Signs Temp 97.9 F 08/21/23 15:23 Pulse 99 08/21/23 15:23 Resp 14 08/21/23 15:23 BP 142/77 H 08/21/23 15:23 Pulse Ox 98 08/21/23 15:23 O2 Del Method Room Air 08/21/23 15:23 Intake & Output 08/20/23 08/21/23 08/21/23 18:59 06:59 18:59 Other: Weight 68.7 kg [place] Weight in Grams [id number] Weight 68.7 kg - Constitutional Present: mild distress - Routine HEENT Exam Head: Present: normal inspection Eye: Present: normal appearance, PERRL. Absent: scleral icterus - Routine Neck Exam Present: supple. Absent: lymphadenopathy - Routine Respiratory Exam Present: CTAB. Absent: accessory muscle use - Routine Cardiovascular Exam Cardiovascular: Present: S1, S2 - Routine Abdominal Exam Absent: mass - Routine Extremities Exam Absent: pedal edema - Routine Skin Exam Present: intact. Absent: cyanosis - Routine Neurological Exam Present: alert, oriented X3 Hem/Onc Consult Result - Labs Labs: Laboratory Tests 08/09/23 16:22 WBC 8.0 RBC 3.78 L Hgb 11.1 L Hct 33.5 L Plt Count 305 BUN 20 H Creatinine 1.14 Laboratory Tests 08/09/23 08/09/23 08/09/23 16:22 16:22 16:22 Total Bilirubin 0.2 Direct Bilirubin < 0.2 AST 22 ALT 16 Alkaline Phosphatase 84 Assessment and Plan Patient Active problem list reviewed?: Yes (1) Pancreatic mass Problem details: 07/2023 Status: Acute Assessment and plan: 1. This is a pleasant 67-year-old woman presenting with epigastric discomfort and weight loss. CT abdomen without contrast performed 08/09/2023 shows ill-defined mass in the pancreatic head measuring up to 3.5 cm and multiple low-attenuation lesions seen throughout liver parenchyma. Metastatic disease to the liver suspected, no biliary ductal dilatation seen. Pancreatic adenocarcinoma cannot be excluded . She has MRI with contrast scheduled for 09/03/2023. I have ordered ultrasound abdomen to see if liver lesions can be visualized and a biopsy of liver lesion performed if seen and possible. She also has a referral to Gastroenterology. If there is no lesion to biopsy in the liver, she would need endoscopy and biopsy of pancreatic head mass. Recent blood work shows normal LFTs. LDH, CA 19- 9 levels are pending. Depending on imaging and further workup such as biopsy and staging recommendations about treatment will be made. If she does have pancreatic cancer, genetic testing will also be performed. For her pain I have prescribed tramadol 50 mg every 8 hours as needed. Zofran as antiemetic has also been prescribed. Further recommendations to follow. Follow-up in 2 weeks. - Time Spent With Patient Time Spent with Patient (in minutes): 45
--- NOTE | 2023-08-21 16:26 | MHC.HEMONCMA ---
Patient seen today for new consult for liver lesions, VSS, labs, U/S ab and U/S BX liver was ordered and entered.Followup TBD.
--- NOTE | 2023-08-21 16:35 | MHC.HEMONC ---
I met with new Oncology patient during her Consultation with Dr Harris for pancreatic mass diagnosed in ER last week. She had been experiencing dull ache in right side and back and going across rib cage. She has an MRI booked for 09/03 that was ordered by Dr Neff. Dr Harris ordering liver u/s and bx. Pt was very discouraged and weepy. She knows pancreatic cancer is not good . It was difficult assuring her that we do not have staging completed yet as she is convinced it's in my liver and that means it's a stage 4 . Her aunt is her only family member around and she was here with patient. She will do her best to support patient. 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 We will talk about work accommodations at another time. I gave her my contact information should she have questions.
[2023-08-21 17:32] LABS: INTERNATIONAL NORM RATIO 0.9 (0.9-1.1)
[2023-08-21 18:22] LABS: Lactate Dehydrogenase 308 U/L (122-220)
[2023-08-23 09:24] LABS: Carbohydrate Antigen 19-9 519 U/mL (<34)
--- NOTE | 2023-08-23 10:32 | MHC.HEMONCMA ---
Spoke with [facility] in [id number], patient is booed for ct biopsy lver for 08/30/23 at 9am with arrival at 7:30am, they will call 24-48 hrs prior to go over meds. I called and give information to patient and understands/in agreement.
--- NOTE | 2023-08-23 12:52 | MHC.HEMONCMA ---
[id number] called and Abigail came and bx was changed to 08/27/23 at 11:00 arrive 1 1/2 hrs prior, NPO for 6 hrs , called and gave new information to patient who was less than thrilled that it changed due to making arrangements for someone to take her, she will change ride and asked for it not to be changed again. Relayed message to [employer].
--- NOTE | 2023-08-31 16:11 | MHC.HEMONC ---
Triage- Dr Dumont called pt to discuss MRI report from 08/29/23
[2023-09-04 11:48] VITALS: BP 140/74; PULSE 96; RESP 15; TEMP 36.6; O2SAT 99
--- NOTE | 2023-09-04 12:48 | MHC.HEMONCMA ---
Patient seen today for followup after testing for pancreas mass, VSS, 2 week follow up, Port insert, petscan, chemo teach ordered today.
--- NOTE | 2023-09-04 13:51 | PM.HEMONCPN ---
Medical Summary - Medical Summary Date of Service: 09/04/23 Chief complaint: Follow-up Primary Care Provider: Quinton Neff MD Medical Summary: Diagnosis: Metastatic pancreatic adenocarcinoma July 2023 She presented with a few months of epigastric discomfort and weight loss which she attributed to stress at work and hiatal hernia/GERD symptoms. She was asked to increase dose of PPI but presented to emergency department on 08/09/2023 with worsening symptoms. A CT abdomen/pelvis without contrast was performed which revealed a suspicious 3.4 cm mass in head of pancreas as well as few indeterminate liver lesions suspicious for metastasis. Interval History Interval history: Patient is here in follow-up. She is extremely anxious, stating repeatedly I know it is bad news , wish I would just in my sleep . She reports ongoing abdominal discomfort. Tramadol did not help. She is taking omeprazole. She reports also constipation but tramadol. No fever or chills. She is having a hard time sleeping at night. She underwent liver biopsy last week as well as abdominal MRI. She is here to discuss results. She is alone. Review of Systems - Constitutional Reports as per [facility] Medical History: Medical History (Last Reviewed 09/04/23 @ 11:49 by Yaz Turcios) Abnormal blood pressure Blood pressure elevated without history of HTN Cholelithiasis GERD (gastroesophageal reflux disease) Hernia High cholesterol Knee pain, right Obesity (BMI 30-39.9) Vitamin D deficiency Family History: Family History (Last Reviewed 09/04/23 @ 11:49 by Yaz Turcios) Father CVD (cardiovascular disease) Stroke Hypertension Mother Breast cancer Surgical History: Surgical History (Last Reviewed 09/04/23 @ 11:49 by Yaz Turcios) No pertinent past surgical history Social History: Social History (Last Reviewed 09/04/23 @ 11:49 by Yaz Turcios) Living Situation History: Household Members: None Housing: House Tobacco History: Patient Tobacco Use Status: Never used Tobacco e-Cigarette/Vaping Use: Never Used Second Hand Smoke Exposure: No Occupation Assessmet: service: No Current occupational status: employed Home Medications and Allergies Home Medications Medication Instructions Recorded Confirmed Type cranberry 400 mg capsule 400 mg PO DAILY 11/25/20 09/04/23 History multivitamin 1 tab PO DAILY 11/25/20 09/04/23 History omega-3 fatty acids 1,000 mg 1,000 mg PO DAILY 11/25/20 09/04/23 History capsule (Fish Oil Concentrate) Allergies Allergy/AdvReac Type Severity Reaction Status Date / Time No Known Allergies Allergy Verified 08/15/23 12:34 Exam Vital signs: Vital Signs Temp 97.8 F 09/04/23 11:48 Pulse 96 09/04/23 11:48 Resp 15 09/04/23 11:48 BP 140/74 H 09/04/23 11:48 Pulse Ox 99 09/04/23 11:48 O2 Del Method Room Air 09/04/23 11:48 Weight 68.7 kg BMI result Body Mass Index 31.7 - Constitutional Present: mild distress - Routine HEENT Exam Head: Present: normal inspection - Routine Respiratory Exam Present: CTAB. Absent: accessory muscle use - Routine Cardiovascular Exam Cardiovascular: Present: S1, S2 - Routine Abdominal Exam Absent: mass - Routine Extremities Exam Absent: pedal edema - Routine Skin Exam Present: intact. Absent: cyanosis - Routine Neurological Exam Present: alert, oriented X3 Data - Labs Labs: 08/21/23 16:28 Carbohydrate Antigen 19-9 Routine Lactate Dehydrogenase Routine PT with INR [Prothrombin Time INR] Routine Laboratory Last Values PT 11.0 SEC (11.1-13.3) L 08/21/23 16:28 INR 0.9 (0.9-1.1) 08/21/23 16:28 Lactate Dehydrogenase 308 U/L (122-220) H 08/21/23 16:28 CA 19-9 Antigen 519 U/mL (<34) H 08/21/23 16:28 Assessment and Plan Patient Active problem list reviewed?: Yes (1) Pancreatic adenocarcinoma Status: Acute Assessment and plan: 1. This is a 67-year-old woman who has been diagnosed with metastatic pancreatic adenocarcinoma in August 2023. Ultrasound-guided core needle biopsy of liver mass in left lobe performed 08/27/2023 revealed adenocarcinoma, moderate to poorly differentiated favor pancreatic or biliary origin. MRI abdomen with contrast revealed 2.8 x 3.9 x 2.8 cm hypoenhancing mass in the head of pancreas. Distal atrophy of pancreas and dilatation and tortuosity of the main pancreatic duct up to 5 mm. Hepatic steatosis and numerous ill-defined rim enhancing lesions representing hepatic metastatic disease. No biliary ductal dilatation. Bulky abdominal lymphadenopathy. 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 CA 19 9 elevated, 519 U/mL. LDH elevated, 308 U/L, LFTs normal. I have discussed above findings with the patient. She was extremely distraught and anxious. She did have questions about going to [place] for 2nd opinion as well as clinical trials. She will be referred to [facility] or [facility] based on her insurance. I discussed further management, PET-CT for complete staging has been ordered. I discussed genetic testing/BRCA mutation testing. She declined at this time. I have asked the pathologist to had MSI testing to see if immunotherapy could be an option down the line. At this time I have recommended FOLFIRINOX in the first-line setting since she has a good performance status and is young. I discussed MediPort placement. 2. Abdominal pain. This could be secondary to thrombosis of mesenteric vein. I am starting her on Eliquis for anticoagulation. I have asked her to stop tramadol and try oxycodone 5 mg 1 tablet every 6-8 hours as needed. I discussed bowel regimen with her. 3. Distress management. She lives alone, she has an elderly aunt and a couple of friends who she states would help her during this process. She declined palliative nursing care. She is on lorazepam 0.5 mg b.i.d. p.r.n.. She will be scheduled for chemotherapy teach appointment. Further recommendations to follow. Follow-up in 2 weeks. - Time Spent With Patient Time Spent with Patient (in minutes): 35
--- NOTE | 2023-09-04 14:19 | HO.HEMONCPA ---
Addendum entered by Trinity Hogan 09/04/23 15:00: [facility] APPROVED FOR PET/CT SKULL TO THIGH [id number] AUTH #[id number] DOS 09/04/23 - 11/02/23 SEND TO [facility] FOR SCHEDULING Original Note: [facility] PENDING FOR PET/CT SKULL TO THIGH [id number] AWAITING DECISION FROM [facility] FOR [place] [facility]
--- NOTE | 2023-09-05 13:53 | MHC.HEMONCMA ---
Called and spoke with patient directly to give her her appts made so far, 1) Chemo teach 09/12/23 at 11:00am, 2) port insertion- 09/13/23 at 2:30, stop eliquis 2 days prior per Aaron Reinoso3, needs ride to and from appt, nurse will call 24-48 hrs prior to go over things and meds. Mo and [facility] referral still being worked on by [place].
--- NOTE | 2023-09-06 08:18 | HO.HEMONCSCH ---
PATIENT SCHEDULED FOR PET/CT SCAN SKULL TO THIGH [id number] WITH [facility] ON 09/11/23 AT 10:15AM
--- NOTE | 2023-09-10 11:03 | HO.HEMONCPA ---
Addendum entered by Trinity Hogan 09/18/23 09:50: [place] APPROVED FOR GEMCITABINE J9201 AND PACLITAXEL (ABRAXANE) J9264 FOR 42 VISITS AUTH#[id number] DOS 09/20/23 - 10/10/24 PER CHELSI FOR [facility] PA FOR NEULASTA APPROVED AUTH# [id number] DOS 09/11/23 - 10/01/24 Addendum entered by Trinity Hogan 09/10/23 14:05: NO PA NEEDED FOR EMEND J1453 OXALIPLATIN J9263 LEUCOVORIN J0640 IRINOTECAN J9206 FLUOROURACIL J9190 PA FOR NEULASTA APPROVED AUTH# [id number] DOS 09/11/23 - 10/01/24 Addendum entered by Trinity Hogan 09/10/23 13:58: Reference #[id number] with Chelsi Original Note: PA PENDING FOR EMEND J1453 NEULAST J2506 OXALIPLATIN J9263 LEUCOVORIN J0640 IRINOTECAN J9206 FLUOROURACIL J9190 [facility]
--- NOTE | 2023-09-12 17:21 | MHC.HEMONC ---
Pt here for chemo teach. She was scheduled today at 1100 but did not come in. She was at MRI for a 3:15 appointment, so I asked her to come to office for teaching. She was agreeable, but was upset, stating that someone from office called her to change her teaching appointment to 09/18. Teaching done with pt and her friend. Pt very upset, teary throughout teach. Declined taking any printed information for meds. Did discuss side effects, and when to call office. Consent signed. Pt is getting her port placed tomorrow. Will call her in AM to schedule chemo start.
--- NOTE | 2023-09-19 09:28 | HE.ONCSEC ---
Pt has chemo appt on 09/20/23. Appt was verified by Michaela Holley.
[2023-09-20 10:09] VITALS: BP 139/67; PULSE 85; RESP 18; TEMP 36.7; O2SAT 98
[2023-09-20 10:36] LABS: MANUAL DIFF FLAG NO
[2023-09-20 10:49] LABS: Basophils Absolute Auto 0.1 X10*3/uL (0.0-0.2); Basophils Percent Auto 0.9 % (0-2); Eosinophils Absolute Auto 0.3 X10*3/uL (0.0-0.4); Eosinophils Percent Auto 2.7 % (0-4); Hematocrit 33.4 % (37.0-47.0); Hemoglobin 10.9 g/dl (12.0-16.0); Imm Gran Abs Auto 0.06 X10*3/uL (0.00-0.03); Imm Gran Pct Auto 0.5 % (0.0-0.4); Lymphocytes Absolute Auto 1.4 X10*3/uL (1.2-4.9); Lymphocytes Percent Auto 12.8 % (20-40); Mean Corpuscular HGB Conc 32.6 g/dl (31.0-35.0); Mean Corpuscular Hemoglobin 29.1 pg (27.0-33.0); Mean Corpuscular Volume 89.3 fL (80.0-98.0); Mean Platelet Volume 9.1 fL (9.4-12.3); Monocytes Percent Auto 9.1 % (2-11); Neutrophils Absolute Auto 8.3 x10*3/uL (2.0-8.3); Platelet Count 306 X10*3/uL (160-400); Red Blood Count 3.74 X10*6/uL (4.20-5.50); Red Cell Distribution Width 14.5 % (11.0-16.0); White Blood Count 11.3 X10*3/uL (4.8-10.8)
[2023-09-20 10:52] LABS: Alanine Aminotransferase 69 U/L (0-31); Albumin Level 3.2 g/dL (3.5-5.0); Alkaline Phosphatase 592 U/L (39-117); Anion Gap 19 (12-20); Aspartate Amino Transferase 102 U/L (5-31); Bilirubin Total 0.7 mg/dL (0.0-1.0); Blood Urea Nitrogen 17 mg/dL (9-16); Calcium 9.2 mg/dL (8.4-10.2); Carbon Dioxide 22 mmol/L (22-29); Chloride 104 mmol/L (96-108); Creatinine Clr Calc Pharmacy 41.2; Estimated Glomerular Filt Rate 51; Glucose Random 99 mg/dL (60-115); Potassium 3.6 mmol/L (3.3-5.1); Sodium 141 mmol/L (135-145); Total Protein 6.6 g/dL (6.5-8.0)
[2023-09-20] MEDS: Famotidine 20 MG TABLET PO (11:27)
[2023-09-20] MEDS: Ondansetron ODT 8 MG TAB.RAPDIS TRANSLINGU (11:28)
[2023-09-20] MEDS: dexAMETHasone sod phosphate/NS 12 MG/50 ML PIGGYBACK 200 MG IV (11:28)
[2023-09-20] MEDS: diphenhydrAMINE HCL 25 MG CAPSULE PO (11:28)
[2023-09-20] MEDS: Acetaminophen 325 MG TABLET 650 MG PO (11:28)
[2023-09-20] MEDS: PACLitaxeL protein-bound 200 MG in Container,Empty 0 ML 80 MG IV (12:01)
--- NOTE | 2023-09-20 14:23 | MHC.HEMONC ---
C1D1: GEMZAR/ABRAXANE. Patient accompanied by friend. Chemotherapy teaching completed. Patient requested basic information. Potential side effects including but not limited to discussed: neutropenia,nausea,vomiting, cycle schedule, and when to utilize conversion worker oncologist. All questions and concerns addressed. Consent signed. Port to right chest wall accessed without difficulty- positive blood return. Labs obtained and reviewed. VSS. Premedicated with Tylenol 650mg PO, Dexamethasone 12mg IV, Benadryl 25mg PO, Pepcid 20mg PO, and Zofran 8mg PO. Chemo infusions well tolerated. No signs of reaction noted. Port flushed with Heparin and de-accessed. Discharge packet provided. Patient to return next week for C1D8- chemotherapy moved to Wednesdays to follow as Dr. Harris will be available. Patient requested refill on Lovenox- given to Dr. Dumont.
--- NOTE | 2023-09-26 10:59 | P.PNHO-ONC_ITS ---
Medical Summary - Medical Summary Date of Service: 09/26/23 Chief complaint: Follow-up Primary Care Provider: Quinton Neff MD Medical Summary: Diagnosis: Metastatic pancreatic adenocarcinoma July 2023 She presented with a few months of epigastric discomfort and weight loss which she attributed to stress at work and hiatal hernia/GERD symptoms. She was asked to increase dose of PPI but presented to emergency department on 08/09/[address] with worsening symptoms. A CT abdomen/pelvis without contrast was performed which revealed a suspicious 3.4 cm mass in head of pancreas as well as few indeterminate liver lesions suspicious for metastasis. Ultrasound-guided core needle biopsy of liver mass in left lobe performed 08/27/2023 revealed adenocarcinoma, moderate to poorly differentiated favor pancreatic or biliary origin. MRI abdomen with contrast revealed 2.8 x 3.9 x 2.8 cm hypoenhancing mass in the head of pancreas. Distal atrophy of pancreas and dilatation and tortuosity of the main pancreatic duct up to 5 mm. Hepatic steatosis and numerous ill-defined rim enhancing lesions representing hepatic metastatic disease. No biliary ductal dilatation. Bulky abdominal lymphadenopathy. 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 CA 19 9 elevated, 519 U/mL. LDH elevated, 308 U/L, LFTs normal. Interval History Interval history: Patient is here in follow-up and scheduled treatment. She was seen in the emergency department over the weekend for nausea and emesis. This is mostly because she was not taking her antiemetics since she did not have an appetite and she thought that if she was not eating much she did not need antiemetics. She is now on Zofran as well as Reglan as needed for nausea, she is trying to take it as prescribed. She is trying to eat small meals even though she does not have an appetite. Abdominal pain is well controlled. She denies any fever or chills. Review of Systems - Constitutional Reports fatigue, Reports lack of energy, Reports malaise - Cardiovascular Denies chest pain at rest - Respiratory Denies cough PMFSH Medical History: Medical History (Last Reviewed 09/22/23 @ 09:34 by Tamika Kearns MD) Abnormal blood pressure Blood pressure elevated without history of HTN Cholelithiasis GERD (gastroesophageal reflux disease) Hernia High cholesterol Hypertension Knee pain, right Obesity (BMI 30-39.9) Pancreatic adenocarcinoma Pancreatic mass Vitamin D deficiency Family History: Family History (Last Reviewed 09/22/23 @ 09:34 by Tamika Kearns MD) Father CVD (cardiovascular disease) Stroke Hypertension Mother Breast cancer Surgical History: Surgical History (Last Reviewed 09/22/23 @ 09:34 by Tamika Kearns MD) No pertinent past surgical history Social History: Social History (Last Reviewed 09/22/23 @ 09:34 by Tamika Kearns MD) Living Situation History: Household Members: None Housing: House Alcohol History Details: 1. How often do you have a drink containing alcohol?: b. Monthly or less 2. How many drinks containing alcohol do you have on a typical day when you are drinking?: a. 1 or 2 Tobacco History: Patient Tobacco Use Status: Never used Tobacco e-Cigarette/Vaping Use: Never Used Second Hand Smoke Exposure: No Substance Use History: Use of substances other than those prescribed or required for medical reasons : No Domestic Abuse History: Have you been hit, kicked, punched, or otherwise hurt by someone within the past year? If so, by whom?: No Do you feel safe in your current relationship?: No Current Relationship Homicidal Assessment: Do you have thoughts of harming others: None Do you have a plan to hurt others: No Plan Do you have the means to hurt others: No Nutrition Assessment: Recently lost weight without trying: No Occupation Assessmet: service: No Current occupational status: employed Home Medications and Allergies Current Medications: Current Medications Acetaminophen (Acetaminophen 325 Mg Tablet) 650 mg PO ONCE JIAN Stop: 09/26/23 23:59 Diphenhydramine HCl (Diphenhydramine Hcl 25 Mg Capsule) 25 mg PO ONCE JIAN Stop: 09/26/23 23:59 Famotidine (Famotidine 20 Mg Tablet) 20 mg PO ONCE JIAN Stop: 09/26/23 23:59 Dexamethasone Sodium Phosphate (Decadron) 12 mg in 50 mls @ 200 mls/hr IV ONCE JIAN Stop: 09/26/23 23:59 Ondansetron HCl (Ondansetron Odt 8 Mg Tab.Rapdis) 8 mg TRANSLINGU ONCE JIAN Stop: 09/26/23 23:59 Ondansetron HCl (Ondansetron Odt 8 Mg Tab.Rapdis) 8 mg TRANSLINGU ONCE JIAN Stop: 09/26/23 23:59 Home Medications Medication Instructions Recorded Confirmed Type cranberry 400 mg capsule 400 mg PO DAILY 11/25/20 09/13/23 History multivitamin 1 tab PO DAILY 11/25/20 09/13/23 History omeprazole 20 mg capsule,delayed 20 mg PO DAILY 09/13/23 09/13/23 History release Allergies Allergy/AdvReac Type Severity Reaction Status Date / Time No Known Allergies Allergy Verified 08/15/23 12:34 Exam Vital signs: Vital Signs Temp 98.0 F 09/20/23 10:09 Pulse 85 09/20/23 10:09 Resp 18 09/20/23 10:09 BP 139/67 09/20/23 10:09 Pulse Ox 98 09/20/23 10:09 O2 Del Method Room Air 09/20/23 10:09 Weight 65.1 kg BMI result Body Mass Index 30.0 - Constitutional Present: mild distress - Routine HEENT Exam Head: Present: normal inspection - Routine Respiratory Exam Present: CTAB. Absent: accessory muscle use - Routine Cardiovascular Exam Cardiovascular: Present: S1, S2 - Routine Abdominal Exam Absent: mass - Routine Extremities Exam Absent: pedal edema - Routine Skin Exam Present: intact. Absent: cyanosis - Routine Neurological Exam Present: alert, oriented X3 Data - Labs CBC & Chem 7: 09/26/23 10:56 09/26/23 10:56 Assessment and Plan Patient Active problem list reviewed?: Yes (1) Pancreatic adenocarcinoma Status: Acute Assessment and plan: 1. This is a 67-year-old woman who has been diagnosed with metastatic pancreatic adenocarcinoma in August 2023. Ultrasound-guided core needle biopsy of liver mass in left lobe performed 08/27/2023 revealed adenocarcinoma, moderate to poorly differentiated favor pancreatic or biliary origin. MRI abdomen with contrast revealed 2.8 x 3.9 x 2.8 cm hypoenhancing mass in the head of pancreas. Distal atrophy of pancreas and dilatation and tortuosity of the main pancreatic duct up to 5 mm. Hepatic steatosis and numerous ill-defined rim enhancing lesions representing hepatic metastatic disease. No biliary ductal dilatation. Bulky abdominal lymphadenopathy. 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 CA 19 9 elevated, 519 U/mL. PET-CT performed 09/11/2023 revealed FDG avidity of primary lesion involving head of pancreas, SUV 13.1, multifocal PET avid disease in both lobes of liver. FDG activity incidentally noted in proximal ascending colon, direct visualization with endoscopy was recommended. Possible involvement of thoracic spine, osseous involvement not excluded. 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 She complained of vision problems which prompted brain MRI. 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 She was not in atrial fibrillation. Echocardiogram with bubble study is negative for interatrial shunt. Cerebral ischemic event felt to be related to underlying hypercoagulopathy secondary to pancreatic cancer. Since her overall clinical condition deteriorated and her performance status declined, FOLFIRINOX was replaced with gem/Abraxane. She started 1st cycle of chemotherapy with gemcitabine and Nab paclitaxel on 09/20/2023. Proceed with cycle 2 today. 2. Abdominal pain. She is on oxycodone 5 mg 1 tablet every 6-8 hours as needed. I discussed bowel regimen with her. 3. Distress management. She lives alone, she has an elderly aunt and a couple of friends who she states would help her during this process. She declined palliative nursing care. She is on lorazepam 0.5 mg b.i.d. p.r.n.. 4. Nausea related to chemotherapy. She is now on Zofran and Reglan which is helping. 5. Elevation of transaminases, secondary to treatment and allowing malignancy with liver metastasis. Bilirubin is not significantly elevated. This will be monitored. Follow-up in 2 weeks. - Time Spent With Patient Time Spent with Patient (in minutes): 15
[2023-09-26 11:02] LABS: MANUAL DIFF FLAG NO
[2023-09-26 11:04] LABS: Basophils Percent Auto 0.1 % (0-2); Eosinophils Absolute Auto 0.2 X10*3/uL (0.0-0.4); Eosinophils Percent Auto 2.9 % (0-4); Hematocrit 29.5 % (37.0-47.0); Hemoglobin 9.7 g/dl (12.0-16.0); Imm Gran Abs Auto 0.08 X10*3/uL (0.00-0.03); Imm Gran Pct Auto 1.1 % (0.0-0.4); Lymphocytes Absolute Auto 1.3 X10*3/uL (1.2-4.9); Lymphocytes Percent Auto 17.5 % (20-40); Mean Corpuscular HGB Conc 32.9 g/dl (31.0-35.0); Mean Corpuscular Volume 88.1 fL (80.0-98.0); Monocytes Absolute Auto 0.4 X10*3/uL (0.1-1.2); Monocytes Percent Auto 5.9 % (2-11); Neutrophils Absolute Auto 5.2 x10*3/uL (2.0-8.3); Neutrophils Percent Auto 72.5 % (45-73); Red Blood Count 3.35 X10*6/uL (4.20-5.50); Red Cell Distribution Width 15.1 % (11.0-16.0); White Blood Count 7.2 X10*3/uL (4.8-10.8)
[2023-09-26 11:08] VITALS: BP 170/74; PULSE 92; RESP 18; TEMP 36.3; O2SAT 98
[2023-09-26 11:10] LABS: Platelet Count 121 X10*3/uL (160-400)
[2023-09-26 11:25] LABS: Alanine Aminotransferase 227 U/L (0-31); Albumin Level 3.1 g/dL (3.5-5.0); Alkaline Phosphatase 595 U/L (39-117); Anion Gap 16 (12-20); Aspartate Amino Transferase 168 U/L (5-31); Bilirubin Total 0.9 mg/dL (0.0-1.0); Blood Urea Nitrogen 20 mg/dL (9-16); Calcium 9.1 mg/dL (8.4-10.2); Carbon Dioxide 23 mmol/L (22-29); Chloride 102 mmol/L (96-108); Creatinine Clr Calc Pharmacy 33.4; Estimated Glomerular Filt Rate 40; Glucose Random 106 mg/dL (60-115); Potassium 3.5 mmol/L (3.3-5.1); Sodium 137 mmol/L (135-145); Total Protein 6.5 g/dL (6.5-8.0)
[2023-09-26] MEDS: Acetaminophen 325 MG TABLET 650 MG PO (12:11)
[2023-09-26] MEDS: Famotidine 20 MG TABLET PO (12:12)
[2023-09-26] MEDS: diphenhydrAMINE HCL 25 MG CAPSULE PO (12:12)
[2023-09-26] MEDS: Ondansetron ODT 8 MG TAB.RAPDIS TRANSLINGU (12:12)
[2023-09-26] MEDS: dexAMETHasone sod phosphate/NS 12 MG/50 ML PIGGYBACK 200 MG IV (12:13)
[2023-09-26] MEDS: PACLitaxeL protein-bound 200 MG in Container,Empty 0 ML 80 MG IV (12:51)
[2023-09-26] MEDS: oxyCODONE HCl Immed Release 5 MG TABLET PO (13:55)
--- NOTE | 2023-09-26 16:15 | MHC.HEMONC ---
C1D8: GEMZAR/ABRAXANE. Patient did develop nausea with dry heaves after first cycle. She did use superintendent stations over weekend. She is currently taking Zofran and Reglan at the same time every 8 hours with good effect per Dr. Harris's recommendation. Patient states she was able to eat yesterday. She has developed dry mouth due to these medications. Encouraged patient to suck on hard candies and ice chips to help prevent drying of mouth. Follow up with Dr. Harris today. Port to right chest wall accessed without difficulty- positive blood return. Labs obtained and reviewed. VSS. Premedicated with Tylenol 650mg PO, Dexamethasone 12mg IV, Benadryl 25mg PO, Pepcid 20mg PO, and Zofran 8mg PO. Chemo infusions well tolerated. No signs of reaction noted. Port flushed with Heparin and de-accessed. Discharge packet provided. Patient to return next week for C1D15. Patient given Oxycodone 5mg PO for abdominal pain with good effect.
--- NOTE | 2023-09-27 13:59 | MHC.HEMONC ---
Triage call- Pt called reporting red tongue and sores on edge of tongue. Dr carnes notified and [facility] script sent to pharmacy. Pt instructed to avoid spicy, acidic, very hot foods/beverages and call us if symptoms worsen. No further questions.
[2023-10-01 16:00] VITALS: BP 125/58; PULSE 94; RESP 17; TEMP 36.3; O2SAT 97
[2023-10-01 16:08] LABS: Alanine Aminotransferase 101 U/L (0-31); Albumin Level 2.7 g/dL (3.5-5.0); Alkaline Phosphatase 369 U/L (39-117); Anion Gap 16 (12-20); Aspartate Amino Transferase 129 U/L (5-31); Bilirubin Total 1.6 mg/dL (0.0-1.0); Blood Urea Nitrogen 43 mg/dL (9-16); Calcium 8.4 mg/dL (8.4-10.2); Carbon Dioxide 21 mmol/L (22-29); Chloride 99 mmol/L (96-108); Creatinine Clr Calc Pharmacy 26.9; Estimated Glomerular Filt Rate 31; Glucose Random 100 mg/dL (60-115); Hematocrit 23.8 % (37.0-47.0); Hemoglobin 7.9 g/dl (12.0-16.0); Mean Corpuscular HGB Conc 33.2 g/dl (31.0-35.0); PLT CLUMP 1; Potassium 4.2 mmol/L (3.3-5.1); Red Cell Distribution Width 15.6 % (11.0-16.0); Sodium 132 mmol/L (135-145); Total Protein 5.9 g/dL (6.5-8.0)
[2023-10-01 16:10] LABS: Mean Corpuscular Hemoglobin 28.8 pg (27.0-33.0); Mean Corpuscular Volume 86.9 fL (80.0-98.0); Mean Platelet Volume 13.4 fL (9.4-12.3); Red Blood Count 2.74 X10*6/uL (4.20-5.50)
[2023-10-01 16:16] LABS: WBC ABN SCTR FOR CBC 1
[2023-10-01 16:18] LABS: White Blood Count 1.6 X10*3/uL (4.8-10.8)
[2023-10-01 16:19] LABS: Platelet Count 51 X10*3/uL (160-400)
--- NOTE | 2023-10-01 16:23 | PM.EVENT ---
Patient was called in to the clinic since she did not feel better since we can not visit to the emergency department. She is still not able to eat or drink much. She could not swallow Diflucan pills. She is being referred to the emergency department for admission. She will need IV fluids for acute renal insufficiency, blood transfusion for anemia related to chemotherapy and malignancy. She will need to be started on Neupogen for neutropenia. Hold Lovenox until platelet counts, above 70 K. Continue Magic mouthwash for oral mucositis and start fluconazole oral or IV for thrush/esophagitis.
[2023-10-01] MEDS: 0.9 % Sodium Chloride 1,000 ML 999 ML IV (16:33)
[2023-10-01 16:47] LABS: Atypical Lymphs Percent Manual 1 % (0-6); Band Neutrophils Percent 3 % (3-5); Eosinophils Percent Manual 1 % (0-4); Lymphocytes Absolute Manual 0.3 X10*3/uL (1.2-4.9); Lymphocytes Percent Manual 20 % (20-40); Monocytes Percent Manual 3 % (2-11); Neutrophils Absolute Manual 1.2 X10*3/uL (2.0-8.3); Neutrophils Percent Manual 72 % (45-73); Toxic Granulation PRESENT; Toxic Vacuolation PRESENT
[2023-10-01 16:48] LABS: Burr Cells 1+ (0-2) /OIF; RBC Morphology NOTED; Tear Drop Cells 1+ (0-2) /OIF
[2023-10-01 16:49] LABS: Large Platelet PRESENT; Platelet Estimate DECREASED (NORMAL); Platelet Morphology Comment NOTED
--- NOTE | 2023-10-01 17:09 | MHC.HEMONC ---
pt here for labs and not feeling well. Not eating, has thrush and a rash. Evaled by Dr Harris. BUn/creat [id number]/1.64, HGB 7.9, WBC 1.6. Normal saline 1000ml hung over 1 hour. Report called to Jose charge loader in ED. Pt to go to ED RM2. Pt wheeled to ED. Nurse to Nurse given to Shawn CR. Pt to be admitted.
--- NOTE | 2023-10-02 16:22 | MHC.HEMONC ---
Per DR Harris-chemotherapy pushed out one week. RE-Scheduled to 10/10/23
[2023-10-04 13:43] LABS: Carbohydrate Antigen 19-9 1532 U/mL (<34)
[2023-10-15 14:10] LABS: Basophils Absolute Auto 0.4 X10*3/uL (0.0-0.2); Basophils Percent Auto 4.8 % (0-2); Eosinophils Absolute Auto 0.2 X10*3/uL (0.0-0.4); Eosinophils Percent Auto 2.7 % (0-4); Hematocrit 27.6 % (37.0-47.0); Hemoglobin 9.3 g/dl (12.0-16.0); Imm Gran Abs Auto 0.05 X10*3/uL (0.00-0.03); Imm Gran Pct Auto 0.7 % (0.0-0.4); Lymphocytes Absolute Auto 2.2 X10*3/uL (1.2-4.9); Lymphocytes Percent Auto 29.6 % (20-40); MANUAL DIFF FLAG SCAN; Mean Corpuscular HGB Conc 33.7 g/dl (31.0-35.0); Mean Platelet Volume 9.6 fL (9.4-12.3); Monocytes Absolute Auto 0.9 X10*3/uL (0.1-1.2); Monocytes Percent Auto 12.4 % (2-11); NRBC Pct Auto 0.9 /100WBC (0.0-0.2); Neutrophils Absolute Auto 3.7 x10*3/uL (2.0-8.3); Neutrophils Percent Auto 49.8 % (45-73); Platelet Count 331 X10*3/uL (160-400); Red Cell Distribution Width 21.6 % (11.0-16.0); SCAN SMEAR FLAG 1; White Blood Count 7.4 X10*3/uL (4.8-10.8)
[2023-10-15 14:27] LABS: Alanine Aminotransferase 26 U/L (0-31); Albumin Level 2.5 g/dL (3.5-5.0); Alkaline Phosphatase 339 U/L (39-117); Anion Gap 10 (12-20); Aspartate Amino Transferase 56 U/L (5-31); Bilirubin Total 0.7 mg/dL (0.0-1.0); Blood Urea Nitrogen 8 mg/dL (9-16); Calcium 8.4 mg/dL (8.4-10.2); Carbon Dioxide 25 mmol/L (22-29); Chloride 109 mmol/L (96-108); Creatinine Clr Calc Pharmacy 59.7; Estimated Glomerular Filt Rate > 60; Glucose Random 101 mg/dL (60-115); Potassium 4.2 mmol/L (3.3-5.1); Sodium 140 mmol/L (135-145); Total Protein 5.5 g/dL (6.5-8.0)
[2023-10-15 14:35] LABS: SLIDE REVIEW VERIFIED
--- NOTE | 2023-10-15 15:55 | MHC.HEMONC ---
Pt here for lab draw. States is feeling better. Still c/o dry mouth, but using biotene rinse. Port accessed with good blood return noted. Labs obtained. Results reviewed by Dr Harris, and pt does not need to stay for IV hydration. Port flushed with heparin and de-accessed. Plan is to switch plan to Folfox starting next week. Pt agreeable. Information given to pt. Scheduled for 10/23. Calendar given. Pharmacy notified. Pt departed unit.
--- NOTE | 2023-10-23 08:58 | P.PNHO-ONC_ITS ---
Medical Summary - Medical Summary Date of Service: 10/23/23 Chief complaint: Follow-up Primary Care Provider: Quinton Neff MD Medical Summary: Diagnosis: Metastatic pancreatic adenocarcinoma July 2023 She presented with a few months of epigastric discomfort and weight loss which she attributed to stress at work and hiatal hernia/GERD symptoms. She was asked to increase dose of PPI but presented to emergency department on 08/09/[address] with worsening symptoms[address] A CT abdomen/pelvis without contrast was performed which revealed a suspicious 3.4 cm mass in head of pancreas as well as few indeterminate liver lesions suspicious for metastasis. Ultrasound-guided core needle biopsy of liver mass in left lobe performed 08/27/2023 revealed adenocarcinoma, moderate to poorly differentiated favor pancreatic or biliary origin. MRI abdomen with contrast revealed 2.8 x 3.9 x 2.8 cm hypoenhancing mass in the head of pancreas. Distal atrophy of pancreas and dilatation and tortuosity of the main pancreatic duct up to 5 mm. Hepatic steatosis and numerous ill-defined rim enhancing lesions representing hepatic metastatic disease. No biliary ductal dilatation. Bulky abdominal lymphadenopathy. 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 CA 19 9 elevated, 519 U/mL. LDH elevated, 308 U/L, LFTs normal. PET-CT performed 09/11/2023 revealed FDG avidity of primary lesion involving head of pancreas, SUV 13.1, multifocal PET avid disease in both lobes of liver. FDG activity incidentally noted in proximal ascending colon, direct visualization with endoscopy was recommended. Possible involvement of thoracic spine, osseous involvement not excluded. 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 She complained of vision problems which prompted brain MRI. 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 She was not in atrial fibrillation. Echocardiogram with bubble study is negative for interatrial shunt. Cerebral ischemic event felt to be related to underlying hypercoagulopathy secondary to pancreatic cancer. Interval History Interval history: Patient is here in follow-up and scheduled treatment. She is being treated with a new chemotherapy regimen as she did not tolerate the previous 1. She was hospitalized twice and she was quite sick the 2nd time around. Colitis has improved. She still gets occasional nausea. She is requesting lorazepam for her anxiety, she has always been on it at bedtime, she wants to take it twice or 3 times a day if needed. She denies any fever or chills. Review of Systems - Constitutional Reports as per HPI, Denies malaise, Denies poor appetite, Denies weight loss - Cardiovascular Reports no additional cardiovascular complaints - Respiratory Reports no additional respiratory complaints [facility] Medical History: Medical History (Last Reviewed 10/09/23 @ 13:20 by Theresa Mcguire PT) Abnormal blood pressure Blood pressure elevated without history of HTN Cholelithiasis GERD (gastroesophageal reflux disease) Hernia High cholesterol Hypertension Knee pain, right Obesity (BMI 30-39.9) Pancreatic adenocarcinoma Pancreatic mass Vitamin D deficiency Family History: Family History (Last Reviewed 10/01/23 @ 17:51 by Akash Bey MD) Father CVD (cardiovascular disease) Stroke Hypertension Mother Breast cancer Surgical History: Surgical History (Last Reviewed 10/09/23 @ 13:20 by Theresa Mcguire, PT) No pertinent past surgical history Social History: (Last Reviewed 10/01/23 @ 17:51 by Akash Bey MD) Living Situation History: Household Members: None Housing: House Do you presently have visiting nurse or other home services: No Alcohol History Details: 1. How often do you have a drink containing alcohol?: b. Monthly or less 2. How many drinks containing alcohol do you have on a typical day when you are drinking?: a. 1 or 2 Tobacco History: Patient Tobacco Use Status: Never used Tobacco e-Cigarette/Vaping Use: Never Used Second Hand Smoke Exposure: No Substance Use History: Use of substances other than those prescribed or required for medical reasons : No Domestic Abuse History: Have you been hit, kicked, punched, or otherwise hurt by someone within the past year? If so, by whom?: No Do you feel safe in your current relationship?: No Current Relationship Homicidal Assessment: Do you have thoughts of harming others: None Do you have a plan to hurt others: No Plan Do you have the means to hurt others: No Nutrition Assessment: Recently lost weight without trying: No Occupation Assessmet: service: No Current occupational status: employed Home Medications and Allergies Current Medications: Current Medications Diphenhydramine HCl (Diphenhydramine Hcl 25 Mg Capsule) 25 mg PO ONCE JIAN Stop: 10/23/23 23:59 Famotidine (Famotidine/Pf 20 Mg/2 Ml Vial) 20 mg IVPUSH ONCE JIAN Stop: 10/23/23 23:59 Dexamethasone Sodium Phosphate (Decadron) 12 mg in 50 mls @ 200 mls/hr IV ONCE JIAN Stop: 10/23/23 23:59 Fosaprepitant 150 mg/ Sodium (Chloride) 150 mls @ 300 mls/hr IV ONCE JIAN Stop: 10/23/23 23:59 Olanzapine (Olanzapine 5 Mg Tablet) 5 mg PO ONCE JIAN Stop: 10/23/23 23:59 Home Medications Medication Instructions Recorded Confirmed Type omeprazole 20 mg capsule,delayed 20 mg PO DAILY 09/13/23 10/01/23 History release polyethylene glycol 3350 17 gram 17 g PO DAILY PRN Constipation 10/01/23 10/01/23 History oral powder packet Allergies Allergy/AdvReac Type Severity Reaction Status Date / Time adhesive tape Allergy Rash Verified 10/01/23 17:09 latex Allergy Rash Verified 10/01/23 17:07 Exam Vital signs: Vital Signs Temp 97.3 F 10/01/23 16:00 Pulse 94 10/01/23 16:00 Resp 17 10/01/23 16:00 BP 125/58 L 10/01/23 16:00 Pulse Ox 97 10/01/23 16:00 O2 Del Method Room Air 10/01/23 16:00 Weight 65.1 kg BMI result Body Mass Index 30.0 - Constitutional Present: mild distress - Routine HEENT Exam Head: Present: normal inspection - Routine Neck Exam Absent: lymphadenopathy - Routine Respiratory Exam Present: CTAB. Absent: accessory muscle use - Routine Cardiovascular Exam Cardiovascular: Present: S1, S2 - Routine Abdominal Exam Absent: mass - Routine Extremities Exam Absent: pedal edema - Routine Skin Exam Present: intact. Absent: cyanosis - Routine Neurological Exam Present: alert, oriented X3 Data - Labs CBC & Chem 7: 10/23/23 09:35 10/23/23 09:35 Assessment and Plan Patient Active problem list reviewed?: Yes (1) Pancreatic adenocarcinoma Status: Chronic Assessment and plan: 1. This is a 67-year-old woman who has been diagnosed with metastatic pancreatic adenocarcinoma in August 2023. Ultrasound-guided core needle biopsy of liver mass in left lobe performed 08/27/2023 revealed adenocarcinoma, moderate to poorly differentiated favor pancreatic or biliary origin. MRI abdomen with contrast revealed 2.8 x 3.9 x 2.8 cm hypoenhancing mass in the head of pancreas. Distal atrophy of pancreas and dilatation and tortuosity of the main pancreatic duct up to 5 mm. Hepatic steatosis and numerous ill-defined rim enhancing lesions representing hepatic metastatic disease. No biliary ductal dilatation. Bulky abdominal lymphadenopathy. 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 CA 19 9 elevated, 519 U/mL. 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 She complained of vision problems which prompted brain MRI. 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 She was not in atrial fibrillation. Echocardiogram with bubble study is negative for interatrial shunt. Cerebral ischemic event felt to be related to underlying hypercoagulopathy secondary to pancreatic cancer. She started 1st cycle of chemotherapy with gemcitabine and Nab paclitaxel on 09/20/2023. She developed severe side effects to both cycles of treatment such as severe mucositis, thrush, acute kidney injury, severe pancytopenia/neutropenia and colitis. This happened in spite of dose reduction and using Neulasta as growth factor support. She required prolonged hospitalization. She improved with supportive care, her treatment was delayed by 2 weeks. She has been switched to FOLFOX 6 regimen, proceed with cycles 1 today. 2. Abdominal pain. She is on oxycodone 5 mg 1 tablet every 6-8 hours as needed. I discussed bowel regimen with her. 3. Distress management. She lives alone, she has an elderly aunt and a couple of friends who she states would help her during this process. She declined palliative nursing care. She is on lorazepam 0.5 mg b.i.d. p.r.n.. She was advised to increase it to 3 times a day if needed. 4. Nausea related to chemotherapy. She is now on Zofran and Reglan which is helping. 5. Elevation of transaminases, secondary to treatment and allowing malignancy with liver metastasis. Bilirubin is not significantly elevated. This will be monitored. Proceed with treatment today. Follow-up in 3 weeks. - Time Spent With Patient Time Spent with Patient (in minutes): 15
[2023-10-23 09:03] VITALS: BP 156/71; PULSE 91; RESP 18; TEMP 36.2; O2SAT 99; BMI 28.2
[2023-10-23 09:49] LABS: Basophils Absolute Auto 0.4 X10*3/uL (0.0-0.2); Basophils Percent Auto 4.9 % (0-2); Eosinophils Absolute Auto 0.8 X10*3/uL (0.0-0.4); Eosinophils Percent Auto 11.1 % (0-4); Hematocrit 28.7 % (37.0-47.0); Hemoglobin 9.4 g/dl (12.0-16.0); Imm Gran Abs Auto 0.05 X10*3/uL (0.00-0.03); Imm Gran Pct Auto 0.7 % (0.0-0.4); Lymphocytes Absolute Auto 1.6 X10*3/uL (1.2-4.9); Lymphocytes Percent Auto 22.1 % (20-40); MANUAL DIFF FLAG SCAN; Mean Corpuscular HGB Conc 32.8 g/dl (31.0-35.0); Mean Corpuscular Volume 94.7 fL (80.0-98.0); Mean Platelet Volume 9.9 fL (9.4-12.3); Monocytes Absolute Auto 1.1 X10*3/uL (0.1-1.2); Monocytes Percent Auto 15.1 % (2-11); Neutrophils Absolute Auto 3.3 x10*3/uL (2.0-8.3); Neutrophils Percent Auto 46.1 % (45-73); Platelet Count 257 X10*3/uL (160-400); Red Blood Count 3.03 X10*6/uL (4.20-5.50); Red Cell Distribution Width 23.5 % (11.0-16.0); SCAN SMEAR FLAG 1; White Blood Count 7.1 X10*3/uL (4.8-10.8)
[2023-10-23 10:07] LABS: Alanine Aminotransferase 33 U/L (0-31); Albumin Level 2.9 g/dL (3.5-5.0); Alkaline Phosphatase 505 U/L (39-117); Anion Gap 11 (12-20); Aspartate Amino Transferase 78 U/L (5-31); Bilirubin Total 0.7 mg/dL (0.0-1.0); Blood Urea Nitrogen 9 mg/dL (9-16); Calcium 8.6 mg/dL (8.4-10.2); Carbon Dioxide 26 mmol/L (22-29); Chloride 105 mmol/L (96-108); Creatinine Clr Calc Pharmacy 54.8; Estimated Glomerular Filt Rate > 60; Glucose Random 104 mg/dL (60-115); Magnesium 1.9 mg/dL (1.6-2.6); Potassium 3.8 mmol/L (3.3-5.1); Sodium 138 mmol/L (135-145); Total Protein 6.2 g/dL (6.5-8.0)
[2023-10-23 10:46] LABS: SLIDE REVIEW VERIFIED
[2023-10-23] MEDS: Famotidine/PF 20 MG/2 ML VIAL IVPUSH (10:57)
[2023-10-23] MEDS: dexAMETHasone sod phosphate/NS 12 MG/50 ML PIGGYBACK 200 MG IV (10:57)
[2023-10-23] MEDS: OLANZapine 5 MG TABLET PO (11:01)
[2023-10-23] MEDS: diphenhydrAMINE HCL 25 MG CAPSULE PO (11:02)
[2023-10-23] MEDS: Fosaprepitant Dimeglumine 150 MG in 0.9 % Sodium Chloride 145 ML 300 MG IV (11:30)
[2023-10-23] MEDS: Ondansetron ODT 8 MG TAB.RAPDIS TRANSLINGU (15:12)
--- NOTE | 2023-10-23 16:06 | MHC.HEMONC ---
Here for C1 Folfox. States didn't sleep well last night because of being nervous for today, and is also feeling a bit nauseous. Port accessed with good blood return noted. Labs obtained. Premeds given as ordered. Treatment done with no s/s reaction. Pt did get up to BR when treatment completed, and she felt nauseous and stated her legs felt like jello . Dr Harris aware, and zofran po ordered. Zofran 8mg po given. Pt very nauseous and slightly pale. BP 168/83, HR 110. Dr Harris in to see pt. Instructed pt to call ambulance at home if she is feeling worse. She states understanding. Departure packet given and pt aware of next appointment. Home infusion pump infusing. Pt wheeled to car via wheelchair.
[2023-10-25] MEDS: Heparin Sodium,Porcine Flush 500 UNIT/5 ML SYRINGE IVFLUSH (13:13)
--- NOTE | 2023-10-25 16:22 | MHC.HEMONC ---
Here for pump take down and neulasta. Tolerated treatment well. States she is feeling very well. Verified bag volume 0ml. Port flushed with heparin 500units and de-accessed. Neulasta 6mg sc given left arm and tolerated well. Next treatment in 2 weeks. Departed unit.
[2023-11-06 09:03] VITALS: BP 168/72; PULSE 79; RESP 18; TEMP 36.6; O2SAT 100; BMI 26.8
[2023-11-06 09:34] LABS: MANUAL DIFF FLAG NO
[2023-11-06 09:36] LABS: Basophils Absolute Auto 0.2 X10*3/uL (0.0-0.2); Basophils Percent Auto 1.1 % (0-2); Eosinophils Absolute Auto 0.6 X10*3/uL (0.0-0.4); Eosinophils Percent Auto 4.1 % (0-4); Hematocrit 32.5 % (37.0-47.0); Hemoglobin 10.9 g/dl (12.0-16.0); Imm Gran Abs Auto 0.09 X10*3/uL (0.00-0.03); Imm Gran Pct Auto 0.6 % (0.0-0.4); Lymphocytes Absolute Auto 1.6 X10*3/uL (1.2-4.9); Lymphocytes Percent Auto 11.4 % (20-40); Mean Corpuscular HGB Conc 33.5 g/dl (31.0-35.0); Mean Corpuscular Hemoglobin 32.1 pg (27.0-33.0); Mean Corpuscular Volume 95.6 fL (80.0-98.0); Mean Platelet Volume 10.3 fL (9.4-12.3); Monocytes Absolute Auto 0.9 X10*3/uL (0.1-1.2); Monocytes Percent Auto 6.5 % (2-11); Neutrophils Absolute Auto 10.8 x10*3/uL (2.0-8.3); Neutrophils Percent Auto 76.3 % (45-73); Platelet Count 185 X10*3/uL (160-400); Red Cell Distribution Width 24.3 % (11.0-16.0); White Blood Count 14.2 X10*3/uL (4.8-10.8)
[2023-11-06 09:50] LABS: Alanine Aminotransferase 26 U/L (0-31); Albumin Level 3.1 g/dL (3.5-5.0); Alkaline Phosphatase 613 U/L (39-117); Anion Gap 17 (12-20); Aspartate Amino Transferase 40 U/L (5-31); Bilirubin Total 0.7 mg/dL (0.0-1.0); Blood Urea Nitrogen 12 mg/dL (9-16); Carbon Dioxide 21 mmol/L (22-29); Chloride 101 mmol/L (96-108); Creatinine Clr Calc Pharmacy 44.4; Estimated Glomerular Filt Rate 60; Glucose Random 86 mg/dL (60-115); Magnesium 1.9 mg/dL (1.6-2.6); Potassium 4.3 mmol/L (3.3-5.1); Sodium 135 mmol/L (135-145); Total Protein 6.3 g/dL (6.5-8.0)
[2023-11-06] MEDS: dexAMETHasone sod phosphate/NS 12 MG/50 ML PIGGYBACK 200 MG IV (10:31)
[2023-11-06] MEDS: oxyCODONE HCl Immed Release 5 MG TABLET PO (10:32)
[2023-11-06] MEDS: OLANZapine 5 MG TABLET PO (10:32)
[2023-11-06] MEDS: Famotidine/PF 20 MG/2 ML VIAL IVPUSH (10:33)
[2023-11-06] MEDS: Fosaprepitant Dimeglumine 150 MG in 0.9 % Sodium Chloride 145 ML 300 MG IV (10:40)
--- NOTE | 2023-11-06 11:27 | P.PNHO-ONC_ITS ---
Medical Summary - Medical Summary Date of Service: 11/06/23 Chief complaint: Increasing abdominal pain and nausea Primary Care Provider: Quinton Neff MD Medical Summary: Diagnosis: Metastatic pancreatic adenocarcinoma July 2023 She presented with a few months of epigastric discomfort and weight loss which she attributed to stress at work and hiatal hernia/GERD symptoms. She was asked to increase dose of PPI but presented to emergency department on 08/09/2023 with worsening symptoms. A CT abdomen/pelvis without contrast was performed which revealed a suspicious 3.4 cm mass in head of pancreas as well as few indeterminate liver lesions suspicious for metastasis. Ultrasound-guided core needle biopsy of liver mass in left lobe performed 08/27/2023 revealed adenocarcinoma, moderate to poorly differentiated favor pancreatic or biliary origin. MRI abdomen with contrast revealed 2.8 x 3.9 x 2.8 cm hypoenhancing mass in the head of pancreas. Distal atrophy of pancreas and dilatation and tortuosity of the main pancreatic duct up to 5 mm. Hepatic steatosis and numerous ill-defined rim enhancing lesions representing hepatic metastatic disease. No biliary ductal dilatation. Bulky abdominal lymphadenopathy. 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 CA 19 9 elevated, 519 U/mL. LDH elevated, 308 U/L, LFTs normal. PET-CT performed 09/11/2023 revealed FDG avidity of primary lesion involving head of pancreas, SUV 13.1, multifocal PET avid disease in both lobes of liver. FDG activity incidentally noted in proximal ascending colon, direct visualization with endoscopy was recommended. Possible involvement of thoracic spine, osseous involvement not excluded. 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 She complained of vision problems which prompted brain MRI. 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 She was not in atrial fibrillation. Echocardiogram with bubble study is negative for interatrial shunt. Cerebral ischemic event felt to be related to underlying hypercoagulopathy secondary to pancreatic cancer. Interval History Interval history: Patient is here in follow-up and scheduled treatment. She received 1st cycle of FOLFOX 2 weeks ago. She did good the 1st week but in the last 4-5 days she reports recurrent abdominal pain, starts in the epigastrium and radiates to the back. No associated fever or chills, no diarrhea. She reports hard stools. She is taking pain medication 2 to 3 times a day. She reports worsening anxiety related to her diagnosis. Review of Systems - Constitutional Reports as per HPI, Reports malaise, Reports poor appetite, Reports weight loss PMFSH Medical History: Medical History (Last Reviewed 10/09/23 @ 13:20 by Theresa Mcguire PT) Abnormal blood pressure Blood pressure elevated without history of HTN Cholelithiasis GERD (gastroesophageal reflux disease) Hernia High cholesterol Hypertension Knee pain, right Obesity (BMI 30-39.9) Pancreatic adenocarcinoma Pancreatic mass Vitamin D deficiency Family History: Family History (Last Reviewed 10/01/23 @ 17:51 by Akash Bey MD) Father CVD (cardiovascular disease) Stroke Hypertension Mother Breast cancer Surgical History: Surgical History (Last Reviewed 10/09/23 @ 13:20 by Theresa Mcguire, PT) No pertinent past surgical history Social History: Social History (Last Reviewed 10/01/23 @ 17:51 by Akash Bey MD) Living Situation History: Household Members: None Housing: House Do you presently have visiting nurse or other home services: No Alcohol History Details: 1. How often do you have a drink containing alcohol?: b. Monthly or less 2. How many drinks containing alcohol do you have on a typical day when you are drinking?: a. 1 or 2 Tobacco History: Patient Tobacco Use Status: Never used Tobacco e-Cigarette/Vaping Use: Never Used Second Hand Smoke Exposure: No Substance Use History: Use of substances other than those prescribed or required for medical reasons : No Domestic Abuse History: Have you been hit, kicked, punched, or otherwise hurt by someone within the past year? If so, by whom?: No Do you feel safe in your current relationship?: No Current Relationship Homicidal Assessment: Do you have thoughts of harming others: None Do you have a plan to hurt others: No Plan Do you have the means to hurt others: No Nutrition Assessment: Recently lost weight without trying: No Occupation Assessmet: service: No Current occupational status: employed Home Medications and Allergies Current Medications: Current Medications Diphenhydramine HCl (Diphenhydramine Hcl 25 Mg Capsule) 25 mg PO ONCE JIAN Stop: 11/06/23 23:59 Famotidine (Famotidine/Pf 20 Mg/2 Ml Vial) 20 mg IVPUSH ONCE JIAN Stop: 11/06/23 23:59 Last Admin: 11/06/23 10:33 Dose: 20 mg Dexamethasone Sodium Phosphate (Decadron) 12 mg in 50 mls @ 200 mls/hr IV ONCE JIAN Stop: 11/06/23 23:59 Last Admin: 11/06/23 10:31 Dose: 200 mls/hr Fosaprepitant 150 mg/ Sodium (Chloride) 150 mls @ 300 mls/hr IV ONCE JIAN Stop: 11/06/23 23:59 Last Admin: 11/06/23 10:40 Dose: 300 mls/hr Fluorouracil 3,225 mg/ Sodium (Chloride) 92 mls @ 2 mls/hr IVCONT ONCE JIAN Stop: 11/06/23 23:59 Fluorouracil 525 mg/ IV (Miscellaneous Supplies) 10.5 mls @ 0 mls/hr IVPUSH ONCE JIAN Stop: 11/06/23 23:59 Leucovorin Calcium 540 mg/ (Dextrose) 277 mls @ 138.5 mls/hr IV ONCE JIAN Stop: 11/06/23 23:59 Oxaliplatin 100 mg/ (Oxaliplatin 10 mg/ Dextrose) 522 mls @ 261 mls/hr IV ONCE JIAN Stop: 11/06/23 23:59 Olanzapine (Olanzapine 5 Mg Tablet) 5 mg PO ONCE JIAN Stop: 11/06/23 23:59 Last Admin: 11/06/23 10:32 Dose: 5 mg Home Medications Medication Instructions Recorded Confirmed Type omeprazole 20 mg capsule,delayed 20 mg PO DAILY 09/13/23 10/01/23 History release polyethylene glycol 3350 17 gram 17 g PO DAILY PRN Constipation 10/01/23 10/01/23 History oral powder packet Allergies Allergy/AdvReac Type Severity Reaction Status Date / Time adhesive tape Allergy Rash Verified 10/01/23 17:09 latex Allergy Rash Verified 10/01/23 17:07 Exam Vital signs: Vital Signs Temp 97.9 F 11/06/23 09:03 Pulse 79 11/06/23 09:03 Resp 18 11/06/23 09:03 BP 168/72 H 11/06/23 09:03 Pulse Ox 100 11/06/23 09:03 O2 Del Method Room Air 11/06/23 09:03 Intake & Output 11/05/23 11/06/23 11/06/23 18:59 06:59 18:59 Other: Weight 58.2 kg [place] Weight in Grams 75831 Weight 58.2 kg BMI result Body Mass Index 26.8 - Constitutional Present: mild distress - Routine HEENT Exam Head: Present: normal inspection - Routine Neck Exam Absent: lymphadenopathy - Routine Respiratory Exam Present: CTAB. Absent: accessory muscle use - Routine Cardiovascular Exam Cardiovascular: Present: S1, S2 - Routine Abdominal Exam Absent: mass - Routine Extremities Exam Absent: pedal edema - Routine Skin Exam Present: intact. Absent: cyanosis - Routine Neurological Exam Present: alert, oriented X3 Data - Labs CBC & Chem 7: 11/06/23 09:27 11/06/23 09:27 Assessment and Plan Patient Active problem list reviewed?: Yes (1) Pancreatic adenocarcinoma Status: Chronic Assessment and plan: 1. This is a 67-year-old woman who has been diagnosed with metastatic pancreatic adenocarcinoma in August 2023. Ultrasound-guided core needle biopsy of liver mass in left lobe performed 08/27/2023 revealed adenocarcinoma, moderate to poorly differentiated favor pancreatic or biliary origin. MRI abdomen with contrast revealed 2.8 x 3.9 x 2.8 cm hypoenhancing mass in the head of pancreas. Distal atrophy of pancreas and dilatation and tortuosity of the main pancreatic duct up to 5 mm. Hepatic steatosis and numerous ill-defined rim enhancing lesions representing hepatic metastatic disease. No biliary ductal dilatation. Bulky abdominal lymphadenopathy. 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 CA 19 9 elevated, 519 U/mL. 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 She complained of vision problems which prompted brain MRI. 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 She was not in atrial fibrillation. Echocardiogram with bubble study is negative for interatrial shunt. Cerebral ischemic event felt to be related to underlying hypercoagulopathy secondary to pancreatic cancer. She started 1st cycle of chemotherapy with gemcitabine and Nab paclitaxel on 09/20/2023. She developed severe side effects to both cycles of treatment such as severe mucositis, thrush, acute kidney injury, severe pancytopenia/neutropenia and colitis. This happened in spite of dose reduction and using Neulasta as growth factor support. She required prolonged hospitalization. She improved with supportive care, her treatment was delayed by 2 weeks. She has been switched to FOLFOX 6 regimen, proceed with cycles 2 today. 2. Abdominal pain. She is on oxycodone 5 mg 1 tablet every 6-8 hours as needed. I discussed bowel regimen with her. 3. Distress management. She lives alone, she has an elderly aunt and a couple of friends who she states would help her during this process. She declined palliative nursing care. She is on lorazepam 0.5 mg b.i.d. p.r.n.. She was advised to increase it to 3 times a day if needed. 4. Nausea related to chemotherapy. She is now on Zofran and Reglan which is helping. 5. Elevation of transaminases, secondary to treatment and allowing malignancy with liver metastasis. Bilirubin is not significantly elevated. This will be monitored. Proceed with treatment today. CA 19-9 level ordered today, unfortunately it is rising suggestive of disease progression. Follow-up in 3 weeks. - Time Spent With Patient Time Spent with Patient (in minutes): 15
--- NOTE | 2023-11-06 13:14 | MHC.HEMONC ---
Addendum entered by Luiza Hawthorne RN 11/06/23 15:32: Premeds given. Also med with oxycodone 5mg po for abd pain 6/10 with good effect. Pt reported pain down to 2/10. Oxaliplatin/Leucovorin infused. 5FU push given and home with pump. Summary with next appointments given to patient. Pt departed with friend. Pt reports feeling better after treatment. Pt wanted to walk out on her own pushing the wheelchair incase she needs it. Gait noted to be steady. Pt departed. Addendum entered by Luiza Hawthorne RN 11/06/23 15:29: Note benadryl not given. Pt reported last time she got benadryl and they could not wake me up. I was so sleepy. Pt asked not to get benadryl. Dr Harris aware and ok to hold benadryl. Original Note: Pt here for C2 Folfox Reduced dose 85%. Pt states not feeling the best today. Poor appetite 2nd to dry mouth,and metallic taste. Stated was feeling great the first week after chemo then the following just did feel well. Nausea, poor appetite, intermittent pain in abd. Pt reports taking Nausea med metoclopramide and oxycodone/tylenol with some relief. Noted to have a 6.6 lb weight loss. Port to right chest accessed, good blood return. Labs drawn. All discussed with Dr Harris. Ok to treat patient if patient feels up to it. Alee agreeable to treatment. Pre meds given and treatment started.
[2023-11-07 13:42] LABS: Carbohydrate Antigen 19-9 4956 U/mL (<34)
[2023-11-08] MEDS: Heparin Sodium,Porcine Flush 500 UNIT/5 ML SYRINGE IVFLUSH (13:02)
--- NOTE | 2023-11-08 14:31 | MHC.HEMONC ---
Here for pump take down and neulasta injection. Tolerated treatment well, except she did feel slightly wobbly this morning. Walking fine now. Port flushed with heparin 500units and de-accessed. Neulasta 6mg sc given and tolerated well. Pt was very teary today, stating I'm very depressed . Emotional support given to pt. Aware of next appointment. Departed unit.
--- NOTE | 2023-11-12 15:21 | MHC.HEMONC ---
Pt called for refill Oxycodone. This nurse called [facility] and the script was on hold not sure why so they are filling the script which will be ready around 5pm today. Call placed to patient, left VM that script will be ready around 5pm.
--- NOTE | 2023-11-13 13:32 | MHC.HEMONC ---
Addendum entered by Trinity Hogan 11/14/23 13:54: PA for Oxycodone 5MG for every 4 hours 100 tablets approved DOS 10/15/23 - 11/14/24 scanned in patients chart Addendum entered by Trinity Hogan 11/13/23 14:38: Sent PA request via Cover my meds with [employer] for answer within 24 hours Addendum entered by Luiza Hawthorne RN 11/13/23 13:44: i spoke to Fransisca at [facility]. Original Note: Pt called triage line states that [facility] said the oxycodone was on hold. This nurse had called [facility] yesterday and they stated they were filling the oxycodone and it would be ready at 5PM. This nurse again called [facility] and they had actually filled the Script from 11/06/23 but not the script from 11/09/23 because of the increase in dosage q4hr , need a PA. Will notify Bessie. Pt notified that Med is ready for continuous pickling line pickler.
[2023-11-20 09:38] LABS: MANUAL DIFF FLAG NO
[2023-11-20 09:40] VITALS: BP 139/82; PULSE 98; RESP 16; TEMP 37.1; O2SAT 99; BMI 26.1
[2023-11-20 09:40] LABS: Basophils Absolute Auto 0.1 X10*3/uL (0.0-0.2); Basophils Percent Auto 0.8 % (0-2); Eosinophils Absolute Auto 0.2 X10*3/uL (0.0-0.4); Eosinophils Percent Auto 1.1 % (0-4); Hematocrit 32.4 % (37.0-47.0); Hemoglobin 10.8 g/dl (12.0-16.0); Imm Gran Abs Auto 0.18 X10*3/uL (0.00-0.03); Imm Gran Pct Auto 1.3 % (0.0-0.4); Lymphocytes Absolute Auto 1.4 X10*3/uL (1.2-4.9); Lymphocytes Percent Auto 9.7 % (20-40); Mean Corpuscular HGB Conc 33.3 g/dl (31.0-35.0); Mean Corpuscular Hemoglobin 32.5 pg (27.0-33.0); Mean Corpuscular Volume 97.6 fL (80.0-98.0); Mean Platelet Volume 10.1 fL (9.4-12.3); Monocytes Absolute Auto 0.9 X10*3/uL (0.1-1.2); Monocytes Percent Auto 6.1 % (2-11); Neutrophils Absolute Auto 11.5 x10*3/uL (2.0-8.3); Platelet Count 150 X10*3/uL (160-400); Red Blood Count 3.32 X10*6/uL (4.20-5.50); Red Cell Distribution Width 24.4 % (11.0-16.0); White Blood Count 14.2 X10*3/uL (4.8-10.8)
[2023-11-20 09:55] LABS: Alanine Aminotransferase 30 U/L (0-31); Alkaline Phosphatase 600 U/L (39-117); Anion Gap 18 (12-20); Aspartate Amino Transferase 55 U/L (5-31); Bilirubin Total 0.6 mg/dL (0.0-1.0); Blood Urea Nitrogen 13 mg/dL (9-16); Carbon Dioxide 20 mmol/L (22-29); Chloride 103 mmol/L (96-108); Creatinine Clr Calc Pharmacy 43.3; Estimated Glomerular Filt Rate 59; Glucose Random 99 mg/dL (60-115); Magnesium 1.8 mg/dL (1.6-2.6); Sodium 137 mmol/L (135-145); Total Protein 6.1 g/dL (6.5-8.0)
[2023-11-20] MEDS: ondansetron HCL 4 MG/2 ML VIAL 8 MG IVPUSH (10:49)
[2023-11-20] MEDS: OLANZapine 5 MG TABLET PO (11:35)
[2023-11-20] MEDS: Famotidine/PF 20 MG/2 ML VIAL IVPUSH (11:35)
[2023-11-20] MEDS: dexAMETHasone sod phosphate/NS 12 MG/50 ML PIGGYBACK 200 MG IV (11:35)
[2023-11-20] MEDS: oxyCODONE HCl Immed Release 5 MG TABLET PO (11:35)
[2023-11-20] MEDS: Fosaprepitant Dimeglumine 150 MG in 0.9 % Sodium Chloride 145 ML 300 MG IV (11:53)
--- NOTE | 2023-11-20 15:43 | MHC.HEMONC ---
Pt here for C7 Folfox q14 days. Pt came not feeling well, nausea, vomited x 2 at [facility] and once here. Some abdominal pain. decreased appetite states didn't really eat much yesterday. Also c/o scratchy throat. No fever. Port to right chest accessed. Good blood return. Labs drawn and reviewed with Dr Harris. Dr Harris spoke with patient. Ok to treat. Pre meds given and treatment. Bendaryl held pt becomes too sedated and does not want benadryl. Oxaliplatin,Leucovorin infused. Home push given and with 5FU pump. Summary given and patient departed with friend via wheel chair. Returns on for pump Takedown.
[2023-11-22] MEDS: Heparin Sodium,Porcine Flush 500 UNIT/5 ML SYRINGE IVFLUSH (13:31)
--- NOTE | 2023-11-22 16:46 | MHC.HEMONC ---
Pt here for pump takedown and neulasta. Pt reports feeling pretty good. Nausea better. Still with no energy but feels better than Sunday. Pump verified at zero and disconnected. Port flushed with saline and heparin and de accessed. Neulasta 6mg subq given LEANN. No redness or swelling noted. Calendar given and pt departed with friend via wheel chair.
--- NOTE | 2023-11-30 15:42 | HO.HEMONCSCH ---
Per Dr. Harris, pt is now on comfort measures, thus will no longer receive chemo tx at this clinic. Nurse cancelled pt's upcoming chemo appts and notified chemo pharmacy.
== END 2023-12-08 | disposition home or self-care (01) ==
LOC: HO.ONC 13:00
PROVIDERS: PCP Internal Medicine; Visit Provider Internal Medicine
DX: Z51.11 Encounter for antineoplastic chemotherapy (principal); C25.9 Malignant neoplasm of pancreas, unspecified; C78.7 Secondary malignant neoplasm of liver and intrahepatic bile duct; K55.059 Acute (reversible) ischemia of intestine, part and extent unspecified; R11.0 Nausea; T45.1X5A Adverse effect of antineoplastic and immunosuppressive drugs, initial encounter; Z79.891 Long term (current) use of opiate analgesic; Z76.89 Persons encountering health services in other specified circumstances
CPT/HCPCS: 36415; 36591; 80053; 83615; 83735; 85007; 85025; 85027; 85610; 86301; 86850; 86900; 86901; 96366; 96367; 96368; 96372; 96375; 96411; 96413; 96415; 96416; 96417; 99204; 99213; 99214; 99215; J0640; J1100; J1453; J1642; J2405; J2506; J9190; J9201; J9263; J9264

== ENCOUNTER 2023-11-29 15:10 | Emergency (ER) | payer MEDICARE, SELFPAY ==
[2023-11-29 17:13] VITALS: BP 116/68; PULSE 119; O2SAT 99
[2023-11-29 17:14] VITALS: RESP 14
--- NOTE | 2023-11-29 17:15 | PC.NURSE ---
Pt line accessed with non-power port line d/t not having one on the floor, IV medications given per provider request with patient on EMS stretcher. Fluids started
--- NOTE | 2023-11-29 17:19 | ED_ITS ---
HPI - Nausea/Vomiting/Diarrhea General Chief complaint: Nausea/Vomiting/Diarrhea Stated complaint: LUQ PAIN,VOMITING,H/O PANC CA PER EMS Time Seen by Provider: 11/29/23 16:55 Source: patient and old records reviewed Mode of arrival: EMS Limitations: no limitations History of Present Illness HPI Narrative: 68 yo female undergoing chemo for metatastic pancreatic cancer with rising CA 19-9 levels last chemo session 11/20 with poor response to chemo - hx of mucositis, colitis, dehydration, pain, n/v despite therapies and pre-treatment. She is also on thinners for thrombosis, multiple infarcts felt to be due to hypercoaguable state from her malignancy. She presents again today with 1 week of n/v weakness, diarrhea, abdominal pain. She states she feels terrible. Cannot eat or drink or keep her pain under control. MD elicited complaint: nausea, vomiting, diarrhea and abdominal pain Pertinent past history: other (metatastic pancreatic cancer) Onset (ago): week(s) (1) Description of vomiting: watery Associated nausea: Yes Associated abdominal pain: Yes Location of pain: diffuse Radiation: diffuse Pain consistency: constant Severity: severe Quality: aching and constant Exacerbating factors: eating Relieving factors: none Context: other (hx of pancreatic cancer) Associated symptoms: loss of appetite, malaise, nausea/vomiting, anxiety and other (weakness) Related Data Home Medications Medication Instructions Recorded Confirmed omeprazole 20 mg capsule,delayed 20 mg PO DAILY 09/13/23 10/01/23 release polyethylene glycol 3350 17 gram 17 g PO DAILY PRN Constipation 10/01/23 10/01/23 oral powder packet Previous Rx's Medication Instructions Recorded amlodipine 5 mg tablet 5 mg PO DAILY #90 tabs 03/19/23 enoxaparin 80 mg/0.8 mL 70 mg (0.7 mL) subcut Q12H #60 mL 09/20/23 subcutaneous syringe (Lovenox) metoclopramide HCl 5 mg tablet 5 mg PO BID-TID PRN Nausea #30 tabs 09/21/23 ondansetron HCl 8 mg tablet 8 mg PO Q8H PRN Nausea And 09/21/23 Vomiting #30 tabs Magic Mouthwash 10 ml PO QID #240 mL 09/27/23 Diphen/Lido/Antacid 1:1:1 240 mL suspension sodium bicarbonate 650 mg tablet 650 mg PO BID #10 tabs 10/11/23 dexamethasone 4 mg tablet 4 mg PO BID #30 tabs 10/23/23 lorazepam 0.5 mg tablet 0.5 mg PO BID PRN anxiety 90 days 11/02/23 #180 tabs oxycodone 5 mg tablet 5 mg PO Q6H PRN Breakthrough Pain, 11/06/23 Moderate #60 tabs oxycodone 5 mg tablet 5 mg PO Q4H PRN Pain (Scale Score 11/09/23 7-10) #100 tabs tramadol 50 mg tablet 50 mg PO Q6H PRN Pain (Scale Score 11/28/23 7-10) #30 tabs Allergies Allergy/AdvReac Type Severity Reaction Status Date / Time adhesive tape Allergy Rash Verified 10/01/23 17:09 latex Allergy Rash Verified 10/01/23 17:07 Review of Systems 2 Review of Systems: Constitutional : pos Weight loss, No Fever, No Chills ENT/Mouth : No sore throat, No Rhinorrhea Eyes: No Swelling, No Redness Cardiovascular : No Chest Pain, No SOB, NoEdema Respiratory : No Cough, No Sputum, No Wheezing Gastrointestinal : Positive Nausea, Positive Vomiting, positive Diarrhea, positive abdominal Pain, No Hematochezia, No Melena Genitourinary : No Dysuria, No Urinary Frequency, No Hematuria, No Urgency Musculoskeletal : No joint pain, No Myalgias, No Joint Swelling Skin : No Skin Lesions, No rash Neuro : pos Weakness, No Numbness, No Dizziness, No Headache Psych : pos Anxiety/Panic, No Depression All other systems reviewed and are negative. Gastrointestinal: Gastrointestinal: Reports nausea PMFSH Past Medical History Attestation statement: The following information was validated with the patient. Source: old records reviewed Onset Date is defined in the Problem List Problems that require an onset date and time if occurred within 24 hrs of arrival to the ED Aortic Dissection and Rupture; Neurologic impairment; Cardiopulmonary Arrest; Endotracheal Intubation; Insertion or Replacement of Mechanical Circulatory Assist Device Medical History Pancreatic adenocarcinoma Pancreatic mass Hypertension Knee pain, right Blood pressure elevated without history of HTN Abnormal blood pressure Cholelithiasis Vitamin D deficiency Obesity (BMI 30-39.9) High cholesterol Hernia GERD (gastroesophageal reflux disease) Surgical History No pertinent past surgical history Family History Family History Father CVD (cardiovascular disease) Stroke Hypertension Mother Breast cancer Social History Social History Household Members: None Housing: House Do you presently have visiting nurse or other home services: No Alcohol intake: current Alcohol intake frequency: does not drink Alcohol type: wine Patient Tobacco Use Status: Never used Tobacco e-Cigarette/Vaping Use: Never Used Second Hand Smoke Exposure: No Advance Directives: No Advance Directives Information Provided: No service: No Current occupational status: employed Cognitive needs: No Hearing needs: No Vision needs: Yes Physical Exam 2 Vital Signs: Vital Signs: Last Vital Signs Temp 97.8 F 11/29/23 20:30 Pulse 97 11/29/23 20:30 Resp 16 11/29/23 20:30 BP 123/65 11/29/23 20:30 Pulse Ox 99 11/29/23 20:30 O2 Del Method Room Air 11/29/23 20:30 BMI result Body Mass Index 22.2 Appearance: Alert. Oriented X3. No acute distress. Frail pale cachectic Eyes: Pupils equal, round and reactive to light. ENT: Pharynx dry MM Neck: Normal inspection. Neck supple. CVS: Normal heart rate and rhythm. Pulses normal. Respiratory: No respiratory distress. Breath sounds normal. Abdomen: Soft and mild diffuse ttp no rebound Skin: Skin warm and dry. pale skin color. Normal skin turgor. Extremities: No lower extremity edema. Neuro: Oriented X 3. No motor deficit. No sensory deficit. Course Course Course Narrative: Patient placed in physician observation at 627pm. The indication for observation is that the patient needs more time to see CM and hospice. At this time the patient is frail and has lost weight, lungs clear, CV RRR, abd nontender after IV dilaudid, neuro is intact. 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, treat pain, no further aggressive care Medications Administered Generic Name Dose Route Start Last Admin Trade Name Freq PRN Reason Stop Dose Admin Morphine Sulfate 10 mg 11/29/23 19:11 11/29/23 19:24 Morphine Sulfate Oral Elaine 10 Mg/5 Ml Solution PO 10 mg Q2H PRN Administration Pain, Moderate(Pain Scale 4-6) Discontinued Medications Generic Name Dose Route Start Last Admin Trade Name Conrad PRN Reason Stop Dose Admin Diphenhydramine HCl 25 mg 11/29/23 16:59 11/29/23 17:13 Diphenhydramine Hcl 50 Mg/Ml Vial IVPUSH 11/29/23 17:00 25 mg ONCE ONE Administration Hydromorphone HCl 0.5 mg 11/29/23 17:00 11/29/23 17:14 Hydromorphone Hcl 0.5 Mg/0.5 Ml Syringe IVPUSH 11/29/23 17:01 0.5 mg ONCE ONE Administration Protocol Sodium Chloride 1,000 mls @ 999 mls/hr 11/29/23 17:00 11/29/23 17:14 Ns IV 11/29/23 18:00 999 mls/hr .Q1H1M JIAN Administration Metoclopramide HCl 10 mg 11/29/23 16:59 11/29/23 17:14 Metoclopramide Hcl 10 Mg/2 Ml Vial IVPUSH 11/29/23 17:00 10 mg ONCE ONE Administration Medical Decision Making Medical Decision Making [facility] Narrative: 68 yo female with metastatic pancreatic cancer, hypercoagulability, who has worsening CA19-9 levels and poorly tolerating chemo - n/v abdominal pain she is very weak and frail. At this time patient has had to be admitted for pancytopenia, colitis, mucositis. She is very anxious and on arrival states I am dying . She is initially hesitant but after a long conversation she wants to talk to the hospice team about her options. I did run this by Dr. Harris who agrees that hospice is appropriate in this case. Differential Diagnosis Differential Diagnoses: The differential diagnosis associated with the presentation includes dehydration, abdominal pain, metastatic pancreatic cancer Admission/Observation Consideration of admission/observation: Escalation of care including admission/observation considered observe for hospice consult Consult Healthcare Provider Management of the patient was discussed with: Office Technology Professor (IMMANUEL) Lab Data MDM Lab Attestation statement: I reviewed the patient's lab results. 11/29/23 17:37 11/29/23 17:37 Labs: Lab Results 11/29/23 Range/Units 17:37 WBC 0.8 L* (4.8-10.8) X10*3/uL RBC 2.52 L D (4.20-5.50) X10*6/uL Hgb 8.2 L D (12.0-16.0) g/dl Hct 23.8 L D (37.0-47.0) % MCV 94.4 (80.0-98.0) fL MCH 32.5 (27.0-33.0) pg MCHC 34.5 (31.0-35.0) g/dl RDW 21.8 H (11.0-16.0) % Plt Count 14 L* D (160-400) X10*3/uL MPV Not Reportable Immature Gran % (Auto) Cancelled Neut % (Auto) Cancelled Lymph % (Auto) Cancelled [place] % (Auto) Cancelled Eos % (Auto) Cancelled Baso % (Auto) Cancelled Lymph # (Auto) Cancelled [place] # (Auto) Cancelled Eos # (Auto) Cancelled Baso # (Auto) Cancelled Abs Immat Gran (auto) Cancelled Absolute Neuts (auto) Cancelled Absolute Nucleated RBC 0.000 (0.0-0.012) X10*3/uL Nucleated RBC % (auto) 0.0 (0.0-0.2) /100WBC Neutrophils % (Manual) 10 L (45-73) % Band Neutrophils % 0 L (3-5) % Lymphocytes % (Manual) 84 H (20-40) % Monocytes % (Manual) 6 (2-11) % Abs Neuts (Manual) 0.1 L (2.0-8.3) X10*3/uL Lymphocytes # (Manual) 0.7 L (1.2-4.9) X10*3/uL Platelet Estimate DECREASED (NORMAL) Plt Morphology Comment NORMAL RBC Morphology NOTED Acanthocytes (Spur) 1+ (0-2) /OIF PT 29.3 H D (11.1-13.3) SEC INR 2.4 H (0.9-1.1) Sodium 131 L (135-145) mmol/L Potassium 4.0 (3.3-5.1) mmol/L Chloride 100 (96-108) mmol/L Carbon Dioxide 20 L (22-29) mmol/L Anion Gap 15 (12-20) BUN 23 H (9-16) mg/dL Creatinine 1.03 (0.5-1.4) mg/dL Estim Creat Clear Calc 45.7 Estimated GFR 53 Random Glucose 98 (60-115) mg/dL Calcium 7.7 L D (8.4-10.2) mg/dL Magnesium 1.6 (1.6-2.6) mg/dL Total Bilirubin 0.7 (0.0-1.0) mg/dL Direct Bilirubin 0.5 (0.0-0.5) mg/dL AST 27 (5-31) U/L ALT 22 (0-31) U/L Alkaline Phosphatase 243 H (39-117) U/L Total Protein 4.6 L (6.5-8.0) g/dL Albumin 2.4 L (3.5-5.0) g/dL Lipase < 4 L (8-78) U/L Independent Historian Clinical information obtained from an independent historian. History obtained from or confirmed by: Friend External Record Review External record reviewed: Inpatient record Critical Care Time Critical Care Time Critical Care Time: Yes Total Critical Care Time: 40 Attestation: bedside discussions, review of records, discussion about end of life care I attest to this time spent taking care of the patient Discharge Plan Discharge Clinical Impression: Pancreatic adenocarcinoma, Weakness Nausea & vomiting Qualifiers: Vomiting type: unspecified Qualified Code(s): R11.2 - Nausea with vomiting, unspecified Abdominal pain Qualifiers: Abdominal location: generalized Qualified Code(s): R10.84 - Generalized abdominal pain Patient Disposition: Still a Patient Prescriptions: No Action lorazepam 0.5 mg tablet 0.5 mg PO BID PRN (Reason: anxiety) 90 Days Qty: 180 0RF omeprazole 20 mg capsule,delayed release(DR/EC) 20 mg PO DAILY enoxaparin [Lovenox] 80 mg/0.8 mL Syringe 70 mg SUBCUT Q12H Qty: 60 4RF ondansetron HCl 8 mg Tablet 8 mg PO Q8H PRN (Reason: Nausea And Vomiting) Qty: 30 3RF metoclopramide HCl 5 mg Tablet 5 mg PO BID-TID PRN (Reason: Nausea) Qty: 30 3RF Magic Mouthwash Diphen/Lido/Antacid 1:1:1 240 mL Suspension 10 ml PO QID Qty: 240 3RF Rx Instructions: Lidocaine Viscous 2 % 80mL; diphenhydramine 12.5 mg/5 mL 80mL; aluminum-mag hydrox-simeth [id number]/5mL 80mL dexamethasone 4 mg Tablet 4 mg PO BID Qty: 30 0RF Rx Instructions: for 2 days after chemo oxycodone 5 mg Tablet 5 mg PO Q6H PRN (Reason: Breakthrough Pain, Moderate) Qty: 60 0RF Rx Instructions: Partial Fill upon patient request. oxycodone 5 mg Tablet 5 mg PO Q4H PRN (Reason: Pain (Scale Score 7-10)) Qty: 100 0RF Rx Instructions: Partial Fill upon patient request. tramadol 50 mg Tablet 50 mg PO Q6H PRN (Reason: Pain (Scale Score 7-10)) Qty: 30 0RF polyethylene glycol 3350 17 gram powder in packet 17 g PO DAILY PRN (Reason: Constipation) sodium bicarbonate 650 mg Tablet 650 mg PO BID Qty: 10 0RF amlodipine 5 mg tablet 5 mg PO DAILY Qty: 90 2RF
[2023-11-29 17:28] VITALS: BP 116/56; PULSE 93; RESP 16; TEMP 37.1; O2SAT 99; BMI 22.2
[2023-11-29 17:47] LABS: Hematocrit 23.8 % (37.0-47.0); Hemoglobin 8.2 g/dl (12.0-16.0); Mean Corpuscular HGB Conc 34.5 g/dl (31.0-35.0); Mean Corpuscular Hemoglobin 32.5 pg (27.0-33.0); Mean Corpuscular Volume 94.4 fL (80.0-98.0); Red Blood Count 2.52 X10*6/uL (4.20-5.50); Red Cell Distribution Width 21.8 % (11.0-16.0)
[2023-11-29 17:48] LABS: WBC ABN SCTR FOR CBC 1
[2023-11-29 18:01] LABS: Alanine Aminotransferase 22 U/L (0-31); Albumin Level 2.4 g/dL (3.5-5.0); Alkaline Phosphatase 243 U/L (39-117); Anion Gap 15 (12-20); Aspartate Amino Transferase 27 U/L (5-31); Bilirubin Direct 0.5 mg/dL (0.0-0.5); Bilirubin Total 0.7 mg/dL (0.0-1.0); Blood Urea Nitrogen 23 mg/dL (9-16); Calcium 7.7 mg/dL (8.4-10.2); Carbon Dioxide 20 mmol/L (22-29); Chloride 100 mmol/L (96-108); Creatinine Clr Calc Pharmacy 45.7; Estimated Glomerular Filt Rate 53; Glucose Random 98 mg/dL (60-115); Lipase < 4 U/L (8-78); Magnesium 1.6 mg/dL (1.6-2.6); Sodium 131 mmol/L (135-145); Total Protein 4.6 g/dL (6.5-8.0)
[2023-11-29 18:27] LABS: Band Neutrophils Percent 0 % (3-5); Lymphocytes Percent Manual 84 % (20-40); Monocytes Percent Manual 6 % (2-11); Neutrophils Percent Manual 10 % (45-73)
[2023-11-29 18:28] LABS: Acanthocytes 1+ (0-2) /OIF; Platelet Estimate DECREASED (NORMAL); Platelet Morphology Comment NORMAL; RBC Morphology NOTED
[2023-11-29 18:29] LABS: Lymphocytes Absolute Manual 0.7 X10*3/uL (1.2-4.9); Neutrophils Absolute Manual 0.1 X10*3/uL (2.0-8.3)
[2023-11-29 18:30] LABS: Platelet Count 14 X10*3/uL (160-400)
[2023-11-29 18:31] LABS: White Blood Count 0.8 X10*3/uL (4.8-10.8)
--- NOTE | 2023-11-29 19:27 | MHC.CM.ED ---
CM met with patient at request of Dr. Sumner. Pt has metastatic adenocarcinoma of the pancreas and had last chemo treatment on 11/[address] Harris. Pt has had a poor response to chemo per Dr. Sumner. Pt has been bedbound for about 3 days, very weak, increasing pain and poor pain control. Pt appears cachetic and weak. Voice weak. Friend and HCP Sonam Smith is at bedside ([phone]). Pt has pancytopenia and a WBC ct of 0.8. Per Dr. Sumner, he spoke with Dr. Harris and she agrees that Hospice is a good choice. Pt was unsure and Dr. Sumner asked CM to meet with her. Pt was diagnosed in July and started chemo in August. She was living in her own home, independently, but is now staying with her aunt, Deborah Skelton (HCP [phone]). Aunt is 83. Pt states her aunt is in excellent shape and cares for her. Pt has a HCP at [facility] with Linda Llanes [phone]. Will need to call in am for copy. CM had long conversation with patient and friend regarding palliative care and hospice care. Dr. Sumner came in and explained to patient that her labs were poor, offered platelet transfusion, but explained that was like a bandaid, and would not make her feel any better. Pt is agreeable to informational meeting with hospice. Referral placed to [facility]. Pt agreeable to [employer], states I just want to be out of pain . Is also requesting to speak with Dr. Harris in the morning. Dr. Sumner aware. Pt RN aware. Pt medicated for pain. Pt to remain in ED under physician observation tonight. CM will follow for discharge planning.
[2023-11-29 20:30] VITALS: BP 123/65; PULSE 97; RESP 16; TEMP 36.6; O2SAT 99
--- NOTE | 2023-11-29 22:46 | PC.NURSE ---
pt medicated according to mar. pt reports 07/05 pain pt provided with warm blanket repositioned in bed provided with water. pt denies additional needs at this time
--- NOTE | 2023-11-30 01:53 | PC.NURSE ---
I assumed care of the pt in overflow at approx 0100. Pt was transferred to hospital bed with slide sheet. Pt was given clean linens and checked for any messes. Pt is A&Ox4, GCS 15, with warm, dry skin. Pt requested a drink of water, when offered a cup of water, pt adamantly refused, stating she needs her water bottle. I called the main ED and no water bottle was seen. Grace Deutsch got the pt a new water bottle and she is able to take small sips at a time. Pt requested pain medications and was medicated with morphine per JAN. Pt is to be seen by hospice team in the morning to discuss options going forward.
--- NOTE | 2023-11-30 07:57 | PC.NURSE ---
resumed care of patient, pt assessed onto the bedpan per her request, she does not feel strong enough to get to the bathrom or a commode, pt offered a purewic but declined, PRN pain medication given to patient per her request with movement increasing her pain
--- NOTE | 2023-11-30 11:28 | PC.NURSE ---
screen tender, baldev, and family are with patient at this time discussing goals of care
--- NOTE | 2023-11-30 13:01 | MHC.CM.PN ---
CM CALLED PTS ATTY OFFICE FOR A COPY OF HER HCP THEY WILL CALL BACK
[2023-11-30 16:19] VITALS: BP 131/65; PULSE 62; RESP 16; TEMP 37.3; O2SAT 96
--- NOTE | 2023-11-30 16:57 | MHC.CM.ED ---
CM met with patient, aunt and HCP Sonam ([phone]) to discuss Hospice recommendations for 24/7 care. Pt lives with elderly aunt (83) and she is not capable of providing physical care for her niece. She freely admits this. Sonam cannot provide the level of care needed at home. Pt is distressed with the conversation, as she wants her money to remain in trust for her cats and does not want to use it. CM explained that her options are to pay [facility] care [facility] or [facility] and have insurance pay for Hospice portion, or she can pay for 24/7 care in her home with hospice. Pt tells CM to speak with her associate attorney, Linda Llanes ([phone]), who is her POA about paying for home care. Pt again states that she doesn't want her monies to be bleed dry . CM explained that her money is there to care for her too. Pt understands that she is essentially bed ridden and cannot care for herself any more. CM spoke privately with Aunt Deborah, who does understand that her niece is in the dying process and admits that she cannot physically care for her. Detailed Message left with Route Agent Linda Llanes with request for return call. She was notified that patient needs hospice level of care and is PLATE CONDITION[employer]. Notified that 24/7 care is needed at home. CM contact information given. [facility] home care is an option for services ([phone]). Will speak with options for home care with associate attorney. Pt will remain in overflow, with [facility] [employer] care. Expect patient to remain over weekend. Contact card given to Sonam (HCP). CM following for discharge planning.
[2023-11-30 19:33] VITALS: BP 118/64; PULSE 117; RESP 15; TEMP 37.3; O2SAT 97
--- NOTE | 2023-11-30 19:36 | PC.NURSE ---
Assumed care for pt. Pt aox4, resting at the bedside. No apparent distress noted. VSS. Reports no pain at this time. Perineal care provided and repositioned to the left side. Call grace and belongings placed within reach. Monitoring is ongoing.
--- NOTE | 2023-12-01 03:41 | PC.NURSE ---
Pt sleeping at the bedside. No apparent distress noted. Breaths are even regular and unlabored with equal chest rises. Monitoring is ongoing.
[2023-12-01 06:12] VITALS: PULSE 117; RESP 15; TEMP 36.7; O2SAT 97
--- NOTE | 2023-12-01 10:22 | PHA.MEDREC ---
Pharmacy Consult ? Medication Reconciliation Pharmacy has completed the medication reconciliation.
--- NOTE | 2023-12-01 10:43 | PC.NURSE ---
chaplain ortiz and family member bedside at this time for pt support. call grace placed within reach.
--- NOTE | 2023-12-01 11:12 | MHC.CM.ED ---
Addendum entered by Arlene Williamson 12/01/23 11:13: Per Linda, patient has funds available and will not qualify for [employer]. Original Note: Patient remains in ER overflow. Received telephone call from patient's alternate HCP, Linda. Linda can be reached via telephone at [phone]. Linda agrees patient will need hospice care at a facility. Linda is requesting facility close to patient's home so that her elderly aunt can visit. [facility] would be Linda's first choice. Referral made via [facility]. Continue to monitor for d/c needs.
--- NOTE | 2023-12-01 11:16 | PC.NURSE ---
pt c/o 10/10 generalized body pain at this time. pt medicated per prn order. will reassess.
--- NOTE | 2023-12-01 11:45 | MHC.CM.ED ---
Received telephone call from Linda. Linda spoke with patient's aunt, Deborah. Deborah will allow [facility] to come to her home under hospice. Linda told Deborah there will need to be 24/7 care. Deborah is fine with that. [facility] has the funds to privately pay for 24/7 care. [facility] made aware. Patient will need a hospital bed. Continue to monitor for d/c needs.
--- NOTE | 2023-12-01 13:11 | PC.NURSE ---
pt still c/o generalized body pain at this time. repositioned to comfort. medication administrated per provider order. pt consumed a few bites of lunch. family beside for support. call grace placed within reach.
[2023-12-01 14:07] VITALS: BP 103/55; PULSE 92; RESP 18; TEMP 36.9; O2SAT 94
--- NOTE | 2023-12-01 14:26 | MHC.EDTECH ---
Pt repositioned for comfort. Family at bedside. Call grace placed within reach.
--- NOTE | 2023-12-01 14:35 | PC.NURSE ---
pt verbalizing pain level decreased post medication administration. resting comfortably in no apparent distress. family bedside. call grace placed within reach.
--- NOTE | 2023-12-01 15:00 | PC.NURSE ---
CM speaking w/ pt and family member at this time.
--- NOTE | 2023-12-01 15:42 | MHC.CM.ED ---
Addendum entered by Arlene Williamson 12/02/23 12:14: T/W reached out to [facility]. Someone from the office will call back on Sunday. Original Note: Met with patient and friend, Sonam, in regards to discharge planning. Patient and Sonam aware patient will be here until at least Sunday. Both are in agreement with plan of patient staying in the ER overflow unit until Sunday and going to her aunt Deborah's house with [facility]. Both are aware that 18/06 private pay care would need to be arranged before that can happen. Patient continues to be worried about not having money to leave for her 9 cats. T/W explained nursing home facility could potentially be more expensive than care at home. CM will meet with patient and Sonam on Sunday at 11am to discuss private pay home care options. Both agreeable. T/W spoke with Deborah via telephone at [phone]. Deborah aware patient would not be d/c'd before Sunday. Deborah verbalized understanding and knows she needs to clean an area for where the hospital bed will be. Left voicemail for Linda at [phone] explaining this info. Continue to monitor for d/c needs.
--- NOTE | 2023-12-01 18:25 | PC.NURSE ---
pt c/o generalized pain at this time - requesting prn medication. medication administered per provider order. family no longer beside at this time. respirations remain even and unlabored. call grace placed within reach.
--- NOTE | 2023-12-01 19:20 | PC.NURSE ---
this rn assumed care of pt. pt repositioned in bed at this time, no acute distress noted.
--- NOTE | 2023-12-01 19:31 | PC.NURSE ---
pt refusing vitals at this time, provider aware.
--- NOTE | 2023-12-01 21:27 | PC.NURSE ---
pt allowed to sleep at this time, respirations even and unlabored.
--- NOTE | 2023-12-02 06:34 | PC.NURSE ---
Acquired care at 2300. Pt sleeps in naps. Hygiene provided.NO signs of distress.
--- NOTE | 2023-12-02 11:01 | MHC.EDTECH ---
Patient didn't want AM care due to already had one done , giving patient crossword puzzle.RN aware
[2023-12-02 14:38] VITALS: BP 116/58; PULSE 80; RESP 12; TEMP 36.7; O2SAT 99
--- NOTE | 2023-12-02 18:09 | PC.NURSE ---
pt vomited once. reports nausea. PRN zofran given per MAR
[2023-12-02 22:45] VITALS: BP 95/54; PULSE 101; RESP 20; TEMP 36.6; O2SAT 97
--- NOTE | 2023-12-02 23:27 | PC.NURSE ---
Patient incontinent of large amount of stool, alexey care given. Patient complaining of feeling itchy and like she is still dirty constantly, patient cleaned until she was feeling less itchy and more comfortable. Patient boosted and repositioned in bed, states that she is feeling more comfortable.
--- NOTE | 2023-12-03 05:20 | PC.NURSE ---
This policy writer typist assumed care of this Pt at 0300. Pt A&Ox3, reports 8/10 body pain. Pt medicated per MAR, repositioned. Skin is cool, dry and intact, multiple purple color bruising noted throughout Pt body.
[2023-12-03 06:00] VITALS: RESP 14
--- NOTE | 2023-12-03 08:00 | PC.NURSE ---
medicated per mar for pain as she states when she coughs she gets bad pain. new blankets/outfit. given breakfast- pt did not eat, drank a few sips of coffee.
[2023-12-03 10:02] VITALS: RESP 16
--- NOTE | 2023-12-03 10:04 | PC.NURSE ---
paulette starr notiifed pt visitor states i think she had a stroke, her eyelid is drooping. rn evaluated- no focal neuro deficits noted. no droop noted. clear speech. symmetrical face. DUMONT equally. no interventions ordered by paulette starr and ordered to continue without vitals as claim investigator. calm, coop, no respiratory distress. declined pain med offering- pt fell asleep, no discomfort noted/reported. given warm blanket and fresh water
--- NOTE | 2023-12-03 13:08 | PC.NURSE ---
pt repositioned to her right sided for comfort
[2023-12-03 13:27] VITALS: RESP 16
--- NOTE | 2023-12-03 13:39 | PC.NURSE ---
pt requested morphine prn- only wanted half. wasting w other rn. repositioned, boosted. given more warm blankets/hot pack for back.
[2023-12-03 14:00] VITALS: RESP 16
--- NOTE | 2023-12-03 14:29 | PC.NURSE ---
repositioned w multiple pillows and blankets. no respiratory distress
[2023-12-03 14:48] VITALS: RESP 16
--- NOTE | 2023-12-03 15:58 | PC.NURSE ---
Patient repositioned by ED techs. It was reported to this RN that patient was uncomfortable and needing pain medication.This RN brought pain med to bedside, patient resting on stretcher with eyes closed, awakens to verbal stimuli, patent states she is more comfortable after being repositioned and that she does not need pain medication at this time. fresh water given. family at bedside
--- NOTE | 2023-12-03 15:58 | MHC.EDTECH ---
This pct assumed care of Pt at 1500 ,Patient was clean and dry ,Pt was reposition and boosted up in bed ,warm blanket given ,Pt mouth was swab ,Pt fell back asleep ,Pt friend at bedside .
--- NOTE | 2023-12-03 18:00 | MHC.EDTECH ---
Patient friends left ,Patient sleeping ,,resp is even and unlabored ,Patient not eating or drinking and is not voiding ,RN Caryl and Joanna aware ,mouth care is being Provided ,Will continue to monitor ,Call grace within Pt reach .
--- NOTE | 2023-12-03 18:05 | PC.NURSE ---
patient sleeping. respirations even, non labored. appears comfortable at this time.
--- NOTE | 2023-12-03 18:23 | MHC.CM.ED ---
CM spoke with HCP Sonma. Sonam tells CM that they are considering [facility] home care for 24/7 care. She will speak with patients aunt, Deborah. Application Support Linda Llanes is aware of need for 24/7 care and states that patient has funds. Pt is agreeable, but remains concerned that her cats are cared for in her trust. Pt is sleeping at present. Sonam tells CM she has been sleeping alot and has been calling her with instructions for end of life. CM encouraged Sonam to call P in the morning first thing to begin the process of arranging 24/7 care for this patient. Sonam has contact information for agency. Hospice updated with information. Sonam requested to share updates from [facility] with CM tomorrow. CM will follow for discharge needs.
[2023-12-03 20:48] VITALS: RESP 12
--- NOTE | 2023-12-03 20:48 | MHC.EDTECH ---
Patient continue to be sleeping ,Pt was check for incontinence ,and was dry .
[2023-12-04] VITALS: RESP 16
--- NOTE | 2023-12-04 00:54 | MHC.EDTECH ---
Patient woke up around 0030 ,has sips of water from her water bottle ,Patient was able to hold the bottle on her own ,Patient asked to used to bed cabral ,sat on it for about 15 mins ,but was not able to void ,This Pct change bedpad,apply lotion to Patient back ,legs and arms ,Patient was reposition ,Pillow Place underneath Pt feet ,Patient has no Pain at this time ,and fell back asleep .
--- NOTE | 2023-12-04 04:05 | MHC.EDTECH ---
Pt rang call grace to be repositioned. Pt moved to right side. Call grace within reach.
[2023-12-04 05:55] VITALS: RESP 12
--- NOTE | 2023-12-04 07:10 | PC.NURSE ---
12/03: Assumed care of patient at 23:30. Pt seen in ED overflow. 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 A&Ox4, drowsy but arousable and rings to make her needs known. Denies pain and refuses offered meds. Q2h turning and repositioning provided per pt request. Voids using bedpan with assistance. Pt denies acute complaints. Bed alarm on and safety measures in place. Handoff report given to oncoming RN 06:45.
[2023-12-04] MEDS: Morphine Sulfate Oral Sol 10 MG/5 ML SOLUTION PO ×2 (13:06→17:37)
--- NOTE | 2023-12-04 13:36 | PC.NURSE ---
pt assisted with oral suspension morphine. called pharmacy for magic mouthwash
[2023-12-04 14:00] VITALS: RESP 14
--- NOTE | 2023-12-04 14:47 | MHC.CM.ED ---
Patient remains in ER overflow. Patient's family was in contact with Chava at [facility]. Chava came to the ER to meet with patient and family. [facility] will not be able to help with 18/06 care until December. Patient and family aware. T/W spoke with Elizabeth of [facility]. She will provide other private pay options available. Continue to monitor for d/c needs.
[2023-12-04] MEDS: Mag&Al/Sim/Diphenhyd/Lidocaine 10 ML ORAL.SUSP PO (17:37)
--- NOTE | 2023-12-04 18:23 | PC.NURSE ---
pt assisted with PRN morphine for pain
--- NOTE | 2023-12-04 18:25 | MHC.CM.ED ---
Listing of 6 agencies given to Sonam (HCP). Mariely from [facility] in [place] called. Agency is willing to take on hospice patients, but they do not administer medications. Spoke to Sonam and her , Bryan. They are aware that agencies do not administer meds, that Alee will go home on oral medications, and maybe a patch. Aware that Hospice will manage medications with PCP. Aware that if oral medications are not enough, patient may need IV medications, which would necessitate return to ED. Sonam and Bryan aware that the goal is for patient to remain comfortable at home during/through the dying process. Aware that hospice will be available to them to answer any questions. Aware that home care is between $30-36 dollars and hour. Pt is lethargic. Answers to name and can tell CM that she is having pain. RN aware and will medicate. Sonam tells CM that patient has not eaten and is only using mouth swabs. CM again reviewed the dying process with Sonam, explaining that not eating is OK and keeping her lips moist and using swabs is perfect. Offering liquids as patient can tolerate is OK. Sonam is aware that nursing staff and CM are available for any questions and for support. Will speak again tomorrow regarding 24/7 care options.
[2023-12-04 20:13] VITALS: RESP 14
[2023-12-04 20:52] VITALS: RESP 18
--- NOTE | 2023-12-04 21:27 | PC.NURSE ---
pt sleeping calmy and comfortably RR 14 . I am not going to wake her for mouth wash at this time. Will administer later if she is up with requests it.
--- NOTE | 2023-12-04 21:44 | PC.NURSE ---
pt woke, placed on bed cabral per pt request. No output at this time. Repositioned to make more comfortable. Pt refused all meds at this time. Water given, small amount of intake.
[2023-12-04 23:47] VITALS: RESP 15
[2023-12-05] VITALS (10 sets, daily range): RESP 10–22
--- NOTE | 2023-12-05 03:13 | PC.NURSE ---
repositioned pt per pt request
[2023-12-05] MEDS: amLODIPine Besylate 5 MG TABLET PO (07:51)
[2023-12-05] MEDS: traMADoL HCL 50 MG TABLET PO (07:52)
[2023-12-05] MEDS: Omeprazole 20 MG CAPSULE.DR PO (07:52)
[2023-12-05] MEDS: Morphine Sulfate Oral Sol 10 MG/5 ML SOLUTION PO (11:47)
[2023-12-05] MEDS: Mag&Al/Sim/Diphenhyd/Lidocaine 10 ML ORAL.SUSP PO (11:47)
--- NOTE | 2023-12-05 13:25 | PC.NURSE ---
Pt requested to use bedpan, waited 10 minutes, no bowel movement at this time. This RN removed bedpan from patient, pt repositioned on her right side for comfort. Pt reports that she feels better on her side at this time. Chapstick applied to lips due to chapping, pt declines water. Family at bedside, no other issues at this time
--- NOTE | 2023-12-05 15:36 | MHC.CM.ED ---
Patient remains in ER overflow. Received notification from Luli CR that Sonam was wondering if the HCP on file lists her as the agent. HCP on file from 2013 lists patient's mother as primary and Linda as secondary. T/W spoke with Linda via telephone. HCP has not been updated at this point. Linda feels Deborah and Sonam are great support systems and will reach out to them if there are any questions about patient's care. Linda also feels all information can be shared with Jamshid. Linda is currently at patient's bank. Patient has the fund to private pay for home care. Continue to monitor for d/c needs.
--- NOTE | 2023-12-05 17:34 | PC.NURSE ---
pt refusing medications/fluids by mouth at this time, chapstick applied for chapped lips. Pt respirations even and unlabored, skin pwd, no urine output since 11am this morning. Family went home to rest but let this RN know to call with any changes
--- NOTE | 2023-12-05 17:52 | MHC.CM.ED ---
Addendum entered by Geovanna Argueta 12/05/23 19:46: CM spoke with Dr. Flores regarding obtaining MOLST. 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 Dr. Flores met with patient. MOLST completed. U[place] into [facility] and [facility] [place]. CM sat with patient; encouraged rest. Asking for Sonam. Explained to patient that Sonam is home resting and that we are caring for her in the hospital. Stressed that Flanging Roll Operator Mario Alberto is taking care of everything, just as she has asked. Pt slight restless, appears uncomfortable. RN present and aware. Addendum entered by Geovanna Argueta 12/05/23 19:39: CM spoke with Flanging Roll Operator Mario Alberto (cell [phone]) regarding plan of care moving forward with agencies to provide 24/7 home care for patient to go home with [facility]. Updated Flanging Roll Operator Mario Alberto regarding Sonam's desire to only provide supports to this patient, but not wanting to make any decisions regarding agencies. Sonam would like the deputy attorney general to follow up with agencies. CM gave Flanging Roll Operator Barry contact information for [facility] and for [facility]. Flanging Roll Operator Mario Alberto (HCP) updated on patient condition: sleeping much, no food intake for several days and refusing po, expect for mouth swabs and mouth care. Flanging Roll Operator Mario Alberto asked about a MOLST. CM will speak with provider regarding completing a MOLST. Flanging Roll Operator will work on home care options. Will touch base tomorrow. Original Note: Spoke with Sonam and her , Bryan. Sonam asked about HCP. IMMANUEL explained that IMMANUEL received a copy of the HCP from the deputy attorney general's office, and the HCP on file names Alee's mother and Flanging Roll Operator Linda Llanes as the HCP. Sonam is very relieved. She tells IMMANUEL she will still visit and do what she can, but she does not want to make any decisions. Sonam did not call any agencies today. Sonam requests that the HCP make these decisions. IMMANUEL called and left a voice mail with Flanging Roll Operator Mario Alberto regarding agencies for 24/7 care and requested a call back to discuss home care options. Encouraged Sonam to go home and rest. She looks exhausted. RN aware
--- NOTE | 2023-12-05 19:15 | PC.NURSE ---
per MD, discontinue lovenox
[2023-12-05] MEDS: Morphine Sulfate 2 MG/ML CARTRIDGE IVPUSH (19:49)
--- NOTE | 2023-12-05 19:52 | PC.NURSE ---
pt given morphine IV via port. Pt tolerated well. pt was incontinent, linens changed, patient given bed bath, repositioned, lotion applied to extremities, pillow placed between legs and under left side. Purewick placed on patient, immediate output of 250 mls of dark adina urine. Pt now appears more comfortable
--- NOTE | 2023-12-05 21:41 | PC.NURSE ---
Addendum entered by Ellie Medina 12/05/23 21:45: Pt has some breakdown on coccyx, cleaned and dried. Pt turned on side to avoid direct pressure Original Note: Late entry: this RN attempted to give PO morphine, pt declined, struggling with intake at this time. This RN and pillowcase cleaner Lizett assisted patient with wetting her lips with swab. chapstick applied. MD David came down with IMMANUEL Phoenix to complete Molst form. MD David consulted regarding changing PO morphine to IV. Order changed in JAN.
--- NOTE | 2023-12-06 00:28 | PC.NURSE ---
Assumed care for pt at 2300. Pt sleeping at the bedside. No apparent distress noted. Breaths are even regular and unlabored with equal chest rises. Monitoring is on going.
[2023-12-06 06:00] VITALS: RESP 14
--- NOTE | 2023-12-06 06:05 | PC.NURSE ---
Pt sleeping at the bedside. RR 14 even regular and unlabored with equal chest rises. No apparent distress noted. Monitoring is ongoing.
[2023-12-06 08:11] VITALS: BP 164/82; PULSE 98; RESP 16; TEMP 36.6; O2SAT 97
[2023-12-06] MEDS: Morphine Sulfate 2 MG/ML CARTRIDGE IVPUSH ×9 (08:11→22:50)
--- NOTE | 2023-12-06 09:02 | PC.NURSE ---
PT'S FAMILY BARB CORBETT ([phone]) CALLED [facility] AND WAS UPDATED ON PT STATUS.
--- NOTE | 2023-12-06 09:03 | MHC.EDTECH ---
Provided oral care for patient, hydrated lips and mouth applied chapstick.
--- NOTE | 2023-12-06 09:18 | PC.NURSE ---
PT IS SLEEPING AT THIS TIME. RESP EVEN AND UNLABORED. PT WAS MOANING EARLIER. PT MED X 1 EARLIER WITH MORPHINE 2MG IVP. PT HAS PORT-A-CATH TO R CHEST WHICH WAS ACCESSED PRIOR TO THIS SHIFT. PT REPOSITION AND MOUTH CARE DONE BY WAREHOUSE RECEIVING CLERK. HOB UP . THIS RN ATTEMPTED TO GIVEN PT HER MED CRUSHED IN APPLESAUCE. PT IS NOT SWALLOWING/MED WAS SITTING AT THE FRONTAL AREA OF THE TONGUE. MED WITH APPLESAUCE WAS ABLE TO BE RETRIEVED.WILL PT APPEARS COMFORTABLE AT THIS TIME. WILL CONTINUE TO MONITOR.
--- NOTE | 2023-12-06 10:00 | PC.NURSE ---
PASTOR NEWELL IS SITTING AT BEDSIDE WITH PATIENT.
--- NOTE | 2023-12-06 11:15 | MHC.CM.ED ---
Addendum entered by Arlene Williamson 12/06/23 13:13: Alexander Florence RN patient does not qualify for GIP. Original Note: Patient remains in ER overflow. Patient was given IV morphine x2 because of not being able to take PO meds. Oral Morphine should be able to be asborbed in patient's mouth. However, when she was attempted, med would not absorb and patient was not able to swallow it. Patient is lethargic at this time. After discussing patient with Jaclyn CR and Zahida WILHELM, it is not appropriate to transport patient home with hospice at this time. [facility] will be asked to re-eval patient to see if GIP is appropriate. Linda, patient's HCP aware and agreeable. Continue to monitor for d/c needs.
--- NOTE | 2023-12-06 12:44 | PC.NURSE ---
PT SEEN BY DREW TERRY RN (HOSPICE). PT DOES NOT QUALIFY FOR INPATIENT HOSPICE. FAMILY AT BEDSIDE AND THEY ARE AWARE. PT IS APPEARS TO BE SLIGHTLY UNCOMFORTABLE (PAIN/DISC). WILL MEDICATE.
[2023-12-06 14:00] VITALS: RESP 15
--- NOTE | 2023-12-06 15:28 | MHC.EDTECH ---
repositioned and boosted patient
--- NOTE | 2023-12-06 17:44 | MHC.CM.ED ---
CM met with patient and her friends Sonam and Bryan. Pt opens her eyes to voice, but appears to be starring off, not focusing. Pt condition poor, worse than yesterday. Pt was able to speak yesterday. CM spend time with Sonam, allowing her to grieve and tell stories about this patient. No plans to discharge patient to home with hospice. No 24/7 care yet arranged. Pt too poor for transport. 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
--- NOTE | 2023-12-06 19:00 | PC.NURSE ---
Spoke with Radha Clarke regarding vital signs and okayed vitals being discontinued at this time. Patient with eyes open but not responding to stimulation.
[2023-12-06 20:28] VITALS: RESP 16
[2023-12-06] MEDS: Scopolamine 1.5 MG PATCH.TD.3 EAR-BEHIND (21:14)
--- NOTE | 2023-12-06 21:33 | PC.NURSE ---
Patient noted to have a wet cough, Radha Clarke LEHR STRIPPER notified and scopolamine patch was order and place behind right ear. Patient noted to be uncomfortable, medicated with morphine per JAN.
[2023-12-06 22:50] VITALS: RESP 15
[2023-12-07 07:39] VITALS: RESP 12
--- NOTE | 2023-12-07 08:25 | PC.NURSE ---
PT IS SLEEPING RESP EVEN AND UNLABORED. 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
--- NOTE | 2023-12-07 09:45 | MHC.EDTECH ---
Washed patient and repositioned her to lay on her left side. Also did mouth care on patient with the green sponge
--- NOTE | 2023-12-07 10:05 | PC.NURSE ---
BERNICE NEWELL AT BEDSIDE.
--- NOTE | 2023-12-07 12:29 | MHC.CM.ED ---
Attempted to meet with patient. Patient currently resting comfortably. Pastor Faria is at bedside. Continue to monitor for d/c needs.
--- NOTE | 2023-12-07 13:30 | PC.NURSE ---
CHAPLAIN NEWELL CONTINUES AT BEDSIDE AND WAS JOINED BY AN JUSTICE COURT JUDGE. PT IS SLEEPING RESP EVEN AND UNLABORED,
--- NOTE | 2023-12-07 13:50 | PC.NURSE ---
CHAPLAIN NEWELL HAS LEFT THE BEDSIDE.
[2023-12-07 14:00] VITALS: RESP 15
--- NOTE | 2023-12-07 14:29 | PC.NURSE ---
PT IS COMFORTABLE, SLEEPING RESP EVEN AND UNLABORED. WILL CONTINUE TO MONITOR. CHAPLAIN NEWELL IS AT BEDSIDE. EQUIPMENT LEAD HAS LEFT THE BEDSIDE EARLIER.
--- NOTE | 2023-12-07 14:42 | PC.NURSE ---
CHAPLAIN NEWELL HAS LEFT THE BEDSIDE. PT FRIENDS ARE AT THE BEDSIDE NOW. NO MOANING/GROINING OF PAIN DISC COMFORT NOTED. WILL CONTINUE TO MONITOR.
--- NOTE | 2023-12-07 14:45 | MHC.EDTECH ---
Repositioned PT to right side. Checked for incontinence. She was dry. Performed mouthcare on PT
[2023-12-07] MEDS: Morphine Sulfate 2 MG/ML CARTRIDGE IVPUSH (15:13)
--- NOTE | 2023-12-07 15:21 | PC.NURSE ---
pt had a few episodes of coughing with moaning. last time medicated for pain was last night. pt medicated per jan with PRN morphine. visitors at bedside. rr even/unlabored.
--- NOTE | 2023-12-07 17:00 | MHC.EDTECH ---
repositioned pt to left side checked and pt is dry
--- NOTE | 2023-12-07 17:51 | PC.NURSE ---
pt friend at bedside asking to speak with IMMANUEL Phoenix for update on plan of care for pt. Lizett aware and will speak with pt friend soon to give update.
--- NOTE | 2023-12-07 18:35 | PC.NURSE ---
IMMANUEL Phoenix at bedside with pt and visitors giving update. 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 pt is too sick to be transferred out of hospital.
--- NOTE | 2023-12-07 20:33 | MHC.EDTECH ---
repositioned pt to the left checked her and she is dry.
[2023-12-07 21:50] VITALS: RESP 17
--- NOTE | 2023-12-08 03:56 | PC.NURSE ---
Assumed care of patient. This RN called into room to assess pt status . Heart and lung sounds absent. Provider notified , patient pronounced, time of 0238. Family member Deborah notified. NEDs notified with patient's information. Awaiting return call regarding possible donor status . home unknown at this time.
== END 2023-12-08 09:05 | disposition expired ==
PROVIDERS: Emergency Medicine; Emergency Provider Emergency Medicine
DX: C25.9 Malignant neoplasm of pancreas, unspecified (principal); R10.84 Generalized abdominal pain; R11.2 Nausea with vomiting, unspecified; R53.1 Weakness; D61.818 Other pancytopenia; K52.9 Noninfective gastroenteritis and colitis, unspecified; K12.30 Oral mucositis (ulcerative), unspecified; D68.59 Other primary thrombophilia; E78.00 Pure hypercholesterolemia, unspecified; D64.9 Anemia, unspecified; K21.9 Gastro-esophageal reflux disease without esophagitis; Z92.21 Personal history of antineoplastic chemotherapy; Z79.899 Other long term (current) drug therapy
CPT/HCPCS: 36415; 80048; 80076; 83690; 83735; 85007; 85027; 85610; 96361; 96374; 96375; 96376; 99285; J1170; J1200; J2060; J2270; J2405; J2765